=== PATIENT | male | born 1945 | race Caucasian/White ===

== ENCOUNTER → 2017-07-03 10:54 | Outpatient (CLI) | payer MEDICARE, SELFPAY ==
[2017-07-03 12:52] LABS: Anion Gap 6 (5-15); BUN 13 mg/dL (7-18); BUN/Creat Ratio 12.6 RATIO (10-20); Calcium,Total 8.7 mg/dL (8.5-10.1); Chloride 102 mmol/L (98-107); Creatinine, Serum 1.03 mg/dL (0.70-1.30); EST Glomerular Filtration Rate 75 mL/min (>60); Est Glom Filt Rate - Afr Amer 91 mL/min (>60); Glucose 104 mg/dL (74-106); Potassium 3.4 mmol/L (3.5-5.1); Sodium Level 137 mmol/L (136-145)
== END ==
PROVIDERS: Family Provider Family Medicine; PCP Family Medicine; Visit Provider Family Medicine
DX: I10 Essential (primary) hypertension (principal)
CPT/HCPCS: 36415; 80048

== ENCOUNTER → 2017-12-31 09:48 | Outpatient (CLI) | payer MEDICARE, SELFPAY ==
[2017-12-31 12:16] LABS: Anion Gap 9 (5-15); BUN 14 mg/dL (7-18); BUN/Creat Ratio 13.3 RATIO (10-20); Calcium,Total 8.8 mg/dL (8.5-10.1); Chloride 105 mmol/L (98-107); Cholesterol 155 mg/dL (200); Creatinine, Serum 1.05 mg/dL (0.70-1.30); EST Glomerular Filtration Rate 74 mL/min (>60); Est Glom Filt Rate - Afr Amer 89 mL/min (>60); Glucose 113 mg/dL (74-106); High Density Lipoprotein 32 mg/dL; Potassium 3.9 mmol/L (3.5-5.1); Sodium Level 141 mmol/L (136-145); Triglycerides 229 mg/dL; Very Low Density Lipoprotein 46 mg/dL (5-40)
== END ==
PROVIDERS: Family Provider Family Medicine; PCP Family Medicine; Visit Provider Family Medicine
DX: I10 Essential (primary) hypertension (principal)
CPT/HCPCS: 36415; 80048; 80061

== ENCOUNTER 2018-03-19 07:52 | Day surgery (SDC) | payer MEDICARE, SELFPAY ==
[2018-03-19 08:13] VITALS: BP 144/74; PULSE 60; RESP 16; TEMP 36.1; O2SAT 94; BMI 45.3
--- NOTE | 2018-03-19 09:00 | COLBX_PTH ---
PATIENT: XOCHITL MONTERROSO LOC: EN U#:[id number] AGE/SX: 73/M ROOM: RE03/19/[address]: Dr. Gordon Mckay MD : 1945 BED: DIS: 03/19/2018 SPEC #: [id number] RECD: 03/19/18 10:10 STATUS: AC VANGIE #: [id number] ELIEL: 03/19/18 09:[address]: Gordon Mckay DEPT: SURGICAL PATHOLOGY RECD BY: Carlos Escobedo ENTERED: 03/19/18 11:35 SP TYPE: COLON BX OTHR DR: Dr. Nolan Salas MD Tissues: A - Descending colon B - Sigmoid colon biopsy Procedures: Surgery Specimen Level IV HEADER OPERATION: Colonoscopy PRE-OP DIAGNOSIS: History of colon polyps TISSUE SUBMITTED: A - Descending colon polyp biopsy, B - Proximal sigmoid colon polyp biopsy MICROSCOPIC DIAGNOSIS A. Descending colon polyp, biopsy: Fragments of hyperplastic polyp. B. Proximal sigmoid colon polyp, biopsy: Tubular adenoma. AM:henry 03/22/18 MICROSCOPIC DESCRIPTION Slides are reviewed. GROSS DESCRIPTION A. Received is one container labeled with the patient name and designated descending colon polyp biopsy. The specimen consists of multiple irregular fragments of light shelton soft tissue that in aggregate measure 1 x 0.5 x 0.1 cm. The specimen is totally submitted in one cassette. B. Received is one container labeled with the patient name and designated proximal sigmoid colon biopsy. The specimen consists of two irregular fragments of light shelton soft tissue that in aggregate measure 0.6 x 0.3 x 0.1 cm. The specimen is totally submitted in one cassette. / ANNY:henry 03/19/18 TC: 5 CPT: 82938 x2
[2018-03-19 09:44] VITALS: BP 130/98; BP 144/74; PULSE 65; RESP 16; TEMP 37; O2SAT 93
--- NOTE | 2018-03-19 09:48 | OP.ENDO_ITS ---
Patient Name: Arjun Guerra Procedure Date: 03/19/2018 9:13 AM Date of : 1945 Age: 73 Procedure: Colonoscopy Indications: High risk colon cancer surveillance: Personal history of colonic polyps Providers: Gordon Mckay MD Referring MD: Gordon Mckay MD Medicines: See the Anesthesia note for documentation of the administered medications Patient Profile: Last Colonoscopy: January 2017. Complications: No immediate complications. Procedure: Pre-Anesthesia Assessment: - Prior to the procedure, a History and Physical was performed, and patient medications and allergies were reviewed. The patient's tolerance of previous anesthesia was also reviewed. The risks and benefits of the procedure and the sedation options and risks were discussed with the patient. All questions were answered, and informed consent was obtained. Prior Anticoagulants: The patient has taken aspirin, last dose was day of procedure. ASA Grade Assessment: III - A patient with severe systemic disease. After reviewing the risks and benefits, the patient was deemed in satisfactory condition to undergo the procedure. After I obtained informed consent, the scope was passed under direct vision. Throughout the procedure, the patient's blood pressure, pulse, and oxygen saturations were monitored continuously. The colonoscope was introduced through the anus and advanced to the cecum, identified by appendiceal orifice and ileocecal valve. The colonoscopy was performed without difficulty. The patient tolerated the procedure well. The quality of the bowel preparation was adequate to identify polyps 6 mm and larger in size. The ileocecal valve was photographed. Scope In: 9:25:06 AM Scope Withdrawal Time 0 hours 12 minutes 49 seconds Scope Out: 9:40:28 AM Total Procedure Duration Time 0 hours 15 minutes 22 seconds Findings: The digital rectal exam findings include non-thrombosed external hemorrhoids, non-thrombosed internal hemorrhoids, internal hemorrhoids that prolapse with straining, but spontaneously regress to the resting position (Grade II) and enlarged prostate. Multiple diverticula were found in the entire colon. A 8 mm polyp was found in the proximal descending colon. The polyp was sessile. The polyp was removed with a cold biopsy forceps. Resection and retrieval were complete. A 4 mm polyp was found in the proximal sigmoid colon. The polyp was sessile. The polyp was removed with a cold biopsy forceps. Resection and retrieval were complete. Impression: - Non-thrombosed external hemorrhoids, non-thrombosed internal hemorrhoids, internal hemorrhoids that prolapse with straining, but spontaneously regress to the resting position (Grade II) and enlarged prostate found on digital rectal exam. - Diverticulosis in the entire examined colon. - One 8 mm polyp in the proximal descending colon, removed with a cold biopsy forceps. Resected and retrieved. - One 4 mm polyp in the proximal sigmoid colon, removed with a cold biopsy forceps. Resected and retrieved. Recommendation: - Repeat colonoscopy in 3 years for surveillance. - Telephone my office for pathology results in 1 week. - Resume previous diet. - Continue present medications. Procedure Code(s): --- Professional --- 08288, Colonoscopy, flexible; with biopsy, single or multiple Diagnosis Code(s): --- Professional --- Z86.010, Personal history of colonic polyps K64.1, Second degree hemorrhoids K64.4, Residual hemorrhoidal skin tags D12.4, Benign neoplasm of descending colon D12.5, Benign neoplasm of sigmoid colon N40.0, Benign prostatic hyperplasia without lower urinary tract symptoms K57.30, Diverticulosis of large intestine without perforation or abscess without bleeding CPT copyright 2017 [employer]. All rights reserved. The codes documented in this report are preliminary and upon customer service consultant review may be revised to meet current compliance requirements. Gordon Mckay MD 03/19/2018 9:47:51 AM This report has been signed electronically. Number of Addenda: 0 Note Initiated On: 03/19/2018 9:13 AM
[2018-03-19 09:50] VITALS: BP 129/85; BP 144/74; PULSE 65; RESP 16; O2SAT 92
[2018-03-19 09:55] VITALS: BP 135/70; BP 144/74; PULSE 60; RESP 16; O2SAT 92
[2018-03-19 10:00] VITALS: BP 133/73; BP 144/74; PULSE 58; RESP 16; TEMP 36.9; O2SAT 93
[2018-03-19 10:26] VITALS: BP 144/74
== END 2018-03-19 10:27 | disposition home or self-care (01) ==
LOC: EN 07:52 → AC 08:58
PROVIDERS: Family Provider Family Medicine; PCP Family Medicine; Referring Provider Surgery; Visit Provider Surgery
PROC: 0DJD8ZZ Inspection of Lower Intestinal Tract, Via Natural or Artificial Opening Endoscopic (ICD-10-PCS; CPT 45378; principal; 2018-03-19 08:55)
DX: Z12.11 Encounter for screening for malignant neoplasm of colon (principal); D12.5 Benign neoplasm of sigmoid colon; K63.5 Polyp of colon; K64.1 Second degree hemorrhoids; K57.30 Diverticulosis of large intestine without perforation or abscess without bleeding; N40.0 Benign prostatic hyperplasia without lower urinary tract symptoms; Z86.010 Personal history of colon polyps; I25.10 Atherosclerotic heart disease of native coronary artery without angina pectoris; I10 Essential (primary) hypertension; E78.5 Hyperlipidemia, unspecified; I65.29 Occlusion and stenosis of unspecified carotid artery; J45.909 Unspecified asthma, uncomplicated; G47.30 Sleep apnea, unspecified; E66.01 Morbid (severe) obesity due to excess calories; Z68.42 Body mass index [BMI] 45.0-49.9, adult; Z86.718 Personal history of other venous thrombosis and embolism; Z79.82 Long term (current) use of aspirin; Z79.51 Long term (current) use of inhaled steroids; Z79.899 Other long term (current) drug therapy
CPT/HCPCS: 45380; 88305; J7120

== ENCOUNTER → 2018-07-01 09:41 | Outpatient (CLI) | payer MEDICARE, SELFPAY ==
[2018-07-01 12:52] LABS: AST(SGOT) 40 U/L (15-37); Alanine Aminotransfer ALT/SGPT 52 U/L (16-61); Albumin, Serum 3.4 g/dL (3.2-5.0); Alkaline Phosphatase 60 U/L (45-117); Anion Gap 10 (5-15); BUN 15 mg/dL (7-18); BUN/Creat Ratio 13.6 RATIO (10-20); Calcium,Total 8.5 mg/dL (8.5-10.1); Chloride 107 mmol/L (98-107); Cholesterol 151 mg/dL (200); EST Glomerular Filtration Rate 70 mL/min (>60); Est Glom Filt Rate - Afr Amer 84 mL/min (>60); Globulin 3.4 g/dL (2.2-4.2); Glucose 114 mg/dL (74-106); High Density Lipoprotein 33 mg/dL; PSA,Total - Annual Screen 3.35 ng/mL (0.00-4.00); Potassium 3.7 mmol/L (3.5-5.1); Protein, Total 6.8 g/dL (6.4-8.2); Sodium Level 143 mmol/L (136-145); Triglycerides 162 mg/dL; Very Low Density Lipoprotein 32 mg/dL (5-40)
== END ==
PROVIDERS: Family Provider Family Medicine; PCP Family Medicine; Referring Provider Family Medicine; Visit Provider Family Medicine
DX: E78.5 Hyperlipidemia, unspecified (principal); I10 Essential (primary) hypertension; Z12.5 Encounter for screening for malignant neoplasm of prostate
CPT/HCPCS: 36415; 80053; 80061; 84153; G0103

== ENCOUNTER → 2018-09-30 | Outpatient (CLI) | payer MEDICARE, SELFPAY ==
[2018-09-30 10:26] VITALS: BMI 46.8
[2018-09-30 12:15] LABS: Anion Gap 4 (5-15); BUN 15 mg/dL (7-18); BUN/Creat Ratio 12.9 RATIO (10-20); Calcium,Total 8.9 mg/dL (8.5-10.1); Chloride 107 mmol/L (98-107); Creatinine, Serum 1.16 mg/dL (0.70-1.30); EST Glomerular Filtration Rate 66 mL/min (>60); Est Glom Filt Rate - Afr Amer 79 mL/min (>60); Glucose 118 mg/dL (74-106); Potassium 3.6 mmol/L (3.5-5.1); Sodium Level 139 mmol/L (136-145)
[2018-09-30 12:20] LABS: BNP,B-Type NATRIURETIC PEPTIDE 16.5 pg/mL (0-100)
== END | disposition home or self-care (01) ==
PROVIDERS: Family Provider Family Medicine; PCP Family Medicine; Referring Provider Internal Medicine Cardiovascular Disease; Visit Provider Internal Medicine Cardiovascular Disease
DX: R06.02 Shortness of breath (principal)
CPT/HCPCS: 36415; 80048; 83880

== ENCOUNTER → 2018-10-21 | Outpatient (CLI) | payer MEDICARE, SELFPAY ==
[2018-09-30 10:26] VITALS: BMI 46.8
--- NOTE | 2018-10-21 12:47 | ECHOCS_ITS ---
Reason For Study: DYSPNEA Procedure This was a 2D Doppler, Color Flow transthoracic echocardiogram. The study was technically difficult. Contrast injection was performed. Exam performed in department. Left Ventricle Normal LV size. Left ventricular systolic function is normal. The estimated ejection fraction is 65 %. Stage 1 diastolic dysfunction. No regional wall motion abnormalities noted. Right Ventricle Normal RV size. Normal systolic function. Atria Normal left atrium. Normal right atrium. Mitral Valve Normal mitral valve. Tricuspid Valve Normal tricuspid valve. Aortic Valve The aortic valve is not well visualized. Pulmonic Valve The pulmonic valve is not well visualized. Great Vessels Normal aortic root. The pulmonary artery is normal size. Normal inferior vena cava. Pericardium/Pleural No pericardial effusion. Medication 22 gauge I.V. with prn adaptor inserted into right arm. Diluted definity 7ml given slow IV push to enhance endocardial definition. MMode/2D Measurements & Calculations LVIDd: 5.1 cm IVSd: 1.1 cm Ao root diam: 3.9 cm LVIDs: 2.7 cm LVPWd: 1.1 cm RVDd: 4.7 cm FS: 47.0 % LAV(MOD-sp4): 125.5 ml LVAd ap4: 37.3 cm2 SV(MOD-sp4): 82.7 ml EDV(MOD-sp4): 136.3 ml EDV(sp4-el): 140.7 ml LVAs ap4: 21.0 cm2 ESV(MOD-sp4): 53.6 ml ESV(sp4-el): 56.3 ml EF(MOD-sp4): 60.7 % EF(sp4-el): 60.0 % SV(sp4-el): 84.4 ml LA A4 area: 33.7 cm2 LA dimension(2D): 4.3 cm Time Measurements MV dec time: 0.25 sec Doppler Measurements & Calculations MV E max grover: 60.9 cm/sec Lat Peak E' Grover: 5.7 cm/sec Med Peak E' Grover: 4.3 cm/sec MV A max grover: 80.9 cm/sec E/E' lat: 10.6 E/E' med: 14.3 MV E/A: 0.75 Ao V2 max: 131.5 cm/sec LV V1 max: 90.5 cm/sec PA V2 max: 69.2 cm/sec Ao max P.9 mmHg LV V1 max P.3 mmHg TR max grover: 196.9 cm/sec TR max P.8 mmHg Interpretation Summary Normal LV size. Left ventricular systolic function is normal. The estimated ejection fraction is 65 %. Stage 1 diastolic dysfunction. Contrast injection was performed. Ordering Physician: Jesse Valadez Referring Physician: RICO NGUYEN Performed By: Nanette Tapia, TIGRE, RVT
== END | disposition home or self-care (01) ==
LOC: CVS 12:46
PROVIDERS: Family Provider Family Medicine; PCP Family Medicine; Referring Provider Internal Medicine Cardiovascular Disease; Visit Provider Internal Medicine Cardiovascular Disease
DX: R06.02 Shortness of breath (principal)
CPT/HCPCS: 93306; Q9957; A4216; C8929

== ENCOUNTER → 2018-12-28 | Outpatient (CLI) | payer MEDICARE, SELFPAY ==
[2018-12-27 10:33] VITALS: BMI 46.3
[2018-12-28 14:29] LABS: Anion Gap 3 (5-15); BUN 15 mg/dL (7-18); Calcium,Total 8.8 mg/dL (8.5-10.1); Chloride 108 mmol/L (98-107); Cholesterol 151 mg/dL (200); Creatinine, Serum 1.07 mg/dL (0.70-1.30); EST Glomerular Filtration Rate 72 mL/min (>60); Est Glom Filt Rate - Afr Amer 87 mL/min (>60); Glucose 105 mg/dL (74-106); High Density Lipoprotein 32 mg/dL; PSA,Total - Annual Screen 3.12 ng/mL (0.00-4.00); Potassium 3.9 mmol/L (3.5-5.1); Sodium Level 141 mmol/L (136-145); Triglycerides 255 mg/dL; Very Low Density Lipoprotein 51 mg/dL (5-40)
== END | disposition home or self-care (01) ==
LOC: MFPLAB 12:18
PROVIDERS: Family Provider Family Medicine; PCP Family Medicine; Referring Provider Family Medicine; Visit Provider Family Medicine
DX: Z00.00 Encounter for general adult medical examination without abnormal findings (principal); I10 Essential (primary) hypertension; Z12.5 Encounter for screening for malignant neoplasm of prostate
CPT/HCPCS: 36415; 80048; 80061; 84153; G0103

== ENCOUNTER → 2019-05-05 09:56 | Outpatient (CLI) | payer MEDICARE, SELFPAY ==
[2018-12-27 10:33] VITALS: BMI 46.3
[2019-05-05 13:29] LABS: ALB/GLOB Ratio 0.8 RATIO (0.9-2.4); AST(SGOT) 34 U/L (15-37); Alanine Aminotransfer ALT/SGPT 42 U/L (16-61); Albumin, Serum 3.2 g/dL (3.2-5.0); Alkaline Phosphatase 59 U/L (45-117); Anion Gap 8 (5-15); BUN 14 mg/dL (7-18); BUN/Creat Ratio 12.3 RATIO (10-20); Calcium,Total 8.5 mg/dL (8.5-10.1); Chloride 106 mmol/L (98-107); Cholesterol 161 mg/dL (200); Creatinine, Serum 1.14 mg/dL (0.70-1.30); EST Glomerular Filtration Rate 67 mL/min (>60); Est Glom Filt Rate - Afr Amer 81 mL/min (>60); Globulin 4.1 g/dL (2.2-4.2); Glucose 119 mg/dL (74-106); High Density Lipoprotein 39 mg/dL; Protein, Total 7.3 g/dL (6.4-8.2); Sodium Level 141 mmol/L (136-145); Thyroid Stim Hormone (TSH) 1.48 uIU/mL (0.358-3.74); Triglycerides 157 mg/dL; Very Low Density Lipoprotein 31 mg/dL (5-40)
== END ==
PROVIDERS: Family Provider Family Medicine; PCP Family Medicine; Visit Provider Family Medicine
DX: Z00.00 Encounter for general adult medical examination without abnormal findings (principal); E78.5 Hyperlipidemia, unspecified
CPT/HCPCS: 36415; 80053; 80061; 84443

== ENCOUNTER → 2019-11-03 12:04 | Outpatient (CLI) | payer MEDICARE, SELFPAY ==
[2019-07-21 10:12] VITALS: BMI 45.9
[2019-11-03 15:35] LABS: Anion Gap 5 (5-15); BUN 14 mg/dL (7-18); BUN/Creat Ratio 11.8 RATIO (10-20); Calcium,Total 8.7 mg/dL (8.5-10.1); Chloride 104 mmol/L (98-107); Cholesterol 153 mg/dL (200); Creatinine, Serum 1.19 mg/dL (0.70-1.30); EST Glomerular Filtration Rate 63 mL/min (>60); Est Glom Filt Rate - Afr Amer 77 mL/min (>60); Glucose 113 mg/dL (74-106); High Density Lipoprotein 32 mg/dL; Potassium 4.2 mmol/L (3.5-5.1); Sodium Level 139 mmol/L (136-145); Triglycerides 249 mg/dL; Very Low Density Lipoprotein 50 mg/dL (5-40)
== END ==
PROVIDERS: PCP Family Medicine; Referring Provider Family Medicine; Visit Provider Family Medicine
DX: I10 Essential (primary) hypertension (principal)
CPT/HCPCS: 36415; 80048; 80061

== ENCOUNTER → 2019-12-23 | Outpatient (CLI) | payer MEDICARE, SELFPAY ==
[2019-07-21 10:12] VITALS: BMI 45.9
--- NOTE | 2019-12-23 06:15 | ECHOCS_ITS ---
Reason For Study: Pre-op clearance Procedure This was a 2D Doppler, Color Flow transthoracic echocardiogram. The study was technically difficult. Exam performed in department. Left Ventricle Normal size and thickness. The estimated ejection fraction is 65 %. Stage 1 diastolic dysfunction. No regional wall motion abnormalities noted. Right Ventricle Normal size and thickness. Normal systolic function. Atria Normal left atrium. Normal right atrium. Normal atrial septum. Mitral Valve The mitral valve is structurally normal. No prolapse or stenosis seen. Tricuspid Valve Normal tricuspid valve. Unable to estimate RV systolic pressure due to insufficient tricuspid regurgitant envelope. Aortic Valve Normal aortic valve. Trisinus/trileaflet aortic valve. Pulmonic Valve Normal pulmonic valve. Great Vessels Normal aortic root. Normal arch. Normal inferior vena cava. Inferior vena cava collapse with sniff. Pericardium/Pleural No pericardial effusion. Medication Diluted definity 2.5ml given slow IV push to enhance endocardial definition. MMode/2D Measurements & Calculations LVIDd: 4.9 cm IVSd: 1.2 cm Ao root diam: 3.7 cm LVIDs: 3.2 cm LVPWd: 1.3 cm FS: 34.4 % LA dimension(2D): 3.7 cm Doppler Measurements & Calculations MV E max grover: 67.2 cm/sec Lat Peak E' Grover: 6.2 cm/sec Med Peak E' Grover: 6.7 cm/sec MV A max grover: 85.3 cm/sec E/E' lat: 10.8 E/E' med: 10.1 MV E/A: 0.79 Ao V2 max: 144.0 cm/sec LV V1 max: 110.8 cm/sec PA V2 max: 139.5 cm/sec Ao max P.3 mmHg LV V1 max P.9 mmHg Interpretation Summary The estimated ejection fraction is 65 %. Stage 1 diastolic dysfunction. Unable to estimate RV systolic pressure due to insufficient tricuspid regurgitant envelope. Compared to echo results report dated 10/21/2018, no appreciable changes noted. The study was technically difficult. Contrast injection was performed. Ordering Physician: CONCHIS ARENAS Referring Physician: Nolan Salas Performed By: Chika Duff RDCS
--- NOTE | 2019-12-23 15:54 | STRESSREP_ITS ---
Stress Test Report Pharmacologic myocardial perfusion stress test. 74-year-old man with a history of coronary artery disease and hyperlipidemia. Stress protocol: Resting KG demonstrates sinus bradycardia with a rate of 54 bpm normal intervals are noted. Resting blood pressure is 152/82 mmHg. 0.4 mg of regadenoson was infused per usual protocol followed by rapid intravenous saline flush injection continuous EKG monitoring is performed. The maximum heart rate attained was 72 bpm. At rest there were no ST or T wave changes noted to suggest abnormal flow reserve at peak infusion nonspecific ST-T wave changes were noted. No clinical angina was noted. The final blood pressure was 146/76 mmHg. Myocardial perfusion protocol. 14.7 mCi of technetium 99m sestamibi was injected at rest. 0.4 mg of regadenoson was infused per usual protocol. At peak infusion 44.8 mCi of technetium 99m sestamibi was injected stress images were obtained stress and re st images were reconstructed in comparing the short axis vertical long horizontal long axis. Gated images were also obtained per Perfusion SPECT analysis: Review of the stress images demonstrate normal uptake of tracer noted in all areas of the myocardium the resting images similar demonstrate normal uptake of tracer noted in all areas of the myocardium. No areas of reversibility are noted suggest ischemia no previous infarct is noted. Gated SPECT analysis: The gated ejection fraction is noted to be 63%. Conclusion: Normal pharmacologic myocardial perfusion stress test. Preserved ejection fraction.
== END | disposition home or self-care (01) ==
PROVIDERS: PCP Family Medicine
DX: Z01.810 Encounter for preprocedural cardiovascular examination (principal); I11.9 Hypertensive heart disease without heart failure
CPT/HCPCS: 78452; 93017; 93306; 94799; A9500; Q9957; A4216; C8929; J2785

== ENCOUNTER → 2019-12-26 | Outpatient (CLI) | payer MEDICARE, SELFPAY ==
[2019-07-21 10:12] VITALS: BMI 45.9
[2019-12-26 15:55] LABS: Anion Gap 3 (5-15); BUN 14 mg/dL (7-18); BUN/Creat Ratio 12.6 RATIO (10-20); Calcium,Total 8.5 mg/dL (8.5-10.1); Chloride 107 mmol/L (98-107); Cholesterol 159 mg/dL (200); Creatinine, Serum 1.11 mg/dL (0.70-1.30); EST Glomerular Filtration Rate 69 mL/min (>60); Est Glom Filt Rate - Afr Amer 83 mL/min (>60); Glucose 114 mg/dL (74-106); High Density Lipoprotein 34 mg/dL; Sodium Level 139 mmol/L (136-145); Triglycerides 174 mg/dL; Very Low Density Lipoprotein 35 mg/dL (5-40)
== END | disposition home or self-care (01) ==
LOC: MFPLAB 11:22
PROVIDERS: PCP Family Medicine; Referring Provider Family Medicine; Visit Provider Family Medicine
DX: I10 Essential (primary) hypertension (principal)
CPT/HCPCS: 36415; 80048; 80061

== ENCOUNTER → 2020-01-02 | Outpatient (CLI) | payer MEDICARE, SELFPAY ==
[2019-07-21 10:12] VITALS: BMI 45.9
[2020-01-02 16:27] LABS: PSA,Total - Annual Screen 2.59 ng/mL (0.00-4.00)
== END | disposition home or self-care (01) ==
LOC: MFPLAB 11:19
PROVIDERS: PCP Family Medicine; Referring Provider Family Medicine; Visit Provider Family Medicine
DX: Z00.00 Encounter for general adult medical examination without abnormal findings (principal); Z12.5 Encounter for screening for malignant neoplasm of prostate
CPT/HCPCS: 36415; 84153; G0103

== ENCOUNTER → 2020-03-22 13:46 | Outpatient (CLI) | payer MEDICARE, SELFPAY ==
[2020-03-07 11:35] VITALS: BMI 46.2
[2020-03-22 15:31] LABS: Anion Gap 3 (5-15); BUN 20 mg/dL (7-18); BUN/Creat Ratio 15.9 RATIO (10-20); Calcium,Total 8.9 mg/dL (8.5-10.1); Chloride 104 mmol/L (98-107); Creatinine, Serum 1.26 mg/dL (0.70-1.30); EST Glomerular Filtration Rate 59 mL/min (>60); Est Glom Filt Rate - Afr Amer 72 mL/min (>60); Glucose 111 mg/dL (74-106); Potassium 4.3 mmol/L (3.5-5.1); Sodium Level 138 mmol/L (136-145)
== END ==
PROVIDERS: PCP Family Medicine; Referring Provider Physician Assistant Medical; Visit Provider Physician Assistant Medical
DX: I10 Essential (primary) hypertension (principal)
CPT/HCPCS: 36415; 80048

== ENCOUNTER → 2020-05-23 11:05 | Outpatient (CLI) | payer MEDICARE, SELFPAY ==
[2020-03-07 11:35] VITALS: BMI 46.2
[2020-05-23 15:00] LABS: Anion Gap 6 (5-15); BUN 24 mg/dL (7-18); Calcium,Total 8.8 mg/dL (8.5-10.1); Chloride 103 mmol/L (98-107); Cholesterol 164 mg/dL (200); EST Glomerular Filtration Rate 49 mL/min (>60); Est Glom Filt Rate - Afr Amer 59 mL/min (>60); Glucose 140 mg/dL (74-106); High Density Lipoprotein 33 mg/dL; Potassium 4.2 mmol/L (3.5-5.1); Sodium Level 135 mmol/L (136-145); Triglycerides 256 mg/dL; Very Low Density Lipoprotein 51 mg/dL (5-40)
== END ==
PROVIDERS: PCP Family Medicine; Referring Provider Family Medicine; Visit Provider Family Medicine
DX: I10 Essential (primary) hypertension (principal)
CPT/HCPCS: 36415; 80048; 80061

== ENCOUNTER → 2020-08-20 09:56 | Outpatient (CLI) | payer MEDICARE, SELFPAY ==
[2020-03-07 11:35] VITALS: BMI 46.2
[2020-08-20 12:36] LABS: Anion Gap 4 (5-15); BUN 16 mg/dL (7-18); BUN/Creat Ratio 12.4 RATIO (10-20); Chloride 105 mmol/L (98-107); Creatinine, Serum 1.29 mg/dL (0.70-1.30); EST Glomerular Filtration Rate 58 mL/min (>60); Est Glom Filt Rate - Afr Amer 70 mL/min (>60); Glucose 148 mg/dL (74-106); Potassium 4.1 mmol/L (3.5-5.1); Sodium Level 136 mmol/L (136-145)
== END ==
PROVIDERS: PCP Family Medicine; Visit Provider Family Medicine
DX: I10 Essential (primary) hypertension (principal)
CPT/HCPCS: 36415; 80048

== ENCOUNTER → 2020-11-19 13:14 | Outpatient (CLI) | payer MEDICARE, SELFPAY ==
[2020-10-09 12:26] VITALS: BMI 48.2
[2020-11-19 16:19] LABS: Hemoglobin A1c 6.1 % (3.8-5.6)
[2020-11-19 16:30] LABS: Anion Gap 5 (5-15); BUN 17 mg/dL (7-18); BUN/Creat Ratio 13.8 RATIO (10-20); Chloride 102 mmol/L (98-107); Cholesterol 179 mg/dL (200); Creatinine, Serum 1.23 mg/dL (0.70-1.30); EST Glomerular Filtration Rate 61 mL/min (>60); Est Glom Filt Rate - Afr Amer 74 mL/min (>60); Glucose 112 mg/dL (74-106); High Density Lipoprotein 42 mg/dL; Potassium 4.6 mmol/L (3.5-5.1); Sodium Level 135 mmol/L (136-145); Triglycerides 238 mg/dL; Very Low Density Lipoprotein 48 mg/dL (5-40)
== END ==
PROVIDERS: PCP Family Medicine; Referring Provider Family Medicine; Visit Provider Family Medicine
DX: I10 Essential (primary) hypertension (principal); E11.9 Type 2 diabetes mellitus without complications
CPT/HCPCS: 36415; 80048; 80061; 83036

== ENCOUNTER 2021-05-16 11:15 | Outpatient (CLI) | payer MEDICARE, SELFPAY ==
[2021-05-16 12:12] LABS: Anion Gap 5 (5-15); BUN 25 mg/dL (7-18); BUN/Creat Ratio 17.9 RATIO (10-20); Calcium,Total 9.2 mg/dL (8.5-10.1); Chloride 106 mmol/L (98-107); Cholesterol 163 mg/dL (200); EST Glomerular Filtration Rate 52 mL/min (>60); Est Glom Filt Rate - Afr Amer 63 mL/min (>60); Glucose 133 mg/dL (74-106); High Density Lipoprotein 38 mg/dL; Potassium 4.4 mmol/L (3.5-5.1); Sodium Level 139 mmol/L (136-145); Triglycerides 218 mg/dL; Very Low Density Lipoprotein 44 mg/dL (5-40)
== END 2021-05-16 23:59 | disposition short-term general hospital (02) ==
PROVIDERS: PCP Family Medicine; Referring Provider Family Medicine; Visit Provider Family Medicine
DX: E11.9 Type 2 diabetes mellitus without complications (principal)
CPT/HCPCS: 36415; 80048; 80061

== ENCOUNTER 2021-07-16 05:19 | Day surgery (SDC) | payer MEDICARE, SELFPAY ==
--- NOTE | 2021-07-16 | COLBX_PTH ---
PATIENT: XOCHITL MONTERROSO LOC: EN U#:[id number] AGE/SX: 76/M ROOM: RE07/16/[address]: Dr. Gordon Mckay MD : 1945 BED: DIS: 07/16/2021 SPEC #: [id number] RECD: 07/16/21 12:18 STATUS: AC REМария #: [id number] ELIEL: 07/16/21 00:[address]: Gordon Mckay DEPT: SURGICAL PATHOLOGY RECD BY: Charles Montes ENTERED: 07/16/21 12:18 SP TYPE: COLON BX OTHR DR: Dr. Nolan Salas MD Tissues: Transverse colon Procedures: Surgery Specimen Level IV HEADER OPERATION: Colonoscopy (MAC) PRE-OP DIAGNOSIS: History of colonic polyps TISSUE SUBMITTED: Mid transverse polyp MICROSCOPIC DIAGNOSIS Mid transverse colon polyp, biopsy: Fragments of tubular adenoma. SJ:marvin 07/17/2021 MICROSCOPIC DESCRIPTION Slides are reviewed. GROSS DESCRIPTION Received in fixative is one container labeled with the patient's name and designated mid transverse polyp. The specimen consists of two irregular fragments of light shelton soft tissue that in aggregate measure 0.6 x 0.3 x 0.1 cm. The specimen is totally submitted in one cassette. / SJ:rg 07/16/2021 TC:1 CPT: 08340
[2021-07-16 05:47] VITALS: BP 154/72; PULSE 62; RESP 18; TEMP 36; O2SAT 97; BMI 46.3
[2021-07-16] MEDS: Lactated Ringers 1,000 ML 15 ML IV (05:53)
--- NOTE | 2021-07-16 06:09 | PCM.HP.BLA ---
History and Physical Date of Admission: 07/16/21 Intake Visit Reasons: COLONOSCOPY Chief Complaint: colonoscopy Sign Shop Supervisor Required: No Is patient in pain?: No Allergies EH Inhibitors Allergy (Severe, Verified 06/25/21 13:50) ANGIOEDEMA niacin Adverse Reaction (Severe, Verified 06/25/21 13:50) Other Nizbinh-DPE-QfS Reductase Inhibitor [Cncpkmm-Wzo-Hyd Reductase Inhibitor] Adverse Reaction (Severe, Verified 06/25/21 13:50) MYALGIAS Medications aspirin 81 mg PO DAILY@0800 02/23/13 [History Confirmed 06/25/21] rosuvastatin 5 mg PO QODAY 02/23/13 [History Confirmed 06/25/21] colesevelam 1,875 mg PO BIDCM 02/04/17 [History Confirmed 06/25/21] fluticasone furoate-vilanterol 1 ea IH DAILY 02/04/17 [History Confirmed 06/25/21] terazosin 1 mg capsule 1 mg PO QHS 06/23/17 [History Confirmed 06/25/21] fluticasone propionate 50 mcg/actuation nasal spray,suspension 2 spray INTRANASAL DAILY 09/30/18 [History Confirmed 06/25/21] zafirlukast 10 mg tablet 20 mg PO ONCE tab 07/21/19 [History Confirmed 06/25/21] metoprolol succinate 100 mg tablet,extended release 24 hr 100 mg PO DAILY #90 tab 10/17/19 [Rx Confirmed 06/25/21] metformin 500 mg tablet 500 mg PO DAILY tab 10/09/20 [History Confirmed 06/25/21] spironolactone 50 mg tablet 50 mg PO DAILY #90 tab 10/09/20 [Rx Confirmed 06/25/21] vitamins A,C,M-lkox-gppovp 14,320 unit-226 mg-200 unit capsule 1 cap PO BID 10/09/20 [History Confirmed 06/25/21] furosemide 40 mg tablet 40 mg PO DAILY #90 tab 12/04/20 [Rx Confirmed 06/25/21] amlodipine 5 mg tablet 5 mg PO DAILY #90 tab 01/23/21 [Rx Confirmed 06/25/21] PFSH Medical History Asthma Bilateral carotid artery stenosis Colon polyps Essential (primary) hypertension History of DVT (deep vein thrombosis) (2011) Hyperlipidemia Morbid obesity Osteoarthritis Sinus bradycardia Sleep apnea Type 2 diabetes mellitus Surgical History History of appendectomy History of cholecystectomy History of detached retina repair History of left heart catheterization (06/09/08) History of left-sided carotid endarterectomy (01/2020) History of right-sided carotid endarterectomy (2011) History of shoulder surgery History of sinus surgery History of umbilical hernia repair Family History Father , age 73 of CVA CVA (cerebral vascular accident) Hypertension Mother , age 84 ruptured AAA Abdominal aortic aneurysm rupture Brother CAD (coronary artery disease) Brother Myocardial infarction CAD (coronary artery disease) H/O carotid endarterectomy Brother Diabetes Sister Hyperlipidemia Hypertension Social History Smoking Status: Never smoker alcohol intake: never caffeine: No HPI HPI HPI: XOCHITL MONTERROSO, is a 76 M who presents to the office today for ongoing surveillance because of a personal history of multiple colon polyps. He had 3 tubular adenomas that were removed for him February 06, 2017. Then his most recent colonoscopy was March 19, 2018. 2 additional polyps were identified at that time. Proximal descending colon and the sigmoid colon at that setting. Unfortunately patient has significant medical comorbidities and is felt to be a high risk surgical patient. It is for this reason that an aggressive endoscopic evaluation is recommended. He has had a right carotid enterectomy in 2011 and left carotid enterectomy January 2020. He is currently followed by Dr. Can for his carotid occlusive disease. He has not had any changes symptoms his bowels. Every colonoscopy that he has had polyps have been removed. He is aware that he would not be a good surgical operative candidate for colectomy secondary to body habitus and pulmonary disease. ROS General General: Yes fatigue; No weight change, appetite, colon cancer, breast cancer or weakness HEENT HEENT: Yes eye surgery; No difficulty swallowing, eye injury, swollen glands or hoarseness Endo Endocrine: No thyroid disease, diabetes mellitus, thyroid cancer, Hair loss, heat intolerance or cold intolerance Musc Musculoskeletal: No back problems, arthritis, rheumatoid arthritis, gout or joint pain Cardio Cardiovascular: Yes high blood pressure; No murmur, pacemaker, heart disease, atrial fibrillation, heart attack, heart stent, palpitations, shortness of breat with exertion or chest pain Psych Psychiatric: No depression, anxiety or hearing voices Resp Respiratory: Yes shortness of breath, Yes sleep apnea, No cough, No COPD, Yes asthma, No emphysema and No wheezing Gastro Gastrointestinal: No abdominal pain, No nausea or vomiting, No diarrhea, No constipation, No blood in stool, No acid reflux, No hemorrhoids, No ulcers, No gallbladder problem and No black,tarry stools Duran Hematologic: No blood thinners, No blood disorders, No bleeding, No anemia and Yes blood clots Neuro Neurologic: No weakness Exam Const General: cooperative, comfortable and no acute distress Nutritional Appearance: obese morbidly obese Chest Other: Increased anterior posterior diameter Resp Effort & Inspection: normal respiratory effort Auscultation: clear to auscultation bilaterally Cardio Rate: regular rate Rhythm: regular rhythm GI Palpation: soft Other: I have not able to detect any internal organs secondary to body habitus Neuro General: patient alert and patient awake Extrem Other: 2+ bilateral lower extremity swelling Psych Appearance: grossly normal Assessment and Plan Assessment and Plan (1) Personal history of colonic polyps: Status: Acute Plan - Dr. Gordon Mckay MD: I have offered the patient a colonoscopy with possible biopsy or polypectomy as indicated. He is aware of the technique, benefit, risk and alternatives. He has had an opportunity to ask and have questions answered. At age 76 with his medical comorbidities this probably will be his final surveillance colonoscopy. He has had polyps however on all of his previous colonoscopies. His most recent colonoscopy was March 2018. Copy: Dr. Nolan Mckay M.D., F.A.C.S. I have re-examined the patient. There are no clinical changes since date of exam.
[2021-07-16 06:50] VITALS: BP 112/43; BP 154/72; PULSE 56; RESP 16; TEMP 36.2; O2SAT 94
--- NOTE | 2021-07-16 06:52 | OP.CCLET_ITS ---
07/16/2021 Nolan Salas MD [address] [place] [address] Re : Colonoscopy procedure for Arjun Guerra Dear Dr. Salas This procedure was performed on Friday, July 16, 2021. My impressions and recommendations are as follows: Impressions : - Non-thrombosed external hemorrhoids, non-thrombosed internal hemorrhoids, internal hemorrhoids that prolapse with straining, but spontaneously regress to the resting position (Grade II) and enlarged prostate found on digital rectal exam. - One 6 mm polyp in the mid transverse colon, removed with a cold snare. Resected and retrieved. - Diverticulosis in the entire examined colon. Recommendations : - Discharge patient to home. - Resume previous diet. - Continue present medications. - Telephone my office for pathology results in 1 week. - Repeat colonoscopy in 5 years for surveillance. My findings are described in the full procedure note, which is enclosed. If I can be of further assistance, please feel free to contact me at Doctor phone number(s): Work: . Sincerely, Gordon Mckay MD 07/16/2021 6:51:44 AM This report has been signed electronically.
--- NOTE | 2021-07-16 06:52 | OP.COLON_ITS ---
Patient Name: Arjun Guerra Procedure Date: 07/16/2021 6:24 AM Date of : 1945 Age: 76 Procedure: Colonoscopy Indications: High risk colon cancer surveillance: Personal history of colonic polyps Providers: Gordon Mckay MD Referring MD: Nolan Salas MD Medicines: See the Anesthesia note for documentation of the administered medications Patient Profile: Last Colonoscopy: March 2018. Complications: No immediate complications. Procedure: Pre-Anesthesia Assessment: - Prior to the procedure, a History and Physical was performed, and patient medications and allergies were reviewed. The patient's tolerance of previous anesthesia was also reviewed. The risks and benefits of the procedure and the sedation options and risks were discussed with the patient. All questions were answered, and informed consent was obtained. Prior Anticoagulants: The patient has taken no previous anticoagulant or antiplatelet agents. ASA Grade Assessment: II - A patient with mild systemic disease. After reviewing the risks and benefits, the patient was deemed in satisfactory condition to undergo the procedure. After I obtained informed consent, the scope was passed under direct vision. Throughout the procedure, the patient's blood pressure, pulse, and oxygen saturations were monitored continuously. The adult colonoscope was introduced through the anus and advanced to the cecum, identified by appendiceal orifice and ileocecal valve. The colonoscopy was performed without difficulty. The patient tolerated the procedure well. The quality of the bowel preparation was good. The ileocecal valve and the appendiceal orifice were photographed. Scope In: 6:34:33 AM Scope Withdrawal Time 0 hours 10 minutes 15 seconds Scope Out: 6:47:13 AM Total Procedure Duration Time 0 hours 12 minutes 40 seconds Findings: The digital rectal exam findings include non-thrombosed external hemorrhoids, non-thrombosed internal hemorrhoids, internal hemorrhoids that prolapse with straining, but spontaneously regress to the resting position (Grade II) and enlarged prostate. A 6 mm polyp was found in the mid transverse colon. The polyp was sessile. The polyp was removed with a cold snare. Resection and retrieval were complete. Multiple diverticula were found in the entire colon. Impression: - Non-thrombosed external hemorrhoids, non-thrombosed internal hemorrhoids, internal hemorrhoids that prolapse with straining, but spontaneously regress to the resting position (Grade II) and enlarged prostate found on digital rectal exam. - One 6 mm polyp in the mid transverse colon, removed with a cold snare. Resected and retrieved. - Diverticulosis in the entire examined colon. Recommendation: - Discharge patient to home. - Resume previous diet. - Continue present medications. - Telephone my office for pathology results in 1 week. - Repeat colonoscopy in 5 years for surveillance. Procedure Code(s): --- Professional --- 81410, Colonoscopy, flexible; with removal of tumor(s), polyp(s), or other lesion(s) by snare technique Diagnosis Code(s): --- Professional --- Z86.010, Personal history of colonic polyps D12.3, Benign neoplasm of transverse colon (hepatic flexure or splenic flexure) K64.1, Second degree hemorrhoids K64.4, Residual hemorrhoidal skin tags N40.0, Benign prostatic hyperplasia without lower urinary tract symptoms K57.30, Diverticulosis of large intestine without perforation or abscess without bleeding CPT copyright 2017 [employer]. All rights reserved. The codes documented in this report are preliminary and upon tooling engineer review may be revised to meet current compliance requirements. Gordon Mckay MD 07/16/2021 6:51:44 AM This report has been signed electronically. Number of Addenda: 0 Note Initiated On: 07/16/2021 6:24 AM
[2021-07-16 06:55] VITALS: BP 154/72; BP 99/56; PULSE 56; RESP 16; O2SAT 94
[2021-07-16 07:00] VITALS: BP 137/64; BP 154/72; PULSE 56; RESP 16; O2SAT 95
[2021-07-16 07:05] VITALS: BP 135/64; BP 154/72; PULSE 58; RESP 16; TEMP 36.4; O2SAT 93
[2021-07-16 07:11] LABS: Bedside Glucose 134 mg/dL (74-106)
[2021-07-16 07:14] VITALS: BP 154/72
== END 2021-07-16 23:59 | disposition home or self-care (01) ==
LOC: EN 05:19 → AC 05:20
PROVIDERS: PCP Family Medicine; Referring Provider Family Medicine; Visit Provider Surgery
PROC: 0DJD8ZZ Inspection of Lower Intestinal Tract, Via Natural or Artificial Opening Endoscopic (ICD-10-PCS; CPT 45378; principal; 2021-07-16 06:25)
DX: Z12.11 Encounter for screening for malignant neoplasm of colon (principal); E66.01 Morbid (severe) obesity due to excess calories; Z68.42 Body mass index [BMI] 45.0-49.9, adult; E11.9 Type 2 diabetes mellitus without complications; D12.3 Benign neoplasm of transverse colon; K64.1 Second degree hemorrhoids; E78.5 Hyperlipidemia, unspecified; K57.30 Diverticulosis of large intestine without perforation or abscess without bleeding; J98.4 Other disorders of lung; Z86.010 Personal history of colon polyps; I65.23 Occlusion and stenosis of bilateral carotid arteries; K64.4 Residual hemorrhoidal skin tags; I10 Essential (primary) hypertension; I44.0 Atrioventricular block, first degree; N40.0 Benign prostatic hyperplasia without lower urinary tract symptoms; M19.90 Unspecified osteoarthritis, unspecified site; Z79.82 Long term (current) use of aspirin; Z79.84 Long term (current) use of oral hypoglycemic drugs; Z79.899 Other long term (current) drug therapy
CPT/HCPCS: 45385; 82962; 88305; J7120; J2405

== ENCOUNTER 2021-09-20 05:37 | Observation (INO) | payer MEDICARE, SELFPAY ==
[2021-09-20] VITALS (11 sets, daily range): BP systolic 124–137; BP diastolic 56–78; PULSE 57–97; RESP 16–59; TEMP 35.8–36.8; O2SAT 94–96; BMI 46.4; BMI 46.3
--- NOTE | 2021-09-20 06:03 | CT_ITS ---
STUDY: CT ABDOMEN AND PELVIS WITH CONTRAST REASON FOR EXAM: Male, 76 years old. Abdominal pain / ? SBO RADIATION DOSAGE (If Supplied By Facility): CTDIvol = ( 17.07 ) mGy, DLP = ( 1451.82 ) mGycm TECHNIQUE: Transaxial images were obtained from the dome of the diaphragm to the symphysis pubis without oral contrast. IV 100mL Isovue-300 was administered. Sagittal and coronal images were reconstructed. Individualized dose optimization techniques were used for this CT. COMPARISON: 05/24/2013 FINDINGS: The visualized lung bases are unremarkable. The visualized portions of the heart are within normal limits. Normal liver. Normal gallbladder and extrahepatic biliary system. Normal spleen. Normal pancreas. Normal bilateral adrenal glands. Normal right kidney. Cystic lesion in the left kidney measuring 3.5 cm and may represent a calyceal dilatation has not significantly changed since the previous study. Normal visualized stomach. There are dilated loops of the small intestine with a transition in the distal ileum and a non-distended colon suggesting small bowel obstruction. There are multiple colonic diverticula consistent with diverticulosis. There are surgical clips in the region of the appendix consistent with a prior appendectomy. Normal abdominal aorta. Normal inferior vena cava. Normal retroperitoneum. Normal urinary bladder. Normal abdominal wall. There are diffuse degenerative changes of the visualized lumbar spine. CT/Abdomen/Pelvis W IV Cont ONLY IMPRESSION: There are dilated loops of the small intestine with a transition in the distal ileum and a non-distended colon suggesting small bowel obstruction. Electronically Signed: Tuan Guardado MD at 7:13 EDT ,
[2021-09-20] MEDS: 0.9% Normal Saline 1,000 ML 999 ML IV (06:08)
[2021-09-20 06:23] LABS: Absolute Lymphocyte Count 1.65 X10^3/uL (0.83-4.51); Basophil# 0.04 X10^3/uL; Basophil% 0.7 % (0-1); Hematocrit 44.6 % (40-54); Hemoglobin 15.1 g/dL (13.0-16.5); Lymphocyte # 1.65 X10^3/ul (0.83-4.51); Lymphocyte % 29.7 % (19-41); Mean Corp Hgb Conc 33.9 g/dL (32-36); Mean Corpuscular Hgb 32.5 pg (27.0-32.0); Mean Corpuscular Volume 96.1 fL (80-94); Monocyte# 0.84 X10^3/uL; Monocyte% 15.1 % (0-10); NRBC Flagged by Analyzer 0 % (0-5); Neutrophil # 2.97 X10^3/uL (2.7-7.7); Neutrophil % 53.4 % (47-70); POSITIVE MORPHOLOGY YES; Platelet Count 147 K/mm3 (150-450); RBC Distribution Width CV 12.7 % (11.6-14.6); RBC Distribution Width SD 45.1 fl (35.1-43.9); Red Blood Count 4.64 M/mm3 (4.6-6.2); White Blood Count 5.6 K/mm3 (4.4-11.0)
[2021-09-20 06:26] LABS: Differential Indicated SCAN CRITERIA MET
--- NOTE | 2021-09-20 06:38 | EX.ED.DYSGE1 ---
HPI History of Present Illness Chief Complaint: Nausea/Vomiting Narrative Narrative: Patient is a 76-year-old male with past medical history of hypertension hyperlipidemia and diabetes. He also has past surgical history of cholecystectomy and appendectomy as well as ventral hernia repair. He states that on Thursday he developed multiple bouts of nausea and vomiting. This progressed to loose stool/diarrhea. He states as the days have passed the symptoms have reduced but is now to the point where he is nauseous without vomiting and he feels like it is difficult for him to even pass gas. He states that his had similar symptoms but hers lasted roughly a day and resolve. He states that as his symptoms have persisted and now it is difficult for him to even pass gas he has concern he could have developed a an intestinal blockage or be severely dehydrated and therefore presents for evaluation [facility] Medical History Asthma Bilateral carotid artery stenosis Cardiology follow-up encounter Colon polyps Essential (primary) hypertension History of DVT (deep vein thrombosis) (2011) History of echocardiogram History of edema History of stress test Hyperlipidemia Morbid obesity Non-smoker Osteoarthritis Seasonal allergies Shortness of breath on exertion Sinus bradycardia Sleep apnea Type 2 diabetes mellitus Home Medications aspirin 81 mg PO DAILY@0800 02/23/13 [History Last Taken 03/16/18] rosuvastatin 5 mg PO QODAY 02/23/13 [History Last Taken Unknown] colesevelam 1,875 mg PO BIDCM 02/04/17 [History Last Taken Unknown] terazosin 1 mg capsule 2 mg PO QHS 06/23/17 [History Last Taken Unknown] fluticasone propionate 50 mcg/actuation nasal spray,suspension 2 spray INTRANASAL DAILY 09/30/18 [History Last Taken Unknown] zafirlukast 10 mg tablet 10 mg PO ONCE tab 07/21/19 [History Last Taken Unknown] metoprolol succinate 100 mg tablet,extended release 24 hr 100 mg PO DAILY #90 tab 10/17/19 [Rx Last Taken 07/16/21 04:30] metformin 500 mg tablet 500 mg PO DAILY tab 10/09/20 [History Last Taken Unknown] spironolactone 50 mg tablet 50 mg PO DAILY #90 tab 10/09/20 [Rx Last Taken Unknown] vitamins A,C,Q-uzlh-ozwwkr 14,320 unit-226 mg-200 unit capsule 1 cap PO BID 10/09/20 [History Last Taken Unknown] furosemide 40 mg tablet 40 mg PO DAILY #90 tab 12/04/20 [Rx Last Taken Unknown] amlodipine 5 mg tablet 5 mg PO DAILY #90 tab 01/23/21 [Rx Last Taken 07/16/21 04:30] albuterol sulfate [ProAir HFA] 1 puff INHALATION Q6H 07/11/21 [History Last Taken Unknown] fluticasone furoate-vilanterol [Breo Ellipta] 1 inh INHALATION DAILY 07/11/21 [History Last Taken Unknown] Allergy/AdvReac Type Severity Reaction Status Date / Time EH Inhibitors Allergy Severe ANGIOEDEMA Verified 09/20/21 05:39 niacin AdvReac Severe Other Verified 09/20/21 05:39 Dhbqkkr-UZC-EtQ Reductase AdvReac Severe MYALGIAS Verified 09/20/21 05:39 Inhibitor [Nspuzmd-Cls-Oni Reductase Inhibitor] Family History Father , age 73 of CVA CVA (cerebral vascular accident) Hypertension Mother , age 84 ruptured AAA Abdominal aortic aneurysm rupture Brother CAD (coronary artery disease) Brother Myocardial infarction CAD (coronary artery disease) H/O carotid endarterectomy Brother Diabetes Sister Hyperlipidemia Hypertension Surgical History History of appendectomy History of cholecystectomy History of detached retina repair History of left heart catheterization (06/09/08) History of left-sided carotid endarterectomy (01/2020) History of right-sided carotid endarterectomy (2011) History of shoulder surgery History of sinus surgery History of umbilical hernia repair Social History Smoking Status: Never smoker alcohol intake: never caffeine: No ROS ROS ED Constitutional Constitutional ED: Denies chills or fever(s) ENT ENT ED: Denies sore throat Cardiovascular Cardiovascular: Denies chest pain Respiratory/Chest Respiratory/Chest: Denies cough or dyspnea Gastrointestinal Gastrointestinal: Reports abdominal pain, diarrhea, nausea and vomiting Genitourinary Genitourinary ED: Denies dysuria Musculoskeletal Musculoskeletal: Denies myalgias Integumentary Denies rash Neurologic Neurologic: Denies headache(s) Hematologic/Lymphatic Hematologic/Lymphatic: Denies easy bleeding or easy bruising EXAM Physical Exam Const Vital Signs: 09/20/21 05:39 Temperature 96.5 F L Temperature Source Oral Respiratory Rate 59 H Blood Pressure 135/71 H Blood Pressure Mean 92 Pulse Ox 96 Oxygen Delivery Method Room Air Positive well nourished and well developed General Appearance ED: well developed HEENT Reports dry mucous membranes Mouth ED: Yes dry mucous membranes Mouth: dry mucous membranes Eyes PERRL and EOMs intact bilaterally General Eye ED: Negative for scleral icterus Neck supple and no JVD Resp normal respiratory effort and clear to auscultation bilaterally Cardio regular rate and regular rhythm Rate: other Other Details: Radial pulses are +2-4 bilaterally are equal and symmetric GI GI Narrative: Abdomen is obese and distended with hypoactive bowel sounds. There is increased tympany present in the left upper quadrant. Otherwise no voluntary guarding or rigidity no pulsatile mass or fluid wave Extremity normal to inspection Neuro oriented x3 and CN's II-XII intact bilaterally Sensorium / Orientation: alert Motor Exam: strength 5/5 throughout Psych mental status grossly normal Skin no rashes or lesions noted Skin Narrative: Skin turgor is increased General Skin Exam: Negative for jaundice MDM MDM MDM Narrative Medical decision making narrative: Patient presented to the ER with stable vitals but his abdomen appeared distended with increased tympany concerning for ileus versus obstruction. Secondary to his report of vomiting and diarrhea prior to the possible blockage beginning I did elect to perform basic laboratory studies. Labs revealed no clinically significant findings. I feel that if the CT scan does not reveal any type of obstructive process that patient should be safe for discharge home. Patient will be signed out to Dr. Chavis pending the official CT result. Lab Data Attestation: I reviewed the patient's lab results. Labs: Laboratory Results - last 24 hr 09/20/21 09/20/21 09/20/21 05:45 05:45 06:10 WBC 5.6 RBC 4.64 Hgb 15.1 Hct 44.6 MCV 96.1 H MCH 32.5 H MCHC 33.9 RDW Std Deviation 45.1 H RDW Coeff of Angel 12.7 Plt Count 147 L MPV 10.0 Immature Gran % (Auto) 1.100 H Neut % (Auto) 53.4 Lymph % (Auto) 29.7 Clarke % (Auto) 15.1 H Eos % (Auto) 0.0 Baso % (Auto) 0.7 Absolute Neuts (auto) 3.0 Absolute Lymphs (auto) 1.65 Nucleated RBC % 0 Differential Comment SCANNED Sodium 133 L Potassium 3.7 Chloride 99 Carbon Dioxide 28.0 Anion Gap 6 BUN 17 Creatinine 1.21 Estim Creat Clear Calc 50.25 Est GFR (MDRD) Af Amer 75 Est GFR (MDRD) Non-Af 62 BUN/Creatinine Ratio 14.0 Glucose 134 H Lactic Acid 1.2 Calcium 8.9 Magnesium 2.0 Total Bilirubin 0.60 Direct Bilirubin 0.17 AST 36 ALT 53 Alkaline Phosphatase 49 Total Protein 6.7 Albumin 2.7 L Globulin 4.0 Lipase 66 L Discharge Plan Triage Chief Complaint: Nausea/Vomiting ED Provider: Sergio Bojorquez Dx/Rx/DC Orders Prescriptions: No Action terazosin 1 mg capsule 2 mg PO QHS RF: 0 fluticasone propionate 50 mcg/actuation spray,suspension 2 spray INTRANASAL DAILY RF: 0 zafirlukast 10 mg tablet 10 mg PO ONCE RF: 0 metformin 500 mg tablet 500 mg PO DAILY RF: 0 PreserVision AREDS 14,320-226-200 xrzs-pl-fpiv capsule 1 cap PO BID RF: 0 spironolactone 50 mg tablet 50 mg PO DAILY Qty: 90 RF: 3 rosuvastatin 5 MG tablet 5 mg PO QODAY RF: 0 aspirin 81 MG tablet 81 mg PO DAILY@0800 RF: 0 colesevelam 625 MG tablet 1,875 mg PO BIDCM RF: 0 albuterol sulfate [ProAir HFA] 90 mcg/actuation Hfa Aerosol Inhaler 1 puff INHALATION Q6H RF: 0 Breo Ellipta 200-25 mcg/dose Blister With Device 1 inh INHALATION DAILY RF: 0 metoprolol succinate 100 mg tablet extended release 24 hr 100 mg PO DAILY Qty: 90 RF: 3 furosemide [Lasix] 40 mg tablet 40 mg PO DAILY Qty: 90 RF: 6 amlodipine 5 mg tablet 5 mg PO DAILY Qty: 90 RF: 6 Primary Care Provider: Nolan Salas
[2021-09-20 06:41] LABS: AST(SGOT) 36 U/L (15-37); Alanine Aminotransfer ALT/SGPT 53 U/L (16-61); Albumin, Serum 2.7 g/dL (3.2-5.0); Alkaline Phosphatase 49 U/L (45-117); Anion Gap 6 (5-15); BUN 17 mg/dL (7-18); Bilirubin, Direct 0.17 mg/dL (0.00-0.30); Calcium,Total 8.9 mg/dL (8.5-10.1); Chloride 99 mmol/L (98-107); Creatinine, Serum 1.21 mg/dL (0.70-1.30); EST Glomerular Filtration Rate 62 mL/min (>60); Est Glom Filt Rate - Afr Amer 75 mL/min (>60); Estimated Creatinine Clearance 50.25 ml/min; Glucose 134 mg/dL (74-106); Lipase 66 U/L (73-393); Potassium 3.7 mmol/L (3.5-5.1); Protein, Total 6.7 g/dL (6.4-8.2); Sodium Level 133 mmol/L (136-145)
[2021-09-20] MEDS: Ondansetron 4 MG/2 ML Vial IV (06:41)
[2021-09-20 06:47] LABS: Lactic Acid 1.2 mmol/L (0.4-1.9)
[2021-09-20 06:49] LABS: Differential Comment SCANNED
--- NOTE | 2021-09-20 07:24 | RAD_ITS ---
STUDY: X-RAY - ABDOMEN/PELVIS REASON FOR EXAM: Male, 76 years old. NG Insertion TECHNIQUE: Single AP view of the abdomen / pelvis. COMPARISON: None. FINDINGS: The tip of the nasogastric tube is in the body of the stomach. RAD/Abdomen Single View (Portable) IMPRESSION: The tip of the nasogastric tube is in the body of the stomach. Electronically Signed: Philippe Galeana MD at 8:50 EDT ,
--- NOTE | 2021-09-20 07:58 | PCM.HP.STD ---
HPI - General General Date of Admission: 09/20/21 Date of Service: 09/20/21 Chief Complaint: Abdominal discomfort, distention?2 days HPI Narrative XOCHITL MONTERROSO, is a 76 M who presents with the above. Patient stated that 5 days ago, he and his had a gastrointestinal infection which they thought was a viral bug. He had diarrhea for 4 days. Since a day before admission, he has not had any bowel movement. The last time he passed gas was the night prior to admission. Patient had abdominal cramps ongoing for about 4 days. This morning, he felt that his abdomen was getting distended and uncomfortable. He denied any fever or chills or nausea or vomiting. Denied any chest pain or dizziness or palpitation. In the ED, his blood pressure was 127/78, heart rate 67, RR 16, temperature 97.8 F, Spo2 95%. Admitting labs was WBC 5.6, Hb 15.1, Plt 147, Na 133, K 3.7, Cl 99, HCO3 28, BUN 17, Cr 1.21, Lactic acid 1.2. CT abd/pelvis showed dilated loops of the small intestine with a transition in the distal ileum and a non-distended colon suggesting small bowel obstruction. [facility] Medical History Asthma Bilateral carotid artery stenosis Cardiology follow-up encounter Colon polyps Essential (primary) hypertension History of DVT (deep vein thrombosis) (2011) History of echocardiogram History of edema History of stress test Hyperlipidemia Morbid obesity Non-smoker Osteoarthritis Seasonal allergies Shortness of breath on exertion Sinus bradycardia Sleep apnea Type 2 diabetes mellitus Home Medications aspirin 81 mg PO DAILY@0800 02/23/13 [History Last Taken 03/16/18] rosuvastatin 5 mg PO QODAY 02/23/13 [History Last Taken Unknown] colesevelam 1,875 mg PO BIDCM 02/04/17 [History Last Taken Unknown] terazosin 1 mg capsule 2 mg PO QHS 06/23/17 [History Last Taken Unknown] fluticasone propionate 50 mcg/actuation nasal spray,suspension 2 spray INTRANASAL DAILY 09/30/18 [History Last Taken Unknown] zafirlukast 10 mg tablet 10 mg PO ONCE tab 07/21/19 [History Last Taken Unknown] metoprolol succinate 100 mg tablet,extended release 24 hr 100 mg PO DAILY #90 tab 10/17/19 [Rx Last Taken 07/16/21 04:30] metformin 500 mg tablet 500 mg PO DAILY tab 10/09/20 [History Last Taken Unknown] spironolactone 50 mg tablet 50 mg PO DAILY #90 tab 10/09/20 [Rx Last Taken Unknown] vitamins A,C,Q-gthv-ucnaxs 14,320 unit-226 mg-200 unit capsule 1 cap PO BID 10/09/20 [History Last Taken Unknown] furosemide 40 mg tablet 40 mg PO DAILY #90 tab 12/04/20 [Rx Last Taken Unknown] amlodipine 5 mg tablet 5 mg PO DAILY #90 tab 01/23/21 [Rx Last Taken 07/16/21 04:30] albuterol sulfate [ProAir HFA] 1 puff INHALATION Q6H 07/11/21 [History Last Taken Unknown] fluticasone furoate-vilanterol [Breo Ellipta] 1 inh INHALATION DAILY 07/11/21 [History Last Taken Unknown] Allergy/AdvReac Type Severity Reaction Status Date / Time EH Inhibitors Allergy Severe ANGIOEDEMA Verified 09/20/21 05:39 niacin AdvReac Severe SKIN RED Verified 09/20/21 09:15 AND BURNING, SEVERE FLUSHING Dcbsbdz-DLO-RfX Reductase AdvReac Severe MYALGIAS Verified 09/20/21 05:39 Inhibitor [Wnafcoq-Der-Iye Reductase Inhibitor] Family History Father , age 73 of CVA CVA (cerebral vascular accident) Hypertension Mother , age 84 ruptured AAA Abdominal aortic aneurysm rupture Brother CAD (coronary artery disease) Brother Myocardial infarction CAD (coronary artery disease) H/O carotid endarterectomy Brother Diabetes Sister Hyperlipidemia Hypertension Surgical History History of appendectomy History of cholecystectomy History of detached retina repair History of left heart catheterization (06/09/08) History of left-sided carotid endarterectomy (01/2020) History of right-sided carotid endarterectomy (2011) History of shoulder surgery History of sinus surgery History of umbilical hernia repair Social History Smoking Status: Never smoker alcohol intake: never caffeine: No ROS ROS Narrative Constitutional: Denies: Anorexia, Chills, Fever, Night Sweats, Weight Change Eyes: Denies: Blurred vision, Cataracts, Conjunctivae Inflammation, Pain, Redness, Vision Change HEENT: Denies: Difficulty Hearing, Difficulty Swallowing, Head Aches, Hearing Changes, Sinus Congestion, Sinus Drainage Cardiovascular: Denies: Chest Pain, Orthopnea, Palpitations Respiratory: Denies: Cough, Shortness of breath at rest, Sputum production Gastrointestinal: See HPI Genitourinary: Denies: Dysuria Musculoskeletal: Denies: Joint Pain, Joint stiffness, Joint swelling, Joint Tenderness Skin: Denies: Rash, Wounds Neurological: Denies: Numbness, Tingling, Focal weakness Vital Signs Vital Signs Vital Signs: 09/20/21 05:39 Temperature 96.5 F L Temperature Source Oral Respiratory Rate 59 H Blood Pressure 135/71 H Blood Pressure Mean 92 Pulse Ox 96 Oxygen Delivery Method Room Air Weight Weight: 138.5 kg Body Mass Index (BMI) 46.4 Physical Exam Narrative Physical exam: General: Alert, Oriented x3, Cooperative, No apparent distress HEENT: Atraumatic Oral: Moist Mucosa Neck: Supple Lungs: Clear to auscultation Cardiovascular: HS I+II, regular, no murmurs Abdomen: Distended, Bowel Sounds hypoactive, Soft, Non Tender Extremities: No edema Skin: No rashes, No breakdown Neurological: Grossly intact Psych/Mental Status: Appropriate Results Lab / Micro Data Result Diagrams: 09/20/21 05:45 09/20/21 05:45 Labs: Laboratory Results - last 24 hr 09/20/21 05:45: WBC 5.6, RBC 4.64, Hgb 15.1, Hct 44.6, MCV 96.1 H, MCH 32.5 H, MCHC 33.9, RDW Std Deviation 45.1 H, RDW Coeff of Angel 12.7, Plt Count 147 L, MPV 10.0, Immature Gran % (Auto) 1.100 H, Neut % (Auto) 53.4, Lymph % (Auto) 29.7, Howell % (Auto) 15.1 H, Eos % (Auto) 0.0, Baso % (Auto) 0.7, Absolute Neuts (auto) 3.0, Absolute Lymphs (auto) 1.65, Nucleated RBC % 0, Differential Comment SCANNED 09/20/21 05:45: Sodium 133 L, Potassium 3.7, Chloride 99, Carbon Dioxide 28.0, Anion Gap 6, BUN 17, Creatinine 1.21, Estim Creat Clear Calc 50.25, Est GFR (MDRD) Af Amer 75, Est GFR (MDRD) Non-Af 62, BUN/Creatinine Ratio 14.0, Glucose 134 H, Calcium 8.9, Magnesium 2.0, Total Bilirubin 0.60, Direct Bilirubin 0.17, AST 36, ALT 53, Alkaline Phosphatase 49, Total Protein 6.7, Albumin 2.7 L, Globulin 4.0, Lipase 66 L 09/20/21 06:10: Lactic Acid 1.2 Radiology Impression Abdomen/Pelvis CT 09/20/21 06:03 IMPRESSION: There are dilated loops of the small intestine with a transition in the distal ileum and a non-distended colon suggesting small bowel obstruction. Electronically Signed: Tuan Guardado MD at 7:13 EDT Reading Location ID and State: [facility] / [place] Tel , Service support , Assessment & Plan Assessment/Plan (1) Small intestine obstruction: (2) Type 2 diabetes mellitus: (3) Hyperlipidemia: QUALIFIERS: Hyperlipidemia type: pure hypercholesterolemia Qualified Code(s): E78.00 - Pure hypercholesterolemia, unspecified; E78.0 - Pure hypercholesterolemia (4) Essential (primary) hypertension: (5) Bilateral carotid artery stenosis: PLAN: 1. Acute SBO, seen on CT of the abdomen and pelvis Patient with history of abdominal surgeries likely this is related to adhesions General surgery consulted from the ED Will admit to [facility], keep n.p.o., IV fluids, pain control 2. Hypertension, controlled, continue on amlodipine, metoprolol 3. Type 2 DM, on metformin, will hold metformin Continue blood glucose checks with insulin sliding scale 4. Bilateral carotid stenosis s/p carotid endarterectomies/Hyperlipidemia Continue on aspirin, statin 5. Asthma, not in acute exacerbation, continue on Zafirlukast 6. Morbid obesity, BMI 46.4, complicates care and recovery Lifestyle modification recommended 7. DVT prophylaxis?heparin subcu 8. I discussed and explained in details the various types of CODE STATUS-full code, DNR CCA, DNR CC. Patient chose to be full code. He was tolerating diet including intubation for cardiopulmonary arrest. His is his power of associate attorney for healthcare. He stated that if at that time, he is deemed to be in the vegetative state. His will discontinue care. Time spent discussing CODE STATUS 17 minutes Charges/Coding Visit Charges Inpatient E&M: 93033 Subs Hosp L2 Procedures Hospitalists Procedures: 94594 Advncd Care Plan 30 Min
[2021-09-20] MEDS: Oxymetazoline 0.05% 1 SPRAY SPRAY.BTL 2 SPRAY NASAL (08:15)
[2021-09-20] MEDS: Lidocaine 4% 5 ML Ampul 2 ML INHALATION (08:15)
--- NOTE | 2021-09-20 09:18 | NURSING ---
marcelle aldridge 06/20/20, 07/25/20, 03/08/21, 08/18/21
[2021-09-20] MEDS: Lactated Ringers 1,000 ML 100 ML IV (10:08)
[2021-09-20] MEDS: 0.9% Saline Lock 10 ML Syringe IV ×2 (10:11→20:55)
--- NOTE | 2021-09-20 13:20 | RAD_ITS ---
EXAM: FL SMALL BOWEL FOLLOW THROUGH CLINICAL INDICATION: Gastrograffin/SBO/4 hours after ngt TECHNIQUE: Fluoroscopy of the small bowel including multiple serial delayed images following oral contrast administration. Fluoroscopic guidance was provided by a physician. This report was created using [employer] report generation technology. COMPARISON: None. FINDINGS: Multiple radiographs of the abdomen obtained before and after administration of Gastrografin. Images demonstrate prominent distention of the small bowel without evidence of mucosal thickening. Contrast extends to the colon at 2 hours. Pattern is consistent with incomplete small bowel obstruction. RAD/Small Bowel Series Only IMPRESSION: Incomplete small bowel obstruction. Electronically Signed: Juarez Meng MD at 15:52 EDT ,
--- NOTE | 2021-09-20 15:29 | CON.PCM.SX_ITS ---
Assessment & Plan Assessment/Plan (1) Small intestine obstruction: PLAN: 76-year-old gentleman who has significant medical comorbidities. Unfortunately for the past 5 to 6 days he has been extraordinarily sedentary and is allowed this process to progress. He certainly has atelectasis complicating his chronic pulmonary disease. He is morbidly obese with a BMI of 46.4 and the vast majority of this weight is with his abdomen. As noted his previous cholecystectomy even in the upper quadrant being able to stay away from the omentum and bowel was extraordinarily difficult requiring increased exposure and increase port sites. I have very significant concerns that if he comes to the operation that visualizing the source of his small bowel obstruction in the right lower quadrant area will be highly compromised by his body habitus and acute bowel distention. It therefore could require either a hand-assisted or even possibly an open approach. Again body habitus complicating this is likely making the incision larger and more complicated. His abdomen is quite distended and tympanitic and quite tight. He states that this frequently is his normal presentation. I am recommending to him that we pursue the Gastrografin small bowel study that is currently in progress. I have vigorously encouraged the patient to get up out of bed and ambulate and work with his pulmonary status. I am recommending medical maximization of his care. At this point I deemed him a high surgical risk candidate. He currently does not have an NG tube in place. Replacement of the NG tube will be my first recommendation if the patient stops passing flatus. He has had an opportunity to ask and have questions answered. I would keep him n.p.o. except for sips and chips so that he would be otherwise prepared for potential surgery. I would otherwise prefer that he currently have an NG tube in place but apparently he states he could not tolerate this because of a respiratory standpoint. This clearly would further complicate operative intervention as NG tube are universally utilized for small bowel obstruction and decompression of the stomach in an effort to try to limit gastric aspiration. Appreciate the opportunity of assisting with the surgical care. We will follow as appropriate. Gordon Mckay M.D., F.A.C.S. HPI Consult Data Date of Consult: 09/20/21 HPI Narrative HPI Narrative: XOCHITL MONTERROSO, is a 76 M who presents to the [facility] with a 6-day history of illness. I have been asked to see him by Dr. Youssef and a written copy of my surgical consult will be present in the charting. Patient states that last September he had onset of nausea and vomiting. He states that his had same type of illness but recovered very quickly. He then immediately became very sedentary. He states that he has spent most of his time in a reclining chair since the start of this process. He has done minimal ambulation. He then had onset of diarrhea on September 17, 2021. He continued to pass stool and flatus but presented to the emergency room today because his abdomen became even more tight and crampy and he was unable to relieve himself. I saw this patient in the office on July 16, 2021. We reviewed that he had a history of multiple colon polyps. Unfortunately at that setting it was felt that he had significant medical comorbidities placing him at high risk for surgery. He is had both a right carotid enterectomy 2011 and a left carotid enterectomy 2019 and is currently under the care of Dr. Can for his carotid occlusive disease. He has significant asthma and he states that his pulmonary disease has steadily worsened. This is complicated by history of morbid obesity type 2 diabetes mellitus sleep apnea sinus bradycardia and a history of DVT in 2011. 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 His previous surgical history he thinks possibly dating back to 2011 included a combined laparoscopic cholecystectomy and umbilical herniorrhaphy performed per myself. The operative report suggest that a vertical incision was made at the umbilicus. Sharp dissection was carried down through the subcutaneous tissue but that there was a significant amount of preperitoneal fatty tissue that had to be tediously dissected free. Hernia sac was opened and transected. The abdomen was inspected but visualization was hampered due to the size of omentum and fatty change covering the vast majority of the abdomen. The patient had quite a yellow appearance to his liver consistent with fatty change. The gallbladder wall was thick walled. I could not achieve visualization of the infundibular area of the gallbladder due to the amount of omentum and transverse colon. I had to place an additional 5 mm port and placed a liver retractor in order to try to retract the omentum and transverse colon. Cholangiograms were obtained showing normal ductal anatomy. Hemostasis with further achieved with fibrillar. The umbilical defect was repaired with 0 Nurolon. The patient states that his medical status has deteriorated since that time. 's most recent intervention done with monitored anesthesia care was a colonoscopy that I assisted him with on July 16, 2021. A 6 mm polyp was found in the mid transverse colon and was removed with cold snare. Multiple diverticula were noted throughout the entire colon. Pathology demonstrated a tubular adenoma Laboratory on presentation shows a white count of 5.6 with a hemoglobin 15.1 hematocrit 44.6 platelet count of 147,000. Sodium 133. BUN 17 creatinine 1.21. Lactic acid level 1.2. Liver function tests are normal. Albumin 2.7. Lipase 66. On presentation he hadA IV only contrasted CT scan obtained. This suggested loops of small intestine transition point in the distal ileum nondistended colon suggesting small bowel obstruction. I had requested that NG tube be placed. Apparently on transfer from the emergency room to the floor the patient complained that the NG tube was causing shortness of breath and therefore it was removed. The patient states that since that time he has had some flatus and 2 small stools. He currently is denying current abdominal pain. COUNT INCLUDES THE [facility] Medical History Asthma Bilateral carotid artery stenosis Cardiology follow-up encounter Colon polyps Essential (primary) hypertension History of DVT (deep vein thrombosis) (2011) History of echocardiogram History of edema History of stress test Hyperlipidemia Morbid obesity Non-smoker Osteoarthritis Seasonal allergies Shortness of breath on exertion Sinus bradycardia Sleep apnea Type 2 diabetes mellitus Home Medications aspirin 81 mg PO DAILY@0800 02/23/13 [History Last Taken 03/16/18] rosuvastatin 5 mg PO QODAY 02/23/13 [History Last Taken Unknown] colesevelam 1,875 mg PO BIDCM 02/04/17 [History Last Taken Unknown] terazosin 1 mg capsule 2 mg PO QHS 06/23/17 [History Last Taken Unknown] fluticasone propionate 50 mcg/actuation nasal spray,suspension 2 spray INTRANASAL DAILY 09/30/18 [History Last Taken Unknown] zafirlukast 10 mg tablet 10 mg PO ONCE tab 07/21/19 [History Last Taken Unknown ] metoprolol succinate 100 mg tablet,extended release 24 hr 100 mg PO DAILY #90 tab 10/17/19 [Rx Last Taken 07/16/21 04:30] metformin 500 mg tablet 500 mg PO DAILY tab 10/09/20 [History Last Taken Un known] spironolactone 50 mg tablet 50 mg PO DAILY #90 tab 10/09/20 [Rx Last Taken Unknown] vitamins A,C,G-jfun-myutrf 14,320 unit-226 mg-200 unit capsule 1 cap PO BID 10/09/20 [History Last Taken Unknown] furosemide 40 mg tablet 40 mg PO DAILY #90 tab 12/04/20 [Rx Last Taken Unknown] amlodipine 5 mg tablet 5 mg PO DAILY #90 tab 01/23/21 [Rx Last Taken 07/16/21 04:30] albuterol sulfate [ProAir HFA] 1 puff INHALATION Q6H 07/11/21 [History Last Taken Unknown] fluticasone furoate-vilanterol [Breo Ellipta] 1 inh INHALATION DAILY 07/11/21 [History Last Taken Unknown] Allergy/AdvReac Type Severity Reaction Status Date / Time EH Inhibitors Allergy Severe ANGIOEDEMA Verified 09/20/21 05:39 niacin AdvReac Severe SKIN RED Verified 09/20/21 09:15 AND BURNING, SEVERE FLUSHING Bvwunek-YKL-WtF Reductase AdvReac Severe MYALGIAS Verified 09/20/21 05:39 Inhibitor [Svjbotb-Dso-Dua Reductase Inhibitor] Family History Father , age 73 of CVA CVA (cerebral vascular accident) Hypertension Mother , age 84 ruptured AAA Abdominal aortic aneurysm rupture Brother CAD (coronary artery disease) Brother Myocardial infarction CAD (coronary artery disease) H/O carotid endarterectomy Brother Diabetes Sister Hyperlipidemia Hypertension Surgical History History of appendectomy History of cholecystectomy History of detached retina repair History of left heart catheterization (06/09/08) History of left-sided carotid endarterectomy (01/2020) History of right-sided carotid endarterectomy (2011) History of shoulder surgery History of sinus surgery History of umbilical hernia repair Social History Smoking Status: Never smoker alcohol intake: never caffeine: No Physical Exam Const alert General Appearance: cooperative Nutritional Appearance: obese centrally obese HEENT normocephalic Eyes PERRL Neck Neck Narrative: Thick shoulder neck Resp Resp Narrative: Very poor respiratory excursion, scattered wheeze, clear in apices Cardio Rate: regular rate GI GI Narrative: Markedly obese tightly distended abdomen, no focal tenderness, bowel sounds diminished and nonspecific Narrative: No gross inguinal defects Extremity Extremity Narrative: Left lower extremity has 1-2+ nonpitting edema and hyperpigmentation. Right lower extremity 1+ edema. No calf tenderness Skin no rashes or lesions noted Neuro Neuro Narrative: Patient is alert aware of his situation in place Psych mental status grossly normal Lab / Micro Data Result Diagrams: 09/20/21 05:45 09/20/21 05:45 Labs: Laboratory Results - last 24 hr 09/20/21 05:45: WBC 5.6, RBC 4.64, Hgb 15.1, Hct 44.6, MCV 96.1 H, MCH 32.5 H, MCHC 33.9, RDW Std Deviation 45.1 H, RDW Coeff of Angel 12.7, Plt Count 147 L, MPV 10.0, Immature Gran % (Auto) 1.100 H, Neut % (Auto) 53.4, Lymph % (Auto) 29.7, [place] % (Auto) 15.1 H, Eos % (Auto) 0.0, Baso % (Auto) 0.7, Absolute Neuts (auto) 3.0, Absolute Lymphs (auto) 1.65, Nucleated RBC % 0, Differential Comment SCANN ED 09/20/21 05:45: Sodium 133 L, Potassium 3.7, Chloride 99, Carbon Dioxide 28.0, Anion Gap 6, BUN 17, Creatinine 1.21, Estim Creat Clear Calc 50.25, Est GFR (MDRD) Af Amer 75, Est GFR (MDRD) Non-Af 62, BUN/Creatinine Ratio 14.0, Glucose 134 H, Calcium 8.9, Magnesium 2.0, Total Bilirubin 0.60, Direct Bilirubin 0.17, AST 36, ALT 53, Alkaline Phosphatase 49, Total Protein 6.7, Albumin 2.7 L, Globulin 4.0, Lipase 66 L 09/20/21 06:10: Lactic Acid 1.2 Radiology Impression Abdomen/Pelvis CT 09/20/21 06:03 IMPRESSION: There are dilated loops of the small intestine with a transition in the distal ileum and a non-distended colon suggesting small bowel obstruction. Electronically Signed: Tuan Guardado MD at 7:13 EDT , KUB X-Ray 09/20/21 07:24 IMPRESSION: The tip of the nasogastric tube is in the body of the stomach. Electronically Signed: Philippe Galeana MD at 8:50 EDT ,
[2021-09-20] MEDS: amLODIPine 5 MG Tablet PO (16:53)
[2021-09-20] MEDS: Spironolactone 50 MG Tablet PO (16:53)
[2021-09-20] MEDS: Metoprolol(XL)Succ 100 MG Tablet PO (16:53)
[2021-09-20 17:01] LABS: Bedside Glucose 136 mg/dL (74-106)
[2021-09-20] MEDS: Ipratropium/Albuterol Sulfate 3 ML AMPUL.NEB INHALATION (19:47)
[2021-09-20] MEDS: Budesonide Respules 0.5 MG/2 ML AMPUL.NEB. INHALATION (19:48)
[2021-09-20] MEDS: Doxazosin 1 MG Tablet 2 MG PO (20:49)
[2021-09-20] MEDS: Heparin Injection (Vial) 5,000 UNIT/ML VIAL 5000 UNIT SC (20:59)
[2021-09-20 21:11] LABS: Bedside Glucose 149 mg/dL (74-106)
[2021-09-21] VITALS (19 sets, daily range): BP systolic 95–141; BP diastolic 56–75; PULSE 57–84; RESP 15–20; TEMP 36.5–36.9; O2SAT 93–98
--- NOTE | 2021-09-21 04:50 | RAD_ITS ---
STUDY: X-RAY CHEST REASON FOR EXAM: Male, 76 years old. sob TECHNIQUE: Single AP portable view of the chest. COMPARISON: 02/23/2013 FINDINGS: The lungs are clear and expanded. There is no demonstrated pleural abnormality. Normal size heart. Normal mediastinum and gabriela. Normal visualized pulmonary arteries. Normal visualized aortic arch and descending thoracic aorta. Normal visualized thoracic spine. Normal visualized ribs, clavicles, and shoulders. There is no demonstrated abnormality of the visualized soft tissue structures of the upper abdomen. RAD/Chest 1 View (Portable) IMPRESSION: Normal x-ray examination of the chest. Electronically Signed: Carlos Cedeno MD at 9:19 EDT ,
--- NOTE | 2021-09-21 05:00 | RAD_ITS ---
STUDY: X-RAY - ABDOMEN/PELVIS REASON FOR EXAM: Male, 76 years old. Sbo TECHNIQUE: 4 supine images. There are images of each side of the abdomen upper and lower. COMPARISON: September 20, 2021 abdomen study FINDINGS: Technically limited study. There is contrast within the ascending colon. There is a decompressed appearance of the descending colon. In the midline and there are multiple partially visualized distended loops of small bowel. RAD/Abdomen Single View (Portable) IMPRESSION: Limited study. Visualized distended loops of small bowel raising concern for small bowel obstruction and/or high-grade partial small bowel obstruction. Electronically Signed: Shena Christie MD at 6:40 EDT ,
[2021-09-21 05:29] LABS: Absolute Lymphocyte Count 1.65 X10^3/uL (0.83-4.51); Basophil# 0.05 X10^3/uL; Basophil% 0.8 % (0-1); Eosinophil# 0.14 X10^3/uL; Eosinophils% 2.4 % (0-5); Hematocrit 43.2 % (40-54); Hemoglobin 14.4 g/dL (13.0-16.5); Lymphocyte # 1.65 X10^3/ul (0.83-4.51); Lymphocyte % 27.8 % (19-41); Mean Corp Hgb Conc 33.3 g/dL (32-36); Mean Corpuscular Volume 98.9 fL (80-94); Mean Platelet Vol. 9.4 fl (6.2-12.0); Monocyte# 0.91 X10^3/uL; Monocyte% 15.3 % (0-10); NRBC Flagged by Analyzer 0 % (0-5); Neutrophil # 3.01 X10^3/uL (2.7-7.7); Neutrophil % 50.8 % (47-70); POSITIVE MORPHOLOGY YES; Platelet Count 154 K/mm3 (150-450); RBC Distribution Width CV 12.8 % (11.6-14.6); RBC Distribution Width SD 46.9 fl (35.1-43.9); Red Blood Count 4.37 M/mm3 (4.6-6.2); White Blood Count 5.9 K/mm3 (4.4-11.0)
[2021-09-21 05:33] LABS: Differential Indicated SCAN CRITERIA MET
[2021-09-21 05:52] LABS: ALB/GLOB Ratio 0.7 RATIO (0.9-2.4); AST(SGOT) 35 U/L (15-37); Alanine Aminotransfer ALT/SGPT 54 U/L (16-61); Albumin, Serum 2.7 g/dL (3.2-5.0); Alkaline Phosphatase 41 U/L (45-117); Anion Gap 5 (5-15); BUN 22 mg/dL (7-18); BUN/Creat Ratio 14.1 RATIO (10-20); Calcium,Total 8.8 mg/dL (8.5-10.1); Chloride 105 mmol/L (98-107); Creatinine, Serum 1.56 mg/dL (0.70-1.30); EST Glomerular Filtration Rate 46 mL/min (>60); Est Glom Filt Rate - Afr Amer 56 mL/min (>60); Estimated Creatinine Clearance 38.97 ml/min; Glucose 127 mg/dL (74-106); Potassium 3.9 mmol/L (3.5-5.1); Protein, Total 6.7 g/dL (6.4-8.2); Sodium Level 137 mmol/L (136-145)
[2021-09-21 05:53] LABS: Lactic Acid 1.5 mmol/L (0.4-1.9)
[2021-09-21 05:54] LABS: Atypical Lymphocyte 1+ %; Differential Comment SCANNED
--- NOTE | 2021-09-21 06:22 | PN.SURG_ITS ---
Subjective Subjective She has had some liquidy diarrheal stools. Some flatus but that is slowed down. He currently has no nausea. He does not describe any shortness of breath. He does not state that he is currently wheezing. Objective Data Objective Data Vital Signs: Vital Signs Temp Pulse Resp BP Pulse Ox 97.7 F L 71 20 H 129/65 H 95 09/21/21 03:51 09/21/21 06:02 09/21/21 03:51 09/21/21 03:51 09/21/21 03:51 Oxygen Delivery Method Room Air Weight: 300 lb 0.786 oz Body Mass Index (BMI) 46.3 Intake & Output: Intake and Output for Last 24 Hours 09/19/21 09/20/21 09/21/21 23:59 23:59 23:59 Intake Total 1411.67 / 1411.67 Balance 1411.67 / 1411.67 Lab / Micro Data Result Diagrams: 09/21/21 05:20 09/21/21 05:20 Labs: Laboratory Results - last 24 hr 09/20/21 05:45: WBC 5.6, RBC 4.64, Hgb 15.1, Hct 44.6, MCV 96.1 H, MCH 32.5 H, MCHC 33.9, RDW Std Deviation 45.1 H, RDW Coeff of Angel 12.7, Plt Count 147 L, MPV 10.0, Immature Gran % (Auto) 1.100 H, Neut % (Auto) 53.4, Lymph % (Auto) 29.7, [place] % (Auto) 15.1 H, Eos % (Auto) 0.0, Baso % (Auto) 0.7, Absolute Neuts (auto) 3.0, Absolute Lymphs (auto) 1.65, Nucleated RBC % 0, Differential Comment SCANNED 09/20/21 05:45: Sodium 133 L, Potassium 3.7, Chloride 99, Carbon Dioxide 28.0, Anion Gap 6, BUN 17, Creatinine 1.21, Estim Creat Clear Calc 50.25, Est GFR (MDRD) Af Amer 75, Est GFR (MDRD) Non-Af 62, BUN/Creatinine Ratio 14.0, Glucose 134 H, Calcium 8.9, Magnesium 2.0, Total Bilirubin 0.60, Direct Bilirubin 0.17, AST 36, ALT 53, Alkaline Phosphatase 49, Total Protein 6.7, Albumin 2.7 L, Globulin 4.0, Lipase 66 L 09/20/21 06:10: Lactic Acid 1.2 09/20/21 16:50: POC Glucose 136 H 09/20/21 20:57: POC Glucose 149 H 09/21/21 05:00: Lactic Acid 1.5 09/21/21 05:20: WBC 5.9, RBC 4.37 L, Hgb 14.4, Hct 43.2, MCV 98.9 H, MCH 33.0 H, MCHC 33.3, RDW Std Deviation 46.9 H, RDW Coeff of Angel 12.8, Plt Count 154, MPV 9.4, Immature Gran % (Auto) 2.900 H, Neut % (Auto) 50.8, Lymph % (Auto) 27.8, [place] % (Auto) 15.3 H, Eos % (Auto) 2.4, Baso % (Auto) 0.8, Absolute Neuts (auto) 3.0, Absolute Lymphs (auto) 1.65, Nucleated RBC % 0, Differential Comment SCANNED, Atypical Lymphocytes 1+ 09/21/21 05:20: Sodium 137, Potassium 3.9, Chloride 105, Carbon Dioxide 27.0, Anion Gap 5, BUN 22 H, Creatinine 1.56 H, Estim Creat Clear Calc 38.97, Est GFR (MDRD) Af Amer 56 L, Est GFR (MDRD) Non-Af 46 L, BUN/Creatinine Ratio 14.1, Gl ucose 127 H, Calcium 8.8, Total Bilirubin 0.50, AST 35, ALT 54, Alkaline Phos phatase 41 L, Total Protein 6.7, Albumin 2.7 L, Globulin 4.0, Albumin/Globulin Ratio 0.7 L Radiography Diagnostic Testing: Radiology Impression Abdomen/Pelvis CT 09/20/21 06:03 IMPRESSION: There are dilated loops of the small intestine with a transition in the distal ileum and a non-distended colon suggesting small bowel obstruction. Electronically Signed: Tuan Guardado MD at 7:13 EDT , KUB X-Ray 09/20/21 07:24 IMPRESSION: The tip of the nasogastric tube is in the body of the stomach. Electronically Signed: Philippe Galeana MD at 8:50 EDT , Small Bowel X-Ray 09/20/21 13:20 IMPRESSION: Incomplete small bowel obstruction. Electronically Signed: Juarez Meng MD at 15:52 EDT , Physical Exam Narrative Patient is alert comfortable sitting in a chair upon my arrival Resp Resp Narrative: Better respiratory effort than yesterday, clear in the apices Cardio regular rate GI GI Narrative: Abdomen is markedly large, distended, tight, bowel sounds present but sound pushing, nontender Extremity Extremity Narrative: 1-2+ lower extremity edema Assessment & Plan Assessment/Plan (1) Small intestine obstruction: PLAN: Clinically the patient is improved. Abdominal films this morning demonstrate contrast all the way through the colon however on careful inspection there still remained multiple loops of dilated small bowel consistent with persistent partial obstruction BUN and creatinine slightly elevated consistent with mild dehydration. The patient's not currently on any IV fluid CBC with differential is normal no leukocytosis. Lactic acid level normal. Findings are consistent with a partial small bowel obstruction likely secondary to adhesions in the right lower quadrant likely correlating with a previous episode of acute appendicitis in 2013. I will initiate the patient on clear liquids with absolutely no carbonation. I anticipate this being maintained throughout the day. Will recheck abdominal x- rays in the morning. The patient has been vigorously encouraged to ambulate in an effort to resolve his persistent partial obstruction. He has been encouraged to utilize his his incentive spirometer. His sequential venous compression devices are yet to be applied. He is at increased risk for DVT. He has had an opportunity to ask and have questions answered. Hopefully his partial obstruction will continue to resolve and he will not require surgical intervention. With the obstruction being distal he will have multiple loops of distended small bowel and with his body habitus laparoscopic visualization could very well be limited at best Gordon Mckay M.D., F.A.C.S.
[2021-09-21] MEDS: Heparin Injection (Vial) 5,000 UNIT/ML VIAL 5000 UNIT SC ×3 (06:51→22:40)
[2021-09-21] MEDS: Colestipol 1 GM TABLET PO ×2 (06:51→16:08)
[2021-09-21 07:05] LABS: Bedside Glucose 138 mg/dL (74-106)
[2021-09-21] MEDS: Ipratropium/Albuterol Sulfate 3 ML AMPUL.NEB INHALATION ×4 (07:28→19:20)
[2021-09-21] MEDS: Budesonide Respules 0.5 MG/2 ML AMPUL.NEB. INHALATION ×2 (07:28→19:20)
--- NOTE | 2021-09-21 08:18 | EX.PCM.CONCC ---
Assessment & Plan Assessment/Plan (1) Small intestine obstruction: (2) Asthma: (3) Sleep apnea: PLAN: RECOMMENDATIONS: 1. Continue therapeutic substitution for Breo 2. No systemic steroids needed at this time 3. Encourage incentive spirometer 4. Stressed importance of BiPAP with all sleep 5. Cleared from a pulmonary perspective for surgical intervention if necessary IMPRESSIONS: 1. Partial small bowel obstruction Patient appears to be responding to conservative therapy. Patient does have a history of previous surgeries of the abdomen increasing his risk, along with morbid obesity. Surgery is following. From my perspective, patient could proceed to surgery as he has been optimized from a pulmonary standpoint. Did stressed the importance of using BiPAP with all sleep if narcotics are being used. Also stressed the importance of the incentive spirometer and ambulation as tolerated to avoid atelectasis. Patient was very receptive. If patient were to proceed with surgery, please feel free to give us a call and we will reevaluate and provide further recommendations. 2. Asthma/JAYME/morbid obesity Patient is on Breo at baseline and is receiving therapeutic substitution. Patient does have some wheezing on forced exhalation indicating small airway obstruction, but otherwise is doing well. This does not appear to be significant enough to require systemic steroids from my perspective. Patient does have his home BiPAP at the bedside and tolerates it well. 10 to 15 pound weight gain would not be significant to change settings, so doubt AVAPS would be required. Patient does understand that weight loss would be helpful from a respiratory standpoint. Given the patient is established with Dr. Richardson, patient could follow-up with him as an outpatient. We would be happy to see at the patient's request. 3. Advanced age/peripheral vascular disease/hyperlipidemia/diabetes mellitus/history of DVT Complicates care, management, recovery and prognosis. Okay to continue with baseline medications. There is no indication for anticoagulation at this time. Patient does not have asymmetrical edema to speak suggestive of DVT. Blood sugar should not be significantly altered with inhalation steroids. Okay to continue with Lasix as an outpatient, but patient appears to be euvolemic at this time HPI Consult Data Date of Consult: 09/21/21 HPI Narrative HPI Narrative: XOCHITL MONTERROSO is a 76 M, with past medical history listed below, who presents to [facility] on 09/20/2021 secondary to multiple episodes of nausea and vomiting with progression to loose stool/diarrhea. Patient reported having symptoms approximately a week ago, but had written this off as food poisoning or a GI bug as his was having similar symptoms. Patient then progressed to having loose bowel movements and excessive gas. Patient's 's symptoms had resolved, so he came to the ER for evaluation. In the ER, patient was afebrile, normotensive and tolerating room air. Patient was thought to appear dehydrated. Laboratory work-up showed a white blood cell count of 5.6, hemoglobin of 15.1 and a platelet count of 147. Creatinine was slightly elevated at 1.2, but lactate was normal at 1.2. Remaining chemistries were unremarkable. There was some concern for possible intestinal obstruction, so a CT was obtained. This was suggestive of a small bowel obstruction, so patient was admitted to the floor for further evaluation. Patient has been receiving conservative therapy in the hospital and appears to be responding. General surgery was some concern of his respiratory status asked for a pulmonary consult. At this time, surgery is not planned, but surgical clearance is requested. Patient reports he has seen Dr. Richardson in the past. Patient has a long history of obstructive sleep apnea. Patient states he was previously on a CPAP, but had significant weight gain following [facility] [place]. Patient has subsequently been titrated to a BiPAP 3 years ago. Patient estimates that he has gained 10 to 15 pounds since that time. Patient feels that his sleep apnea machine is working well. Patient has no problems with compliance and denies any pain at the interface site. Patient has had PFTs Dr. Richardson's office, but is unaware of the results. Patient states he uses Breo and does have a nebulizer along with albuterol MDI at home. Patient has not required systemic steroids in quite some time. Patient does report feeling wheezing and chest tightness intermittently, but feels that this is improving with cough and ambulation in the hospital. Patient is not reporting any epistaxis, hemoptysis, chest pain or sore throat. Patient denies any recent noxious or infectious exposure. Review of systems otherwise negative from a constitutional, HEENT, respiratory, cardiovascular, GI, genitourinary, musculoskeletal, skin, neurologic, psychiatric and hematologic system unless stated above. [facility] Medical History (Updated 09/21/21 @ 08:[address] Lukas Callahan MD) Asthma Bilateral carotid artery stenosis Cardiology follow-up encounter Colon polyps Essential (primary) hypertension History of DVT (deep vein thrombosis) (2011) History of echocardiogram History of edema History of stress test Hyperlipidemia Morbid obesity Non-smoker Osteoarthritis Seasonal allergies Shortness of breath on exertion Sinus bradycardia Sleep apnea Type 2 diabetes mellitus Home Medications aspirin 81 mg PO DAILY@0800 02/23/13 [History Last Taken 03/16/18] rosuvastatin 5 mg PO QODAY 02/23/13 [History Last Taken Unknown] colesevelam 1,875 mg PO BIDCM 02/04/17 [History Last Taken Unknown] terazosin 1 mg capsule 2 mg PO QHS 06/23/17 [History Last Taken Unknown] fluticasone propionate 50 mcg/actuation nasal spray,suspension 2 spray INTRANASAL DAILY 09/30/18 [History Last Taken Unknown] zafirlukast 10 mg tablet 10 mg PO ONCE tab 07/21/19 [History Last Taken Unknown] metoprolol succinate 100 mg tablet,extended release 24 hr 100 mg PO DAILY #90 tab 10/17/19 [Rx Last Taken 07/16/21 04:30] metformin 500 mg tablet 500 mg PO DAILY tab 10/09/20 [History Last Taken Unknown] spironolactone 50 mg tablet 50 mg PO DAILY #90 tab 10/09/20 [Rx Last Taken Unknown] vitamins A,C,Y-gtqs-zrmfcr 14,320 unit-226 mg-200 unit capsule 1 cap PO BID 10/09/20 [History Last Taken Unknown] furosemide 40 mg tablet 40 mg PO DAILY #90 tab 12/04/20 [Rx Last Taken Unknown] amlodipine 5 mg tablet 5 mg PO DAILY #90 tab 01/23/21 [Rx Last Taken 07/16/21 04:30] albuterol sulfate [ProAir HFA] 1 puff INHALATION Q6H 07/11/21 [History Last Taken Unknown] fluticasone furoate-vilanterol [Breo Ellipta] 1 inh INHALATION DAILY 07/11/21 [History Last Taken Unknown] Allergy/AdvReac Type Severity Reaction Status Date / Time EH Inhibitors Allergy Severe ANGIOEDEMA Verified 09/20/21 05:39 niacin AdvReac Severe SKIN RED Verified 09/20/21 09:15 AND BURNING, SEVERE FLUSHING Kpeqftj-YQF-SnW Reductase AdvReac Severe MYALGIAS Verified 09/20/21 05:39 Inhibitor [Qvakwjn-Mbq-Aks Reductase Inhibitor] Family History Father , age 73 of CVA CVA (cerebral vascular accident) Hypertension Mother , age 84 ruptured AAA Abdominal aortic aneurysm rupture Brother CAD (coronary artery disease) Brother Myocardial infarction CAD (coronary artery disease) H/O carotid endarterectomy Brother Diabetes Sister Hyperlipidemia Hypertension Surgical History History of appendectomy History of cholecystectomy History of detached retina repair History of left heart catheterization (06/09/08) History of left-sided carotid endarterectomy (01/2020) History of right-sided carotid endarterectomy (2011) History of shoulder surgery History of sinus surgery History of umbilical hernia repair Social History Smoking Status: Never smoker alcohol intake: never caffeine: No ROS ROS Narrative See HPI Physical Exam Const alert General Appearance: cooperative Nutritional Appearance: obese centrally obese HEENT normocephalic Eyes PERRL Neck Neck Narrative: Thick neck. Chest inspection of chest normal Chest: symmetrical chest wall rise; Negative for crepitus Resp normal respiratory effort Resp Narrative: Wheezing noted with forced exhalation only Effort and Inspection: able to speak in complete sentences and symmetric chest movement Auscultation: Negative for rales, rhonchi or tactile fremitus present Percussion: percussion normal Cardio Rate: regular rate GI GI Narrative: Significant abdominal obesity. Old scars noted. Extremity General Extremity: edema bilateral (1+ bilateral) lower extremity; Negative for clubbing or cyanosis Skin no rashes or lesions noted Skin Narrative: Some venous stasis changes noted of the lower extremities Neuro oriented x3, CN's II-XII intact bilaterally and moves all extremities Psych mental status grossly normal Lab / Micro Data Result Diagrams: 09/21/21 05:20 09/21/21 05:20 Labs: Laboratory Results - last 24 hr 09/20/21 16:50: POC Glucose 136 H 09/20/21 20:57: POC Glucose 149 H 09/21/21 05:00: Lactic Acid 1.5 09/21/21 05:20: WBC 5.9, RBC 4.37 L, Hgb 14.4, Hct 43.2, MCV 98.9 H, MCH 33.0 H, MCHC 33.3, RDW Std Deviation 46.9 H, RDW Coeff of Angel 12.8, Plt Count 154, MPV 9.4, Immature Gran % (Auto) 2.900 H, Neut % (Auto) 50.8, Lymph % (Auto) 27.8, [place] % (Auto) 15.3 H, Eos % (Auto) 2.4, Baso % (Auto) 0.8, Absolute Neuts (auto) 3.0, Absolute Lymphs (auto) 1.65, Nucleated RBC % 0, Differential Comment SCANNED, Atypical Lymphocytes 1+ 09/21/21 05:20: Sodium 137, Potassium 3.9, Chloride 105, Carbon Dioxide 27.0, Anion Gap 5, BUN 22 H, Creatinine 1.56 H, Estim Creat Clear Calc 38.97, Est GFR (MDRD) Af Amer 56 L, Est GFR (MDRD) Non-Af 46 L, BUN/Creatinine Ratio 14.1, Glucose 127 H, Calcium 8.8, Total Bilirubin 0.50, AST 35, ALT 54, Alkaline Phosphatase 41 L, Total Protein 6.7, Albumin 2.7 L, Globulin 4.0, Albumin/Globulin Ratio 0.7 L 09/21/21 06:48: POC Glucose 138 H Radiology Impression KUB X-Ray 09/20/21 07:24 IMPRESSION: The tip of the nasogastric tube is in the body of the stomach. Electronically Signed: Philippe Galeana MD at 8:50 EDT , Small Bowel X-Ray 09/20/21 13:20 IMPRESSION: Incomplete small bowel obstruction. Electronically Signed: Juarez Meng MD at 15:52 EDT , KUB X-Ray 09/21/21 05:00 IMPRESSION: Limited study. Visualized distended loops of small bowel raising concern for small bowel obstruction and/or high-grade partial small bowel obstruction. Electronically Signed: Shena Christie MD at 6:40 EDT , Charges/Coding Visit Charges Inpatient E&M: 62398 Init Hosp L2
[2021-09-21] MEDS: amLODIPine 5 MG Tablet PO (08:31)
[2021-09-21] MEDS: Metoprolol(XL)Succ 100 MG Tablet PO (08:32)
[2021-09-21] MEDS: Fluticasone 0.05% 1 SPRAY NASAL.SRY 2 SPRAY NASAL (08:32)
[2021-09-21] MEDS: Spironolactone 50 MG Tablet PO (08:34)
--- NOTE | 2021-09-21 08:56 | PCM.PN.HOSP ---
Subjective Subjective Follow-up on partial small bowel obstruction/mild acute COPD exacerbation: Patient was seen and examined. He feels much improved. No acute events overnight. He has had couple of bowel movements and has been passing gas. Repeat KUB shows possible small bowel obstruction and/or high-grade partial small bowel obstruction. Objective Data Objective Data Vital Signs: Vital Signs Temp Pulse Resp BP Pulse Ox 98.5 F 60 18 129/68 H 93 09/21/21 08:22 09/21/21 08:32 09/21/21 08:22 09/21/21 08:32 09/21/21 08:22 Oxygen Delivery Method Room Air Weight: 136.1 kg Body Mass Index (BMI) 46.3 Intake & Output: Intake and Output for Last 24 Hours 09/19/21 09/20/21 09/21/21 23:59 23:59 23:59 Intake Total 1411.67 / 1411.67 Balance 1411.67 / 1411.67 Lab / Micro Data Result Diagrams: 09/21/21 05:20 09/21/21 05:20 Labs: Laboratory Results - last 24 hr 09/20/21 16:50: POC Glucose 136 H 09/20/21 20:57: POC Glucose 149 H 09/21/21 05:00: Lactic Acid 1.5 09/21/21 05:20: WBC 5.9, RBC 4.37 L, Hgb 14.4, Hct 43.2, MCV 98.9 H, MCH 33.0 H, MCHC 33.3, RDW Std Deviation 46.9 H, RDW Coeff of Angel 12.8, Plt Count 154, MPV 9.4, Immature Gran % (Auto) 2.900 H, Neut % (Auto) 50.8, Lymph % (Auto) 27.8, Carbon % (Auto) 15.3 H, Eos % (Auto) 2.4, Baso % (Auto) 0.8, Absolute Neuts (auto) 3.0, Absolute Lymphs (auto) 1.65, Nucleated RBC % 0, Differential Comment SCANNED, Atypical Lymphocytes 1+ 09/21/21 05:20: Sodium 137, Potassium 3.9, Chloride 105, Carbon Dioxide 27.0, Anion Gap 5, BUN 22 H, Creatinine 1.56 H, Estim Creat Clear Calc 38.97, Est GFR (MDRD) Af Amer 56 L, Est GFR (MDRD) Non-Af 46 L, BUN/Creatinine Ratio 14.1, Glucose 127 H, Calcium 8.8, Total Bilirubin 0.50, AST 35, ALT 54, Alkaline Phosphatase 41 L, Total Protein 6.7, Albumin 2.7 L, Globulin 4.0, Albumin/Globulin Ratio 0.7 L 09/21/21 06:48: POC Glucose 138 H Radiography Diagnostic Testing: Radiology Impression Small Bowel X-Ray 09/20/21 13:20 IMPRESSION: Incomplete small bowel obstruction. Electronically Signed: Juarez Meng MD at 15:52 EDT , KUB X-Ray 09/21/21 05:00 IMPRESSION: Limited study. Visualized distended loops of small bowel raising concern for small bowel obstruction and/or high-grade partial small bowel obstruction. Electronically Signed: Shena Christie MD at 6:40 EDT , Physical Exam Narrative Physical exam: General: Alert, Oriented x3, Cooperative, No apparent distress HEENT: Atraumatic Oral: Moist Mucosa Neck: Supple Lungs: Clear to auscultation Cardiovascular: HS I+II, regular, no murmurs Abdomen: Distended, Bowel Sounds present, Soft, Non Tender Extremities: No edema Skin: No rashes, No breakdown Neurological: Grossly intact Psych/Mental Status: Appropriate Assessment & Plan Assessment/Plan (1) Small intestine obstruction: (2) Type 2 diabetes mellitus: (3) Hyperlipidemia: QUALIFIERS: Hyperlipidemia type: pure hypercholesterolemia Qualified Code(s): E78.00 - Pure hypercholesterolemia, unspecified; E78.0 - Pure hypercholesterolemia (4) Essential (primary) hypertension: (5) Bilateral carotid artery stenosis: PLAN: 1. Acute partial SBO, seen on CT of the abdomen and pelvis on admission Small bowel upper GI series, 09/20/21 showed partial small bowel obstruction Repeat KUB on 09/21/21 shows persistence Patient clinically with bowel movements Patient with history of abdominal surgeries likely this is related to adhesions Patient is on clear liquid diet, General surgery following 2. Hypertension, controlled, continue on amlodipine, metoprolol 3. Type 2 DM, blood sugars are fairly controlled Continue to hold metformin Continue blood glucose checks with insulin sliding scale 4. Bilateral carotid stenosis s/p carotid endarterectomies/Hyperlipidemia Continue on aspirin, statin 5. Asthma, not in acute exacerbation, continue on Zafirlukast 6. Morbid obesity, BMI 46.4, complicates care and recovery Lifestyle modification recommended 7. DVT prophylaxis?heparin subcu Charges/Coding Visit Charges Inpatient E&M: 74276 Subs Hosp L2
--- NOTE | 2021-09-21 11:55 | CASEMGMT ---
RN CM Face to Face with patient for initial transition planning/care coordination assessment. RN CM introduced self and role at [facility]. Patient lying in bed, alert and oriented, at bedside. Patient willing to participate in assessment and is able to answer all questions appropriately. Care providers, pharmacy, and demographics verified. Patient wishes to discharge home, denies need for home health at this time. Patient states he has no further needs or concerns at this time. CM to follow for discharge planning needs that may arise. PCP: Josue Specialists: Debra pulm; Debbie, ENT; Juan José, vascular; Allyson, volleyball coach Preferred Pharmacy: [facility] Insurance: [employer] [facility] Prescription Benefit: yes Living Will/HPOA: yes, Josefina Guerra LNOK: Living Arrangements: Patient lives with in a single story home with 3 steps and railing to enter the home. Patient states he is independent at home. Transportation: self, DME/HHC: Patient has cane, bipap, nebulizer, pulse ox. No previous HHC or SNF Disposition Plan: Patient to discharge home with family support and follow-up plans in place. Maribel PALUMBO, RN, CM
[2021-09-21] MEDS: Rosuvastatin Calcium 5 MG Tablet PO (11:56)
[2021-09-21 13:01] LABS: Bedside Glucose 139 mg/dL (74-106)
[2021-09-21 16:16] LABS: Bedside Glucose 138 mg/dL (74-106)
[2021-09-21] MEDS: Doxazosin 1 MG Tablet 2 MG PO (22:39)
[2021-09-21] MEDS: 0.9% Saline Lock 10 ML Syringe IV (22:40)
[2021-09-22] VITALS (11 sets, daily range): BP systolic 120–144; BP diastolic 60–69; PULSE 53–88; RESP 18–20; TEMP 36.4–36.8; O2SAT 94–96
[2021-09-22 00:05] LABS: Bedside Glucose 124 mg/dL (74-106)
--- NOTE | 2021-09-22 04:45 | RAD_ITS ---
STUDY: X-RAY - ABDOMEN/PELVIS REASON FOR EXAM: Male, 76 years old. sbo TECHNIQUE: COMPARISON: None. FINDINGS: Normal visualized lung bases. There is an unremarkable bowel gas pattern. There are dilated loops of small bowel in a stepladder configuration at the upper abdomen. There is no demonstrated free abdominal air. The visualized liver, spleen and kidneys are grossly normal in size and morphology. Normal soft tissue structures. Normal visualized osseous structures. RAD/Abdomen Single View (Portable) IMPRESSION: Normal x-ray examination of the abdomen and pelvis. Electronically Signed: Alphonse Sevilla MD at 6:32 EDT ,
[2021-09-22] MEDS: Heparin Injection (Vial) 5,000 UNIT/ML VIAL 5000 UNIT SC ×2 (06:40→14:29)
[2021-09-22] MEDS: Colestipol 1 GM TABLET PO ×2 (06:40→18:09)
[2021-09-22 06:56] LABS: Bedside Glucose 115 mg/dL (74-106)
--- NOTE | 2021-09-22 07:09 | PCM.PN.SRG ---
Subjective Subjective She continues to feel better. Passing flatus and stool. No nausea. No abdominal pain. No spasms. He has been ambulating. Objective Data Objective Data Vital Signs: Vital Signs Temp Pulse Resp BP Pulse Ox 97.5 F L 63 20 H 120/60 96 09/22/21 04:07 09/22/21 04:07 09/22/21 04:07 09/22/21 04:07 09/22/21 04:07 Oxygen Delivery Method Room Air Weight: 299 lb 2.676 oz Body Mass Index (BMI) 46.3 Intake & Output: Intake and Output for Last 24 Hours 09/20/21 09/21/21 09/22/21 23:59 23:59 23:59 Intake Total 1411.67 / 1411.67 400 / 400 500 / 500 Balance 1411.67 / 1411.67 400 / 400 500 / 500 Lab / Micro Data Result Diagrams: 09/21/21 05:20 09/21/21 05:20 Labs: Laboratory Results - last 24 hr 09/21/21 11:56: POC Glucose 139 H 09/21/21 16:06: POC Glucose 138 H 09/21/21 22:39: POC Glucose 124 H 09/22/21 06:42: POC Glucose 115 H Radiography Diagnostic Testing: Radiology Impression Chest X-Ray 09/21/21 04:50 IMPRESSION: Normal x-ray examination of the chest. Electronically Signed: Carlos Cedeno MD at 9:19 EDT , KUB X-Ray 09/22/21 04:45 IMPRESSION: Normal x-ray examination of the abdomen and pelvis. Electronically Signed: Alphonse Sevilla MD at 6:32 EDT , Physical Exam Resp normal respiratory effort Cardio regular rate GI GI Narrative: Distended, quiet, nontender Assessment & Plan Assessment/Plan (1) Small intestine obstruction: PLAN: Clinically the patient continues to improve status post small bowel obstruction. Clinically he remains asymptomatic. His abdominal x-rays of this morning are interpreted as normal but unfortunately that is incorrect. The abdominal x-rays continue to demonstrate dilated loops of small bowel with mucosal thickening. The contrast however has been completely evacuated. I believe that he is improving. Abdominal x-rays frequently lag clinical progress. We will advance to full liquid diet. Recommend reassessing with the patient later today. If he is continue to remain stable then I would think discharge with ongoing outpatient surgical follow-up would be appropriate. I have discussed with the patient dietary recommendations and office follow-up at 1 week. Gordon Mckay M.D., F.A.C.S.
[2021-09-22 07:21] LABS: Absolute Lymphocyte Count 1.51 X10^3/uL (0.83-4.51); Absolute Neutrophil Count 2.9 X10^3/uL (2.0-7.7); Basophil# 0.08 X10^3/uL; Basophil% 1.5 % (0-1); Hematocrit 42.2 % (40-54); Lymphocyte # 1.51 X10^3/ul (0.83-4.51); Lymphocyte % 27.5 % (19-41); Mean Corp Hgb Conc 33.2 g/dL (32-36); Mean Corpuscular Hgb 32.6 pg (27.0-32.0); Mean Corpuscular Volume 98.4 fL (80-94); Mean Platelet Vol. 9.9 fl (6.2-12.0); Monocyte% 14.5 % (0-10); NRBC Flagged by Analyzer 0 % (0-5); Neutrophil # 2.93 X10^3/uL (2.7-7.7); Neutrophil % 53.2 % (47-70); POSITIVE MORPHOLOGY YES; Platelet Count 164 K/mm3 (150-450); RBC Distribution Width CV 12.7 % (11.6-14.6); RBC Distribution Width SD 45.8 fl (35.1-43.9); Red Blood Count 4.29 M/mm3 (4.6-6.2); White Blood Count 5.5 K/mm3 (4.4-11.0)
[2021-09-22] MEDS: Budesonide Respules 0.5 MG/2 ML AMPUL.NEB. INHALATION (07:25)
[2021-09-22] MEDS: Ipratropium/Albuterol Sulfate 3 ML AMPUL.NEB INHALATION ×3 (07:25→15:18)
[2021-09-22 07:26] LABS: Differential Indicated SCAN CRITERIA MET
[2021-09-22 08:16] LABS: Anion Gap 5 (5-15); BUN 24 mg/dL (7-18); BUN/Creat Ratio 16.8 RATIO (10-20); Calcium,Total 8.6 mg/dL (8.5-10.1); Chloride 104 mmol/L (98-107); Creatinine, Serum 1.43 mg/dL (0.70-1.30); EST Glomerular Filtration Rate 51 mL/min (>60); Est Glom Filt Rate - Afr Amer 62 mL/min (>60); Estimated Creatinine Clearance 42.52 ml/min; Glucose 93 mg/dL (74-106); Potassium 4.2 mmol/L (3.5-5.1); Sodium Level 136 mmol/L (136-145)
[2021-09-22] MEDS: Fluticasone 0.05% 1 SPRAY NASAL.SRY 2 SPRAY NASAL (10:35)
[2021-09-22] MEDS: amLODIPine 5 MG Tablet PO (10:36)
[2021-09-22] MEDS: Metoprolol(XL)Succ 100 MG Tablet PO (10:36)
[2021-09-22] MEDS: Spironolactone 50 MG Tablet PO (10:37)
--- NOTE | 2021-09-22 10:38 | PCM.DC.SUM ---
Providers Date of Admission: 09/20/21 Date of Discharge: 09/22/21 Primary Care Physician: Dr. Nolan Salas MD Consultations 09/20/21 08:54 Consult: General Surgery Routine Consulting Provider: Gordon Mckay Reason for Consult: SBO EMERGENT Consult: No Notified: Yes Date Notified: 09/20/21 Time Notified: 08:47 Method of Notification: spoke with it 09/20/21 15:52 Consult: Bandoleer Packer / Pulmonary Medicine Routine Consulting Provider: Pulmonary Medicine [facility] Reason for Consult: Pre-op/mild COPD exacerbation EMERGENT Consult: No Notified: Yes Date Notified: 09/20/21 Time Notified: 15:52 Method of Notification: via text Reason For Visit: SBO Diagnosis Discharge Diagnosis (1) Small intestine obstruction: Status: Resolved Code(s): K56.609 - Unspecified intestinal obstruction, unspecified as to partial versus complete obstruction Medications at Discharge Home Medications aspirin 81 mg PO DAILY@0800 02/23/13 rosuvastatin 5 mg PO QODAY 02/23/13 colesevelam 1,875 mg PO BIDCM 02/04/17 terazosin 1 mg capsule 2 mg PO QHS 06/23/17 fluticasone propionate 50 mcg/actuation nasal spray,suspension 2 spray INTRANASAL DAILY 09/30/18 zafirlukast 10 mg tablet 10 mg PO ONCE tab 07/21/19 metoprolol succinate 100 mg tablet,extended release 24 hr 100 mg PO DAILY #90 tab 10/17/19 metformin 500 mg tablet 500 mg PO DAILY tab 10/09/20 spironolactone 50 mg tablet 50 mg PO DAILY #90 tab 10/09/20 vitamins A,C,I-fhkp-ovolwx 14,320 unit-226 mg-200 unit capsule 1 cap PO BID 10/09/20 furosemide 40 mg tablet 40 mg PO DAILY #90 tab 12/04/20 amlodipine 5 mg tablet 5 mg PO DAILY #90 tab 01/23/21 Breo Ellipta 1 inh INHALATION DAILY 07/11/21 albuterol sulfate [ProAir HFA] 1 puff INHALATION Q6H 07/11/21 Hospital Course Operations None Procedures None Summary of Care Provided Minutes Spent on Discharge: 35 Hospital Course: 76-year-old male who presented with abdominal discomfort and distention ongoing for 2 days. Patient had complained of diarrhea which seem to have subsided a day prior to admission. He did not have any bowel movement in a day of admission. Work-up in the ED showed dilated loops of small intestine with transition in the distal ileum and in nondistended colon suggestive of small bowel obstruction. He was admitted to the [facility] floor, kept n.p.o., general surgery consulted from the ED. Patient had a small bowel series done that showed partial small bowel obstruction. He was continued on clear liquid diet. He had multiple bowel movements during this hospital stay. He continued to improve, tolerated a full liquid diet. He will follow-up with general surgery in the outpatient. Physical Exam Narrative Physical exam: General: Alert, Oriented x3, Cooperative, No apparent distress HEENT: Atraumatic Oral: Moist Mucosa Neck: Supple Lungs: Clear to auscultation Cardiovascular: HS I+II, regular, no murmurs Abdomen: Distended, Bowel Sounds present, Soft, Non Tender Extremities: No edema Skin: No rashes, No breakdown Neurological: Grossly intact Psych/Mental Status: Appropriate Weight / BMI Weight Weight: 135.7 kg Body Mass Index (BMI) 46.3 ABG / Lab / Microbiology Data Result Diagrams: 09/22/21 06:17 09/22/21 06:17 Laboratory: Laboratory Results - last 24 hr 09/21/21 11:56: POC Glucose 139 H 09/21/21 16:06: POC Glucose 138 H 09/21/21 22:39: POC Glucose 124 H 09/22/21 06:17: WBC 5.5, RBC 4.29 L, Hgb 14.0, Hct 42.2, MCV 98.4 H, MCH 32.6 H, MCHC 33.2, RDW Std Deviation 45.8 H, RDW Coeff of Angel 12.7, Plt Count 164, MPV 9.9, Immature Gran % (Auto) 3.300 H, Neut % (Auto) 53.2, Lymph % (Auto) 27.5, Millard % (Auto) 14.5 H, Eos % (Auto) 0.0, Baso % (Auto) 1.5 H, Absolute Neuts (auto) 2.9, Absolute Lymphs (auto) 1.51, Nucleated RBC % 0 09/22/21 06:17: Sodium 136, Potassium 4.2, Chloride 104, Carbon Dioxide 27.0, Anion Gap 5, BUN 24 H, Creatinine 1.43 H, Estim Creat Clear Calc 42.52, Est GFR (MDRD) Af Amer 62, Est GFR (MDRD) Non-Af 51 L, BUN/Creatinine Ratio 16.8, Glucose 93, Calcium 8.6 09/22/21 06:42: POC Glucose 115 H Radiography Diagnostic Testing: Radiology Impression KUB X-Ray 09/22/21 04:45 IMPRESSION: Normal x-ray examination of the abdomen and pelvis. Electronically Signed: Alphonse Sevilla MD at 6:32 EDT , D/C Instructions Discharge Diet: Low fat / Low cholesterol and 2000 mg Sodium Diet Meaningful Use Info Meaningful Use Diagnoses (Choose all that apply): None applicable Discharge Plan Admission Admit Date/Time: 09/20/21 07:51 Primary Reason for Your Visit: Acute small bowel obstruction Attending Provider: Jessica Youssef Primary Care Provider: Nolan Salas Consulting Providers: Gordon Mckay ; Lukas Callahan ; Danilo Davalos ; Filomena Jaffe [employer]PA[employer] Instructions Additional Instructions / Restrictions: Continue to be on full liquid diet until you see the general surgeon within a week. Discharge Orders/Prescriptions Prescriptions: Continued terazosin 1 mg capsule 2 mg PO QHS RF: 0 fluticasone propionate 50 mcg/actuation spray,suspension 2 spray INTRANASAL DAILY RF: 0 zafirlukast 10 mg tablet 10 mg PO ONCE RF: 0 metformin 500 mg tablet 500 mg PO DAILY RF: 0 PreserVision AREDS 14,320-226-200 clwz-av-bore capsule 1 cap PO BID RF: 0 spironolactone 50 mg tablet 50 mg PO DAILY Qty: 90 RF: 3 rosuvastatin 5 MG tablet 5 mg PO QODAY RF: 0 aspirin 81 MG tablet 81 mg PO DAILY@0800 RF: 0 colesevelam 625 MG tablet 1,875 mg PO BIDCM RF: 0 albuterol sulfate [ProAir HFA] 90 mcg/actuation Hfa Aerosol Inhaler 1 puff INHALATION Q6H RF: 0 Breo Ellipta 200-25 mcg/dose Blister With Device 1 inh INHALATION DAILY RF: 0 metoprolol succinate 100 mg tablet extended release 24 hr 100 mg PO DAILY Qty: 90 RF: 3 furosemide [Lasix] 40 mg tablet 40 mg PO DAILY Qty: 90 RF: 6 amlodipine 5 mg tablet 5 mg PO DAILY Qty: 90 RF: 6 Referrals / Follow Up: Nolan Salas MD [Primary Care Provider] - In 1 Week Gordon Mckay MD [STAFF PHYSICIAN] - In 1 Week Disposition Disposition (needs filled in before D/C Order can be placed): Home, Self Care Charges/Coding Visit Charges Inpatient E&M: 21988 Disch Hosp
[2021-09-22 13:11] LABS: Bedside Glucose 136 mg/dL (74-106)
--- NOTE | 2021-09-22 14:39 | NURSING ---
Dr. Mckay called for an update. Dr. Mckay is aware that pt is passing a lot of flatus, no BM's when he goes to the bathroom It's just all gas. Abd is rounded, but the same as earlier. BS normal active to both Rt and LT qauds but hypo to both Rt and Lt lower qauds. Pt denies nausea and vomitting. Tolerated full liquid diet for lunch.
== END 2021-09-22 19:10 | disposition home or self-care (01) | DRG 389 ==
LOC: ED 07:49 → MS3 08:36
PROVIDERS: Surgery; Admitting Provider Internal Medicine; Emergency Provider Emergency Medicine; PCP Family Medicine; Visit Provider Internal Medicine
DX: K56.600 Partial intestinal obstruction, unspecified as to cause (principal); E11.51 Type 2 diabetes mellitus with diabetic peripheral angiopathy without gangrene; J44.1 Chronic obstructive pulmonary disease with (acute) exacerbation; Z68.42 Body mass index [BMI] 45.0-49.9, adult; E66.01 Morbid (severe) obesity due to excess calories; K76.0 Fatty (change of) liver, not elsewhere classified; I10 Essential (primary) hypertension; G47.33 Obstructive sleep apnea (adult) (pediatric); K57.30 Diverticulosis of large intestine without perforation or abscess without bleeding; I65.23 Occlusion and stenosis of bilateral carotid arteries; E86.0 Dehydration; Z86.010 Personal history of colon polyps; Z79.82 Long term (current) use of aspirin; Z79.84 Long term (current) use of oral hypoglycemic drugs; Z86.718 Personal history of other venous thrombosis and embolism; Z79.899 Other long term (current) drug therapy; E78.00 Pure hypercholesterolemia, unspecified
CPT/HCPCS: 36415; 71045; 74018; 74177; 74250; 80048; 80053; 80076; 82962; 83605; 83690; 83735; 85025; 94640; 96361; 96372; 96374; 99218; 99251; 99285; J7120; Q9967; A4216; G0378; G0463; J2405

== ENCOUNTER → 2021-10-01 | Outpatient (CLI) | payer MEDICARE, SELFPAY ==
--- NOTE | 2021-10-01 14:11 | RAD_ITS ---
STUDY: X-RAY - ABDOMEN/PELVIS REASON FOR EXAM: Male, 76 years old. PARTIAL BOWEL OBSTRUCTION TECHNIQUE: AP supine and upright views of the abdomen and pelvis. COMPARISON: 09/22/2021 FINDINGS: Normal visualized lung bases. There is an unremarkable bowel gas pattern. There is no demonstrated free abdominal air. The visualized liver, spleen and kidneys are grossly normal in size and morphology. Normal soft tissue structures. There are diffuse degenerative changes of the visualized lumbar spine. RAD/Abd Inc Decub and/or Erect IMPRESSION: Nonobstructive bowel gas pattern. Electronically Signed: Ruperto Hernández MD (Brooks) at 14:23 EDT Reading Location ID and State: [place] , Service support ,
== END | disposition home or self-care (01) ==
LOC: RAD 13:59
PROVIDERS: PCP Family Medicine; Referring Provider Surgery; Visit Provider Surgery
DX: K56.600 Partial intestinal obstruction, unspecified as to cause (principal)
CPT/HCPCS: 74019

== ENCOUNTER → 2021-11-14 | Outpatient (CLI) | payer MEDICARE, SELFPAY ==
[2021-11-14 12:28] LABS: Anion Gap 5 (5-15); BUN 19 mg/dL (7-18); BUN/Creat Ratio 16.2 RATIO (10-20); Calcium,Total 8.9 mg/dL (8.5-10.1); Chloride 102 mmol/L (98-107); Creatinine, Serum 1.17 mg/dL (0.70-1.30); EST Glomerular Filtration Rate 64 mL/min (>60); Est Glom Filt Rate - Afr Amer 78 mL/min (>60); Glucose 134 mg/dL (74-106); Potassium 4.4 mmol/L (3.5-5.1); Sodium Level 137 mmol/L (136-145)
== END | disposition home or self-care (01) ==
LOC: MFPLAB 10:16
PROVIDERS: PCP Family Medicine; Visit Provider Family Medicine
DX: I10 Essential (primary) hypertension (principal)
CPT/HCPCS: 36415; 80048

== ENCOUNTER → 2022-05-23 | Outpatient (CLI) | payer MEDICARE, SELFPAY ==
[2022-05-23 13:20] LABS: Anion Gap 9 (5-15); BUN 20 mg/dL (7-18); BUN/Creat Ratio 15.9 RATIO (10-20); Calcium,Total 8.8 mg/dL (8.5-10.1); Chloride 102 mmol/L (98-107); Cholesterol 167 mg/dL (200); Creatinine, Serum 1.26 mg/dL (0.70-1.30); EST Glomerular Filtration Rate 59 mL/min (>60); Est Glom Filt Rate - Afr Amer 71 mL/min (>60); Glucose 152 mg/dL (74-106); High Density Lipoprotein 39 mg/dL; Potassium 4.7 mmol/L (3.5-5.1); Sodium Level 136 mmol/L (136-145); Triglycerides 112 mg/dL; Very Low Density Lipoprotein 22 mg/dL (5-40)
== END | disposition home or self-care (01) ==
LOC: MFPLAB 10:35
PROVIDERS: PCP Family Medicine; Referring Provider Family Medicine; Visit Provider Family Medicine
DX: E11.9 Type 2 diabetes mellitus without complications (principal)
CPT/HCPCS: 36415; 80048; 80061

== ENCOUNTER 2023-02-24 16:51 | Outpatient (CLI) | payer MEDICARE, SELFPAY ==
--- NOTE | 2023-02-24 16:58 | RAD_ITS ---
INDICATION: CONSTIPATION EXAMINATION/TECHNIQUE: X-RAY - XR Abdomen Series W/ Chest 1 View COMPARISON: 10/01/2021 FINDINGS: --Chest: LINES/DEVICES: None. LUNGS: Central pulmonary venous congestion. Trace bilateral pleural effusions. No pneumothorax. MEDIASTINUM AND CARDIOVASCULAR STRUCTURES: The heart is moderately enlarged. Tortuous and calcified thoracic or. BONES AND SOFT TISSUES: No acute findings. Severe degenerative changes. --Abdomen: BOWEL GAS PATTERN: Non-obstructive. Moderate amount of retained stool in the colon. FREE AIR: None visualized. ORGANOMEGALY: Not seen. CALCIFICATIONS: No abnormal calcifications observed. BONES AND SOFT TISSUES: No acute findings. Severe degenerative changes. RAD/Acute Abdomen Inc Chest IMPRESSION: Moderate amount of retained stool in the colon. Moderate cardiomegaly with central pulmonary venous congestion and trace bilateral pleural effusions. Electronically Signed: Herbert Law MD at 22:11 EDT ,
[2023-02-24 17:36] LABS: Absolute Lymphocyte Count 1.34 X10^3/uL (0.83-4.51); Absolute Neutrophil Count 4.5 X10^3/uL (2.0-7.7); Basophil# 0.04 X10^3/uL; Basophil% 0.6 % (0-1); Hematocrit 41.7 % (40-54); Hemoglobin 13.2 g/dL (13.0-16.5); Lymphocyte # 1.34 X10^3/ul (0.83-4.51); Lymphocyte % 20.5 % (19-41); Mean Corp Hgb Conc 31.7 g/dL (32-36); Mean Corpuscular Hgb 30.6 pg (27.0-32.0); Mean Corpuscular Volume 96.5 fL (80-94); Mean Platelet Vol. 9.6 fl (6.2-12.0); Monocyte# 0.68 X10^3/uL; Monocyte% 10.4 % (0-10); NRBC Flagged by Analyzer 0 % (0-5); Neutrophil # 4.46 X10^3/uL (2.7-7.7); Neutrophil % 68.2 % (47-70); Platelet Count 190 K/mm3 (150-450); RBC Distribution Width CV 13.3 % (11.6-14.6); RBC Distribution Width SD 47.8 fl (35.1-43.9); Red Blood Count 4.32 M/mm3 (4.6-6.2); White Blood Count 6.5 K/mm3 (4.4-11.0)
[2023-02-24 17:55] LABS: Erythrocyte Sedimentation Rate 77 mm/hr (0-20)
[2023-02-24 17:57] LABS: BNP,B-Type NATRIURETIC PEPTIDE 96.7 pg/mL (0-100)
[2023-02-24 18:11] LABS: ALB/GLOB Ratio 0.3 RATIO (0.9-2.4); AST(SGOT) 20 U/L (15-37); Alanine Aminotransfer ALT/SGPT 16 U/L (16-61); Albumin, Serum 1.6 g/dL (3.2-5.0); Alkaline Phosphatase 58 U/L (45-117); Anion Gap 6 (5-15); BUN 65 mg/dL (7-18); BUN/Creat Ratio 16.4 RATIO (10-20); Calcium,Total 8.2 mg/dL (8.5-10.1); Chloride 110 mmol/L (98-107); Creatinine, Serum 3.96 mg/dL (0.70-1.30); EST Glomerular Filtration Rate 16 mL/min (>60); Est Glom Filt Rate - Afr Amer 19 mL/min (>60); Globulin 5.2 g/dL (2.2-4.2); Glucose 112 mg/dL (74-106); Potassium 4.7 mmol/L (3.5-5.1); Protein, Total 6.8 g/dL (6.4-8.2); Sodium Level 139 mmol/L (136-145); Thyroid Stim Hormone (TSH) 3.08 uIU/mL (0.358-3.74)
== END 2023-02-24 23:59 | disposition home or self-care (01) ==
LOC: MTLAB 16:52
PROVIDERS: PCP Family Medicine; Referring Provider Family Medicine; Visit Provider Family Medicine
DX: K59.09 Other constipation (principal); R60.1 Generalized edema
CPT/HCPCS: 36415; 74022; 80053; 83880; 84443; 85025; 85652; 86140

== ENCOUNTER 2023-02-25 11:55 | Outpatient (CLI) | payer MEDICARE, SELFPAY ==
[2023-02-27 05:07] LABS: AFP, Tumor Marker 1.9 ng/mL (0.0-8.4)
== END 2023-02-25 23:59 | disposition home or self-care (01) ==
LOC: MFPLAB 11:59
PROVIDERS: PCP Family Medicine; Visit Provider Family Medicine
DX: R60.1 Generalized edema (principal)
CPT/HCPCS: 36415; 82105; 82378

== ENCOUNTER → 2023-02-26 | Outpatient (CLI) | payer MEDICARE, SELFPAY ==
--- NOTE | 2023-02-26 09:34 | CT_ITS ---
EXAM: CT ABDOMEN AND PELVIS WITH INTRAVENOUS CONTRAST CLINICAL INDICATION: Anasarca. TECHNIQUE: Helically acquired images were obtained of the abdomen and pelvis with intravenous contrast. This CT exam was performed using one or more of the following dose reduction techniques: automated exposure control, adjustment of the mA and/or kV according to patient size, and/or use of iterative reconstruction technique. CONTRAST: Oral and IV Gastrografin and 100mL Isovue-370 COMPARISON: CT Abdomen Pelvis dated 09/20/2021 FINDINGS: LOWER THORAX: Small bilateral pleural effusions and mild bibasilar atelectasis. ABDOMEN: LIVER: Normal. Homogeneous. No focal mass. GALLBLADDER AND BILE DUCTS: Gallbladder is absent. PANCREAS: Normal. No focal cystic or solid mass. SPLEEN: Normal. Normal size without focal cystic or solid mass. ADRENALS: Normal. No nodules. KIDNEYS AND URETERS: Normal. Normal renal size and position. No hydronephrosis. STOMACH AND BOWEL: Diverticulosis of the colon noted without evidence of acute diverticulitis. PELVIS: APPENDIX: Surgical clips at the base of the cecum consistent with appendectomy. BLADDER: Normal. REPRODUCTIVE: Unremarkable as visualized. No mass. ABDOMEN and PELVIS: INTRAPERITONEAL SPACE: Normal. No ascites or other fluid collection. No free air. BONES/JOINTS: No suspicious lytic or blastic abnormality. SOFT TISSUES: Edematous changes of the subcutaneous tissues. No discrete abdominal or pelvic wall hernia. VASCULATURE: Normal. Abdominal aorta is non-dilated. LYMPH NODES: Normal. No enlarged lymph nodes. CT/Abdomen/Pelvis WITH Contrast IMPRESSION: 1. Small bilateral pleural effusions and mild bibasilar atelectasis. 2. Diverticulosis coli. 3. Subcutaneous edema. Electronically Signed: Juarez Meng MD at 13:46 EDT ,
[2023-02-26 10:19] VITALS: BP 167/77; PULSE 58; RESP 18; TEMP 36.1; O2SAT 95; BMI 48.0
[2023-02-26] MEDS: 0.9% Saline Lock 10 ML Syringe IV (10:27)
[2023-02-26] MEDS: 0.9% Normal Saline (500mL Bag) 500 ML IV (10:35)
== END | disposition home or self-care (01) ==
PROVIDERS: PCP Family Medicine; Referring Provider Family Medicine; Visit Provider Family Medicine
DX: R60.1 Generalized edema (principal)
CPT/HCPCS: 74177; J7040; Q9967; A4216

== ENCOUNTER → 2023-03-03 | Outpatient (CLI) | payer MEDICARE, SELFPAY ==
[2023-03-03 12:48] LABS: Albumin, Serum 1.6 g/dL (3.2-5.0); BUN 70 mg/dL (7-18); Calcium,Total 8.1 mg/dL (8.5-10.1); Chloride 104 mmol/L (98-107); EST Glomerular Filtration Rate 18 mL/min (>60); Est Glom Filt Rate - Afr Amer 22 mL/min (>60); Glucose 107 mg/dL (74-106); Magnesium 3.5 mg/dL (1.6-2.6); Phosphorus 4.8 mg/dL (2.5-4.9); Potassium 4.3 mmol/L (3.5-5.1); Sodium Level 134 mmol/L (136-145)
[2023-03-03 13:18] LABS: Protein, Urine (Random) 883.9 mg/dL (<11.9); Protein:Creat Ratio 7366 mg/g CRE (0-200)
[2023-03-05 08:12] LABS: Anti-Nuclear Antibody Test Negative (.)
[2023-03-05 18:07] LABS: Albumin, Ur 73.4 % (.); Alpha-1-Globulin, Ur 4.1 % (.); Alpha-2-Globulins, Ur 3.8 % (.); Cytoplasmic Ab (C-ANCA) <1:20 titer (Neg:<1:20); Gamma Globulin, Ur 7.7 % (.); M-Spike, Ur % Not Observed % (Not Observed); Perinuclear Ab (P-ANCA) <1:20 titer (Neg:<1:20); Total Protein, Ur 1007.5 mg/dL (Not Estab.)
== END | disposition home or self-care (01) ==
LOC: POLAB3 11:06
PROVIDERS: PCP Family Medicine; Visit Provider Internal Medicine Nephrology
DX: N17.9 Acute kidney failure, unspecified (principal)
CPT/HCPCS: 80069; 82570; 83735; 84156; 84166; 86038; 86256; 86335

== ENCOUNTER → 2023-03-11 | Outpatient (CLI) | payer MEDICARE, SELFPAY ==
[2023-03-11 14:46] LABS: International Normalized Ratio 1.1; Partial Thromboplast Time 32.4 Seconds (24.1-36.2); Prothrombin Time (Protime)PT. 14.1 SECONDS (11.7-14.9)
== END | disposition home or self-care (01) ==
LOC: LAB 13:55
PROVIDERS: PCP Family Medicine; Visit Provider Internal Medicine Nephrology
DX: N17.9 Acute kidney failure, unspecified (principal)
CPT/HCPCS: 36415; 85610; 85730

== ENCOUNTER 2023-03-13 08:50 | Outpatient (CLI) | payer MEDICARE, SELFPAY ==
[2023-03-13] VITALS (13 sets, daily range): BP systolic 101–162; BP diastolic 37–77; PULSE 57–77; RESP 15–26; O2SAT 93–97; BMI 45.6
--- NOTE | 2023-03-13 | KID_PTH ---
PATIENT: XOCHITL MONTERROSO LOC: CT U#:[id number] AGE/SX: 78/M ROOM: RE03/13/[address]: Dr. Mary Patel DO : 1945 BED: DIS: 03/13/2023 SPEC #: [id number] RECD: 03/13/23 11:16 STATUS: AC REМария #: [id number] ELIEL: 03/13/23 00:[address]: Mary Patel DEPT: SURGICAL PATHOLOGY RECD BY: Cinthia Gregory ENTERED: 03/13/23 11:16 SP TYPE: KIDNEY OTHR DR: Dr. Nolan Salas MD Tissues: Kidney, NOS Procedures: Electron Microscopy (ACH) Fluorescent Antibody (ACH) Sp St Grp II Kidney (ACH) Kidney Biopsy (ACH) Fluorescent antibody (ACH) add'l HEADER OPERATION: Right kidney biopsy PRE-OP DIAGNOSIS: Acute renal failure syndrome TISSUE SUBMITTED: Kidney 18-gauge x4 MICROSCOPIC DIAGNOSIS Right kidney, biopsies: Glomerular hilar vessel an basement membrane thickening. Interstitial fibrosis; approximately 20% fibrosis. Arteriole hyaline changes. Podocytopathy. See comment. COMMENT Correlate clinically with history and onset of symptoms. Slides reviewed with Dr. Juarez who concurs. Preliminary findings discussed with Dr. Mary Patel on 03/17/[address] Jenkins. Immunofluorescence is essentially negative. There is no evidence of immune-mediated or inflammatory glomerulopathy. There is evidence of thickened arteriole changes with hyalinosis. There is interstitial fibrosis. There is podocytopathy with variable hypertrophy and effacement. 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 MICROSCOPIC DESCRIPTION Slides are reviewed at [facility] - Light microscopy examined with H&E, PAS, Muller silver, trichrome, and Congo red stains yields renal cortex for evaluation with 13 glomeruli; of which 3 are globally sclerosed. Several glomeruli show hilar vascular thickening with hyaline changes. Focal glomeruli show glomerulomegaly changes. There are thickened glomerular capillary loops. There is no evidence of glomerular inflammation or crescent formation of Kimmelstiel-Chris nodules. There are variable dilated tubules with Tamm-Horsfall proteinaceous material. There are mild acute tubule injury changes with resorptive changes. There is focal mild chronic interstitial infiltrate. There is approximately 20% interstitial fibrosis observed with trichrome stain. There is arteriole intimal thickening with small vessels showing hyaline changes. There is no evidence of vasculitis. There is medullary renal tissue present; The majority of tissue is medullary tissue. Congo red stain does not highlight any evidence of amyloid deposition or accumulation. Special stain positive controls are reviewed and deemed adequate. IMMUNOFLUORESCENCE: Tissue frozen and submitted for immunofluorescence evaluation yields 1 open glomerulus. There is background glomerular and cortex signal with IgG, albumin, kappa, and lambda. IgM, IgA, C3, C1q, and fibrin are negative, Positive and negative immunofluorescence controls are reviewed and deemed adequate. ELECTRON MICROSCOPY: Toluidine blue semithin sections demonstrate 4 open glomeruli. Ultrastructure examination demonstrate glomeruli with variable podocyte changes including marked podocyte hypertrophy as well as focal patchy podocyte flattening with foot process effacement. There is no evidence of membranous or mesangial deposits. There is variable glomerular basement membrane thickening. There is mild patchy mesangial matrix expansion. GROSS DESCRIPTION The specimen is sent entirely to [facility] for diagnosis. Per [facility]- Received in polytransport medium in a container labeled with the patient's name, medical record number, and designation kidney are 4 cores of shelton renal tissue measuring 1.6 cm, 1.5 cm, 1.5 cm, and 1.4 cm. Each approximately 0.1 cm in width. Glomeruli are seen under dissecting microscope. The specimen is divided for electron microscopy, light microscopy, and immunofluorescence.
--- NOTE | 2023-03-13 08:56 | CT_ITS ---
PROCEDURE: CT GUIDED PERCUTANEOUS KIDNEY BIOPSY. DATE: March 13, 2023. INDICATION: Male, 78 years old. Acute renal failure. PHYSICIAN: Philippe Galeana M.D. MEDICATIONS: 2 mg of Versed and 50 mcg of fentanyl. Conscious sedation lasted 23 minutes. ACCESS SITE: Lower pole right kidney. NEEDLE: 18-gauge core biopsy needle SPECIMEN: 4 18-gauge cores EBL: None. COMPLICATIONS: None immediate. RADIATION DOSAGE (If Supplied By Facility): CTDIvol = ( 24 ) mGy, DLP = ( 808.46 ) mGycm. Individualized dose optimization technique were utilized. The risks, benefits, and alternatives to the procedure and sedation were explained to the patient. The specific risk of hemorrhage requiring further treatment or intervention was detailed and accepted. Written informed consent was obtained. The patient was placed on the CT table in the prone position. Multiple axial images were obtained from the lung base through the caudal extent of the kidneys. An appropriate entry site was identified and a rick made on the skin. The skin overlying the [ right] posterior flank was prepped and draped in sterile fashion. 1% lidocaine was administered subcutaneously for local anesthesia. Initially, a 22 gauge needle was advanced and CT images confirmed good needle position. The 22 gauge needle was then exchanged for an 17 gauge introducer needle which was advanced. Repeat CT images confirmed good needle trajectory and tip position. The introducer needle was then advanced into the periphery of the inferior renal pole, and CT images were again obtained to confirm exact tip location. The inner stylet of the introducer needle was then removed and an 18 gauge coaxial needle was advanced thru the introducer needle and biopsy performed. A total of [4 ] passes were performed and the specimen collected was sent to Pathology for further evaluation. The needle was withdrawn. Hemostasis was achieved with manual compression and a sterile dressing was applied. Repeat CT images of the biopsy area was performed which demonstrated no gross bleeding or hematoma. The patient tolerated the procedure well without immediate complications. The patient was transported to the [floor/recovery area] in stable condition. CT/Biopsy/Inj or Needle Placement IMPRESSION: Successful CT guided percutaneous kidney biopsy. Conscious sedation protocol was followed. Electronically Signed: Philippe Galeana MD at 11:00 EDT ,
[2023-03-13] MEDS: Midazolam 2 MG/2 ML Syringe IV (10:14)
[2023-03-13] MEDS: 0.9% Normal Saline (250mL Bag) 250 ML 15 ML IV (10:14)
[2023-03-13] MEDS: fentaNYL 100 MCG/2 ML Ampul IV (10:16)
[2023-03-13] MEDS: Lidocaine 2% (20 ml mdv) 20 ML Vial INFILT (10:23)
--- NOTE | 2023-03-13 11:20 | PCM.OP.PRO ---
Procedure Report Date of Procedure: 03/13/23 Assessment & Plan Assessment/Plan (1) Acute kidney failure, unspecified: PLAN: PROCEDURE: CT GUIDED RIGHT PERCUTANEOUS KIDNEY BIOPSY. ORDERING PROVIDER: Dr. Mary Patel INDICATION: Male, 78 years old. Acute renal failure. PROVIDER: ARIEL Longoria CONSENT: Written informed consent was obtained having explained the risks, benefits and alternatives in detail with the patient. The specific risk of hemorrhage requiring further treatment or intervention was detailed and accepted. The patient accepted the risks and agreed to proceed. Laboratory review and clinical assessment was performed. PRE-PROCEDURE SEDATION ASSESSMENT: Current history and physical dictated by referring provider and reviewed. No clinical changes since date of exam. Patient an ASA Class of 2. PROCEDURAL SEDATION PROTOCOL: The Drugs used were: 2 mg Versed, IV, and 50 mcg Fentanyl, IV. The sedation time was: 19 minutes, starting at 1014 and terminated at 1033. The procedural sedation protocol was independently monitored by the department nurse. RADIATION DOSAGE (If Supplied By Facility): CTDIvol = 20.44 mGy, DLP = 808.46 mGycm Individualized dose optimization techniques were used for this CT. TECHNIQUE: The patient was placed on the CT table in the prone position. Multiple axial images were obtained from the lung base through the caudal extent of the kidneys. An appropriate entry site was identified and a rick made on the skin. The skin overlying the right posterior flank was prepped and draped in sterile fashion. 2% lidocaine was administered subcutaneously for local anesthesia. Using CT guidance, an 18-gauge coaxial biopsy device was advanced to the medial midportion of the right kidney. A total of 4 core specimens were obtained. Specimens were microscopically reviewed by pathology in the CT suite and placed in formalin solution for further analysis. The needle was withdrawn. Hemostasis was achieved with manual compression and a sterile dressing was applied. The patient tolerated the procedure well without immediate complications. The patient returned to the holding bay in stable condition for nursing monitoring, per protocol. IMPRESSION: 1. Successful CT guided percutaneous right kidney biopsy. Pathology results are pending. 2. Procedural Sedation protocol utilized with independent monitoring by the department nurse. Procedures Radiology Radiology CT Procedures: [id number] Biopsy Kidney
== END 2023-03-13 23:59 | disposition home or self-care (01) ==
PROVIDERS: PCP Family Medicine; Referring Provider Internal Medicine Nephrology; Visit Provider Internal Medicine Nephrology
DX: N05.8 Unspecified nephritic syndrome with other morphologic changes (principal); N17.9 Acute kidney failure, unspecified
CPT/HCPCS: 50200; 77012; 88300; 88305; 88313; 88346; 88348; 88350; 99156; J7050; A4216

== ENCOUNTER → 2023-03-31 | Outpatient (CLI) | payer MEDICARE, SELFPAY ==
[2023-03-31 12:06] LABS: Albumin, Serum 2.4 g/dL (3.2-5.0); BUN 15 mg/dL (7-18); BUN/Creat Ratio 11.5 RATIO (10-20); Calcium,Total 8.7 mg/dL (8.5-10.1); Chloride 106 mmol/L (98-107); Creatinine, Serum 1.31 mg/dL (0.70-1.30); EST Glomerular Filtration Rate 56 mL/min (>60); Est Glom Filt Rate - Afr Amer 68 mL/min (>60); Glucose 111 mg/dL (74-106); Phosphorus 2.3 mg/dL (2.5-4.9); Sodium Level 139 mmol/L (136-145)
== END | disposition home or self-care (01) ==
LOC: POLAB3 10:18
PROVIDERS: PCP Family Medicine; Visit Provider Internal Medicine Nephrology
DX: N17.9 Acute kidney failure, unspecified (principal)
CPT/HCPCS: 36415; 80069

== ENCOUNTER → 2023-05-06 | Outpatient (CLI) | payer MEDICARE, SELFPAY ==
[2023-05-06 12:54] LABS: Anion Gap 3 (5-15); BUN 26 mg/dL (7-18); BUN/Creat Ratio 18.7 RATIO (10-20); Calcium,Total 9.2 mg/dL (8.5-10.1); Chloride 108 mmol/L (98-107); Creatinine, Serum 1.39 mg/dL (0.70-1.30); EST Glomerular Filtration Rate 53 mL/min (>60); Est Glom Filt Rate - Afr Amer 64 mL/min (>60); Glucose 129 mg/dL (74-106); Potassium 4.2 mmol/L (3.5-5.1); Sodium Level 138 mmol/L (136-145)
== END | disposition home or self-care (01) ==
LOC: MFPLAB 10:08
PROVIDERS: PCP Family Medicine; Visit Provider Family Medicine
DX: N19 Unspecified kidney failure (principal)
CPT/HCPCS: 36415; 80048

== ENCOUNTER → 2023-06-11 | Outpatient (CLI) | payer MEDICARE, SELFPAY ==
[2023-06-11 12:49] LABS: Protein:Creat Ratio 87 mg/g CRE (0-200)
[2023-06-11 13:10] LABS: Albumin, Serum 3.1 g/dL (3.2-5.0); BUN 30 mg/dL (7-18); BUN/Creat Ratio 20.8 RATIO (10-20); Calcium,Total 9.2 mg/dL (8.5-10.1); Chloride 104 mmol/L (98-107); Creatinine, Serum 1.44 mg/dL (0.70-1.30); EST Glomerular Filtration Rate 50 mL/min (>60); Est Glom Filt Rate - Afr Amer 61 mL/min (>60); Glucose 110 mg/dL (74-106); Phosphorus 3.4 mg/dL (2.5-4.9); Potassium 4.2 mmol/L (3.5-5.1); Sodium Level 135 mmol/L (136-145)
== END | disposition home or self-care (01) ==
LOC: LAB 11:18
PROVIDERS: PCP Family Medicine; Referring Provider Internal Medicine Nephrology; Visit Provider Internal Medicine Nephrology
DX: N17.9 Acute kidney failure, unspecified (principal); R80.8 Other proteinuria
CPT/HCPCS: 36415; 80069; 82570; 84156

== ENCOUNTER → 2023-07-31 | Outpatient (CLI) | payer MEDICARE, SELFPAY ==
[2023-07-31 12:23] LABS: Cholesterol 160 mg/dL (200); High Density Lipoprotein 35 mg/dL; Triglycerides 245 mg/dL; Very Low Density Lipoprotein 49 mg/dL (5-40)
== END | disposition home or self-care (01) ==
LOC: MFPLAB 10:54
PROVIDERS: PCP Family Medicine; Visit Provider Family Medicine
DX: E11.9 Type 2 diabetes mellitus without complications (principal)
CPT/HCPCS: 36415; 80061

== ENCOUNTER → 2023-09-11 | Outpatient (CLI) | payer MEDICARE, SELFPAY ==
[2023-09-11 12:50] LABS: Anion Gap 6 (5-15); BUN 33 mg/dL (7-18); BUN/Creat Ratio 19.2 RATIO (10-20); Calcium,Total 9.7 mg/dL (8.5-10.1); Chloride 107 mmol/L (98-107); Creatinine, Serum 1.72 mg/dL (0.70-1.30); EST Glomerular Filtration Rate 41 mL/min (>60); Est Glom Filt Rate - Afr Amer 50 mL/min (>60); Glucose 116 mg/dL (74-106); Potassium 4.2 mmol/L (3.5-5.1); Sodium Level 139 mmol/L (136-145)
== END | disposition home or self-care (01) ==
LOC: MTLAB 11:14
PROVIDERS: PCP Family Medicine; Referring Provider Family Medicine; Visit Provider Family Medicine
DX: N18.9 Chronic kidney disease, unspecified (principal)
CPT/HCPCS: 36415; 80048

== ENCOUNTER → 2023-10-13 | Outpatient (CLI) | payer MEDICARE, SELFPAY ==
[2023-10-13 13:30] LABS: Anion Gap 4 (5-15); BUN 32 mg/dL (7-18); BUN/Creat Ratio 16.9 RATIO (10-20); Calcium,Total 9.9 mg/dL (8.5-10.1); Chloride 107 mmol/L (98-107); Creatinine, Serum 1.89 mg/dL (0.70-1.30); EST Glomerular Filtration Rate 37 mL/min (>60); Est Glom Filt Rate - Afr Amer 45 mL/min (>60); Glucose 117 mg/dL (74-106); Potassium 4.7 mmol/L (3.5-5.1); Sodium Level 138 mmol/L (136-145)
[2023-10-13 13:33] LABS: Albumin, Serum 3.4 g/dL (3.2-5.0); BUN 31 mg/dL (7-18); BUN/Creat Ratio 16.4 RATIO (10-20); Calcium,Total 9.7 mg/dL (8.5-10.1); Chloride 107 mmol/L (98-107); Creatinine, Serum 1.89 mg/dL (0.70-1.30); EST Glomerular Filtration Rate 37 mL/min (>60); Est Glom Filt Rate - Afr Amer 45 mL/min (>60); Glucose 118 mg/dL (74-106); Phosphorus 2.9 mg/dL (2.5-4.9); Potassium 4.7 mmol/L (3.5-5.1); Sodium Level 139 mmol/L (136-145)
[2023-10-13 14:30] LABS: Protein, Urine (Random) 28.1 mg/dL (<11.9); Protein:Creat Ratio 97 mg/g CRE (0-200)
== END | disposition home or self-care (01) ==
PROVIDERS: PCP Family Medicine; Referring Provider Internal Medicine Nephrology; Visit Provider Internal Medicine Nephrology
DX: N17.9 Acute kidney failure, unspecified (principal)
CPT/HCPCS: 36415; 80048; 80069; 82570; 84156

== ENCOUNTER → 2023-12-02 | Outpatient (CLI) | payer MEDICARE, SELFPAY ==
[2023-12-02 12:49] LABS: BUN 31 mg/dL (7-18); BUN/Creat Ratio 20.8 RATIO (10-20); Calcium,Total 9.5 mg/dL (8.5-10.1); Chloride 105 mmol/L (98-107); Creatinine, Serum 1.49 mg/dL (0.70-1.30); EST Glomerular Filtration Rate 48 mL/min (>60); Est Glom Filt Rate - Afr Amer 59 mL/min (>60); Glucose 106 mg/dL (74-106); Phosphorus 3.3 mg/dL (2.5-4.9); Potassium 4.5 mmol/L (3.5-5.1); Sodium Level 136 mmol/L (136-145)
== END | disposition home or self-care (01) ==
LOC: LAB 11:13
PROVIDERS: PCP Family Medicine; Referring Provider Internal Medicine Nephrology; Visit Provider Internal Medicine Nephrology
DX: N17.9 Acute kidney failure, unspecified (principal); N18.31 Chronic kidney disease, stage 3a; R80.8 Other proteinuria
CPT/HCPCS: 80069

== ENCOUNTER → 2023-12-09 | Outpatient (CLI) | payer MEDICARE, SELFPAY ==
--- NOTE | 2023-12-09 10:22 | RAD_ITS ---
STUDY: X-RAY - LEFT KNEE REASON FOR EXAM: Male, 78 years old. KNEE PAIN TECHNIQUE: 4 view(s) of the knee. COMPARISON: None. FINDINGS: Normal visualized distal femur. Normal visualized proximal tibia and fibula. Normal proximal tibiofibular articulation. There is severe degenerative arthrosis of the medial femorotibial compartment with severe joint space narrowing. There is moderate degenerative arthrosis of the lateral femorotibial compartment with moderate joint space narrowing. There is moderate degenerative arthrosis of the patellofemoral articulation. The soft tissue structures are unremarkable. RAD/Knee 4 or More Views IMPRESSION: Degenerative arthrosis. Electronically Signed: Carlos Cedeno MD at 11:33 EDT ,
== END | disposition home or self-care (01) ==
LOC: MTRAD 10:20
PROVIDERS: PCP Family Medicine; Referring Provider Family Medicine; Visit Provider Family Medicine
DX: M25.562 Pain in left knee (principal)
CPT/HCPCS: 73564

== ENCOUNTER → 2023-12-16 | Outpatient (CLI) | payer MEDICARE, SELFPAY ==
--- NOTE | 2023-12-16 09:46 | ECHOD_ITS ---
Reason For Study: HYPERTENSION Procedure This was a 2D Doppler, Color Flow transthoracic echocardiogram. The study was technically difficult. Contrast injection was performed. Exam performed in department. Left Ventricle Normal LV size. Mild concentric left ventricular hypertrophy. Left ventricular systolic function is normal. Stage 1 diastolic dysfunction. The left ventricular ejection fraction is 55 %. No regional wall motion abnormalities noted. Right Ventricle Normal right ventricle. Normal systolic function. Atria Normal left atrium. Normal right atrium. Mitral Valve Normal mitral valve. Tricuspid Valve Normal tricuspid valve. Aortic Valve The aortic valve is not well visualized. Pulmonic Valve Normal pulmonic valve. Great Vessels Normal aortic root. The pulmonary artery is normal size. Normal inferior vena cava. Pericardium/Pleural No pericardial effusion. Medication 22 gauge I.V. with prn adaptor inserted into left arm. Performed a rapid injection of agitated mix of 9 cc saline and 1cc air to assess for atrial septal defect. Diluted definity 2.5ml given slow IV push to enhance endocardial definition. MMode/2D Measurements & Calculations LVIDd: 4.4 cm IVSd: 1.3 cm LVOT diam: 2.1 cm LVIDs: 2.6 cm LVPWd: 1.2 cm RVDd: 3.2 cm FS: 40.9 % LVOT area: 3.6 cm2 Ao root diam: 3.7 cm LAV(MOD-bp): 50.6 ml LVAd ap4: 39.8 cm2 LAV(MOD-bp) Indexed: 21.4 ml/m2 LVLd ap4: 9.5 cm LAV(MOD-sp2): 59.6 ml EDV(MOD-sp4): 136.3 ml LAV(MOD-sp4): 38.5 ml EDV(sp4-el): 141.3 ml LVAs ap4: 24.5 cm2 LVLs ap4: 7.9 cm ESV(MOD-sp4): 61.7 ml ESV(sp4-el): 64.4 ml EF(MOD-sp4): 54.7 % EF(sp4-el): 54.4 % LVAd ap2: 36.4 cm2 SV(MOD-sp4): 74.6 ml SV(MOD-sp2): 63.2 ml LVLd ap2: 9.1 cm EDV(MOD-sp2): 122.4 ml EDV(sp2-el): 123.4 ml LVAs ap2: 24.1 cm2 LVLs ap2: 8.0 cm ESV(MOD-sp2): 59.3 ml ESV(sp2-el): 61.7 ml EF(MOD-sp2): 51.6 % SV(sp4-el): 76.9 ml LA dimension(2D): 4.5 cm LA A4 area: 15.7 cm2 RA A4 area: 11.5 cm2 TAPSE: 1.4 cm Time Measurements MV dec time: 0.22 sec Doppler Measurements & Calculations MV E max rgover: 66.5 cm/sec Lat Peak E' Grover: 8.9 cm/sec Med Peak E' Grover: 8.6 cm/sec MV A max grover: 73.1 cm/sec E/E' lat: 7.5 E/E' med: 7.7 MV E/A: 0.91 Ao V2 max: 133.2 cm/sec LV V1 max: 101.2 cm/sec MV dec slope: 297.5 cm/sec2 Ao max P.1 mmHg LV V1 max P.1 mmHg Ao V2 mean: 95.8 cm/sec LV V1 mean P.8 mmHg Ao mean P.1 mmHg LV V1 mean: 82.3 cm/sec Ao V2 VTI: 26.8 cm LV V1 VTI: 24.0 cm AV (velocity ratio): 0.89 CARLOS(I,D): 3.2 cm2 CARLOS(V,D): 2.7 cm2 SV(LVOT): 86.1 ml PA V2 max: 143.2 cm/sec PA max PG (full): 4.5 mmHg ECHO/Echo Complete W/ Contrast Interpretation Summary Normal LV size. Left ventricular systolic function is normal. Mild concentric left ventricular hypertrophy. Stage 1 diastolic dysfunction. The left ventricular ejection fraction is 55 %. Contrast injection was performed. Ordering Physician: eJsse Valadez Referring Physician: Nolan Salas Performed By: Lisa Monte RDCS
== END | disposition home or self-care (01) ==
PROVIDERS: PCP Family Medicine; Referring Provider Internal Medicine Cardiovascular Disease; Visit Provider Internal Medicine Cardiovascular Disease
DX: I10 Essential (primary) hypertension (principal); I25.10 Atherosclerotic heart disease of native coronary artery without angina pectoris
CPT/HCPCS: 93306; Q9957; A4216; C8929

== ENCOUNTER → 2024-01-04 | Outpatient (CLI) | payer MEDICARE, SELFPAY ==
[2024-01-04 13:15] LABS: Anion Gap 4 (5-15); BUN 31 mg/dL (7-18); BUN/Creat Ratio 18.7 RATIO (10-20); Calcium,Total 9.7 mg/dL (8.5-10.1); Chloride 108 mmol/L (98-107); Cholesterol 191 mg/dL (200); Creatinine, Serum 1.66 mg/dL (0.70-1.30); EST Glomerular Filtration Rate 43 mL/min (>60); Est Glom Filt Rate - Afr Amer 52 mL/min (>60); Glucose 112 mg/dL (74-106); High Density Lipoprotein 37 mg/dL; Sodium Level 138 mmol/L (136-145); Triglycerides 244 mg/dL; Very Low Density Lipoprotein 49 mg/dL (5-40)
== END | disposition home or self-care (01) ==
PROVIDERS: PCP Family Medicine; Referring Provider Family Medicine; Visit Provider Family Medicine
DX: I10 Essential (primary) hypertension (principal)
CPT/HCPCS: 36415; 80048; 80061

== ENCOUNTER 2024-01-06 12:53 | Outpatient (RCR) | payer MEDICARE, SELFPAY ==
--- NOTE | 2024-01-06 13:51 | HP.PTEVAL_ITS ---
Patient's Visit Information Visit Information Visit Information: XOCHITL MONTERROSO is a 78 year old M referred to Physical Therapy by Dr. Fred Griffin MD with a diagnosis of L knee OA. Date of Evaluation: 01/06/24 Physical Therapist: Fady Baldwin, DPT, OCS, CSCS Visit Plan Frequency: 2x /Week Duration: 4-6 Weeks Plan: 2x/week for 4-6 starting in pool for LE and calorie burning/postural ex to I, quad and HS stretching, Knee ROM ext and flexion L. Work to I in pool or HEP depending on pt desire. Subjective Subjective: Dr. Griffin sent for L knee discomfort an OA. hurting for 1.5 years but now is hyperextending if hits uneven spot. 6 months ago started radiating medial pain if twisting or walking. X rays bone on bone. Sent to [facility]. TKA ap propriate. Pain daily to 10/18 transiently. Injections not recommended. Sent for PT. Pt not ready to have it done yet. Activity is avoiding walking on uneven ground. Pierre walking is avoided. Can go to the grocery store but it hurts and sometimes uses walking stick. No regular exercises. has recumbent bike. retired Hobbies: piddle around house , mows yard on zero turn. Basic ADLs: all I. Stairs are to basement and does not trust it on L, always uses R. Pain L knee: Pain Intensity (Out of 10): 0 Pain Intensity Range: 0 and 6 Objective Objective: L antalgia is slight in gait but I, some varus at knee.. i gait. Transfers I bed and chair. AROM L knee -3-95 adn R knee 0-120. Pain in L knee at end range fex and ext. quad and HS max tight at -30+ 90/90 test. hip aROM otherwise WFL, 4 extension AROM B. ankles gastroc tightness but WFL AROM. strength L knee ext crepitus and 4/5 ext adn 4 flexion vs 4+ on R. hip abd and ext 3+ B, flexion 4- B. ankles 4 B. - bounce home, + patellar grind L reflexes 13 B patella nd achilles Sensation LE WNL to gross lgiht touch but some neuropathy in gait pattern, able to heel raise B but not toe raise. Balance/Special Test Scores Functional Gait Assessment Score: 28 % Disability: 6.6700 Lower Extremity Functional Score: 30 Goals Goal 1:: i appropriate pool or hoe based ex to minimize future problems. Goal Time Frame: 4-6 Weeks Goal 2:: Pain 2/10 at worst and 50% better overall. Goal Time Frame: 4-6 Weeks Goal 3:: strengthen adn manage appropriate to prepare for possible TKA. Goal Time Frame: 4-6 Weeks Goal 4:: LEFS 45 Goal Time Frame: 4-6 Weeks Goal 5:: walk in tom without hesitation or pain Goal Time Frame: 4-6 Weeks Rehabilitation Potential Physical Therapy Diagnosis: l kknee apin and stiffness limiting comfortable funciton Rehabilitation Potential: Fair Anticipated Interventions Patient/Client Instruction: Educate patient on: Condition and Plan of Care For the Purpose of:: To decrease pain, To increase ROM, To improve muscle performance and motor function and To improve gait and locomotor functions Therapeutic Exercise to Include: Strength training, Flexibilty training, In an aquatic setting and Active ROM For the Purpose of:: To decrease pain, To increase ROM, To improve nutrient delivery to tissue, To improve muscle performance and motor function, To increase tolerance to activity/condition/position and To improve gait and locomotor functions Text: Thank you for the opportunity to evaluate your patient. For Medicare and Medicare HMO plans, please review the plan of care and approve it. It will need to be FAXED BACK to us at [phone] for Medicare purposes. For Medicare only, by signing this I certify the plan of care. Please let me know if there are questions or concerns regarding this plan of care. Physician Signature: Date:
--- NOTE | 2024-01-12 12:29 | HP.PTDCSUM ---
Discharge Summary D/C summary: It has been my pleasure to treat XOCHITL MONTERROSO referred by Dr. Fred Griffin MD, with the diagnosis of L knee OA for a total of 1 visit(s). Discharge Date: 01/12/24 Please see the following information for a summary of their discharge status. Pain L knee: Pain Intensity (Out of 10): 0 Goals Goal 1:: i appropriate pool or hoe based ex to minimize future problems. Goal 2:: Pain 2/10 at worst and 50% better overall. Goal 3:: strengthen adn manage appropriate to prepare for possible TKA. Goal 4:: LEFS 45 Goal 5:: walk in tom without hesitation or pain Plan Plan: Pt called and no longer wishes to have any PT. Will discontinue at his request without any actual treatments. D/C Information d/c sentence: If there are questions or concerns regarding this patient's physical therapy, please feel free to call me at [phone]. Thank you for the referral of this patient. Sincerely, Fady Baldwin, DPT, OCS, CSCS Balance/Gait/Functional tests Balance/Special Test Scores Functional Gait Assessment Score: 28 % Disability: 6.6700 Lower Extremity Functional Score: 30
== END 2024-01-06 19:00 | disposition home or self-care (01) ==
LOC: PT 12:53
PROVIDERS: PCP Family Medicine; Referring Provider Specialist; Visit Provider Specialist
DX: M17.12 Unilateral primary osteoarthritis, left knee (principal); M21.162 Varus deformity, not elsewhere classified, left knee
CPT/HCPCS: 97161

== ENCOUNTER → 2024-02-11 | Outpatient (CLI) | payer MEDICARE, SELFPAY ==
[2024-02-11 12:28] LABS: Protein, Urine (Random) 30.3 mg/dL (<11.9); Protein:Creat Ratio 103 mg/g CRE (0-200)
[2024-02-11 13:27] LABS: Albumin, Serum 3.2 g/dL (3.2-5.0); BUN 23 mg/dL (7-18); BUN/Creat Ratio 13.4 RATIO (10-20); Calcium,Total 9.3 mg/dL (8.5-10.1); Chloride 109 mmol/L (98-107); Creatinine, Serum 1.72 mg/dL (0.70-1.30); EST Glomerular Filtration Rate 41 mL/min (>60); Est Glom Filt Rate - Afr Amer 50 mL/min (>60); Glucose 130 mg/dL (74-106); Phosphorus 2.8 mg/dL (2.5-4.9); Potassium 4.6 mmol/L (3.5-5.1); Sodium Level 138 mmol/L (136-145)
== END | disposition home or self-care (01) ==
LOC: LAB 11:48
PROVIDERS: PCP Family Medicine; Referring Provider Internal Medicine Nephrology; Visit Provider Internal Medicine Nephrology
DX: R80.8 Other proteinuria (principal); N18.31 Chronic kidney disease, stage 3a
CPT/HCPCS: 36415; 80069; 82570; 84156

== ENCOUNTER → 2024-07-04 | Outpatient (CLI) | payer MEDICARE, SELFPAY ==
[2024-07-04 13:37] LABS: Microalbumin,Random Urine 20.3 mg/L (NO RANGE EST.); Microalbumin:Creatinine Ratio 7.8 mg/g CRE (<30 mg/g CRE)
[2024-07-04 20:36] LABS: ALB/GLOB Ratio 0.9 RATIO (0.9-2.4); AST(SGOT) 21 U/L (15-37); Alanine Aminotransfer ALT/SGPT 24 U/L (16-61); Albumin, Serum 3.3 g/dL (3.2-5.0); Alkaline Phosphatase 51 U/L (45-117); Anion Gap 5 (5-15); BUN 24 mg/dL (7-18); BUN/Creat Ratio 15.6 RATIO (10-20); Calcium,Total 8.9 mg/dL (8.5-10.1); Chloride 107 mmol/L (98-107); Cholesterol 148 mg/dL (200); Creatinine, Serum 1.54 mg/dL (0.70-1.30); EST Glomerular Filtration Rate 47 mL/min (>60); Est Glom Filt Rate - Afr Amer 56 mL/min (>60); Globulin 3.8 g/dL (2.2-4.2); Glucose 113 mg/dL (74-106); High Density Lipoprotein 38 mg/dL; Potassium 4.5 mmol/L (3.5-5.1); Protein, Total 7.1 g/dL (6.4-8.2); Sodium Level 137 mmol/L (136-145); Triglycerides 211 mg/dL; Very Low Density Lipoprotein 42 mg/dL (5-40)
== END | disposition home or self-care (01) ==
LOC: MFPLAB 11:04
PROVIDERS: PCP Family Medicine; Referring Provider Family Medicine; Visit Provider Family Medicine
DX: I12.9 Hypertensive chronic kidney disease with stage 1 through stage 4 chronic kidney disease, or unspecified chronic kidney disease (principal); N18.9 Chronic kidney disease, unspecified; E78.5 Hyperlipidemia, unspecified
CPT/HCPCS: 36415; 80053; 80061; 82043; 82570

== ENCOUNTER → 2024-08-04 | Outpatient (CLI) | payer MEDICARE, SELFPAY ==
[2024-08-04 11:30] LABS: Hemoglobin 14.9 g/dL (13.0-16.5); Mean Corp Hgb Conc 33.1 g/dL (32-36); Mean Corpuscular Hgb 31.6 pg (27.0-32.0); Mean Corpuscular Volume 95.3 fL (80-94); Mean Platelet Vol. 9.2 fl (6.2-12.0); Platelet Count 157 K/mm3 (150-450); RBC Distribution Width CV 12.8 % (11.6-14.6); RBC Distribution Width SD 45.3 fl (35.1-43.9); Red Blood Count 4.72 M/mm3 (4.6-6.2); White Blood Count 7.3 K/mm3 (4.4-11.0)
[2024-08-04 12:35] LABS: Protein, Urine (Random) 7.8 mg/dL (0.0-12.0); Protein:Creat Ratio 78 mg/g CRE (0-200)
[2024-08-04 12:36] LABS: Phosphorus 2.8 mg/dL (2.7-4.5)
[2024-08-04 12:37] LABS: PTHIN 37 pg/mL (11-61)
[2024-08-04 13:33] LABS: Albumin, Serum 3.2 g/dL (3.4-4.8); Anion Gap 16 (5-15); BUN 19 mg/dL (4-19); BUN/Creat Ratio 12.4 RATIO (10-20); Calcium,Total 8.8 mg/dL (7.6-11.0); Carbon Dioxide 18.7 mmol/L (21.0-32.0); Chloride 103 mmol/L (98-108); Creatinine, Serum 1.49 mg/dL (0.70-1.20); EST Glomerular Filtration Rate 47 (>60); Glucose 103 mg/dL (70-99); Potassium 4.5 mmol/L (3.3-5.1); Sodium Level 138 mmol/L (133-145)
== END | disposition home or self-care (01) ==
LOC: LAB 11:11
PROVIDERS: PCP Family Medicine; Referring Provider Internal Medicine Nephrology; Visit Provider Internal Medicine Nephrology
DX: N18.31 Chronic kidney disease, stage 3a (principal); R80.8 Other proteinuria
CPT/HCPCS: 36415; 80069; 82570; 83970; 84156; 85027

== ENCOUNTER → 2024-11-30 | Outpatient (CLI) | payer MEDICARE, SELFPAY ==
[2024-11-30 11:57] LABS: Anion Gap 10 (5-15); BUN 23 mg/dL (4-19); BUN/Creat Ratio 16.6 RATIO (10-20); Calcium,Total 9.3 mg/dL (7.6-11.0); Carbon Dioxide 24.7 mmol/L (21.0-32.0); Chloride 104 mmol/L (98-108); Glucose 124 mg/dL (70-99); Magnesium 2.1 mg/dL (1.5-2.2); Potassium 4.3 mmol/L (3.3-5.1)
== END | disposition home or self-care (01) ==
PROVIDERS: PCP Family Medicine; Referring Provider Student in an Organized Health Care Education/Training Program; Visit Provider Student in an Organized Health Care Education/Training Program
DX: I47.10 Supraventricular tachycardia, unspecified (principal); I47.20 Ventricular tachycardia, unspecified
CPT/HCPCS: 36415; 80048; 83735; 84443

== ENCOUNTER → 2024-12-28 | Outpatient (CLI) | payer MEDICARE, SELFPAY ==
--- OUTSIDE RECORDS SUMMARY | 2024-12-28 06:06 | XMS RPT_ITS | CCD ---
Author Organization [facility] Care Team Providers Care Him Coder Name Role Phone Gordon Mckay MD Unavailable Nolan Nguyen MD Primary Care Provider Dr. Nolan Nguyen Primary Care Provider Dr. Nolan Nguyen Referring Provider Dr. Gordon Mckay Attending Provider Dr. Gordon Mckay Other Provider Dr. Sergio Bojorquez Emergency Provider Dr. Jessica Youssef Admit Provider Dr. Jessica Youssef Attending Provider Dr. Jessica Youssef Other Provider Dr. Lukas Callahan Other Provider Dr. Danilo Davalos Other Provider Alannah RESEARCH PROGRAM MANAGER, RESEARCH PROGRAM MANAGER-C Filomena Other Provider Dr. Lukas Callahan Attending Provider Dr. Nolan Nguyen Primary Care Provider Dr. Gordon Mckay Other Provider Dr. Jessica Youssef Referring Provider Dr. Gordon Mckay Attending Provider Dr. Nolan Nguyen Referring Provider Dr. Jesse Valadez Attending Provider Dr. Nolan Nguyen Primary Care Provider Dr. Mary Patel Referring Provider Dr. Mary Patel Other Provider ARACELIS Abraham Attending Provider Josue DUARTE, Nolan Cox Primary Care Provider Dr. Nolan Nguyen Primary Care Provider Dr. Fady Anand Attending Provider Josue DUARTE, Nolan Cox Primary Care Provider NOLAN NGUYEN Primary Care Unavailable JOSUE, NOLAN Cox Primary Care Unavailable JOSUE, NOLAN Cox Primary Care Unavailable ANGELICA CAN Attending Unavailable JOSUE, NOLAN Cox Primary Care Unavailable JOSUE, NOLAN Cox Primary Care Unavailable Josue DUARTE, Dr. Francisco Primary Care Provider [phone] Josue DUARTE, Dr. Francisco Attending Provider Josue DUARTE, Dr. Francisco Referring Provider Dr. Mary Patel DO Attending Provider Jorge MILAN, Dr. Hernandez Referring Provider Josue DUARTE, Dr. Francisco Primary Care Provider [phone] Josue DUARTE, Dr. Francisco Referring Provider Adis Lees Attending Provider Josue DUARTE, Dr. Francisco Primary Care Provider [phone] Adis Lees Referring Provider [phone] Nolan Nguyen Primary Care Unavailable Fred Griffin Referring Unavailable Fred Griffin Attending Unavailable Mary Patel Referring Unavailable Mary Patel Attending Unavailable Josue, Nolan Primary Care Unavailable Nguyen, Nolan Primary Care Unavailable Nolan Nguyen Referring Unavailable Adis Lo Attending Unavailable Nguyen, Nolan Primary Care Unavailable Demiter, Adis Referring Unavailable Teresita, Adis Attending Unavailable Mary Patel Referring Unavailable Mary Patel Attending Unavailable Josue, Nolan Primary Care Unavailable Adis Lo Attending Unavailable Josue, Nolan Primary Care Unavailable Neo Loyler Referring Unavailable Nguyen, Nolan Referring Unavailable Nguyen, Nolan Attending Unavailable Nguyen, Nolan Primary Care Unavailable Nguyen, Nolan Referring Unavailable Nolan Nguyen Attending Unavailable Nolan Nguyen Primary Care Unavailable Allergies Allergy Classification Reported Allergen(s) Allergy Type Date of Onset Reaction(s) Facility Niacin (1 source) Niacin Drug Allergy 2 Other: See Comments [facility] (20 sources) Angiotensin Converting Enzyme (Eh) Inhibitors; Translations: [EH INHIBITORS] drug allergy 1 Swelling [facility] Work Phone: (2 sources) Hmg-Coa Reductase Inhibitors (Statins) drug allergy 1 Myalgias [facility] Work Phone: (2 sources) ANGIOEDEMA drug allergy 1 From Lisionpril [facility] Work Phone: (3 sources) HMG-CoA reductase inhibitor; Translations: [[id number] A REDUCTASE INHIBITORS] Drug Allergy 1 Intolerance [facility] (20 sources) Niacin; Translations: [NIACIN] Drug Allergy 2 Other: See Comments [facility] (18 sources) Dotqvha-Gfx-Qne Reductase Inhibitor; Translations: [Lbpuedi-Ozo-Wb a Reductase Inhibitor] Propensity to adverse reactions 2 MYALGIAS [facility] (5 sources) HMG-CoA reductase inhibitor Drug Allergy 1 Intolerance [facility] (1 source) Niacin Drug Allergy 5 [facility] Repository Medications Current Medications Medication Drug Class(es) Dates Sig (Normalized) Sig (Original) Albuterol Sulfate (20 sources) beta2-Adrenergic Agonist Start: 07-11-2021 take 1 puff(s) by inhalation every six hours Albuterol Sulfate (Proair Hfa) 90 mcg/actuation Hfa Aerosol Inhaler Active 1 PUFF INHALATION EVERY 6 HOURS July 11, 2021 3:47pm Start: 07-11-2021 Albuterol Sulf ate (Proair Hfa) 90 mcg/actuation Hfa Aerosol Inhaler Active 1 NMA INHALATION EVERY 6 HOURS July 11, 2021 1:00am Start: 07-11-2021 take 1 puff(s) by in halation every six hours Albuterol Sulfate (Proair Hfa) 90 mcg/actuation Hfa Aerosol Inhaler Active 1 PUFF INHALATION EVERY 6 HOURS July 11, 2021 1:00am Start: 02-04-2017 End: 12-27-2018 Albuterol Sulfate 1 PUFF inh aler Discontinued 1 - 2 NMA INHALATION EVERY 6 HOURS NEEDED as needed for Asthma February 04, 2017 12:00am December 27, 2018 10:38am Start: 02-04-2017 End: 12-27-2018 take 1 puff(s) by inhalation every six hours as needed Albuterol Sulfate Discontinued 1 - 2 PUFF INHALATION EVERY 6 HOURS NEEDED February 04, 2017 12:00am December 27, 2018 10:38am Start: 05-27-2016 albuterol (PRO VENTIL) 2.5 mg /3 mL (0.083 %) nebulizer solution Indications: Wheezing on expiration , Acute bronchitis, unspecified organism Use 3 mL via nebulizer every 4 hours as needed for Wheezing/Shortness of Breath. Use over 5-15minutes. Dx: Bronchitis and Wheezing 1 Package 0 05/27/2016 Active Start: 06-15-2014 PROAIR HFA 108 (90 Base) MCG/ACT AERS as needed ALBUTEROL SULFATE [id number] Jesse Valadez MD Start: 06-15-2014 PROAIR HFA 108 (90 Base) MCG/ACT AERS as needed ALBUTEROL SULFATE [id number] Jesse Valadez MD Start: 10-21-2013 take 2 puff(s) by in halation every six hours as needed for wheezing albuterol HFA 90 mcg/actuation inhaler Indications: Wheezing Inhale 2 Puffs as instructed every 6 hours as needed for Wheezing/Shortness of Breath. 1 Inhaler 2 10/21/2013 Active Comment on above: Inhale 2 Puffs as in structed every 6 hours as needed for Wheezing/Shortness of Breath. Use 3 mL via nebuliz er every 4 hours as needed for Wheezing/Shortness of Breath. Use over 5-15minutes. Dx: Bronchitis and Wheezing colesevelam hydrochloride 625 mg oral tablet (20 sources) Bile Acid Sequestrant Start: 017 take 1875 mg by mouth twice daily at mealtime Colesevelam Active 1875 MG PO TWICE DAILY WITH MEALS February 04, 2017 12:00am Start: 08-22-2010 take 3 tablets by mo [facility] twice daily at mealtime Colesevelam 625 MG tablet Active 1875 mg PO TWICE DAILY WITH MEALS February 04, 2017 12:00am Comment on above: Take 1,875 mg by [facility] twice daily with meals. Finerenone (3 sources) Start: take 1 tablet by mouth once daily Finerenone (Kerendia) 10 mg tablet Active 10 mg PO DAILY November 24, 2023 12:00am fluticasone propionate 0.05 mg/actuat metered dose nasal spray (17 sources) Corticosteroid Start: 9 Fluticasone Propionate 50 mcg/actuation spray,suspension Active 2 NMA INTRANASAL DAILY September 30, 2018 12:00am Start: 09-30-2018 Fluticasone Pr opionate Active 2 SPRAY INTRANASAL DAILY September 30, 2018 12:00am Fluticasone Furoate-Vilanterol (20 sources) Corticosteroid, beta2-Adrenergic Agonist Start: 07-11-2021 Fluticasone Furoate-Vilanterol (Breo Ellipta) 200-25 mcg/dose Blister With Device Active 1 INH INHALATION DAILY July 11, 2021 3:47pm Start: 07-11-2021 Fluticasone Fu roate-Vilanterol (Breo Ellipta) 200-25 mcg/dose Blister With Device Active 1 INH INHALATION DAILY July 11, 2021 1:00am Start: 07-11-2021 Fluticasone Fu roate-Vilanterol (Breo Ellipta) 200-25 mcg/dose Blister With Device Active 1 INH INHALATION DAILY July 11, 2021 12:00am Start: 07-11-2021 Fluticasone Fu roate-Vilanterol (Breo Ellipta) 200-25 mcg/dose Blister With Device Active 1 INH INHALATION DAILY July 11, 2021 1:00am Start: 04-23-2017 Fluticasone Fu roate-Vilanterol (Breo Ellipta) 200-25 mcg/dose Blister With Device Active 1 NMA INHALATION DAILY July 11, 2021 1:00am Start: 04-23-2017 take 1 puff(s) by [facility] once daily BREO ELLIPTA 200-25 mcg/dose inhaler INHALE ONE PUFF INTO THE LUNGS ONCE DAILY WITH GOOD ORAL CARE AFTER USE 6 04/23/2017 Active Comment on above: INHALE ONE PUFF INTO THE LUNGS ONCE DAILY WITH GOOD ORAL CARE AFTER USE 24 hr metoprolol succinate 100 mg extended release oral tablet (20 sources) beta-Adrenergic Sid Start: 09-30-2018 End: 10-17-2019 take 1 tablet by mouth once daily Metoprolol Succinate 100 mg tablet extended release 24 hr Active 100 mg PO DAILY 90 3 October 17, 2019 12:33pm Start: 11-18-2012 End: 09-30-2018 take 1 tablet by mouth once daily Metoprolol Succinate 50 mg tablet extended release 24 hr Discontinued 50 mg PO DAILY 90 3 October 28, 2017 3:22pm September 30, 2018 10:44am Start: 11-18-2012 take 1 tablet by maikol th once daily TOPROL XL 50 MG [id number] One tablet by mouth daily METOPROLOL SUCCINATE [id number] Jesse Valadez MD Comment on above: Take 100 mg by mouth once daily. terazosin 1 mg oral capsule (20 sources) alpha-Adrenergic Sid Start: 11-24-2023 take 2 capsules by mouth once daily Terazosin 1 mg capsule Active 2 mg PO DAILY November 24, 2023 2:19pm Start: 06-23-2017 End: 11-24-2023 take 2 capsules by mouth every twelve hours Terazosin 1 mg capsule Discontinued 2 mg PO Q12H June 23, 2017 1:00am November 24, 2023 2:23pm Start: 06-23-2017 take 2 mg by mouth e very twelve hours Terazosin Active 2 MG PO Q12H June 23, 2017 1:00am take 2 mg by mouth once daily TE RAZOSIN HCL (TERAZOSIN ORAL) Take 2 mg by mouth once daily. 0 Active Comment on above: Take 2 mg by mouth o nce daily. torsemide 5 mg oral tablet (6 sources) Loop Diuretic Start: 11-24-2023 take 1 tablet by mouth once daily Torsemide 5 mg tablet Active 5 mg PO daily November 24, 2023 12:00am Start: 08-11-2023 take 1 tablet by maikol th once daily torsemide (DEMADEX) 20 mg tablet Take 20 mg by mouth once daily. 0 08/11/2023 Active vit A/vit C/vit E/zinc/copper (PRESERVISION AREDS ORAL) (7 sources) vit A/vit C/vit E/zinc/copper (PRESERVISION AREDS ORAL) Take by mouth twice daily. 0 Active Comment on above: Take by mouth twice daily. Vitamins A,C,P-Hiju-Ovklzs (Preservision Areds) 14,320-226-200 vwvh-eq-arhf capsule (17 sources) Start: take 1 capsule by mouth twice daily Vitamins A,C,T-Burq-Xcqcku (Preservision Areds) 14,320-226-200 fwke-pt-csmb capsule Active 1 CAP PO TWICE A DAY October 09, 2020 3:36pm Start: 10-09-2020 Vitamins A,C,E -Zinc-Copper (Preservision Areds) 14,320-226-200 mrcc-bx-fnhw capsule Active 1 NMA PO TWICE A DAY October 09, 2020 12:00am Start: 10-09-2020 take 1 capsule by mo uth twice daily Vitamins A,C,B-Jmyr-Axfdbb (Preservision Areds) 14,320-226-200 lskt-ix-quvl capsule Active 1 CAP PO TWICE A DAY October 08, 2020 11:00pm Start: 10-09-2020 take 1 capsule by mo uth twice daily Vitamins A,C,B-Gzdk-Mipiay (Preservision Areds) 14,320-226-200 xddp-tf-zwod capsule Active 1 CAP PO TWICE A DAY October 09, 2020 12:00am zafirlukast 10 mg oral tablet (20 sources) Leukotriene Receptor Antagonist Start: 07-21-2019 Zafirlukast 10 mg tablet Active 10 mg PO ONCE July 21, 2019 12:00am administer 1 hour before or 2 hours after food or meals take 1 tablet by mouth twice jesi ly zafirlukast (ACCOLATE) 10 mg tablet Take 10 mg by mouth twice daily. 0 Active Comment on above: Take 10 mg by mouth twice daily. Completed/Discontinued Medications Medication Drug Class(es) Dates Sig (Normalized) Sig (Original) amLODIPine 5 mg oral tablet (20 sources) Dihydropyridine Calcium Channel Sid Start: 09-30-2018 End: 11-24-2023 take 1 tablet by mouth once daily Amlodipine 5 mg tablet Discontinued 5 mg PO DAILY 90 January 231 4:26pm November 24, 2023 2:22pm On Hold: MD Schultz Start: 09-30-2018 End: 09-30-2018 Amlodipine 10 mg tablet Disc ontinued PO 90 90 0 September 30, 2018 12:00am September 30, 2018 10:41am Start: 09-30-2018 End: 09-30-2018 Amlodipine Discontinued PO 9 0 90 September 30, 2018 12:00am September 30, 2018 10:41am Start: 03-03-2018 End: 09-30-2018 take 2 tablets by mouth at bedtime Amlodipine 5 mg tablet Discontinued 10 mg PO AT BEDTIME March 03, 2018 1:30pm September 30, 2018 10:35am Start: 03-03-2018 End: 09-30-2018 take 10 mg by mouth at bedtime Amlodipine Discontinued 10 MG PO AT BEDTIME March 03, 2018 1:30pm September 30, 2018 10:35am Start: 06-23-2017 End: 12-21-2017 take 1 tablet by mouth once daily Amlodipine 10 mg tablet Discontinued 10 mg PO daily 90 3 June 23, 2017 1:00am December 21, 2017 10:55am Start: 11-18-2012 End: 03-03-2018 take 1 tablet by mouth once daily Amlodipine 5 MG tablet Discontinued 5 mg PO DAILY February 23, 2013 12:00am March 03, 2018 1:32pm Start: 08-22-2010 take 1 tablet by maikol th once daily NORVASC 10 MG TABS One tablet by mouth daily AMLODIPINE BESYLATE [id number] [facility] [place] End: 10-14-2023 take 0.5 tablet by mouth once daily amLODIPine 10 mg tablet Take 5 mg by mouth once daily. Take a half tablet once every day. 0 10/14/2023 Discontinued Comment on above: Take 5 mg by mouth a s directed. Take a half tablet once every day. Take 5 mg by mouth o nce daily. Take a half tablet once every day. aspirin 81 mg delayed release oral tablet (20 sources) Nonsteroidal Anti-inflammatory Drug Start: 08-22-2010 End: 11-24-2023 take 1 tablet by mouth once daily Aspirin 81 MG tablet Discontinued 81 mg PO DAILY@0800 February 23, 2013 12:00am November 24, 2023 2:23pm On Hold: MD Schultz Start: 08-22-2010 take 1 tablet by maikol th once daily ASPIRIN 81 MG TABS One tablet by mouth daily ASPIRIN [id number] Meg Osullivan Start: 03-19-2006 ASPIRIN 81 MG TAB Take one(1) tablet daily. 0 03/19/2006 Active Comment on above: Take one(1) tablet d aily. budesonide 0.032 mg/actuat metered dose nasal spray (2 sources) Corticosteroid Start: 08-22-2010 RHINOCORT AQUA 32 MCG/ACT SUSP 0.032 mg/inh - 1-2 sprays each nostril twice a day BUDESONIDE [id number] Meg Pepe Shi Start: 08-22-2010 RHINOCORT AQUA 32 MCG/ACT SUSP 0.032 mg/inh - 1-2 sprays each nostril twice a day BUDESONIDE [id number] Meg Osullivan cyclobenzaprine (4 sources) Muscle Relaxant Start: 05-26-2013 End: 06-02-2013 FLEXERIL 10 MG TABS as neede d CYCLOBENZAPRINE HCL Em Corona PA-C Start: 05-26-2013 FLEXERIL 10 MG TABS as needed CYCLOBENZAPRINE HCL Kirstie Hope RN Start: 05-26-2013 End: 06-02-2013 FLEXERIL 10 MG TABS as neede d CYCLOBENZAPRINE HCL Em Corona PA-C 120 actuat formoterol fumarate 0.005 mg/actuat / mometasone furoate 0.2 mg/actuat metered dose inhaler (2 sources) Corticosteroid, beta2-Adrenergic Agonist Start: 06-15-2014 take 200-5 ug by inhalation once daily DULERA 200-5 MCG/ACT AERO inhalation once daily MOMETASONE FURO-FORMOTEROL FUM [id number] Jesse Valadez MD Start: 06-15-2014 take 200-5 ug by inh alation once daily DULERA 200-5 MCG/ACT AERO inhalation once daily MOMETASONE FURO-FORMOTEROL FUM [id number] Jesse Valadez MD furosemide 40 mg oral tablet (20 sources) Loop Diuretic Start: 09-30-2018 End: 11-24-2023 take 1 tablet by mouth once daily Furosemide (Lasix) 40 mg tablet Discontinued 40 mg PO DAILY 90 3 March 03, 2022 8:56am November 24, 2023 2:22pm On Hold: Ordered Comment on above: Take 40 mg by mouth once daily. hydroCHLOROthiazide 25 mg oral tablet (20 sources) Thiazide Diuretic Start: 12-27-2018 End: 12-27-2018 take 1 tablet by mouth once daily Hydrochlorothiazide 25 mg tablet Discontinued 25 mg PO DAILY December 27, 2018 12:00am December 27, 2018 10:38am Start: 08-22-2010 End: 09-30-2018 take 1 tablet by mouth once daily Hydrochlorothiazide 25 MG tablet Discontinued 25 mg PO DAILY February 23, 2013 12:00am September 30, 2018 10:42am hydrOXYzine hydrochloride 25 mg oral tablet (4 sources) Antihistamine Start: 08-22-2010 End: 05-26-2013 HYDROXYZINE HCL 25 MG TABS (Atarax) As needed at bedtime HYDROXYZINE HCL [id number] Meg Osullivan meloxicam 15 mg oral tablet (20 sources) Nonsteroidal Anti-inflammatory Drug Start: 05-26-2013 End: 06-02-2013 take 1 tablet by mouth once daily MOBIC 15 MG TABS One tablet by mouth daily MELOXICAM [id number] Kirstie Hope RN Start: 02-24-2013 End: 05-24-2013 take 1 tablet by mouth once daily Meloxicam 7.5 MG tablet Discontinued 7.5 mg PO DAILY 7 0 February 24, 2013 12:00am May 24, 2013 9:22pm metFORMIN hydrochloride 500 mg oral tablet (20 sources) Biguanide Start: 10-09-2020 End: 11-24-2023 take 1 tablet by mouth once daily Metformin 500 mg tablet Discontinued 500 mg PO DAILY October 09, 2020 12:00am November 24, 2023 2:22pm On Hold: Ordered Comment on above: Take 500 mg by mouth once daily. 120 actuat mometasone furoate 0.22 mg/actuat dry powder inhaler (4 sources) Corticosteroid Start: 05-26-2013 End: 06-15-2014 ASMANEX 120 METERED DOSES 220 MCG/INH AEPB Take as directed MOMETASONE FUROATE [id number] Kirstie Hope RN Start: 05-26-2013 ASMANEX 120 ME TERED DOSES 220 MCG/INH AEPB Take as directed MOMETASONE FUROATE [id number] Kirstie Hope RN Start: 05-26-2013 End: 06-15-2014 ASMANEX 120 METERED DOSES 22 0 MCG/INH AEPB Take as directed MOMETASONE FUROATE [id number] Jesse Valadez MD nadolol 40 mg oral tablet (4 sources) beta-Adrenergic Sid Start: 08-22-2010 End: 11-18-2012 take 1 tablet by mouth once daily NADOLOL 40 MG TABS One tablet by mouth daily NADOLOL [id number] Meg Osullivan Nasocort (17 sources) Start: 03-17-2018 End: 09-30-2018 Nasocort Discontinued 1 SPRAY NASAL AT BEDTIME March 17, 2018 11:19am September 30, 2018 10:34am Start: 03-17-2018 End: 09-30-2018 Nasocort Discontinued 1 NMA NASAL AT BEDTIME March 17, 2018 1:00am September 30, 2018 10:34am Start: 03-17-2018 End: 09-30-2018 Nasocort Discontinued 1 SPRA Y NASAL AT BEDTIME March 17, 2018 12:00am September 30, 2018 9:34am Start: 03-17-2018 End: 09-30-2018 Nasocort Discontinued 1 SPRA Y NASAL AT BEDTIME March 17, 2018 1:00am September 30, 2018 10:34am polyethylene glycol [id number] 876111 mg / potassium chloride 2820 mg / sodium bicarbonate 6360 mg / sodium chloride 5530 mg / sodium sulfate 95517 mg powder for oral solution (2 sources) Osmotic Laxative Start: 01-19-2017 GOLYTELY 227.1 GM SO LR as directed PEG 7698-YKM-GTSOD-NACL-NASULF [id number] Gordon Mckay MD Start: 01-19-2017 GOLYTELY 227.1 GM SOLR as directed PEG 7310-CGO-IBFLS-NACL-NASULF [id number] Gordon Mckay MD rosuvastatin calcium 5 mg oral tablet (20 sources) HMG-CoA Reductase Inhibitor Start: 11-18-2012 End: 11-24-2023 take 1 tablet by mouth every other day Rosuvastatin 5 MG tablet Discontinued 5 mg PO EVERY OTHER DAY February 23, 2013 12:00am November 24, 2023 2:22pm Comment on above: Take 5 mg by mouth e very other day. spironolactone 50 mg oral tablet (20 sources) Aldosterone Antagonist Start: 03-07-2020 End: 11-24-2023 take 1 tablet by mouth once daily Spironolactone 50 mg tablet Discontinued 50 mg PO DAILY 90 October 21, 2021 12:40pm November 24, 2023 2:22pm On Hold: Ordered Start: 01-20-2020 End: 03-07-2020 take 1 tablet by mouth once daily Spironolactone 25 mg tablet Discontinued 25 mg PO DAILY 30 January 20, 2020 12:00am March 07, 2020 11:58am End: 10-14-2023 take 2 tablets by mouth once daily spironolactone (ALDACTONE) 25 mg tablet Take 50 mg by mouth once daily. 0 10/14/2023 Discontinued Comment on above: Take 25 mg by mouth once daily. Take 50 mg by mouth once daily. TESTOSTERONE GEL (4 sources) Androgen Start: 08-22-2010 ANDROGEL GEL 5g/packet 1%, apply as directed TESTOSTERONE GEL [id number] Meg Osullivan Start: 08-22-2010 End: 11-18-2012 ANDROGEL GEL 5g/packet 1%, a pply as directed TESTOSTERONE GEL [id number] Jesse Valadez MD Start: 08-22-2010 ANDROGEL GEL 5 g/packet 1%, apply as directed TESTOSTERONE GEL [id number] Meg Osullivan Start: 08-22-2010 End: 11-18-2012 ANDROGEL GEL 5g/packet 1%, a pply as directed TESTOSTERONE GEL [id number] Jesse aVladez MD triamcinolone acetonide 0.055 mg/actuat metered dose nasal spray (20 sources) Corticosteroid Start: 02-04-2017 End: 03-03-2018 Triamcinolone Acetonide 1 SPRAY aerosol,spray Discontinued 1 NMA NS DAILY February 04, 2017 12:00am March 03, 2018 1:31pm Start: 02-04-2017 End: 03-03-2018 Triamcinolone Acetonide Disc ontinued 1 SPRAY NS DAILY February 04, 2017 12:00am March 03, 2018 1:31pm Start: 08-22-2010 NASACORT AQ 55 MCG/ACT AERO Take as directed TRIAMCINOLONE ACETONIDE(NASAL) [id number] Jesse Valadez MD Start: 08-22-2010 NASACORT AQ 55 MCG/ACT AERS Take as directed TRIAMCINOLONE ACETONIDE(NASAL) Jesse Valadez MD triamcinolone ac etonide (NASACORT NASAL) Use in the nose once daily. 0 Active Comment on above: Use in the nose once daily. warfarin sodium 5 mg oral tablet (4 sources) Vitamin K Antagonist Start: 11-18-2012 End: 06-02-2013 WARFARIN SODIUM 5 MG TABS take as directed per PCP WARFARIN SODIUM [id number] Jesse Valadez MD Problems Active Problems Problem Classification Problem Date Documented Date Episodic/Chronic Acute and unspecified renal failure (13 sources) Acute renal failure syndrome; Translations: [Acute kidney failure, unspecified] 03-13-2023 Episodic Asthma (18 sources) Asthma; Translations: [Unspecified asthma, uncomplicated] Chronic Cardiac dysrhythmias (6 sources) Sinus bradycardia; Translations: [Supraventricular tachycardia] Onset: 06-12-2016 06-12-2016 Chronic Cardiac dysrhythmias (18 sources) Sinus bradycardia; Translations: [Bradycardia, unspecified] Onset: 11-30-2024 06-18-2017 Episodic Chronic kidney disease (1 source) Chronic kidney disease; Translations: [Chronic kidney disease, stage 3a] Onset: 08-11-2024 Coronary atherosclerosis and other heart disease (17 sources) Coronary atherosclerosis; Translations: [Atherosclerotic heart disease of [place] coronary artery without angina pectoris] 10-06-2020 Chronic Diabetes mellitus with complications (3 sources) Chronic kidney disease stage 3; Translations: [Type 2 diabetes mellitus with diabetic chronic kidney disease] 11-24-2023 Chronic Diabetes mellitus without complication (19 sources) Type 2 diabetes mellitus; Translations: [Type 2 diabetes mellitus without complications] Chronic Disorders of lipid metabolism (20 sources) Hyperlipidemia; Translations: [Hyperlipidemia, unspecified] Onset: 08-22-2010 08-22-2010 Chronic Diverticulosis and diverticulitis (7 sources) Diverticulosis of colon; Translations: [Diverticulosis of large intestine without perforation or abscess without bleeding] Onset: 09-03-2006 09-03-2006 Chronic Essential hypertension (20 sources) Hypertensive disorder; Translations: [Essential hypertension] Onset: 08-22-2010 08-22-2010 Chronic Comment on above: per pt, controlled o n meds Hypertension with complications and secondary hypertension (1 source) Hypertensive chronic kidney disease with stage 1 through stage 4 chronic kidney disease, or unspecified chronic kidney disease; Translations: [Hypertensive chronic kidney disease with stage 1 through stage 4 chronic kidney disease, or unspecified chronic kidney disease] Onset: 07-12-2024 Chronic Intestinal obstruction without hernia (20 sources) Small bowel obstruction; Translations: [Unspecified intestinal obstruction, unspecified as to partial versus complete obstruction] Episodic Nonspecific chest pain (19 sources) Chest pain, unspecified; Translations: [Chest pain] Onset: 08-22-2010 08-22-2010 Episodic Occlusion or stenosis of precerebral arteries (20 sources) Carotid artery stenosis; Translations: [Occlusion and stenosis of unspecified carotid artery] Onset: 11-10-2011 06-23-2018 Chronic Comment on above: RCEA 2011, LCEA 2019 Open wounds of extremities (1 source) Laceration of right ring finger; Translations: [Laceration without foreign body of right ring finger without damage to nail, initial encounter] 09-28-2023 Episodic Other aftercare (1 source) Removal of sutures done; Translations: [Encounter for removal of sutures] 10-07-2023 Episodic Other aftercare (3 sources) Long-term current use of drug therapy; Translations: [Other half-way (current) drug therapy] 10-06-2020 Episodic Other and unspecified benign neoplasm (17 sources) History of polyp of colon; Translations: [Personal history of colonic polyps] 10-09-2021 Episodic Other and unspecified benign neoplasm (2 sources) Personal history of colonic polyps; Translations: [Personal history of colonic polyps] Episodic Other lower respiratory disease (2 sources) Dyspnea on exertion; Translations: [Other forms of dyspnea] 11-30-2024 Episodic Other lower respiratory disease (2 sources) Other forms of dyspnea; Translations: [Other forms of dyspnea] Onset: 11-30-2024 Episodic Other nutritional; endocrine; and metabolic disorders (2 sources) Body mass index (BMI) 40.0-44.9, adult; Translations: [Body mass index (BMI) 40.0-44.9, adult] Onset: 06-15-2014 06-15-2014 Chronic Other nutritional; endocrine; and metabolic disorders (8 sources) Body mass index 40+ - severely obese; Translations: [Morbid (severe) obesity due to excess calories] Onset: 01-10-2020 01-10-2020 Chronic Other nutritional; endocrine; and metabolic disorders (15 sources) Obesity; Translations: [Obesity, unspecified] 10-09-2021 Chronic Peripheral and visceral atherosclerosis (3 sources) Peripheral vascular disease, unspecified; Translations: [Peripheral vascular disease, unspecified] Onset: 10-14-2023 Chronic Residual codes; unclassified (16 sources) Sleep apnea; Translations: [Sleep apnea, unspecified] 09-21-2021 Chronic Residual codes; unclassified (2 sources) Sleep apnea, unspecified; Translations: [Unspecified sleep apnea] Chronic Unclassified (19 sources) Family history of stroke; Translations: [Family history of stroke] 06-15-2014 Episodic Unclassified (1 source) Screening for malignant neoplasm of colon ; Translations: [Encounter for screening for malignant neoplasm of colon] Onset: 01-19-2017 01-19-2017 Unclassified (1 source) Long-term drug therapy; Translations: [Other half-way (current) drug therapy] Onset: 11-20-2010 11-20-2010 Unclassified (1 source) Supraventricular tachycardia, unspecified; Translations: [Supraventricular tachycardia, unspecified] Onset: 12-06-2024 Unclassified (1 source) Ventricular tachycardia, unspecified; Translations: [Ventricular tachycardia, unspecified] Onset: 11-30-2024 Past or Other Problems Problem Classification Problem Date Documented Date Episodic/Chronic Abdominal hernia (7 sources) Umbilical hernia; Translations: [Umbilical hernia without obstruction or gangrene] Onset: 08-27-2006 08-27-2006 Episodic Biliary tract disease (7 sources) Biliary calculus; Translations: [Calculus of gallbladder with chronic cholecystitis without obstruction] Onset: 11-10-2011 11-10-2011 Episodic Genitourinary symptoms and ill-defined conditions (1 source) Other proteinuria; Translations: [Other proteinuria] Onset: 03-12-2024 Episodic Hemorrhoids (7 sources) Internal hemorrhoids; Translations: [Other hemorrhoids] Onset: 09-03-2006 09-03-2006 Episodic Other aftercare (1 source) Other half-way (current) drug therapy; Translations: [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] Onset: 11-20-2010 11-20-2010 Episodic Other screening for suspected conditions (not mental disorders or infectious disease) (20 sources) Patient encounter status; Translations: [Encounter for screening for malignant neoplasm of colon] Onset: 08-27-2006 08-27-2006 Episodic Unclassified (2 sources) Preoperative cardiovascular examination ; Translations: [Encounter for preprocedural cardiovascular examination] Onset: 11-26-2011 Resolved: 06-12-2016 06-12-2016 Results Test Name Value Interpretation Reference Range Facility Anion gap in Serum or Plasma Ordered By: Adis Lo on 11-30-2024 Anion gap [Moles/Vol] 10 mmol/L 09-22 [facility] BUN/creatinine ratioOrdered By: Adis Lo on 11-30-2024 Urea nitrogen/Creatinine [Mass ratio] 16.6 mg/mg 02-27 [facility] Basic Metabolic Profile (BMP )on 11-30-2024 BUN/CRE 16.6 RATIO Normal 02-27 [facility] Comment on above: Performed By: #### L 500.2500, L501.9520, L501.5200 ####[facility] [address] [place], [address] Calcium [Mass/Vol] 9.3 mg/dL Normal 7.6-11.0 [facility] Comment on above: Performed By: #### L 500.2500, L501.9520, L501.5200 ####[facility] [address] [place], [address] Chloride [Moles/Vol] 104 mmol/L Normal 98-108 [facility] Comment on above: Performed By: #### L 500.2500, L501.9520, L501.5200 ####[facility] [address] [place], [address] CO2 [Moles/Vol] 24.7 mmol/L Normal 21.0-32.0 [facility] Comment on above: Performed By: #### L 500.2500, L501.9520, L501.5200 ####[facility] [address] [place], [address] Creatinine [Mass/Vol] 1.38 mg/dL High 0.70-1.20 [facility] Comment on above: Performed By: #### L 500.2500, L501.9520, L501.5200 ####[facility] [address] [place], [address] GAP 10 Normal 5-15 [facility] Comment on above: Performed By: #### L 500.2500, L501.9520, L501.5200 ####[facility] [address] [place], [address] GFR/1.73 sq M.predicted among non-blacks MDRD (S/P/Bld) [Vol rate/Area] 52 mL/min/{1.73_m2} Low >60 [facility] Comment on above: Result Comment: mL/m in/1.73m2 CKD-EPI Creatinine Equation (2020) Performed By: #### L 500.2500, L501.9520, L501.5200 ####[facility] [address] [place], [address] Glucose [Mass/Vol] 124 mg/dL High 70-99 [facility] Comment on above: Performed By: #### L 500.2500, L501.9520, L501.5200 ####[facility] [address] [place], [address] Potassium [Moles/Vol] 4.3 mmol/L Normal 3.3-5.1 [facility] Comment on above: Performed By: #### L 500.2500, L501.9520, L501.5200 ####[facility] [address] [place], [address] Sodium [Moles/Vol] 138 mmol/L Normal 133-145 [facility] Comment on above: Performed By: #### L 500.2500, L501.9520, L501.5200 ####[facility] [address] [place], [address] Urea nitrogen [Mass/Vol] 23 mg/dL High 4-19 [facility] Comment on above: Performed By: #### L 500.2500, L501.9520, L501.5200 ####[facility] [address] [place], [address] Carbon dioxide, total [Moles /volume] in Central venous bloodOrdered By: Adis Lo on 11-30-2024 CO2 [Moles/Vol] 24.7 mmol/L 21.0-32.0 [facility] Cardiology Visit Reporton Cardiology Visit Report [facility] [address] [place] [address] OFFICE VISIT Date of Service: 11/30/24 MR#: [id number] Acct: [id number] Name: XOCHITL MONTERROSO Rep #: [id number] 18 : 1945 Provider: LILLIE Muller Age/Sex: 79/M Location: [facility] Status: Signed HPI HPI History of Present Illness Details: Xochitl Monterroso is a 79-year-old male who presents to office today for follow-up for monitoring his cardiovascular health. He has a history of mild coronary artery disease, carotid disease status post right carotid endarterectomy in 2011 and left carotid endarterectomy in January 2020. He has a history of hypertension and hyperlipidemia. He does have JAYME and is compliant with BiPAP. Upon presentation today, patient reports dyspnea on exertion. He reports when cutting wood, he has to stop every 5-10 minutes to rest. He denies chest pain or palpitations. He did some form of in event/Holter monitor through his insurance. He provided some paperwork on this today and there were a couple episodes read as supraventricular tachycardia, ventricular tachycardia and bradycardia. Will obtain monitor results to further evaluate these details. Further ROS below. Intake Vital Signs 11/24/23 14:16 11/30/24 07:36 Height 5 ft 8 in 5 ft 8 in Weight: 291 lb BMI 44.2 BP 110/65 Blood Pressure Location Lt brachial Position Sitting Respiration 22 H Pulse 53 L Pulse Source Monitor Pulse Oximetry (%) 93 Intake Visit Reasons: 1 Y FU Jacquard Plate Maker Required: No Is patient in pain?: No Allergies EH Inhibitors Allergy (Severe, Verified 11/30/24 08:56) ANGIOEDEMA niacin Adverse Reaction (Severe, Verified 11/30/24 08:56) SKIN RED AND BURNING, SEVERE FLUSHING Ntpmfrv-RFY-XxI Reductase Inhibitor (Pkeityp-Uio-Ilf Reductase Inhibitor) Adverse Reaction (Severe, Verified 11/30/24 08:56) MYALGIAS Medications ???Medication ???Instructions ???Recorded ???Confirmed ???Type colesevelam 625 mg tablet 1,875 mg PO BIDCM 02/04/17 5 History fluticasone propionate 50 2 spray intranasal DAILY 09/30/18 11/30/24 History mcg/actuation nasal spray,suspension zafirlukast 10 mg tablet 10 mg PO ONCE 07/21/19 11/30/24 Hi story metoprolol succinate 100 mg 100 mg PO DAILY #90 tabs 10/17/19 11/30/24 Rx tablet,extended release 24 hr vitamins A,C,V-nrdx-ccnwty 4,296 1 cap PO BID 10/09/20 11/30/24 His tory mcg-226 mg-90 mg capsule (PreserVision AREDS) albuterol sulfate 90 mcg/actuation 1 puff inhalation Q6H 07/11/21 0 11/30/24 History aerosol inhaler (ProAir HFA) fluticasone furoate 200 1 inh inhalation DAILY 07/11/21 History mcg-vilanterol 25 mcg/dose inhalation powder (Breo Ellipta) aspirin 81 mg tablet,delayed 81 mg PO DAILY 11/24/23 11/30/24 H istory release (Adult Aspirin Regimen) finerenone 10 mg tablet (Kerendia) 10 mg PO DAILY 11/24/23 11/30/24 History rosuvastatin 5 mg tablet 5 mg PO .QOD 11/24/23 11/30/24 His tory terazosin 1 mg capsule 2 mg PO DAILY 11/24/23 11/30/24 Hi story torsemide 5 mg tablet 5 mg PO QDAY 11/24/23 11/30/24 His tory Ejection fraction %: 55 Have you fallen in the past year?: No PFSH Medical History CKD stage 3 secondary to diabetes Obesity SBO (small bowel obstruction) Non-smoker Shortness of breath on exertion Seasonal allergies History of edema Personal history of colonic polyps Type 2 diabetes mellitus Bilateral carotid artery stenosis Morbid obesity Osteoarthritis Colon polyps Essential (primary) hypertension Asthma Sleep apnea History of DVT (deep vein thrombosis) (2011) Sinus bradycardia Hyperlipidemia Surgical History History of left-sided carotid endarterectomy (01/2020) History of right-sided carotid endarterectomy (2011) History of left heart catheterization (06/09/08) History of detached retina repair History of appendectomy History of umbilical hernia repair History of cholecystectomy History of shoulder surgery History of sinus surgery Family History Father , age 73 of CVA CVA (cerebral vascular accident) Hypertension Mother , age 84 ruptured AAA Abdominal aortic aneurysm rupture Brother CAD (coronary artery disease) Brother Myocardial infarction CAD (coronary artery disease) H/O carotid endarterectomy Brother Diabetes Sister Hyperlipidemia Hypertension Social History Smoking Status: Never smoker alcohol intake: never caffeine: No ROS Const Const: Negative for fatigue, weakness, headache(s) or frequent falls Eyes Eyes: Negative f (more content not included)... Normal [facility] Chloride assayOrdered By: Neo Lo on 11-30-2024 Chloride [Moles/Vol] 104 mmol/L 98-108 [facility] Glomerular filtration rate ( GFR) estimation/1.73 sq m using serum, plasma, or whole bOrdered By: Adis Lo on 11-30-2024 GFR/1.73 sq M.predicted among non-blacks MDRD (S/P/Bld) [Vol rate/Area] 52 mL/min/{1.73_m2} Low >60 [facility] Comment on above: mL/min/1.73m2 CKD-EP I Creatinine Equation (2020) Magnesiumon 11-30-2024 Magnesium [Mass/Vol] 2.1 mg/dL Normal 1.5-2.2 [facility] Comment on above: Performed By: #### L 500.2500, L501.9520, L501.5200 ####[facility] [address] [place], [address] Magnesium measurement (mass/ volume)Ordered By: Adis Lo on 11-30-2024 Magnesium (Unsp spec) [Mass/Vol] 2.1 mg/dL 1.5-2.2 [facility] Potassium measurement (mass/ volume)Ordered By: Adis Lo on 11-30-2024 Potassium (Unsp spec) [Mass/Vol] 4.3 mmol/L 3.3-5.1 [facility] Serum creatinine measurement (mass/volume)Ordered By: Adis Lo on 11-30-2024 Creatinine [Mass/Vol] 1.38 mg/dL High 0.70-1.20 [facility] Serum glucose measurement (m ass/volume)Ordered By: Adis Lo on 11-30-2024 Glucose [Mass/Vol] 124 mg/dL High 70-99 [facility] Serum or plasma calcium axel urement (mass/volume)Ordered By: Adis Lo on 11-30-2024 Calcium [Mass/Vol] 9.3 mg/dL 7.6-11.0 [facility] Serum or plasma urea nitroge n measurement (mass/volume)Ordered By: Adis Lo on 11-30-2024 Urea nitrogen [Mass/Vol] 23 mg/dL High 4-19 [facility] Sodium levelOrdered By: Ana Lo on 11-30-2024 Sodium [Moles/Vol] 138 mmol/L 133-145 [facility] TSH DL <= 0.005 mIU/L QnOrde red By: Adis Lo on 11-30-2024 TSH Qn 1.640 uIU/mL 0.300-4.20 0 [facility] Thyroid Stim Hormone (TSH)on 11-30-2024 TSH 1.640 uIU/mL Normal 0.300-4.20 0 [facility] Comment on above: Performed By: #### L 500.2500, L501.9520, L501.5200 ####[facility] [address] [place], [place], [id number] Anion gap in Serum or Plasma Ordered By: Mary Patel on 08-04-2024 Anion gap [Moles/Vol] 16 mmol/L High 5-15 [facility] BUN/creatinine ratioOrdered By: Mary Patel on 08-04-2024 Urea nitrogen/Creatinine [Mass ratio] 12.4 mg/mg 10-20 [facility] CBC-Complete Blood Cnt No Di ffon 08-04-2024 Erythrocyte distribution width (RBC) [Ratio] 12.8 % Normal 11.6-14.6 [facility] Comment on above: Performed By: #### L 500.3600, L501.0900, L509.1000, L100.0500 ####[facility] [address] [place], [address] Hematocrit (Bld) [Volume fraction] 45.0 % Normal 40-54 [facility] Comment on above: Performed By: #### L 500.3600, L501.0900, L509.1000, L100.0500 ####[facility] [address] [place], [address] Hemoglobin (Bld) [Mass/Vol] 14.9 g/dL Normal 13.0-16.5 [facility] Comment on above: Performed By: #### L 500.3600, L501.0900, L509.1000, L100.0500 ####[facility] [address] [place], [address] MCH (RBC) [Entitic mass] 31.6 pg Normal 27.0-32.0 [facility] Comment on above: Performed By: #### L 500.3600, L501.0900, L509.1000, L100.0500 ####[facility] [address] [place], [address] MCHC (RBC) [Mass/Vol] 33.1 g/dL Normal 32-36 [facility] Comment on above: Performed By: #### L 500.3600, L501.0900, L509.1000, L100.0500 ####[facility] [address] [place], [address] MCV (RBC) [Entitic vol] 95.3 fL High 80-94 [facility] Comment on above: Performed By: #### L 500.3600, L501.0900, L509.1000, L100.0500 ####[facility] [address] [place], [address] Platelet mean volume (Bld) [Entitic vol] 9.2 fL Normal 6.2-12.0 [facility] Comment on above: Performed By: #### L 500.3600, L501.0900, L509.1000, L100.0500 ####[facility] [address] [place], [address] Platelets (Bld) [#/Vol] 157 10*3/uL Normal 150-450 [facility] Comment on above: Performed By: #### L 500.3600, L501.0900, L509.1000, L100.0500 ####[facility] [address] [place], [address] RBC (Bld) [#/Vol] 4.72 10*6/uL Normal 4.6-6.2 [facility] Comment on above: Performed By: #### L 500.3600, L501.0900, L509.1000, L100.0500 ####[facility] [address] [place], [address] RDW SD 45.3 fl High 35.1-43.9 [facility] Comment on above: Performed By: #### L 500.3600, L501.0900, L509.1000, L100.0500 ####[facility] [address] [place], [address] WBC (Bld) [#/Vol] 7.3 10*3/uL Normal 4.4-11.0 [facility] Comment on above: Performed By: #### L 500.3600, L501.0900, L509.1000, L100.0500 ####[facility] [address] [place], [address] Carbon dioxide, total [Moles /volume] in Central venous bloodOrdered By: Mary Patel on 08-04-2024 CO2 [Moles/Vol] 18.7 mmol/L Low 21.0-32.0 [facility] Chloride assayOrdered By: Mil Patel on 08-04-2024 Chloride [Moles/Vol] 103 mmol/L 98-108 [facility] Creatinine Unsp time (U) [Ma ss/Vol]Ordered By: Mary Patel on 08-04-2024 Creatinine (U) [Mass/Vol] 99.10 mg/dL 39.00-259. 00 [facility] Erythrocyte distribution wid th (RBC) [Ratio]Ordered By: Mary Patel on 08-04-2024 Erythrocyte distribution width (RBC) [Entitic vol] 45.3 fL High 35.1-43.9 [facility] Erythrocyte distribution wid th ratioOrdered By: Mary Patel on 08-04-2024 Erythrocyte distribution width (RBC) [Ratio] 12.8 % 11.6-14.6 [facility] Erythrocyte distribution wid th standard deviationOrdered By: Mary Patel on 08-04-2024 Erythrocyte distribution width (RBC) [Ratio] 45.3 fl High 35.1-43.9 [facility] GFR/1.73 sq M.predicted dale g non-blacks MDRD (S/P/Bld) [Vol rate/Area]Ordered By: Mary Patel on 08-04-2024 Estimated GFR (MDRD) Non-Af Amer 47 Low >60 [facility] Comment on above: mL/min/1.73m2 CKD-EP I Creatinine Equation (2020) Glomerular filtration rate ( GFR) estimation/1.73 sq m using serum, plasma, or whole bOrdered By: Mary Patel on 08-04-2024 GFR/1.73 sq M.predicted among non-blacks MDRD (S/P/Bld) [Vol rate/Area] 47 mL/min/{1.73_m2} Low >60 [facility] Comment on above: mL/min/1.73m2 CKD-EP I Creatinine Equation (2020) Hematocrit Auto (Bld) [Volum e fraction]Ordered By: Mary Patel on 08-04-2024 Hematocrit (Bld) [Volume fraction] 45.0 % 40-54 [facility] Hemoglobin measurementOrdere d By: Mary Patel on 08-04-2024 Hemoglobin (Bld) [Mass/Vol] 14.9 g/dL 13.0-16.5 [facility] MCV (mean corpuscular volume ) determinationOrdered By: Mary Patel on 08-04-2024 MCV (RBC) [Entitic vol] 95.3 fL High 80-94 [facility] Mean corpuscular hemoglobin (MCH) determinationOrdered By: Mary Patel on 08-04-2024 MCH (RBC) [Entitic mass] 31.6 pg 27.0-32.0 [facility] Mean corpuscular hemoglobin concentration (MCHC) determinationOrdered By: Mary Patel on 08-04-2024 MCHC (RBC) [Mass/Vol] 33.1 g/dL 32-36 [facility] Mean platelet volume determi nationOrdered By: Mary Patel on 08-04-2024 Platelet mean volume (Bld) [Entitic vol] 9.2 fL 6.2-12.0 [facility] PTH intactOrdered By: Liborio Patel on 08-04-2024 Parathyroid Hormone (Intact) 37 pg/mL [facility] PTHINon 08-04-2024 PTH 37 pg/mL Normal [facility] Comment on above: Performed By: #### L 500.3600, L501.0900, L509.1000, L100.0500 ####[facility] [address] [place], [address] Platelet countOrdered By: Mil Patle on 08-04-2024 Platelets (Bld) [#/Vol] 157 10*3/uL 150-450 [facility] Potassium (Unsp spec) [Mass/ Vol]Ordered By: Mary Patel on 08-04-2024 Potassium [Moles/Vol] 4.5 mmol/L 3.3-5.1 [facility] Potassium measurement (mass/ volume)Ordered By: Mary Patel on 08-04-2024 Potassium (Unsp spec) [Mass/Vol] 4.5 mmol/L 3.3-5.1 [facility] Protein+Creatinine Ratio,Uri neon 08-04-2024 PROT:CRE RATIO 78 mg/g CRE Normal 0-200 [facility] Comment on above: Performed By: #### L 500.3600, L501.0900, L509.1000, L100.0500 ####[facility] [address] [place], [address] Protein (U) [Mass/Vol] 7.8 mg/dL Normal 0.0-12.0 [facility] Comment on above: Performed By: #### L 500.3600, L501.0900, L509.1000, L100.0500 ####[facility] [address] [place], [address] UR CREAT 99.10 mg/dL Normal 39.00-259. 00 [facility] Comment on above: Performed By: #### L 500.3600, L501.0900, L509.1000, L100.0500 ####[facility] [address] [place], [address] Protein/Creatinine (U) [Mass ratio]Ordered By: Mary Patel on 08-04-2024 Urine Protein/Creatinine Ratio 78 mg/g CRE 0-200 [facility] RBC Auto (Bld) [#/Vol]Ordere d By: Mary Patel on 08-04-2024 RBC (Bld) [#/Vol] 4.72 10*6/uL 4.6-6.2 [facility] Random urine creatinine axel urement (mass/volume)Ordered By: Mary Patel on 08-04-2024 Creatinine Unsp time (U) [Mass/Vol] 99.10 mg/dL 39.00-259. 00 [facility] Renal Profileon 08-04-2024 Albumin [Mass/Vol] 3.2 g/dL Low 3.4-4.8 [facility] Comment on above: Order Comment: PTH Performed By: #### L 500.3600, L501.0900, L509.1000, L100.0500 ####[facility] [address] [place], [address] BUN/CRE 12.4 RATIO Normal 10-20 [facility] Comment on above: Order Comment: PTH Performed By: #### L 500.3600, L501.0900, L509.1000, L100.0500 ####[facility] [address] [place], [address] Calcium [Mass/Vol] 8.8 mg/dL Normal 7.6-11.0 [facility] Comment on above: Order Comment: PTH Performed By: #### L 500.3600, L501.0900, L509.1000, L100.0500 ####[facility] [address] [place], [address] Chloride [Moles/Vol] 103 mmol/L Normal 98-108 [facility] Comment on above: Order Comment: PTH Performed By: #### L 500.3600, L501.0900, L509.1000, L100.0500 ####[facility] [address] [place], [address] CO2 [Moles/Vol] 18.7 mmol/L Low 21.0-32.0 [facility] Comment on above: Order Comment: PTH Performed By: #### L 500.3600, L501.0900, L509.1000, L100.0500 ####[facility] [address] [place], [address] Creatinine [Mass/Vol] 1.49 mg/dL High 0.70-1.20 [facility] Comment on above: Order Comment: PTH Performed By: #### L 500.3600, L501.0900, L509.1000, L100.0500 ####[facility] [address] [place], [address] GAP 16 High 5-15 [facility] Comment on above: Order Comment: PTH Performed By: #### L 500.3600, L501.0900, L509.1000, L100.0500 ####[facility] [address] [place], [address] GFR/1.73 sq M.predicted among non-blacks MDRD (S/P/Bld) [Vol rate/Area] 47 mL/min/{1.73_m2} Low >60 [facility] Comment on above: Order Comment: PTH Result Comment: mL/m in/1.73m2 CKD-EPI Creatinine Equation (2020) Performed By: #### L 500.3600, L501.0900, L509.1000, L100.0500 ####[facility] [address] [place], [address] Glucose [Mass/Vol] 103 mg/dL High 70-99 [facility] Comment on above: Order Comment: PTH Performed By: #### L 500.3600, L501.0900, L509.1000, L100.0500 ####[facility] [facility] [address] [place], [address] Potassium [Moles/Vol] 4.5 mmol/L Normal 3.3-5.1 [facility] Comment on above: Order Comment: PTH Performed By: #### L 500.3600, L501.0900, L509.1000, L100.0500 ####[facility] [address] [place], [address] Sodium [Moles/Vol] 138 mmol/L Normal 133-145 [facility] Comment on above: Order Comment: PTH Performed By: #### L 500.3600, L501.0900, L509.1000, L100.0500 ####[facility] [address] [place], [address] Urea nitrogen [Mass/Vol] 19 mg/dL Normal 4-19 [facility] Comment on above: Order Comment: PTH Performed By: #### L 500.3600, L501.0900, L509.1000, L100.0500 ####[facility] [address] [place], [address] Serum creatinine measurement (mass/volume)Ordered By: Mary Patel on 08-04-2024 Creatinine [Mass/Vol] 1.49 mg/dL High 0.70-1.20 [facility] Serum glucose measurement (m ass/volume)Ordered By: Mary Patel on 08-04-2024 Glucose [Mass/Vol] 103 mg/dL High 70-99 [facility] Serum or plasma albumin axel urement (mass/volume)Ordered By: Mary Patel on 08-04-2024 Albumin [Mass/Vol] 3.2 g/dL Low 3.4-4.8 [facility] Serum or plasma calcium axel urement (mass/volume)Ordered By: Mary Patel on 08-04-2024 Calcium [Mass/Vol] 8.8 mg/dL 7.6-11.0 [facility] Serum or plasma urea nitroge n measurement (mass/volume)Ordered By: Mary Patel on 08-04-2024 Urea nitrogen [Mass/Vol] 19 mg/dL 4-19 [facility] Serum phosphorus measurement Ordered By: Mary Patel on 08-04-2024 Phosphorus Level 2.8 mg/dL 2.7-4.5 [facility] Sodium levelOrdered By: Muriel Patel on 08-04-2024 Sodium [Moles/Vol] 138 mmol/L 133-145 [facility] Urine protein measurement (m ass/volume)Ordered By: Mary Patel on 08-04-2024 Protein (U) [Mass/Vol] 7.8 mg/dL 0.0-12.0 [facility] Urine protein/creatinine mas s ratioOrdered By: Mary Patel on 08-04-2024 Protein/Creatinine (U) [Mass ratio] 78 mg/g CRE 0-200 [facility] White blood cell (WBC) count Ordered By: Mary Patel on 08-04-2024 WBC (Bld) [#/Vol] 7.3 10*3/uL 4.4-11.0 [facility] Albumin to globulin ratioOrd ered By: Nolan Nguyen on 07-04-2024 Albumin/Globulin [Mass ratio] 0.9 {ratio} 0.9-2.4 [facility] Bilirubin, totalOrdered By: Nolan Nguyen on 07-04-2024 Bilirubin [Mass/Vol] 0.60 mg/dL 0.20-1.00 [facility] Comment on above: For patients on eltr ombopag therapy, use of Dimension Crapo TBIL is not recommended. Blood urea nitrogen (BUN)/cr eatinine ratioOrdered By: Nolan Nguyen on 07-04-2024 Urea nitrogen/Creatinine [Mass ratio] 15.6 mg/mg 10-20 [facility] Carbon dioxide measurementOr dered By: Nolan Nguyen on 07-04-2024 CO2 [Moles/Vol] 25.0 mmol/L 21.0-32.0 [facility] Chloride measurementOrdered By: Nolan Nguyen on 07-04-2024 Chloride [Moles/Vol] 107 mmol/L 98-107 [facility] Comprehensive Metabolic Prof ilon 07-04-2024 Albumin [Mass/Vol] 3.3 g/dL Normal 3.2-5.0 [facility] Comment on above: Performed By: #### L 500.4100, L500.4050, L502.0250 #### [facility] [address] [place], [address] Albumin/Globulin [Mass ratio] 0.9 {ratio} Normal 0.9-2.4 [facility] Comment on above: Performed By: #### L 500.4100, L500.4050, L502.0250 #### [facility] [address] [place], [address] ALK P 51 U/L Normal 45-117 [facility] Comment on above: Performed By: #### L 500.4100, L500.4050, L502.0250 #### [facility] [address] [place], [address] ALT [Catalytic activity/Vol] 24 U/L Normal 16-61 [facility] Comment on above: Performed By: #### L 500.4100, L500.4050, L502.0250 #### [facility] [address] [place], [address] AST [Catalytic activity/Vol] 21 U/L Normal 15-37 [facility] Comment on above: Performed By: #### L 500.4100, L500.4050, L502.0250 #### [facility] [address] [place], [address] Bilirubin [Mass/Vol] 0.60 mg/dL Normal 0.20-1.00 [facility] Comment on above: Result Comment: For patients on eltrombopag therapy, use of Dimension Crapo TBIL is not recommended. Performed By: #### L 500.4100, L500.4050, L502.0250 #### [facility] [address] [place], [address] BUN/CRE 15.6 RATIO Normal 10-20 [facility] Comment on above: Performed By: #### L 500.4100, L500.4050, L502.0250 #### [facility] [address] [place], [address] CA,Total 8.9 mg/dL Normal 8.5-10.1 [facility] Comment on above: Performed By: #### L 500.4100, L500.4050, L502.0250 #### [facility] [address] [place], [address] Chloride [Moles/Vol] 107 mmol/L Normal 98-107 [facility] Comment on above: Performed By: #### L 500.4100, L500.4050, L502.0250 #### [facility] [address] [place], [address] CO2 [Moles/Vol] 25.0 mmol/L Normal 21.0-32.0 [facility] Comment on above: Performed By: #### L 500.4100, L500.4050, L502.0250 #### [facility] [address] [place], [address] Creatinine [Mass/Vol] 1.54 mg/dL High 0.70-1.30 [facility] Comment on above: Result Comment: The validity of the calculated GFR GFRAA in patients over 70 years has not been determined. Clinical correlation is essential. Performed By: #### L 500.4100, L500.4050, L502.0250 #### [facility] [address] [place], [address] EST GFR - AA 56 mL/min Low >60 [facility] Comment on above: Result Comment: Afri can Czech GFR Calc Performed By: #### L 500.4100, L500.4050, L502.0250 #### [facility] [address] [place], [address] GAP 5 Normal 5-15 [facility] Comment on above: Performed By: #### L 500.4100, L500.4050, L502.0250 #### [facility] [address] [place], [address] GFR/1.73 sq M.predicted among non-blacks MDRD (S/P/Bld) [Vol rate/Area] 47 mL/min/{1.73_m2} Low >60 [facility] Comment on above: Result Comment: Non- GFR Calc Performed By: #### L 500.4100, L500.4050, L502.0250 #### [facility] [address] [place], [address] Globulin (S) [Mass/Vol] 3.8 g/dL Normal 2.2-4.2 [facility] Comment on above: Performed By: #### L 500.4100, L500.4050, L502.0250 #### [facility] [address] [place], [address] Glucose [Mass/Vol] 113 mg/dL High 74-106 [facility] Comment on above: Result Comment: Fast ing Glucose result from 100 to 125 mg/dL suggests IMPAIRED HOMEOSTASIS per A.D.A. criteria. Performed By: #### L 500.4100, L500.4050, L502.0250 #### [facility] [address] [place], [address] Potassium [Moles/Vol] 4.5 mmol/L Normal 3.5-5.1 [facility] Comment on above: Performed By: #### L 500.4100, L500.4050, L502.0250 #### [facility] [address] [place], [address] Sodium [Moles/Vol] 137 mmol/L Normal 136-145 [facility] Comment on above: Performed By: #### L 500.4100, L500.4050, L502.0250 #### [facility] [address] [place], [address] T PROT 7.1 g/dL Normal 6.4-8.2 [facility] Comment on above: Performed By: #### L 500.4100, L500.4050, L502.0250 #### [facility] [address] [place], [address] Urea nitrogen [Mass/Vol] 24 mg/dL High 7-18 [facility] Comment on above: Performed By: #### L 500.4100, L500.4050, L502.0250 #### [facility] [address] [place], [address] Estimated glomerular filtrat ion rate (GFR) AmericanOrdered By: Nolan Nguyen on 07-04-2024 Estimated GFR (MDRD) Amer 56 mL/min Low >60 [facility] Comment on above: GFR Calc Glomerular filtration rate ( GFR) estimationOrdered By: Nolan Nguyen on 07-04-2024 Estimated GFR (MDRD) Non-Af Amer 47 mL/min Low >60 [facility] Comment on above: Non- GFR Calc Glucose measurementOrdered B y: Nolan Nguyen on 07-04-2024 Glucose [Mass/Vol] 113 mg/dL High 74-106 [facility] Comment on above: Fasting Glucose resu lt from 100 to 125 mg/dL suggests IMPAIRED HOMEOSTASIS per A.D.A. criteria. High density lipoprotein (HD L) measurementOrdered By: Nolan Nguyen on 07-04-2024 Cholesterol in HDL [Mass/Vol] 38 mg/dL Low >40 [facility] Comment on above: The drugs N-Acetylcy steine and Metamizole may falsely depress this assay. Reference Range HDL <40 mg/dL Low HDL Cholesterol HDL >or= 60 mg/dL High HDL Cholesterol Laboratory - Chemistry and C hemistry - challengeOrdered By: Nolan Nguyen on 07-04-2024 AST [Catalytic activity/Vol] 21 U/L 15-37 [facility] Lipid Profileon 07-04-2024 Cholesterol [Mass/Vol] 148 mg/dL Normal 200 [facility] Comment on above: Result Comment: <200 mg/dL Desirable 200-240 mg/dL Borderline >240 mg/dL High Risk Performed By: #### L 500.4100, L500.4050, L502.0250 #### [facility] [address] [place], [address] Cholesterol in HDL [Mass/Vol] 38 mg/dL Low [facility] Comment on above: Result Comment: The drugs N-Acetylcysteine and Metamizole may falsely depress this assay. Reference Range HDL <40 mg/dL Low HDL Cholesterol HDL >or= 60 mg/dL High HDL Cholesterol Performed By: #### L 500.4100, L500.4050, L502.0250 #### [facility] [address] [place], [address] Cholesterol in LDL [Mass/Vol] 68 mg/dL Normal 0-130 [facility] Comment on above: Performed By: #### L 500.4100, L500.4050, L502.0250 #### [facility] [address] [place], [address] Cholesterol in VLDL [Mass/Vol] 42 mg/dL High 5-40 [facility] Comment on above: Performed By: #### L 500.4100, L500.4050, L502.0250 #### [facility] [address] [place], [address] Triglyceride [Mass/Vol] 211 mg/dL High W [facility] Comment on above: Result Comment: The drugs N-Acetylcysteine and Metamizole may falsely depress this assay. Serum Triglycerides Reference Interval Normal <150 mg/dL Borderline high 150 - 199 mg/dL High 200 - 499 mg/dL Very High > or = 500 mg/dL Performed By: #### L 500.4100, L500.4050, L502.0250 #### [facility] [address] [place], [address] Low density lipoprotein (LDL ) cholesterol measurementOrdered By: Nolan Nguyen on 07-04-2024 Cholesterol in LDL [Mass/Vol] 68 mg/dL 0-130 [facility] Microalb:Creat Ratio,Random URon 07-04-2024 Creatinine [Mass/Vol] 259.00 mg/dL Normal NO RAN GE EST. [facility] Comment on above: Performed By: #### L 500.4100, L500.4050, L502.0250 #### [facility] [address] [place], [address] MALB:CRE 7.8 mg/g CRE Normal <30 mg/g CRE [facility] Comment on above: Performed By: #### L 500.4100, L500.4050, L502.0250 #### [facility] [address] [place], [address] MICROALBUMIN,UR 20.3 mg/L Normal NO RANGE EST. [facility] Comment on above: Performed By: #### L 500.4100, L500.4050, L502.0250 #### [facility] [address] [place], [address] Potassium measurementOrdered By: Nolan Nguyen on 07-04-2024 Potassium [Moles/Vol] 4.5 mmol/L 3.5-5.1 [facility] Random urine microalbumin me asurementOrdered By: Nolan Nguyen on 07-04-2024 Urine Random Microalbumin 20.3 mg/L NO RANGE EST. [facility] Serum anion gap measurementO rdered By: Nolan Nguyen on 07-04-2024 Anion gap [Moles/Vol] 5 mmol/L 5-15 [facility] Serum globulin measurementOr dered By: Nolan Nguyen on 07-04-2024 Globulin (S) [Mass/Vol] 3.8 g/dL 2.2-4.2 [facility] Serum or plasma alanine murguia otransferase (ALT) measurementOrdered By: Nolan Nguyen on 07-04-2024 ALT [Catalytic activity/Vol] 24 U/L 16-61 [facility] Serum or plasma albumin axel urement (mass/volume)Ordered By: Nolan Nguyen on 07-04-2024 Albumin [Mass/Vol] 3.3 g/dL 3.2-5.0 [facility] Serum or plasma alkaline eva sphatase measurementOrdered By: Nolan Nguyen on 07-04-2024 ALP [Catalytic activity/Vol] 51 U/L 45-117 [facility] Serum or plasma calcium axel urement (mass/volume)Ordered By: Nolan Nguyen on 07-04-2024 Calcium [Mass/Vol] 8.9 mg/dL 8.5-10.1 [facility] Serum or plasma cholesterol measurement (mass/volume)Ordered By: Nolan Nguyen on 07-04-2024 Cholesterol [Mass/Vol] 148 mg/dL <200 [facility] Comment on above: <200 mg/dL Desirable 200-240 mg/dL Borderline >240 mg/dL High Risk Serum or plasma creatinine m easurement (mass/volume)Ordered By: Nolan Nguyen on 07-04-2024 Creatinine [Mass/Vol] 1.54 mg/dL High 0.70-1.30 [facility] Comment on above: The validity of the calculated GFR & GFRAA in patients over 70 years has not been determined. Clinical correlation is essential. Serum or plasma urea nitroge n measurement (mass/volume)Ordered By: Nolan Nguyen on 07-04-2024 Urea nitrogen [Mass/Vol] 24 mg/dL High 7-18 [facility] Sodium levelOrdered By: Nolan Nguyen on 07-04-2024 Sodium [Moles/Vol] 137 mmol/L 136-145 [facility] Total proteinOrdered By: Alina Nguyen on 07-04-2024 Protein [Mass/Vol] 7.1 g/dL 6.4-8.2 [facility] Triglycerides measurementOrd ered By: Nolan Nguyen on 07-04-2024 Triglyceride [Mass/Vol] 211 mg/dL High <199 [facility] Comment on above: The drugs N-Acetylcy steine and Metamizole may falsely depress this assay.Serum Triglycerides Reference Interval Normal <150 mg/dL Borderline high 150 - 199 mg/dL High 200 - 499 mg/dL Very High > or = 500 mg/dL Urine albumin/creatinine rat io for detection of microalbuminuriaOrdered By: Nolan Nguyen on 07-04-2024 Urine Microalbumin/Creatinine Ratio 7.8 mg/g CRE <30 [facility] Urine creatinine measurement (mass/volume)Ordered By: Nolan Nguyen on 07-04-2024 Creatinine (U) [Mass/Vol] 259.00 mg/dL NO RANGE EST. [facility] Very low density lipoprotein (VLDL) cholesterol measurementOrdered By: Nolan Nguyen on 07-04-2024 VLDL Cholesterol 42 mg/dL High 5-40 [facility] Protein+Creatinine Ratio,Uri neon 02-11-2024 PROT:CRE RATIO 103 mg/g CRE Normal 0-200 [facility] Comment on above: Performed By: #### L 501.0900, L500.3600 #### [facility] [address] [place], [address] Protein (U) [Mass/Vol] 30.3 mg/dL High <11.9 [facility] Comment on above: Performed By: #### L 501.0900, L500.3600 #### [facility] [address] [place], [address] UR CREAT 294.00 mg/dL Normal NO RANGE EST. [facility] Comment on above: Performed By: #### L 501.0900, L500.3600 #### [facility] [address] [place], [address] Renal Profileon 02-11-2024 Albumin [Mass/Vol] 3.2 g/dL Normal 3.2-5.0 [facility] Comment on above: Performed By: #### L 501.0900, L500.3600 #### [facility] [address] [place], [address] BUN/CRE 13.4 RATIO Normal 10-20 [facility] Comment on above: Performed By: #### L 501.0900, L500.3600 #### [facility] [address] [place], [address] CA,Total 9.3 mg/dL Normal 8.5-10.1 [facility] Comment on above: Performed By: #### L 501.0900, L500.3600 #### [facility] [address] [place], [address] Chloride [Moles/Vol] 109 mmol/L High 98-107 [facility] Comment on above: Performed By: #### L 501.0900, L500.3600 #### [facility] [address] [place], [address] CO2 [Moles/Vol] 25.0 mmol/L Normal 21.0-32.0 [facility] Comment on above: Performed By: #### L 501.0900, L500.3600 #### [facility] [address] [place], [address] Creatinine [Mass/Vol] 1.72 mg/dL High 0.70-1.30 [facility] Comment on above: Result Comment: The validity of the calculated GFR GFRAA in patients over 70 years has not been determined. Clinical correlation is essential. Performed By: #### L 501.0900, L500.3600 #### [facility] [address] [place], [address] EST GFR - AA 50 mL/min Low >60 [facility] Comment on above: Result Comment: Afri can Czech GFR Calc Performed By: #### L 501.0900, L500.3600 #### [facility] [address] [place], [address] GFR/1.73 sq M.predicted among non-blacks MDRD (S/P/Bld) [Vol rate/Area] 41 mL/min/{1.73_m2} Low >60 [facility] Comment on above: Result Comment: Non- GFR Calc Performed By: #### L 501.0900, L500.3600 #### [facility] [address] [place], [address] Glucose [Mass/Vol] 130 mg/dL High 74-106 [facility] Comment on above: Result Comment: Fast ing Glucose result greater than or equal to 126 mg/dL suggests DIABETES MELLITUS per A.D.A. criteria. Performed By: #### L 501.0900, L500.3600 #### [facility] [address] [place], [address] Phosphate [Mass/Vol] 2.8 mg/dL Normal 2.5-4.9 [facility] Comment on above: Performed By: #### L 501.0900, L500.3600 #### [facility] [address] [place], [address] Potassium [Moles/Vol] 4.6 mmol/L Normal 3.5-5.1 [facility] Comment on above: Performed By: #### L 501.0900, L500.3600 #### [facility] [address] [place], [address] Sodium [Moles/Vol] 138 mmol/L Normal 136-145 [facility] Comment on above: Performed By: #### L 501.0900, L500.3600 #### [facility] [address] [place], [address] Urea nitrogen [Mass/Vol] 23 mg/dL High 7-18 [facility] Comment on above: Performed By: #### L 501.0900, L500.3600 #### [facility] [address] [place], [address] PT D/C Summary (1)on 024 PT D/C Summary (1) [facility] Physical Therapy [facility] [address] [place] [address] / REHABILITATION SERVICES DISCHARGE SUMMARY MR#: [id number] Acct: [id number] Name: XOCHITL MONTERROSO Rep #: [id number] : 1945 78 From: Fady BRANDT, OCS, CSCS Referring Dr.: Dr. Fred Griffin MD Status: RE G R Insurance: [facility] SELF PAY INSURANCE Discharge Summary D/C summary: It has been my pleasure to treat XOCHITL MONTERROSO referred by Dr. Fred Griffin MD, with the diagnosis of L knee OA for a total of 1 visit(s). Discharge Date: 01/12/24 Please see the following information for a summary of their discharge status. Pain L knee: Pain Intensity (Out of 10): 0 Goals Goal 1:: i appropriate pool or hoe based ex to minimize future problems. Goal 2:: Pain 2/10 at worst and 50% better overall. Goal 3:: strengthen adn manage appropriate to prepare for possible TKA. Goal 4:: LEFS 45 Goal 5:: walk in tom without hesitation or pain Plan Plan: Pt called and no longer wishes to have any PT. Will discontinue at his request without any actual treatments. D/C Information d/c sentence: If there are questions or concerns regarding this patient's physical therapy, please feel free to call me at [phone]. Thank you for the referral of this patient. Sincerely, Fady Baldwin DPT, OCS, CSCS Balance/Gait/Functional tests Balance/Special Test Scores Functional Gait Assessment Score: 28 % Disability: 6.6700 Lower Extremity Functional Score: 30 01/12/24 1229 CC: Dr. Nolan Nguyen MD; Dr. Fred Griffin MD EBG Signed Normal [facility] Inital Evaluation (1) - PTon 01-06-2024 Inital Evaluation (1) - PT [facility] Physical Therapy [facility] [address] [place] [address] / REHABILITATION SERVICES INITIAL EVALUATION MR#: [id number] Acct: [id number] Name: XOCHITL MONTERROSO Rep #: [id number] : 1945 78 From: Fady Baldwin DPT, OCS, CSCS Referring Dr.: Dr. Fred Griffin MD Status: RE G R Insurance: [facility] SELF PAY INSURANCE Patient's Visit Information Visit Information Visit Information: XOCHITL MONTERROSO is a 78 year old M referred to Physical Therapy by Dr. Fred Griffin MD with a diagnosis of L knee OA. Date of Evaluation: 01/06/24 Physical Therapist: Fady Baldwin DPT, MARY, CSCS Visit Plan Frequency: 2x /Week Duration: 4-6 Weeks Plan: 2x/week for 4-6 starting in pool for LE and calorie burning/postural ex to I, quad and HS stretching, Knee ROM ext and flexion L. Work to I in pool or HEP depending on pt desire. Subjective Subjective: Dr. Griffin sent for L knee discomfort an OA. hurting for 1.5 years but now is hyperextending if hits uneven spot. 6 months ago started radiating medial pain if twisting or walking. X rays bone on bone. Sent to [facility]. TKA appropriate. Pain daily to 6/10 transiently. Injections not recommended. Sent for PT. Pt not ready to have it done yet. Activity is avoiding walking on uneven ground. Pierre walking is avoided. Can go to the grocery store but it hurts and sometimes uses walking stick. No regular exercises. has recumbent bike. retired Hobbies: piddle around house , mows yard on zero turn. Basic ADLs: all I. Stairs are to basement and does not trust it on L, always uses R. Pain L knee: Pain Intensity (Out of 10): 0 Pain Intensity Range: 0 and 6 Objective Objective: L antalgia is slight in gait but I, some varus at knee.. i gait. Transfers I bed and chair. AROM L knee -3-95 adn R knee 0-120. Pain in L knee at end range fex and ext. quad and HS max tight at -30+ 90/90 test. hip aROM otherwise WFL, 4 extension AROM B. ankles gastroc tightness but WFL AROM. strength L knee ext crepitus and 4/5 ext adn 4 flexion vs 4+ on R. hip abd and ext 3+ B, flexion 4- B. ankles 4 B. - bounce home, + patellar grind L reflexes 13 B patella nd achilles Sensation LE WNL to gross lgiht touch but some neuropathy in gait pattern, able to heel raise B but not toe raise. Balance/Special Test Scores Functional Gait Assessment Score: 28 % Disability: 6.6700 Lower Extremity Functional Score: 30 Goals Goal 1:: i appropriate pool or hoe based ex to minimize future problems. Goal Time Frame: 4-6 Weeks Goal 2:: Pain 2/10 at worst and 50% better overall. Goal Time Frame: 4-6 Weeks Goal 3:: strengthen adn manage appropriate to prepare for possible TKA. Goal Time Frame: 4-6 Weeks Goal 4:: LEFS 45 Goal Time Frame: 4-6 Weeks Goal 5:: walk in tom without hesitation or pain Goal Time Frame: 4-6 Weeks Rehabilitation Potential Physical Therapy Diagnosis: l kknee apin and stiffness limiting comfortable funciton Rehabilitation Potential: Fair Anticipated Interventions Patient/Client Instruction: Educate patient on: Condition and Plan of Care For the Purpose of:: To decrease pain, To increase ROM, To improve muscle performance and motor function and To improve gait and locomotor functions Therapeutic Exercise to Include: Strength training, Flexibilty training, In an aquatic setting and Active ROM For the Purpose of:: To decrease pain, To increase ROM, To improve nutrient delivery to tissue, To improve muscle performance and motor function, To increase tolerance to activity/condition/positi on and To improve gait and locomotor functions Text: Thank you for the opportunity to evaluate your patient. For Medicare and Medicare HMO plans, please review the plan of care and approve it. It will need to be FAXED BACK to us at [phone] for Medicare purposes. For Medicare only, by signing this I certify the plan of care. Please let me know if there are questions or concerns regarding this plan of care. Physician Signature: Date: _ 01/06/24 1351 CC: Dr. Nolan Nguyen MD; Dr. Fred Griffin MD EBG Signed Normal [facility] Inital Evaluation (1) - PT [facility] Physical Therapy [facility] [address] [place] [address] / REHABILITATION SERVICES INITIAL EVALUATION MR#: [id number] Acct: [id number] Name: XOCHITL MONTERROSO Rep #: [id number] : 1945 78 From: Fady Baldwin DPT, OCS, CSCS Referring Dr.: Dr. Fred Griffin MD Status: [facility] Insurance: [facility] SELF PAY INSURANCE Patient's Visit Information Visit Information Visit Information: XOCHITL MONTERROSO is a 78 year old M referred to Physical Therapy by Dr. Fred Griffin MD with a diagnosis of L knee OA. Date of Evaluation: 01/06/24 Physical Therapist: Fady Baldwin DPT, OCS, CSCS Visit Plan Frequency: 2x /Week Duration: 4-6 Weeks Plan: 2x/week for 4-6 starting in pool for LE and calorie burning/postural ex to I, quad and HS stretching, Knee ROM ext and flexion L. Work to I in pool or [facility] depending on pt desire. Subjective Subjective: Dr. Griffin sent for L knee discomfort an OA. hurting for 1.5 years but now is hyperextending if hits uneven spot. 6 months ago started radiating medial pain if twisting or walking. X rays bone on bone. Sent to [facility]. TKA appropriate. Pain daily to 6/10 transiently. Injections not recommended. Sent for PT. Pt not ready to have it done yet. Activity is avoiding walking on uneven ground. Pierre walking is avoided. Can go to the grocery store but it hurts and sometimes uses walking stick. No regular exercises. has recumbent bike. retired Hobbies: piddle around house , mows yard on zero turn. Basic ADLs: all I. Stairs are to basement and does not trust it on L, always uses R. Pain L knee: Pain Intensity (Out of 10): 0 Pain Intensity Range: 0 and 6 Objective Objective: L antalgia is slight in gait but I, some varus at knee.. i gait. Transfers I bed and chair. AROM L knee -3-95 adn R knee 0-120. Pain in L knee at end range fex and ext. quad and HS max tight at -30+ 90/90 test. hip aROM otherwise WFL, 4 extension AROM B. ankles gastroc tightness but WFL AROM. strength L knee ext crepitus and 4/5 ext adn 4 flexion vs 4+ on R. hip abd and ext 3+ B, flexion 4- B. ankles 4 B. - bounce home, + patellar grind L reflexes 13 B patella nd achilles Sensation LE WNL to gross lgiht touch but some neuropathy in gait pattern, able to heel raise B but not toe raise. Balance/Special Test Scores Functional Gait Assessment Score: 28 % Disability: 6.6700 Lower Extremity Functional Score: 30 Goals Goal 1:: i appropriate pool or hoe based ex to minimize future problems. Goal Time Frame: 4-6 Weeks Goal 2:: Pain 2/10 at worst and 50% better overall. Goal Time Frame: 4-6 Weeks Goal 3:: strengthen adn manage appropriate to prepare for possible TKA. Goal Time Frame: 4-6 Weeks Goal 4:: LEFS 45 Goal Time Frame: 4-6 Weeks Goal 5:: walk in tom without hesitation or pain Goal Time Frame: 4-6 Weeks Rehabilitation Potential Physical Therapy Diagnosis: l kknee apin and stiffness limiting comfortable funciton Rehabilitation Potential: Fair Anticipated Interventions Patient/Client Instruction: Educate patient on: Condition and Plan of Care For the Purpose of:: To decrease pain, To increase ROM, To improve muscle performance and motor function and To improve gait and locomotor functions Therapeutic Exercise to Include: Strength training, Flexibilty training, In an aquatic setting and Active ROM For the Purpose of:: To decrease pain, To increase ROM, To improve nutrient delivery to tissue, To improve muscle performance and motor function, To increase tolerance to activity/condition/positi on and To improve gait and locomotor functions Text: Thank you for the opportunity to evaluate your patient. For Medicare and Medicare HMO plans, please review the plan of care and approve it. It will need to be FAXED BACK to us at [phone] for Medicare purposes. For Medicare only, by signing this I certify the plan of care. Please let me know if there are questions or concerns regarding this plan of care. Physician Signature: Date: _ 01/06/24 1351 CC: Dr. Nolan Nguyen MD; Dr. Fred Griffin MD EBG Signed Normal [facility] Basic Metabolic Profile (BMP )on 01-04-2024 BUN/CRE 18.7 RATIO Normal 10-20 [facility] Comment on above: Performed By: #### L 500.4100, L500.2500 #### [facility] [address] [place], [address] CA,Total 9.7 mg/dL Normal 8.5-10.1 [facility] Comment on above: Performed By: #### L 500.4100, L500.2500 #### [facility] [address] [place], [address] Chloride [Moles/Vol] 108 mmol/L High 98-107 [facility] Comment on above: Performed By: #### L 500.4100, L500.2500 #### [facility] [address] [place], [address] CO2 [Moles/Vol] 26.0 mmol/L Normal 21.0-32.0 [facility] Comment on above: Performed By: #### L 500.4100, L500.2500 #### [facility] [address] [place], [address] Creatinine [Mass/Vol] 1.66 mg/dL High 0.70-1.30 [facility] Comment on above: Result Comment: The validity of the calculated GFR GFRAA in patients over 70 years has not been determined. Clinical correlation is essential. Performed By: #### L 500.4100, L500.2500 #### [facility] [address] [place], [address] EST GFR - AA 52 mL/min Low >60 [facility] Comment on above: Result Comment: Afri can Czech GFR Calc Performed By: #### L 500.4100, L500.2500 #### [facility] [address] [place], [address] GAP 4 Low 5-15 [facility] Comment on above: Performed By: #### L 500.4100, L500.2500 #### [facility] [address] [place], [address] GFR/1.73 sq M.predicted among non-blacks MDRD (S/P/Bld) [Vol rate/Area] 43 mL/min/{1.73_m2} Low >60 [facility] Comment on above: Result Comment: Non- GFR Calc Performed By: #### L 500.4100, L500.2500 #### [facility] [address] [place], [address] Glucose [Mass/Vol] 112 mg/dL High 74-106 [facility] Comment on above: Result Comment: Fast ing Glucose result from 100 to 125 mg/dL suggests IMPAIRED HOMEOSTASIS per A.D.A. criteria. Performed By: #### L 500.4100, L500.2500 #### [facility] [address] [place], [address] Potassium [Moles/Vol] 5.0 mmol/L Normal 3.5-5.1 [facility] Comment on above: Performed By: #### L 500.4100, L500.2500 #### [facility] [address] [place], [address] Sodium [Moles/Vol] 138 mmol/L Normal 136-145 [facility] Comment on above: Performed By: #### L 500.4100, L500.2500 #### [facility] [address] [place], [address] Urea nitrogen [Mass/Vol] 31 mg/dL High 7-18 [facility] Comment on above: Performed By: #### L 500.4100, L500.2500 #### [facility] [address] [place], [address] Lipid Profileon 01-04-2024 Cholesterol [Mass/Vol] 191 mg/dL Normal 200 [facility] Comment on above: Result Comment: <200 mg/dL Desirable 200-240 mg/dL Borderline >240 mg/dL High Risk Performed By: #### L 500.4100, L500.2500 #### [facility] [address] [place], [address] Cholesterol in HDL [Mass/Vol] 37 mg/dL Low [facility] Comment on above: Result Comment: The drugs N-Acetylcysteine and Metamizole may falsely depress this assay. Reference Range HDL <40 mg/dL Low HDL Cholesterol HDL >or= 60 mg/dL High HDL Cholesterol Performed By: #### L 500.4100, L500.2500 #### [facility] [address] [place], [address] Cholesterol in LDL [Mass/Vol] 105 mg/dL Normal 0-130 [facility] Comment on above: Performed By: #### L 500.4100, L500.2500 #### [facility] [address] [place], [address] Cholesterol in VLDL [Mass/Vol] 49 mg/dL High 5-40 [facility] Comment on above: Performed By: #### L 500.4100, L500.2500 #### [facility] [address] [place], [address] Triglyceride [Mass/Vol] 244 mg/dL High W [facility] Comment on above: Result Comment: The drugs N-Acetylcysteine and Metamizole may falsely depress this assay. Serum Triglycerides Reference Interval Normal <150 mg/dL Borderline high 150 - 199 mg/dL High 200 - 499 mg/dL Very High > or = 500 mg/dL Performed By: #### L 500.4100, L500.2500 #### [facility] [address] [place], [address] CNOVon 10-14-2023 CNOV Office Visit (VASSMN ) ----- XOCHITL MONTERROSO Robel ([id number]) 1945 M Date Time Provider Department 10/14/23 12:45 PM ANGELICA CAN During your visit today, we recorded the following information about you: Pulse Blood pressure 51/minute 136/72 Angelica Can MD 10/14/2023 12:47 PM [facility] [place] DEPARTMENT OF VASCULAR SURGERY OUTPATIENT VISIT DATE October 14, 2023 OUTPATIENT VISIT TYPE ESTABLISHED SERVICE DATE: 10/14/2023 SERVICE TIME: 12:42 PM PRIMARY CARE PHYSICIAN: Nolan Nguyen MD HISTORY OF PRESENT ILLNESS: Mr. Monterroso is a 78 year old male who presents today for a vascular surgery follow-up visit today for follow-up of carotid artery stenosis denies any unilateral weak dysarthria or vision change. Also for follow-up of common iliac aneurysm bilaterally. No new complaints. 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 PAST MEDICAL HISTORY Diagnosis Date Carotid artery disease without cerebral infarction (HCC) Diverticulosis of colon (without mention of hemorrhage) Diverticulosis Mixed hyperlipidemia Hyperlipidemia Obese PMH - PAST MEDICAL HISTORY OF elevated CPK Unspecified essential hypertension Essential hypertension Unspecified sinusitis (chronic) Chronic sinusitis PAST SURGICAL HISTORY Procedure Laterality Date CAROTID - EXTERNAL 07/2011 Dr. Silviano Wilson COLONOSCOPY FLX DX W/COLLJ SPEC WHEN PFRMD 09/03/06 Diverticular dz of descending/sigmoid EYE SURGERY HX 2017 right eye torn retina LAPAROSCOPIC APPENDECTOMY 05/24/13 appendicitis LAPS SURG CHOLECYSTECTOMY W/CHOLANGIOGRAPHY 12/01/11 PAST SURGICAL HISTORY OF sinus PAST SURGICAL HISTORY OF Left Rotator Cuff, Dr. Ang @ [facility] RPR UMBILICAL HRNA 5 YRS/> REDUCIBLE 12/01/11 SOCIAL HISTORY Social History Tobacco Use Smoking status: Never Smokeless tobacco: Never Substance Use Topics Alcohol use: Yes Comment: occasional seldom Drug use: No MEDICATIONS: torsemide (DEMADEX) 20 mg tablet Take 20 mg by mouth once daily. metoprolol succinate ER (TOPROL XL) 100 mg Take 100 mg by mouth once daily. zafirlukast (ACCOLATE) 10 mg tablet Take 10 mg by mouth once daily. triamcinolone acetonide (NASACORT NASAL) Use in the nose once daily. vit A/vit C/vit E/zinc/copper (PRESERVISION AREDS ORAL) Take by mouth twice daily. BREO ELLIPTA 200-25 mcg/dose inhaler Inhale 1 Inhalation as instructed once daily. TERAZOSIN HCL (TERAZOSIN ORAL) Take 2 mg by mouth once daily. colesevelam (WELCHOL) 625 mg tablet Take 1,875 mg by mouth twice daily with meals. albuterol (PROVENTIL) 2.5 mg /3 mL (0.083 %) nebulizer solution Use 3 mL via nebulizer every 4 hours as needed for Wheezing/Shortness of Breath. Use over 5-15minutes. Dx: Bronchitis and Wheezing albuterol HFA 90 mcg/actuation inhaler Inhale 2 Puffs as instructed every 6 hours as needed for Wheezing/Shortness of Breath. rosuvastatin (CRESTOR) 5 mg tablet Take 5 mg by mouth every other day. ASPIRIN 81 MG TAB Take one(1) tablet daily. metFORMIN (GLUCOPHAGE) 500 mg tablet Take 500 mg by mouth once daily. (Patient not taking: Reported on 09/28/2023) spironolactone (ALDACTONE) 25 mg tablet Take 50 mg by mouth once daily. (Patient not taking: Reported on 09/28/2023) furosemide (LASIX) 40 mg tablet Take 40 mg by mouth once daily. (Patient not taking: Reported on 09/28/2023) amLODIPine 10 mg tablet Take 5 mg by mouth once daily. Take a half tablet once every day. (Patient not taking: Reported on 09/28/2023) ALLERGIES: ALLERGIES Allergen Reactions Eh Inhibitors Swelling Angioedema Niacin Other: See Comments flushing Vfcnhod-Pfb-Ulg Red* Intolerance PHYSICAL EXAM: BP 136/72 Pulse (!) 51 General: Alert and oriented Integumentary: Normal color, no rash, no lesions. HEENT: EOM, pupils equal, round and reactive. Cardiovascular: Normal S1 AND S2, no rubs, murmurs or gallops. No JVD., Pulse regular. Lungs: Normal breath sounds, no wheezes or crackles. Abdomen: Soft, non-tender, no rigidity. Full femoral pulse no popliteal or pedal pulse although this may be secondary to body habitus feet are warm well-perfused Diagnostic tests reviewed for today's visit: IMPRESSION: Mr. 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 Will need repeat ultrasound and 24 months. PLAN and RECOMMENDATIONS: As above SIGNATURE: Angelica Can MD PATIENT NAME: Xochitl Monterroso DATE: October 14, 2023 TIME: 12:42 PM Referring Provider: SELF [[id number]] Allergies As of Date: 10/14/2023 Noted Allergy Reaction EH INHIBITORS 02/11/2011 7 - Swelling Comments: Angioedema NIACIN 12/11/2011 14 - Other: See Comments Comments: flushing [id number] REDUCTASE INHIBIT*02/11/2011 5 - Intole (more content not included)... Normal [facility] ABD AORTA COMPLETE VAS LA Bon 10-14-2023 ABD AORTA COMPLETE VAS LAB Non-Invasive Vascular Laboratory [facility] F30 Abdominal Aorta Bilateral/Complete Date of service/time: 10/14/2023 10:50:00 AM Name: MR. XOCHITL MONTERROSO Date of : 1945 Age: 78 years Gender: M Clinical Indication Abdominal aortic aneurysm and Follow up: iliac artery aneurysm. TECHNIQUE -------- An aortic duplex ultrasound examination was performed, including grayscale imaging and color Doppler and spectral Doppler examination of abdominal aorta as well as the below mentioned arteries. FINDINGS -------- AORTA Proximal: PSV: 67 cm/s. EDV: 13 cm/s. 2.47 cm x 2.47 cm At renal: PSV: 64 cm/s. EDV: 9 cm/s. 1.91 cm x 1.93 cm Mid: PSV: 71 cm/s. EDV: 8 cm/s. 1.97 cm x 1.99 cm Distal: PSV: 89 cm/s. EDV: 12 cm/s. 2.31 cm x 2.31 cm RIGHT VESSELS Common iliac origin: PSV: 77 cm/s. EDV: 8 cm/s. 1.11 cm x 1.11 cm Common iliac proximal: PSV: 97 cm/s. EDV: 0 cm/s. 2.02 cm x 2.08 cm Common iliac mid: PSV: 108 cm/s. EDV: 0 cm/s. 1.72 cm x 1.73 cm Common iliac distal: PSV: 52 cm/s. EDV: 0 cm/s. 1.14 cm x 1.09 cm External iliac proximal: PSV: 151 cm/s. EDV: 0 cm/s. 1.42 cm x 1.51 cm External iliac mid: PSV: 82 cm/s. EDV: 0 cm/s. 1.10 cm x 1.08 cm Internal iliac proximal: PSV: 102 cm/s. EDV: 0 cm/s. 1.37 cm x 1.25 cm LEFT VESSELS Common iliac origin: PSV: 99 cm/s. EDV: 0 cm/s. 1.83 cm x 1.83 cm Common iliac proximal: PSV: 124 cm/s. EDV: 0 cm/s. 2.16 cm x 2.16 cm Common iliac mid: PSV: 90 cm/s. EDV: 0 cm/s. 1.73 cm x 1.66 cm Common iliac distal: PSV: 74 cm/s. EDV: 0 cm/s. 1.89 cm x 1.89 cm External iliac proximal: PSV: 85 cm/s. EDV: 0 cm/s. 0.92 cm x 0.92 cm External iliac mid: PSV: 111 cm/s. EDV: 0 cm/s. 1.23 cm x 1.23 cm Internal iliac origin: PSV: 109 cm/s. EDV: 0 cm/s. 0.85 cm x 0.80 cm IMPRESSION Compared to prior study of 10/09/2021, The aorta is negative for abdominal aorta aneurysm, The right common iliac artery at proxima is aneurysmal and external iliac is ectatic. The left common iliac is aneurysmal at proximal. There is no significant change in diameter measurements. AORTA No evidence of abdominal aortic aneurysm. Normal aortic diameter throughout. RIGHT VESSELS Common iliac artery aneurysm measuring 2.02 x 2.08 at proximal. External iliac artery appears ectatic measuring 1.42 x 1.51 at proximal. Internal iliac artery patent without evidence of aneurysm . External iliac artery 50-99% stenosis at proximal. Degree of stenosis overestimated due to suboptimal Doppler angle, no plaque visualized and no flow turbulence noted. LEFT VESSELS Common iliac artery aneurysm measuring 2.16 x 2.16 at proximal. External iliac artery patent without evidence of aneurysm . Internal iliac artery patent without evidence of aneurysm . Technologist: Roberto Myles RVT Ordering physician: ANGELICA CAN Interpreting physician: Capo Duque MD Final CC [facility] Image : [id number] See Link below for Image Normal [facility] US CAROTID ARTERIES JHONY VAS LABon 10-14-2023 US CAROTID ARTERIES JHONY VAS LAB Non-Invasive Vascular Laboratory [facility] F30 Carotid Duplex Bilateral/Complete Date of service/time: 10/14/2023 10:01:37 AM Name: MR. XOCHITL MONTERROSO Date of : 1945 Age: 78 years Gender: M Clinical Indication Follow-up study on a patient with known carotid disease and Follow up: Bilateral common/internal carotid artery endarterectmies: right 07/16/2011, left 01/09/2020. TECHNIQUE -------- A carotid duplex ultrasound examination was performed, including grayscale imaging and color Doppler and spectral Doppler examination of the below mentioned arteries. FINDINGS -------- RIGHT SIDE Common carotid artery: Origin: PSV: 100 cm/s. EDV: 20 cm/s. Proximal: PSV: 90 cm/s. EDV: 16 cm/s. Mid: PSV: 94 cm/s. EDV: 18 cm/s. Distal: PSV: 94 cm/s. EDV: 22 cm/s. Mild heterogeneous irregular and calcified plaque at mid. Internal carotid artery: Origin: PSV: 79 cm/s. EDV: 12 cm/s. Proximal: PSV: 77 cm/s. EDV: 13 cm/s. Mid: PSV: 82 cm/s. EDV: 25 cm/s. Distal: PSV: 95 cm/s. EDV: 23 cm/s. ICA/CCA Ratio: 1.0 External carotid artery: Proximal: PSV: 81 cm/s. EDV: 11 cm/s. Subclavian artery: PSV: 143 cm/s. EDV: 13 cm/s. Innominate artery: PSV: 82 cm/s. EDV: 12 cm/s. Vertebral artery: PSV: 29 cm/s. EDV: 5 cm/s. LEFT SIDE Common carotid artery: Proximal: PSV: 106 cm/s. EDV: 15 cm/s. Mid: PSV: 110 cm/s. EDV: 22 cm/s. Distal: PSV: 84 cm/s. EDV: 17 cm/s. Internal carotid artery: Origin: PSV: 100 cm/s. EDV: 15 cm/s. Proximal: PSV: 85 cm/s. EDV: 20 cm/s. Mid: PSV: 87 cm/s. EDV: 20 cm/s. Distal: PSV: 91 cm/s. EDV: 22 cm/s. ICA/CCA Ratio: 1.2 External carotid artery: Origin: PSV: 84 cm/s. EDV: 6 cm/s. Subclavian artery: Proximal: PSV: 114 cm/s. EDV: 6 cm/s. Vertebral artery: PSV: 72 cm/s. EDV: 14 cm/s. IMPRESSION RIGHT SIDE Common carotid artery: Plaque visualized without evidence of hemodynamically significant stenosis. Endarterectomy patch at distal : 1.03. Internal carotid artery: 0-19% stenosis. Vertebral artery: Patent and antegrade flow noted. LEFT SIDE Common carotid artery: Endarterectomy patch at distal measuring 1.03. Internal carotid artery: 0-19% stenosis. Vertebral artery: Patent and antegrade flow noted. Technologist: Roberto Myles T Ordering physician: ANGELICA CAN Interpreting physician: Capo Duque MD Final CC [facility] : [id number] See Link below for Image Normal [facility] CNOVon 10-07-2023 CNOV Office Visit (WSTR ) ----- XOCHITL MONTERROSO ([id number]) 1945 M Date Time Provider Department 10/07/23 12:30 PM DANIELE DUGAN [facility] During your visit today, we recorded the following information about you: Temperature Pulse Respiration Blood pressure 96.6 degrees 51/minute 16/minute 118/64 Weight 128 kg Daniele Dugan APRN.[employer]ING [employer] 10/07/2023 12:57 PM Signed Subjective Patient came in for suture removal. Patient had them placed 9 days ago. Patient was kept as normal. Patient denies any difficulty during the healing process. Patient says he might of lost a suture. The history is provided by the patient. No computer language coder was used. Suture Removal Review of Systems Constitutional: Negative. Skin: Negative. Objective Physical Exam Constitutional: Appearance: Normal appearance. Pulmonary: Effort: Pulmonary effort is normal. Musculoskeletal: Hands: Comments: Well-approximated healed wound. 7 sutures were removed successfully. No further sutures were noted. Neurological: Mental Status: He is alert. PAST MEDICAL HISTORY Diagnosis Date Carotid artery disease without cerebral infarction (HCC) Diverticulosis of colon (without mention of hemorrhage) Diverticulosis Mixed hyperlipidemia Hyperlipidemia Obese PMH - PAST MEDICAL HISTORY OF elevated CPK Unspecified essential hypertension Essential hypertension Unspecified sinusitis (chronic) Chronic sinusitis PAST SURGICAL HISTORY Procedure Laterality Date CAROTID - EXTERNAL 07/2011 Dr. Silviano Wilson COLONOSCOPY FLX DX W/COLLJ SPEC WHEN PFRMD 09/03/06 Diverticular dz of descending/sigmoid EYE SURGERY HX 2017 right eye torn retina LAPAROSCOPIC APPENDECTOMY 05/24/13 appendicitis LAPS SURG CHOLECYSTECTOMY W/CHOLANGIOGRAPHY 12/01/11 PAST SURGICAL HISTORY OF sinus PAST SURGICAL HISTORY OF Left Rotator Cuff, Dr. Ang @ [facility] RPR UMBILICAL HRNA 5 YRS/> REDUCIBLE 12/01/11 ALLERGIES Eh Inhibitors, Niacin, and Ihsgdse-Yjc-Vvm Reductase Inhibitors MEDICATIONS torsemide (DEMADEX) 20 mg tablet metoprolol succinate ER (TOPROL XL) 100 mg Take 100 mg by mouth once daily. zafirlukast (ACCOLATE) 10 mg tablet Take 10 mg by mouth twice daily. triamcinolone acetonide (NASACORT NASAL) Use in the nose once daily. vit A/vit C/vit E/zinc/copper (PRESERVISION AREDS ORAL) Take by mouth twice daily. BREO ELLIPTA 200-25 mcg/dose inhaler INHALE ONE PUFF INTO THE LUNGS ONCE DAILY WITH GOOD ORAL CARE AFTER USE TERAZOSIN HCL (TERAZOSIN ORAL) Take 2 mg by mouth once daily. albuterol (PROVENTIL) 2.5 mg /3 mL (0.083 %) nebulizer solution Use 3 mL via nebulizer every 4 hours as needed for Wheezing/Shortness of Breath. Use over 5-15minutes. Dx: Bronchitis and Wheezing albuterol HFA 90 mcg/actuation inhaler Inhale 2 Puffs as instructed every 6 hours as needed for Wheezing/Shortness of Breath. rosuvastatin (CRESTOR) 5 mg tablet Take 5 mg by mouth every other day. ASPIRIN 81 MG TAB Take one(1) tablet daily. metFORMIN (GLUCOPHAGE) 500 mg tablet Take 500 mg by mouth once daily. (Patient not taking: Reported on 09/28/2023) spironolactone (ALDACTONE) 25 mg tablet Take 50 mg by mouth once daily. (Patient not taking: Reported on 09/28/2023) furosemide (LASIX) 40 mg tablet Take 40 mg by mouth once daily. (Patient not taking: Reported on 09/28/2023) colesevelam (WELCHOL) 625 mg tablet Take 1,875 mg by mouth twice daily with meals. amLODIPine 10 mg tablet Take 5 mg by mouth once daily. Take a half tablet once every day. (Patient not taking: Reported on 09/28/2023) FAMILY HISTORY Problem Relation Age of Onset Stroke Father Stroke Paternal Grandfather other (CT) Brother Stroke Brother other (carotid ASO) Brother other (AAA) Mother Social History Tobacco Use Smoking status: Never Smokeless tobacco: Never Substance Use Topics Alcohol use: Yes Comment: occasional seldom Drug use: No ASSESSMENT/PLAN: 1. Visit for suture removal - ICD9: V58.32, ICD10: Z48.02 Patient will keep the area clean and dry for the next several days. Patient will follow-up if anything new occurs. Daniele Dugan APRN.[employer] Allergies As of Date: 10/07/2023 Noted Allergy Reaction EH INHIBITORS 02/11/2011 7 - Swelling Comments: Angioedema NIACIN 12/11/2011 14 - Other: See Comments Comments: flushing [id number] REDUCTASE INHIBIT*02/11/2011 5 - Intolerance Date Reviewed: 10/07/2023 Reviewed by: Mimi Chaparro LPN - Fully Assessed Reason for Visit: Suture Removal [105] Cmt: Right ring finger placed by us 9 days go Primary Visit Diagnosis:Visit for suture removal [Z48.02] Prescriptions as of 10/07/2023 - torsemide (DEMADEX) 20 mg tablet - metFORMIN (GLUCOPHAGE) 500 mg tablet Take 500 mg by mouth once daily. - spironolactone (ALDACTONE) 25 mg tablet Take 50 mg by mouth once daily. - metoprolol succinate ER (TOPROL XL) (more content not included)... Normal [facility] CNOVon 09-28-2023 CNOV Office Visit (WSTR ) ----- XOCHITL MONTERROSO ([id number]) 1945 M Date Time Provider Department 09/28/23 7:15 PM [facility] During your visit today, we recorded the following information about you: Temperature Pulse Respiration Blood pressure 97.5 degrees 60/minute 20/minute 140/72 Weight 127.2 kg Armani Aguilar MD 09/28/2023 8:25 PM Signed Patient presents with: Laceration: Right ring finger laceration HPI: Pinched his right ring finger between 2 pieces of metal on his riding mower this evening. He cut the finger pad. Denies numbness. Unknown last tetanus booster. MEDICATIONS: torsemide (DEMADEX) 20 mg tablet metoprolol succinate ER (TOPROL XL) 100 mg Take 100 mg by mouth once daily. zafirlukast (ACCOLATE) 10 mg tablet Take 10 mg by mouth twice daily. triamcinolone acetonide (NASACORT NASAL) Use in the nose once daily. vit A/vit C/vit E/zinc/copper (PRESERVISION AREDS ORAL) Take by mouth twice daily. BREO ELLIPTA 200-25 mcg/dose inhaler INHALE ONE PUFF INTO THE LUNGS ONCE DAILY WITH GOOD ORAL CARE AFTER USE TERAZOSIN HCL (TERAZOSIN ORAL) Take 2 mg by mouth once daily. colesevelam (WELCHOL) 625 mg tablet Take 1,875 mg by mouth twice daily with meals. albuterol (PROVENTIL) 2.5 mg /3 mL (0.083 %) nebulizer solution Use 3 mL via nebulizer every 4 hours as needed for Wheezing/Shortness of Breath. Use over 5-15minutes. Dx: Bronchitis and Wheezing albuterol HFA 90 mcg/actuation inhaler Inhale 2 Puffs as instructed every 6 hours as needed for Wheezing/Shortness of Breath. rosuvastatin (CRESTOR) 5 mg tablet Take 5 mg by mouth every other day. ASPIRIN 81 MG TAB Take one(1) tablet daily. metFORMIN (GLUCOPHAGE) 500 mg tablet Take 500 mg by mouth once daily. (Patient not taking: Reported on 09/28/2023) spironolactone (ALDACTONE) 25 mg tablet Take 50 mg by mouth once daily. (Patient not taking: Reported on 09/28/2023) furosemide (LASIX) 40 mg tablet Take 40 mg by mouth once daily. (Patient not taking: Reported on 09/28/2023) amLODIPine 10 mg tablet Take 5 mg by mouth once daily. Take a half tablet once every day. (Patient not taking: Reported on 09/28/2023) ALLERGIES: ALLERGIES Allergen Reactions Eh Inhibitors Swelling Angioedema Niacin Other: See Comments flushing Sqqkvjv-Zoq-Lpl Red* Intolerance VITALS: BP 140/72 Pulse 60 Temp 36.4 ?C (97.5 ?F) Resp 20 Wt 127.2 kg (280 lb 6.8 oz) SpO2 95% BMI 42.64 kg/m? PE: Pleasant, in no acute distress. Right hand dominant. FINGER: right 4th. 2cm gaping transverse laceration just distal to the palmar DIP joint with extension into the pad below. Full finger ROM including DIP flexion and extension against resistance. Distal capillary refill <2 sec and normal sensation to light touch. Procedure: Anesthesia: digital block with 5cc % lidocaine. Site cleansed with hibiclens on gauze and irrigation under tap water. 8 simple interrupted sutures with 6-0 Prolene monofilament. Hemostasis achieved with wound closure. Wound dressed with bacitracin on an adhesive bandage and alluminum foam clamshell finger splint. ASSESSMENT/PLAN: 1. Laceration of right ring finger without foreign body without damage to nail, initial encounter - ICD9: 883.0, ICD10: S61.214A Keep sutures covered and dry for 48 hours. The dressing may be changed as needed. After 48 hours, sutures may be exposed to limited water but not submerged. Apply continuous pressure for 10 minutes if bleeding occurs. He may use OTC analgesia as needed. Seek re-evaluation for sign of infection such as spreading redness, warmth, pus-like discharge, increasing pain, or fever. Return for suture removal in 7-10 days. Armani Aguilar MD Allergies As of Date: 09/28/2023 Noted Allergy Reaction EH INHIBITORS 02/11/2011 7 - Swelling Comments: Angioedema NIACIN 12/11/2011 14 - Other: See Comments Comments: flushing [id number] REDUCTASE INHIBIT*02/11/2011 5 - Intolerance Date Reviewed: 09/28/2023 Reviewed by: Bryanna Llanes MA - Fully Assessed Reason for Visit: Laceration [8297] Cmt: Right ring finger laceration Primary Visit Diagnosis:Laceration of right ring finger without foreign body without damage to nail, initial encounter [S61.214A] Order(s):TDAP VACCINE, AGE 7+ YR (ADACEL, BOOSTRIX) [[id number]] Order #: [id number] Prescriptions as of 09/28/2023 - torsemide (DEMADEX) 20 mg tablet - metFORMIN (GLUCOPHAGE) 500 mg tablet Take 500 mg by mouth once daily. - spironolactone (ALDACTONE) 25 mg tablet Take 50 mg by mouth once daily. - metoprolol succinate ER (TOPROL XL) 100 mg Take 100 mg by mouth once daily. - furosemide (LASIX) 40 mg tablet Take 40 mg by mouth once daily. - zafirlukast (ACCOLATE) 10 mg tablet Take 10 mg by mouth twice daily. - triamcinolone acetonide (NASACORT NASAL) Use in the nose once daily. - vit A/vit C/vit E/zinc/ (more content not included)... Normal [facility] [place] Basophil percentageOrdered B y: Nolan Nguyen on 09-11-2023 Chloride [Moles/Vol] 107 mmol/L 98-107 [facility] Glucose [Mass/Vol] 116 mg/dL 74-106 [facility] Comment on above: Fasting Glucose resu lt from 100 to 125 mg/dL suggests IMPAIRED HOMEOSTASIS per A.D.A. criteria. Potassium [Moles/Vol] 4.2 mmol/L 3.5-5.1 [facility] Sodium [Moles/Vol] 139 mmol/L 136-145 [facility] Laboratory - Chemistry and C hemistry - challengeOrdered By: Nolan Nguyen on 09-11-2023 CO2 [Moles/Vol] 26.0 mmol/L 21.0-32.0 [facility] Urea nitrogen/Creatinine [Mass ratio] 19.2 mg/mg - [facility] No Panel InformationOrdered By: Nolan Nguyen on 09-11-2023 Estimated GFR (MDRD) Amer 50 mL/min >60 [facility] Comment on above: GFR Calc Estimated GFR (MDRD) Non-Af Amer 41 mL/min >60 [facility] Comment on above: Non- GFR Calc Serum or plasma calcium axel urement (mass/volume)Ordered By: Nolan Nguyen on 09-11-2023 Calcium [Mass/Vol] 9.7 mg/dL 8.5-10.1 [facility] Serum or plasma creatinine m easurement (mass/volume)Ordered By: Nolan Nguyen on 09-11-2023 Creatinine [Mass/Vol] 1.72 mg/dL 0.70-1.30 [facility] Comment on above: The validity of the calculated GFR & GFRAA in patients over 70 years has not been determined. Clinical correlation is essential. Serum or plasma urea nitroge n measurement (mass/volume)Ordered By: Nolan Nugyen on 09-11-2023 Urea nitrogen [Mass/Vol] 33 mg/dL 7-18 [facility] Thin prep Papanicolaou smear with manual screeningOrdered By: Nolan Nguyen on 09-11-2023 Thin prep Papanicolaou smear with manual screening 6 5-15 [facility] Basophil percentageOrdered B y: Nolan Nguyen on 07-31-2023 Cholesterol [Mass/Vol] 160 mg/dL <200 [facility] Comment on above: <200 mg/dL Desirable 200-240 mg/dL Borderline >240 mg/dL High Risk Triglyceride [Mass/Vol] 245 mg/dL <199 [facility] Comment on above: The drugs N-Acetylcy steine and Metamizole may falsely depress this assay.Serum Triglycerides Reference Interval Normal <150 mg/dL Borderline high 150 - 199 mg/dL High 200 - 499 mg/dL Very High > or = 500 mg/dL Laboratory - Chemistry and C hemistry - challengeOrdered By: Nolan Nguyen on 07-31-2023 Cholesterol in HDL [Mass/Vol] 35 mg/dL >40 [facility] Comment on above: The drugs N-Acetylcy steine and Metamizole may falsely depress this assay. Reference Range HDL <40 mg/dL Low HDL Cholesterol HDL >or= 60 mg/dL High HDL Cholesterol Cholesterol in LDL [Mass/Vol] 76 mg/dL 0-130 [facility] No Panel InformationOrdered By: Nolan Nguyen on 07-31-2023 VLDL Cholesterol 49 mg/dL 5-40 [facility] CNPNon 06-24-2023 CNPN Telephone (PODCCP) ----- XOCHITL MONTERROSO ([id number]) 1945 M Date Time Provider Department 06/24/23 NOLAN NGUYEN PODCCP During your visit today, we recorded the following information about you: Nguyen Marcum 06/24/2023 3:20 PM Signed Reason for call: Pt's spouse called and she would like to schedule his follow up appt with Dr Can. Please call Raul for scheduling. Contact name: Raul Monterroso Home and cell number: [phone] Diagnosis: Carotid stenosis, asymptomatic, bilateral Kind Regards, June Lauren 06/26/2023 12:10 PM Signed Spoke with patient appt scheduled 10/14/2023 with testing prior to appt. Appt reminder mailed also. Allergies As of Date: 06/24/2023 Noted Allergy Reaction EH INHIBITORS 02/11/2011 7 - Swelling Comments: Angioedema NIACIN 12/11/2011 14 - Other: See Comments Comments: flushing [id number] REDUCTASE INHIBIT*02/11/2011 5 - Intolerance Date Reviewed: 10/09/2021 Reviewed by: Clarence Hernandez MA - Fully Assessed Reason for Visit: Appointment [186] Prescriptions as of 06/26/2023 - metFORMIN (GLUCOPHAGE) 500 mg tablet Take 500 mg by mouth once daily. - spironolactone (ALDACTONE) 25 mg tablet Take 50 mg by mouth once daily. - metoprolol succinate ER (TOPROL XL) 100 mg Take 100 mg by mouth once daily. - furosemide (LASIX) 40 mg tablet Take 40 mg by mouth once daily. - zafirlukast (ACCOLATE) 10 mg tablet Take 10 mg by mouth twice daily. - triamcinolone acetonide (NASACORT NASAL) Use in the nose once daily. - vit A/vit C/vit E/zinc/copper (PRESERVISION AREDS ORAL) Take by mouth twice daily. - BREO ELLIPTA 200-25 mcg/dose inhaler INHALE ONE PUFF INTO THE LUNGS ONCE DAILY WITH GOOD ORAL CARE AFTER USE - TERAZOSIN HCL (TERAZOSIN ORAL) Take 2 mg by mouth once daily. - colesevelam (WELCHOL) 625 mg tablet Take 1,875 mg by mouth twice daily with meals. - albuterol (PROVENTIL) 2.5 mg /3 mL (0.083 %) nebulizer solution Use 3 mL via nebulizer every 4 hours as needed for Wheezing/Shortness of Breath. Use over 5-15minutes. Dx: Bronchitis and Wheezing - albuterol HFA 90 mcg/actuation inhaler Inhale 2 Puffs as instructed every 6 hours as needed for Wheezing/Shortness of Breath. - amLODIPine 10 mg tablet Take 5 mg by mouth once daily. Take a half tablet once every day. - rosuvastatin (CRESTOR) 5 mg tablet Take 5 mg by mouth every other day. - ASPIRIN 81 MG TAB Take one(1) tablet daily. Meds Comments as of 12/11/2011: Problem List As Of Date 06/24/2023 Noted Resolved UMBILICAL HERNIA W/O GANGRENE/OBSTRUCTION [K42.*08/27/2006 SCREENING MAL NEOP-COLON [Z12.11] 08/27/2006 DIVERTICULOSIS COLON - NO HEMORRHAGE [K57.30] 09/03/2006 HEMORRHOIDS INTERNAL [K64.8] 09/03/2006 Cholecystitis with cholelithiasis [K80.10] 11/10/2011 Carotid stenosis [I65.29] 11/10/2011 Carotid stenosis, asymptomatic, left [I65.22] 01/09/2020 Obesity, Class III, BMI >= 40 [E66.01] 01/10/2020 Essential hypertension [I10] 01/10/2020 Encounter Status:Closed by NGUYEN MARCUM on 06/24/23 Normal [facility] [place] Basophil percentageOrdered B y: Mary Patel on 06-11-2023 Basophil percentage 3.4 mg/dL 2.5-4.9 [facility] Chloride [Moles/Vol] 104 mmol/L 98-107 [facility] Glucose [Mass/Vol] 110 mg/dL 74-106 [facility] Comment on above: Fasting Glucose resu lt from 100 to 125 mg/dL suggests IMPAIRED HOMEOSTASIS per A.D.A. criteria. Potassium [Moles/Vol] 4.2 mmol/L 3.5-5.1 [facility] Sodium [Moles/Vol] 135 mmol/L 136-145 [facility] Laboratory - Chemistry and C hemistry - challengeOrdered By: Mary Patel on 06-11-2023 CO2 [Moles/Vol] 28.0 mmol/L 21.0-32.0 [facility] Urea nitrogen/Creatinine [Mass ratio] 20.8 mg/mg 10-20 [facility] No Panel InformationOrdered By: Mary Patel on 06-11-2023 Estimated GFR (MDRD) Amer 61 mL/min >60 [facility] Comment on above: GFR Calc Estimated GFR (MDRD) Non-Af Amer 50 mL/min >60 [facility] Comment on above: Non- GFR Calc Serum or plasma calcium axel urement (mass/volume)Ordered By: Mary Patel on 06-11-2023 Calcium [Mass/Vol] 9.2 mg/dL 8.5-10.1 [facility] Serum or plasma creatinine m easurement (mass/volume)Ordered By: Mary Patel on 06-11-2023 Creatinine [Mass/Vol] 1.44 mg/dL 0.70-1.30 [facility] Comment on above: The validity of the calculated GFR & GFRAA in patients over 70 years has not been determined. Clinical correlation is essential. Serum or plasma urea nitroge n measurement (mass/volume)Ordered By: Mary Patel on 06-11-2023 Urea nitrogen [Mass/Vol] 30 mg/dL 7-18 [facility] Thin prep Papanicolaou smear with manual screeningOrdered By: Mary Patel on 06-11-2023 Protein (U) [Mass/Vol] 13.0 mg/dL 0.0-11.8 [facility] Thin prep Papanicolaou smear with manual screening 3.1 g/dL 3.2-5.0 [facility] Urine creatinine measurement (mass/volume)Ordered By: Mary Patel on 06-11-2023 Creatinine (U) [Mass/Vol] 149.00 mg/dL NO RANGE EST. [facility] Urine protein/creatinine mas s ratioOrdered By: Mary Patel on 06-11-2023 Protein/Creatinine (U) [Mass ratio] 87 mg/g CRE 0-200 [facility] Basophil percentageOrdered B y: Nolan Nguyen on 05-06-2023 Chloride [Moles/Vol] 108 mmol/L 98-107 [facility] Glucose [Mass/Vol] 129 mg/dL 74-106 [facility] Comment on above: Fasting Glucose resu lt greater than or equal to 126 mg/dL suggests DIABETES MELLITUS per A.D.A. criteria. Potassium [Moles/Vol] 4.2 mmol/L 3.5-5.1 [facility] Sodium [Moles/Vol] 138 mmol/L 136-145 [facility] Laboratory - Chemistry and C hemistry - challengeOrdered By: Nolan Nguyen on 05-06-2023 CO2 [Moles/Vol] 27.0 mmol/L 21.0-32.0 [facility] Urea nitrogen/Creatinine [Mass ratio] 18.7 mg/mg 10-20 [facility] No Panel InformationOrdered By: Nolan Nguyen on 05-06-2023 Estimated GFR (MDRD) Amer 64 mL/min >60 [facility] Comment on above: GFR Calc Estimated GFR (MDRD) Non-Af Amer 53 mL/min >60 [facility] Comment on above: Non- GFR Calc Serum or plasma calcium axel urement (mass/volume)Ordered By: Nolan Nguyen on 05-06-2023 Calcium [Mass/Vol] 9.2 mg/dL 8.5-10.1 [facility] Serum or plasma creatinine m easurement (mass/volume)Ordered By: Nolan Nguyen on 05-06-2023 Creatinine [Mass/Vol] 1.39 mg/dL 0.70-1.30 [facility] Comment on above: The validity of the calculated GFR & GFRAA in patients over 70 years has not been determined. Clinical correlation is essential. Serum or plasma urea nitroge n measurement (mass/volume)Ordered By: Nolan Nguyen on 05-06-2023 Urea nitrogen [Mass/Vol] 26 mg/dL 7-18 [facility] Thin prep Papanicolaou smear with manual screeningOrdered By: Nolna Nguyen on 05-06-2023 Thin prep Papanicolaou smear with manual screening 3 5-15 [facility] Basophil percentageOrdered B y: Mary Patel on 03-31-2023 Basophil percentage 2.3 mg/dL 2.5-4.9 [facility] Chloride [Moles/Vol] 106 mmol/L 98-107 [facility] Glucose [Mass/Vol] 111 mg/dL 74-106 [facility] Comment on above: Fasting Glucose resu lt from 100 to 125 mg/dL suggests IMPAIRED HOMEOSTASIS per A.D.A. criteria. Potassium [Moles/Vol] 4.0 mmol/L 3.5-5.1 [facility] Sodium [Moles/Vol] 139 mmol/L 136-145 [facility] Laboratory - Chemistry and C hemistry - challengeOrdered By: Mary Patel on 03-31-2023 CO2 [Moles/Vol] 30.0 mmol/L 21.0-32.0 [facility] Urea nitrogen/Creatinine [Mass ratio] 11.5 mg/mg 10-20 [facility] No Panel InformationOrdered By: Mary Patel on 03-31-2023 Estimated GFR (MDRD) Amer 68 mL/min >60 [facility] Comment on above: GFR Calc Estimated GFR (MDRD) Non-Af Amer 56 mL/min >60 [facility] Comment on above: Non- GFR Calc Serum or plasma albumin axel urement (mass/volume)Ordered By: Mary Patel on 03-31-2023 Albumin [Mass/Vol] 2.4 g/dL 3.2-5.0 [facility] Serum or plasma calcium axel urement (mass/volume)Ordered By: Mary Patel on 03-31-2023 Calcium [Mass/Vol] 8.7 mg/dL 8.5-10.1 [facility] Serum or plasma creatinine m easurement (mass/volume)Ordered By: Mary Patel on 03-31-2023 Creatinine [Mass/Vol] 1.31 mg/dL 0.70-1.30 [facility] Comment on above: The validity of the calculated GFR & GFRAA in patients over 70 years has not been determined. Clinical correlation is essential. Serum or plasma urea nitroge n measurement (mass/volume)Ordered By: Mary Patel on 03-31-2023 Urea nitrogen [Mass/Vol] 15 mg/dL 7-18 [facility] INR in Blood by Coagulation assayOrdered By: Mary Patel on 03-11-2023 INR Coag (Bld) [Relative time] 1.1 {INR} [facility] Laboratory - CoagulationOrde red By: Mary Patel on 03-11-2023 aPTT Coag (Bld) [Time] 32.4 s 24.1-36.2 [facility] PT Coag (PPP) [Time] 14.1 s 11.7-14.9 [facility] 24 hour urine albumin/total protein ratio by electrophoresis (mass fraction)Ordered By: Mary Patel on 03-03-2023 Albumin Elph (24H U) [Mass fraction] 73.4 % . [facility] 24 hour urine alpha 1 globul in/total protein ratio by electrophoresis (mass fraction)Ordered By: Mary Patel on 03-03-2023 Alpha 1 globulin Elph (24H U) [Mass fraction] 4.1 % . [facility] 24 hour urine alpha 2 globul in/total protein ratio by electrophoresis (mass fraction)Ordered By: Mary Patel on 03-03-2023 Alpha 2 globulin Elph (24H U) [Mass fraction] 3.8 % . [facility] Atypical perinuclear antineu trophil cytoplasmic antibodies measurementOrdered By: Mary Patel on 03-03-2023 Neutrophil cytoplasmic Ab.perinuclear.atypical IF (S) [Titer] <1:20 titer Neg:<1:20 [facility] Comment on above: The atypical pANCA p attern has been observed in asignificant percentage of patients with ulcerative colitis,primary sclerosing cholangitis and autoimmune hepatitis.Performed at: [address] [id number] Director: Michael Mancilla PhD, Phone: [phone] Basophil percentageOrdered B y: Mary Patel on 03-03-2023 Basophil percentage 4.8 mg/dL 2.5-4.9 [facility] Chloride [Moles/Vol] 104 mmol/L 98-107 [facility] Glucose [Mass/Vol] 107 mg/dL 74-106 [facility] Comment on above: Fasting Glucose resu lt from 100 to 125 mg/dL suggests IMPAIRED HOMEOSTASIS per A.D.A. criteria. Potassium [Moles/Vol] 4.3 mmol/L 3.5-5.1 [facility] Sodium [Moles/Vol] 134 mmol/L 136-145 [facility] Laboratory - Chemistry and C hemistry - challengeOrdered By: Mary Patel on 03-03-2023 CO2 [Moles/Vol] 25.0 mmol/L 21.0-32.0 [facility] Magnesium [Mass/Vol] 3.5 mg/dL 1.6-2.6 [facility] Urea nitrogen/Creatinine [Mass ratio] 20.0 mg/mg 10-20 [facility] Mitotic spindle apparatus Ab [Titer] in Serum or PlasmaOrdered By: Mary Patel on 03-03-2023 Mitotic spindle apparatus Ab [Titer] Not Reportable [facility] No Panel InformationOrdered By: Mary Patel on 03-03-2023 YUMIKO Nuclear Membrane Pattern Not Reportable [facility] Estimated GFR (MDRD) Amer 22 mL/min >60 [facility] Comment on above: GFR Calc Estimated GFR (MDRD) Non-Af Amer 18 mL/min >60 [facility] Comment on above: Non- GFR Calc Urine Immunofixation PEP Note Comment . [facility] Comment on above: Protein electrophore sis scan will follow via computer,mail, or platen press feeder delivery. Serum classic neutrophil cyt oplasmic antibody assay (units/volume)Ordered By: Mary Patel on 03-03-2023 Neutrophil cytoplasmic Ab.classic Qn (S) <1:20 titer Neg:<1:20 [facility] Serum midbody antibody titer by immunofluorescenceOrdered By: Mary Patel on 03-03-2023 Midbody Ab IF (S) [Titer] Not Reportable [facility] Serum multiple nuclear dot p attern antinuclear IgG antibody (YUMIKO) titer by immunofluoOrdered By: Mary Patel on 03-03-2023 Multiple nuclear dots nuclear IgG pattern IF (S) [Titer] Not Reportable [facility] Serum neuronal nuclear antib trung detection by immunofluorescenceOrdered By: Mary Patel on 03-03-2023 Neuronal nuclear Ab IF Ql (S) Not Reportable [facility] Serum nuclear antibody patte rn homogenous titer by immunofluorescenceOrdered By: Mary Patel on 03-03-2023 Homogenous nuclear Ab pattern IF (S) [Titer] Not Reportable [facility] Serum nuclear antibody titer by immunofluorescenceOrdered By: Mary Patel on 03-03-2023 Nuclear Ab IF (S) [Titer] Negative . [facility] Comment on above: Negative <1:80 Borde rline 1:80 Positive >1:80ICAP nomenclature: AC-0For more information about Hep-2 cell patterns useANApatterns.org, the official website for theInternational Consensus on Antinuclear Antibody (YUMIKO)Patterns (ICAP).Performed at: [facility] [place] [id number] Director: Michael Mancilla PhD, Phone: [phone] Serum or plasma albumin axel urement (mass/volume)Ordered By: Mary Patel on 03-03-2023 Albumin [Mass/Vol] 1.6 g/dL 3.2-5.0 [facility] Serum or plasma calcium axel urement (mass/volume)Ordered By: Mary Patel on 03-03-2023 Calcium [Mass/Vol] 8.1 mg/dL 8.5-10.1 [facility] Serum or plasma creatinine m easurement (mass/volume)Ordered By: Mary Patel on 03-03-2023 Creatinine [Mass/Vol] 3.50 mg/dL 0.70-1.30 [facility] Comment on above: The validity of the calculated GFR & GFRAA in patients over 70 years has not been determined. Clinical correlation is essential. Serum or plasma urea nitroge n measurement (mass/volume)Ordered By: Mary Patel on 03-03-2023 Urea nitrogen [Mass/Vol] 70 mg/dL 7-18 [facility] Serum perinuclear neutrophil cytoplasmic antibody titer by immunofluorescenceOrdered By: Mary Patel on 03-03-2023 Neutrophil cytoplasmic Ab.perinuclear IF (S) [Titer] <1:20 titer Neg:<1:20 [facility] Comment on above: The presence of posi tive fluorescence exhibiting P-ANCA orC-ANCA patterns alone is not specific for the diagnosis ofWegener's Granulomatosis (WG) or microscopic polyangiitis.Decisions about treatment should not be based solely onANCA IFA results. The [employer] Consensusrecommends follow up testing of positive sera with both CT-3 and MPO-ANCA enzyme immunoassays. As many as 5% serumsamples are positive only by EIA. Ref. AM J Clin [id number];111:507-513. Serum proliferating cell nuc lear antigen (PCNA) antibody titer by immunofluorescenceOrdered By: Mary Patel on 03-03-2023 PCNA extractable nuclear Ab IF (S) [Titer] Not Reportable [facility] Serum speckled nuclear antib trung pattern titerOrdered By: Mary Patel on 03-03-2023 Speckled nuclear Ab pattern (S) [Titer] Not Reportable [facility] Thin prep Papanicolaou smear with manual screeningOrdered By: Mary Patel on 03-03-2023 Thin prep Papanicolaou smear with manual screening Not Reportable [facility] Thin prep Papanicolaou smear with manual screening Comment . [facility] Comment on above: No monoclonality det ected. Urine beta globulin measurem ent by electrophoresis (mass/volume)Ordered By: Mary Patel on 03-03-2023 Beta globulin Elph (U) [Mass/Vol] 11.0 % . [facility] Urine creatinine measurement (mass/volume)Ordered By: Mary Patel on 03-03-2023 Creatinine (U) [Mass/Vol] 120.00 mg/dL NO RANGE EST. [facility] Urine gamma globulin measure ment by electrophoresis (mass/volume)Ordered By: Mary Patel on 03-03-2023 Gamma globulin Elph (U) [Mass/Vol] 7.7 % . [facility] Urine monoclonal protein/tot al protein mass ratio by electrophoresisOrdered By: Mary Patel on 03-03-2023 Protein.monoclonal Elph (U) [Mass fraction] Not Observed % Not Observed [facility] Urine protein measurement (m ass/volume)Ordered By: Mary Patel on 03-03-2023 Protein (U) [Mass/Vol] 883.9 mg/dL 0.0-11.8 [facility] Protein (U) [Mass/Vol] 1007.5 mg/dL Not Estab. [facility] Comment on above: Results confirmed on dilution. Urine protein/creatinine mas s ratioOrdered By: Mary Patel on 03-03-2023 Protein/Creatinine (U) [Mass ratio] 7366 mg/g CRE 0-200 [facility] Serum or plasma [id number] protein tumor marker measurement (units/volume)Ordered By: Fady Whittington on 02-25-2023 AFP.tumor marker Qn 1.9 ng/mL 0.0-8.4 [facility] Comment on above: Pj SeptRx El ectrochemiluminescence Immunoassay(ECLIA)Values obtained with different assay methods or kits cannotbe used interchangeably. Results cannot be interpreted asabsolute evidence of the presence or absence of malignantdisease.This test is not interpretable in females.Performed at: [facility] [place] [id number] Director: Michael Mancilla PhD, Phone: [phone] Serum or plasma carcinoembry onic antigen measurement (mass/volume)Ordered By: Fady Whittington on 02-25-2023 Carcinoembryonic Ag [Mass/Vol] 2.0 ng/mL 0.0-4.7 [facility] Comment on above: Nonsmokers <3.9 [facility] Electrochemiluminescence Immunoassay(ECLIA)Values obtained with different assay methods or kitscannot be used interchangeably. Results cannot beinterpreted as absolute evidence of the presence orabsence of malignant disease. Absolute lymphocyte countOrd ered By: Fady Whittington on 02-24-2023 Lymphocytes Auto (Unsp spec) [#/Vol] 1.34 10*3/uL 0.83-4.51 [facility] Basophil percentageOrdered B y: Fady Whittington on 02-24-2023 Basophils/100 WBC (Bld) 0.6 % 0-1 [facility] Bilirubin [Mass/Vol] 0.20 mg/dL 0.20-1.00 [facility] Comment on above: For patients on eltr ombopag therapy, use of Dimension Crapo TBIL is not recommended. Chloride [Moles/Vol] 110 mmol/L 98-107 [facility] Eosinophils/100 WBC (Bld) 0.0 % 0-5 [facility] Glucose [Mass/Vol] 112 mg/dL 74-106 [facility] Comment on above: Fasting Glucose resu lt from 100 to 125 mg/dL suggests IMPAIRED HOMEOSTASIS per A.D.A. criteria. Neutrophils (Bld) [#/Vol] 4.5 10*3/uL 2.0-7.7 [facility] Neutrophils/100 WBC (Bld) 68.2 % 47-70 [facility] Potassium [Moles/Vol] 4.7 mmol/L 3.5-5.1 [facility] Protein [Mass/Vol] 6.8 g/dL 6.4-8.2 [facility] Sodium [Moles/Vol] 139 mmol/L 136-145 [facility] WBC (Bld) [#/Vol] 6.5 10*3/uL 4.4-11.0 [facility] Blood erythrocytes count (nu mber/volume)Ordered By: Fady Whittington on 02-24-2023 RBC (Bld) [#/Vol] 4.32 10*6/uL 4.6-6.2 [facility] Blood hemoglobin measurement (mass/volume)Ordered By: Fady Whittington on 02-24-2023 Hemoglobin (Bld) [Mass/Vol] 13.2 g/dL 13.0-16.5 [facility] Blood lymphocytes/100 leukoc ytesOrdered By: Fady Whittington on 02-24-2023 Lymphocytes/100 WBC (Bld) 20.5 % 19-41 [facility] Blood monocytes/100 leukocyt esOrdered By: Fady Whittington on 02-24-2023 Monocytes/100 WBC (Bld) 10.4 % 0-10 [facility] Blood platelet mean volumeOr dered By: Fady Whittington on 02-24-2023 Platelet mean volume (Bld) [Entitic vol] 9.6 fL 6.2-12.0 [facility] Determination of erythrocyte mean corpuscular volume (MCV)Ordered By: Fady Whittington on 02-24-2023 MCV (RBC) [Entitic vol] 96.5 fL 80-94 [facility] Erythrocyte sedimentation ra teOrdered By: Fady Whittington on 02-24-2023 ESR (Bld) [Velocity] 77 mm/h 0-20 [facility] Hematocrit Auto (Bld) [Volum e fraction]Ordered By: Fady Whittington on 02-24-2023 Hematocrit (Bld) [Volume fraction] 41.7 % 40-54 [facility] Laboratory - Chemistry and C hemistry - challengeOrdered By: Fady Whittington on 02-24-2023 ALP [Catalytic activity/Vol] 58 U/L 45-117 [facility] ALT [Catalytic activity/Vol] 16 U/L 16-61 [facility] CO2 [Moles/Vol] 23.0 mmol/L 21.0-32.0 [facility] Globulin (S) [Mass/Vol] 5.2 g/dL 2.2-4.2 [facility] Natriuretic peptide B (Bld) [Mass/Vol] 96.7 pg/mL 0-100 [facility] Urea nitrogen/Creatinine [Mass ratio] 16.4 mg/mg 10-20 [facility] Laboratory - Hematology and Cell countsOrdered By: Fady Whittington on 02-24-2023 Erythrocyte distribution width (RBC) [Entitic vol] 47.8 fL 35.1-43.9 [facility] Erythrocyte distribution width (RBC) [Ratio] 13.3 % 11.6-14.6 [facility] Immature granulocytes/100 WBC (Bld) 0.300 % 0.0-0.9 [facility] Comment on above: IG% - Immature Granu locytes (promyelocytes, myelocytes and metamyelocytes) > 1% indicates that a LEFT SHIFT is Present. MCH (RBC) [Entitic mass] 30.6 pg 27.0-32.0 [facility] Nucleated RBC/100 WBC (Bld) [Ratio] 0 % 0-5 [facility] MCHC Auto (RBC) [Mass/Vol]Or dered By: Fady Whittington on 02-24-2023 MCHC (RBC) [Mass/Vol] 31.7 g/dL 32-36 [facility] No Panel InformationOrdered By: Fady Whittington on 02-24-2023 Estimated GFR (MDRD) Amer 19 mL/min >60 [facility] Comment on above: GFR Calc Estimated GFR (MDRD) Non-Af Amer 16 mL/min >60 [facility] Comment on above: Non- GFR Calc Thyroid Stimulating Hormone (TSH) 3.08 uIU/mL 0.358-3.74 [facility] Platelets bldOrdered By: Winifred Whittington on 02-24-2023 Platelets (Bld) [#/Vol] 190 10*3/uL 150-450 [facility] Serum or plasma C reactive p rotein measurement (mass/volume)Ordered By: Fady Whititngton on 02-24-2023 CRP [Mass/Vol] 20.80 mg/L 0.0-3.0 [facility] Comment on above: C-Reactive Protein ( CRP) provides useful information for thediagnosis, therapy and monitoring of inflammatory processesand associated diseases. For the evaluation of Relative Riskfor Cardiovascular Disease, a High Sensitivity CRP (HSCRP)should be ordered. Serum or plasma albumin axel urement (mass/volume)Ordered By: Fady Whittington on 02-24-2023 Albumin [Mass/Vol] 1.6 g/dL 3.2-5.0 [facility] Serum or plasma albumin/glob ulin mass ratioOrdered By: Fady Whittington on 02-24-2023 Albumin/Globulin [Mass ratio] 0.3 {ratio} 0.9-2.4 [facility] Serum or plasma calcium axel urement (mass/volume)Ordered By: Fady Whittington on 02-24-2023 Calcium [Mass/Vol] 8.2 mg/dL 8.5-10.1 [facility] Serum or plasma creatinine m easurement (mass/volume)Ordered By: Fady Whittington on 02-24-2023 Creatinine [Mass/Vol] 3.96 mg/dL 0.70-1.30 [facility] Comment on above: The validity of the calculated GFR & GFRAA in patients over 70 years has not been determined. Clinical correlation is essential. Serum or plasma urea nitroge n measurement (mass/volume)Ordered By: Fady Whittington on 02-24-2023 Urea nitrogen [Mass/Vol] 65 mg/dL 7-18 [facility] Thin prep Papanicolaou smear with manual screeningOrdered By: Fady Whittington on 02-24-2023 Thin prep Papanicolaou smear with manual screening 20 U/L 15-37 [facility] Thin prep Papanicolaou smear with manual screening 6 5-15 [facility] Basophil percentageOrdered B y: Dr. Nguyen on 05-23-2022 Chloride [Moles/Vol] 102 mmol/L 98-107 [facility] Cholesterol [Mass/Vol] 167 mg/dL <200 [facility] Comment on above: <200 mg/dL Desirable 200-240 mg/dL Borderline >240 mg/dL High Risk Glucose [Mass/Vol] 152 mg/dL 74-106 [facility] Comment on above: Fasting Glucose resu lt greater than or equal to 126 mg/dL suggests DIABETES MELLITUS per A.D.A. criteria. Potassium [Moles/Vol] 4.7 mmol/L 3.5-5.1 [facility] Sodium [Moles/Vol] 136 mmol/L 136-145 [facility] Triglyceride [Mass/Vol] 112 mg/dL <199 [facility] Comment on above: The drugs N-Acetylcy steine and Metamizole may falsely depress this assay.Serum Triglycerides Reference Interval Normal <150 mg/dL Borderline high 150 - 199 mg/dL High 200 - 499 mg/dL Very High > or = 500 mg/dL Laboratory - Chemistry and C hemistry - challengeOrdered By: Dr. Nguyen on 05-23-2022 CO2 [Moles/Vol] 25.0 mmol/L 21.0-32.0 [facility] Urea nitrogen/Creatinine [Mass ratio] 15.9 mg/mg 10-20 [facility] No Panel InformationOrdered By: Dr. Nguyen on 05-23-2022 Estimated GFR (MDRD) Amer 71 mL/min >60 [facility] Comment on above: GFR Calc Estimated GFR (MDRD) Non-Af Amer 59 mL/min >60 [facility] Comment on above: Non- GFR Calc Serum or plasma calcium axel urement (mass/volume)Ordered By: Dr. Nguyen on 05-23-2022 Calcium [Mass/Vol] 8.8 mg/dL 8.5-10.1 [facility] Serum or plasma cholesterol in HDL measurement (mass/volume)Ordered By: Dr. Nguyen on 05-23-2022 Cholesterol in HDL [Mass/Vol] 39 mg/dL >40 [facility] Comment on above: The drugs N-Acetylcy steine and Metamizole may falsely depress this assay. Reference Range HDL <40 mg/dL Low HDL Cholesterol HDL >or= 60 mg/dL High HDL Cholesterol Serum or plasma cholesterol in VLDL measurement (mass/volume)Ordered By: Dr. Nguyen on 05-23-2022 Cholesterol in VLDL [Mass/Vol] 22 mg/dL 5-40 [facility] Serum or plasma creatinine m easurement (mass/volume)Ordered By: Dr. Nguyen on 05-23-2022 Creatinine [Mass/Vol] 1.26 mg/dL 0.70-1.30 [facility] Comment on above: The validity of the calculated GFR & GFRAA in patients over 70 years has not been determined. Clinical correlation is essential. Serum or plasma low density lipoprotein (LDL) cholesterol measurement (mass/volume)Ordered By: Dr. Nguyen on 05-23-2022 Cholesterol in LDL [Mass/Vol] 106 mg/dL 0-130 [facility] Serum or plasma urea nitroge n measurement (mass/volume)Ordered By: Dr. Nguyen on 05-23-2022 Urea nitrogen [Mass/Vol] 20 mg/dL 7-18 [facility] Thin prep Papanicolaou smear with manual screeningOrdered By: Dr. Nguyen on 05-23-2022 Thin prep Papanicolaou smear with manual screening 9 5-15 [facility] Basophil percentageon 2021 Chloride [Moles/Vol] 102 mmol/L 98-107 [facility] Work Phone: Glucose [Mass/Vol] 134 mg/dL 74-106 [facility] Work Phone: Comment on above: Fasting Glucose resu lt greater than or equal to 126 mg/dL suggests DIABETES MELLITUS per A.D.A. criteria. Potassium [Moles/Vol] 4.4 mmol/L 3.5-5.1 [facility] Work Phone: Sodium [Moles/Vol] 137 mmol/L 136-145 [facility] Work Phone: Laboratory - Chemistry and C hemistry - challengeon 11-14-2021 CO2 [Moles/Vol] 30.0 mmol/L 21.0-32.0 [facility] Work Phone: Urea nitrogen/Creatinine [Mass ratio] 16.2 mg/mg 10-20 [facility] Work Phone: No Panel Informationon 11-14 Estimated GFR (MDRD) Amer 78 mL/min >60 [facility] Work Phone: Comment on above: GFR Calc Estimated GFR (MDRD) Non-Af Amer 64 mL/min >60 [facility] Work Phone: Comment on above: Non- GFR Calc Serum or plasma calcium axel urement (mass/volume)on 11-14-2021 Calcium [Mass/Vol] 8.9 mg/dL 8.5-10.1 [facility] Work Phone: Serum or plasma creatinine m easurement (mass/volume)on 11-14-2021 Creatinine [Mass/Vol] 1.17 mg/dL 0.70-1.30 [facility] Work Phone: Comment on above: The validity of the calculated GFR & GFRAA in patients over 70 years has not been determined. Clinical correlation is essential. Serum or plasma urea nitroge n measurement (mass/volume)on 11-14-2021 Urea nitrogen [Mass/Vol] 19 mg/dL 7-18 [facility] Work Phone: Thin prep Papanicolaou smear with manual screeningon 11-14-2021 Thin prep Papanicolaou smear with manual screening 5 5-15 [facility] Work Phone: Absolute lymphocyte counton 09-22-2021 Lymphocytes Auto (Unsp spec) [#/Vol] 1.51 10*3/uL 0.83-4.51 [facility] Work Phone: Basophil percentageon 2021 Basophils/100 WBC (Bld) 1.5 % 0-1 [facility] Work Phone: Chloride [Moles/Vol] 104 mmol/L 98-107 [facility] Work Phone: Eosinophils/100 WBC (Bld) 0.0 % 0-5 [facility] Work Phone: Glucose [Mass/Vol] 93 mg/dL 74-106 [facility] Work Phone: Neutrophils (Bld) [#/Vol] 2.9 10*3/uL 2.0-7.7 [facility] Work Phone: Neutrophils/100 WBC (Bld) 53.2 % 47-70 [facility] Work Phone: Potassium [Moles/Vol] 4.2 mmol/L 3.5-5.1 [facility] Work Phone: Sodium [Moles/Vol] 136 mmol/L 136-145 [facility] Work Phone: WBC (Bld) [#/Vol] 5.5 10*3/uL 4.4-11.0 [facility] Work Phone: [phone] Blood erythrocytes count (nu mber/volume)on 09-22-2021 RBC (Bld) [#/Vol] 4.29 10*6/uL 4.6-6.2 [facility] Work Phone: Blood hemoglobin measurement (mass/volume)on 09-22-2021 Hemoglobin (Bld) [Mass/Vol] 14.0 g/dL 13.0-16.5 [facility] Work Phone: Blood lymphocytes/100 leukoc yteson 09-22-2021 Lymphocytes/100 WBC (Bld) 27.5 % 19-41 [facility] Work Phone: Blood monocytes/100 leukocyt eson 09-22-2021 Monocytes/100 WBC (Bld) 14.5 % 0-10 [facility] Work Phone: Blood platelet mean volumeon 09-22-2021 Platelet mean volume (Bld) [Entitic vol] 9.9 fL 6.2-12.0 [facility] Work Phone: Determination of erythrocyte mean corpuscular volume (MCV)on 09-22-2021 MCV (RBC) [Entitic vol] 98.4 fL 80-94 [facility] Work Phone: Glucose Glucometer (BldC) [M ass/Vol]on 09-22-2021 Glucose [Mass/Vol] 136 mg/dL 74-106 [facility] Work Phone: Comment on above: MANAGEMENT OF PATIEN T CARE PER NURSING PROTOCOL Hematocrit Auto (Bld) [Volum e fraction]on 09-22-2021 Hematocrit (Bld) [Volume fraction] 42.2 % 40-54 [facility] Work Phone: Laboratory - Chemistry and C hemistry - challengeon 09-22-2021 CO2 [Moles/Vol] 27.0 mmol/L 21.0-32.0 [facility] Work Phone: Urea nitrogen/Creatinine [Mass ratio] 16.8 mg/mg 10-20 [facility] Work Phone: Laboratory - Hematology and Cell countson 09-22-2021 Erythrocyte distribution width (RBC) [Entitic vol] 45.8 fL 35.1-43.9 [facility] Work Phone: Erythrocyte distribution width (RBC) [Ratio] 12.7 % 11.6-14.6 [facility] Work Phone: Immature granulocytes/100 WBC (Bld) 3.300 % 0.0-0.9 [facility] Work Phone: Comment on above: IG% - Immature Granu locytes (promyelocytes, myelocytes and metamyelocytes) > 1% indicates that a LEFT SHIFT is Present. MCH (RBC) [Entitic mass] 32.6 pg 27.0-32.0 [facility] Work Phone: Nucleated RBC/100 WBC (Bld) [Ratio] 0 % 0-5 [facility] Work Phone: MCHC Auto (RBC) [Mass/Vol]on 09-22-2021 MCHC (RBC) [Mass/Vol] 33.2 g/dL 32-36 [facility] Work Phone: No Panel Informationon 09-22 Estimated Creatinine Clearance Calc 42.52 ml/min [facility] Work Phone: Estimated GFR (MDRD) Amer 62 mL/min >60 [facility] Work Phone: Comment on above: GFR Calc Estimated GFR (MDRD) Non-Af Amer 51 mL/min >60 [facility] Work Phone: Comment on above: Non- GFR Calc Platelets bldon 09-22-2021 Platelets (Bld) [#/Vol] 164 10*3/uL 150-450 [facility] Work Phone: Serum or plasma calcium axel urement (mass/volume)on 09-22-2021 Calcium [Mass/Vol] 8.6 mg/dL 8.5-10.1 [facility] Work Phone: Serum or plasma creatinine m easurement (mass/volume)on 09-22-2021 Creatinine [Mass/Vol] 1.43 mg/dL 0.70-1.30 [facility] Work Phone: Comment on above: The validity of the calculated GFR & GFRAA in patients over 70 years has not been determined. Clinical correlation is essential. Serum or plasma urea nitroge n measurement (mass/volume)on 09-22-2021 Urea nitrogen [Mass/Vol] 24 mg/dL 7-18 [facility] Work Phone: Thin prep Papanicolaou smear with manual screeningon 09-22-2021 Thin prep Papanicolaou smear with manual screening 5 5-15 [facility] Work Phone: Basophil percentageon 2021 Bilirubin [Mass/Vol] 0.50 mg/dL 0.20-1.00 [facility] Work Phone: Comment on above: For patients on eltr ombopag therapy, use of Dimension Crapo TBIL is not recommended. Protein [Mass/Vol] 6.7 g/dL 6.4-8.2 [facility] Work Phone: Lactate [Moles/Vol] 1.5 mmol/L 0.4-2.0 [facility] Work Phone: Blood manual differential co mment interpretation (narrative result)on 09-21-2021 Manual differential comment Arnulfo (Bld) [Interp] SCANNED [facility] Work Phone: Laboratory - Chemistry and C hemistry - challengeon 09-21-2021 ALP [Catalytic activity/Vol] 41 U/L 45-117 [facility] Work Phone: ALT [Catalytic activity/Vol] 54 U/L 16-61 [facility] Work Phone: Globulin (S) [Mass/Vol] 4.0 g/dL 2.2-4.2 [facility] Work Phone: No Panel Informationon 09-21 Atypical Lymphocytes 1+ % [facility] Work Phone: Serum or plasma albumin axel urement (mass/volume)on 09-21-2021 Albumin [Mass/Vol] 2.7 g/dL 3.2-5.0 [facility] Work Phone: Serum or plasma albumin/glob ulin mass ratioon 09-21-2021 Albumin/Globulin [Mass ratio] 0.7 {ratio} 0.9-2.4 [facility] Work Phone: Thin prep Papanicolaou smear with manual screeningon 09-21-2021 Thin prep Papanicolaou smear with manual screening 35 U/L 15-37 [facility] Work Phone: Absolute lymphocyte counton 09-20-2021 Lymphocytes Auto (Unsp spec) [#/Vol] 1.65 10*3/uL 0.83-4.51 [facility] Work Phone: Basophil percentageon 2021 Lactate [Moles/Vol] 1.2 mmol/L 0.4-2.0 [facility] Work Phone: [phone] Basophils/100 WBC (Bld) 0.7 % 0-1 [facility] Work Phone: [phone] Bilirubin [Mass/Vol] 0.60 mg/dL 0.20-1.00 [facility] Work Phone: [phone] Comment on above: For patients on eltr ombopag therapy, use of Dimension Crapo TBIL is not recommended. Chloride [Moles/Vol] 99 mmol/L 98-107 [facility] Work Phone: Eosinophils/100 WBC (Bld) 0.0 % 0-5 [facility] Work Phone: Glucose [Mass/Vol] 134 mg/dL 74-106 [facility] Work Phone: [phone] Comment on above: Fasting Glucose resu lt greater than or equal to 126 mg/dL suggests DIABETES MELLITUS per A.D.A. criteria. Neutrophils (Bld) [#/Vol] 3.0 10*3/uL 2.0-7.7 [facility] Work Phone: Neutrophils/100 WBC (Bld) 53.4 % 47-70 [facility] Work Phone: Potassium [Moles/Vol] 3.7 mmol/L 3.5-5.1 [facility] Work Phone: Protein [Mass/Vol] 6.7 g/dL 6.4-8.2 [facility] Work Phone: Sodium [Moles/Vol] 133 mmol/L 136-145 [facility] Work Phone: WBC (Bld) [#/Vol] 5.6 10*3/uL 4.4-11.0 [facility] Work Phone: Blood erythrocytes count (nu mber/volume)on 09-20-2021 RBC (Bld) [#/Vol] 4.64 10*6/uL 4.6-6.2 [facility] Work Phone: Blood hemoglobin measurement (mass/volume)on 09-20-2021 Hemoglobin (Bld) [Mass/Vol] 15.1 g/dL 13.0-16.5 [facility] Work Phone: Blood lymphocytes/100 leukoc yteson 09-20-2021 Lymphocytes/100 WBC (Bld) 29.7 % 19-41 [facility] Work Phone: Blood manual differential co mment interpretation (narrative result)on 09-20-2021 Manual differential comment Arnulfo (Bld) [Interp] SCANNED [facility] Work Phone: Comment on above: RARE BANDS NOTED Blood monocytes/100 leukocyt eson 09-20-2021 Monocytes/100 WBC (Bld) 15.1 % 0-10 [facility] Work Phone: Blood platelet mean volumeon 09-20-2021 Platelet mean volume (Bld) [Entitic vol] 10.0 fL 6.2-12.0 [facility] Work Phone: Determination of erythrocyte mean corpuscular volume (MCV)on 09-20-2021 MCV (RBC) [Entitic vol] 96.1 fL 80-94 [facility] Work Phone: Direct bilirubinon 2 Bilirubin.direct [Mass/Vol] 0.17 mg/dL 0.00-0.30 [facility] Work Phone: Hematocrit Auto (Bld) [Volum e fraction]on 09-20-2021 Hematocrit (Bld) [Volume fraction] 44.6 % 40-54 [facility] Work Phone: Laboratory - Chemistry and C hemistry - challengeon 09-20-2021 ALP [Catalytic activity/Vol] 49 U/L 45-117 [facility] Work Phone: ALT [Catalytic activity/Vol] 53 U/L 16-61 [facility] Work Phone: CO2 [Moles/Vol] 28.0 mmol/L 21.0-32.0 [facility] Work Phone: Globulin (S) [Mass/Vol] 4.0 g/dL 2.2-4.2 [facility] Work Phone: Lipase [Catalytic activity/Vol] 66 U/L 73-393 [facility] Work Phone: Magnesium [Mass/Vol] 2.0 mg/dL 1.6-2.6 [facility] Work Phone: Urea nitrogen/Creatinine [Mass ratio] 14.0 mg/mg 10-20 [facility] Work Phone: Laboratory - Hematology and Cell countson 09-20-2021 Erythrocyte distribution width (RBC) [Entitic vol] 45.1 fL 35.1-43.9 [facility] Work Phone: Erythrocyte distribution width (RBC) [Ratio] 12.7 % 11.6-14.6 [facility] Work Phone: Immature granulocytes/100 WBC (Bld) 1.100 % 0.0-0.9 [facility] Work Phone: Comment on above: IG% - Immature Granu locytes (promyelocytes, myelocytes and metamyelocytes) > 1% indicates that a LEFT SHIFT is Present. MCH (RBC) [Entitic mass] 32.5 pg 27.0-32.0 [facility] Work Phone: Nucleated RBC/100 WBC (Bld) [Ratio] 0 % 0-5 [facility] Work Phone: MCHC Auto (RBC) [Mass/Vol]on 09-20-2021 MCHC (RBC) [Mass/Vol] 33.9 g/dL 32-36 [facility] Work Phone: No Panel Informationon 09-20 Estimated Creatinine Clearance Calc 50.25 ml/min [facility] Work Phone: Estimated GFR (MDRD) Amer 75 mL/min >60 [facility] Work Phone: Comment on above: GFR Calc Estimated GFR (MDRD) Non-Af Amer 62 mL/min >60 [facility] Work Phone: Comment on above: Non- GFR Calc Platelets bldon 09-20-2021 Platelets (Bld) [#/Vol] 147 10*3/uL 150-450 [facility] Work Phone: Serum or plasma albumin axel urement (mass/volume)on 09-20-2021 Albumin [Mass/Vol] 2.7 g/dL 3.2-5.0 [facility] Work Phone: Serum or plasma calcium axel urement (mass/volume)on 09-20-2021 Calcium [Mass/Vol] 8.9 mg/dL 8.5-10.1 [facility] Work Phone: Serum or plasma creatinine m easurement (mass/volume)on 09-20-2021 Creatinine [Mass/Vol] 1.21 mg/dL 0.70-1.30 [facility] Work Phone: Comment on above: The validity of the calculated GFR & GFRAA in patients over 70 years has not been determined. Clinical correlation is essential. Serum or plasma urea nitroge n measurement (mass/volume)on 09-20-2021 Urea nitrogen [Mass/Vol] 17 mg/dL 7-18 [facility] Work Phone: Thin prep Papanicolaou smear with manual screeningon 09-20-2021 Thin prep Papanicolaou smear with manual screening 36 U/L 15-37 [facility] Work Phone: Thin prep Papanicolaou smear with manual screening 6 5-15 [facility] Work Phone: Glucose Glucometer (BldC) [M ass/Vol]on 07-16-2021 Glucose [Mass/Vol] 134 mg/dL 74-106 [facility] Work Phone: Comment on above: MANAGEMENT OF PATIEN T CARE PER NURSING PROTOCOL Office Visit: colonoscopyon 01-19-2017 Dietary management education, guidance, and counseling (procedure) yes Invalid Interpretation Code [facility] Work Phone: Documentation of current medications (procedure) Done Invalid Interpretation Code [facility] [employer] Work Phone: Fall risk assessment No Invalid Interpretation Code [facility] [employer] Work Phone: Protein mass conc Done Invalid Interpretation Code [facility] [employer] Work Phone: Tobacco smoking status NHIS Never Invalid Interpretation Code [facility] [employer] Work Phone: Tobacco smoking status NHIS Never smoker Invalid Interpretation Code [facility] [employer] Work Phone: Tobacco use [facility] Never smoker Invalid Interpretation Code [facility] [employer] Work Phone: Lab Report: Lipid Profileon 06-20-2016 Cholesterol 147 mg/dL Invalid Interpretation Code 200 [facility] [employer] Work Phone: HDL Cholesterol 48 mg/dL Invalid Interpretation Code [facility] [employer] Work Phone: LDL Cholesterol 74 mg/dL Invalid Interpretation Code 0-130 [facility] [employer] Work Phone: Triglyceride 127 mg/dL Invalid Interpretation Code [facility] [employer] Work Phone: very low density lipoproteins 25 mg/dL Invalid Interpretation Code 5-40 [facility] [employer] Work Phone: Lab Report: Liver Profileon 06-20-2016 Alanine aminotransferase (ALT) 78 U/L Invalid Interpretation Code 12-78 [facility] [employer] Work Phone: Albumin 3.4 g/dL Invalid Interpretation Code 3.4-5.0 [facility] [employer] Work Phone: Alkaline phosphatase (ALP) 50 U/L Invalid Interpretation Code 45-117 [facility] [employer] Work Phone: ALP enzyme act/vol (Bld) 50 U/L Invalid Interpretation Code 45-117 [facility] [employer] Work Phone: Aspartate aminotransferase (AST) 58 U/L High 15-37 [facility] [employer] Work Phone: Bilirubin (direct) 0.15 mg/dL Invalid Interpretation Code 0.00-0.30 [facility] [employer] Work Phone: Bilirubin (total) 0.70 mg/dL Invalid Interpretation Code 0.20-1.00 [facility] [employer] Work Phone: Globulin 3.8 g/dL High 2.3-3.5 [facility] [employer] Work Phone: Protein 7.2 g/dL Invalid Interpretation Code 6.4-8.2 [facility] [employer] Work Phone: 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 Left ventricular Ejection fraction 55 % Invalid Interpretation Code [facility] [employer] Work Phone: Office Visiton 06-19-2015 General cardiovascular disease 10Y risk [#] [place].D'Agost[place] 18 % Invalid Interpretation Code [facility] [employer] Work Phone: External Other: Preferred Me thod of Contacton 06-16-2014 methcontact phone Invalid Interpretation Code [facility] [employer] Work Phone: Patient's prefered method of contact phone Invalid Interpretation Code [facility] [employer] Work Phone: Lab Report: Liver Profileon 06-15-2014 ALK P 52 U/L Invalid Interpretation Code 50-136 [facility] [employer] Work Phone: GE use only - for [employer] import when terms are not otherwise specified 52 U/L Invalid Interpretation Code 50-136 [facility] [employer] Work Phone: Office Visiton 06-15-2014 cardiac risk group B Invalid Interpretation Code [facility] [employer] Work Phone: 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 10-18-2013 Anion gap 5 mmol/L Invalid Interpretation Code [facility] [employer] Work Phone: Anion gap 4 molar conc 5 Invalid Interpretation Code [facility] [employer] Work Phone: BUN/Creatinine Ratio 21.3 mg/mg High [facility] [employer] Work Phone: Calcium 9.0 mg/dL Invalid Interpretation Code [facility] [employer] Work Phone: Chloride 103 mmol/L Invalid Interpretation Code [facility] [employer] Work Phone: CO2 30.0 mmol/L Invalid Interpretation Code [facility] [employer] Work Phone: CO2 ppres (BldV) 30.0 mmol/L Invalid Interpretation Code [facility] [employer] Work Phone: Creatinine 0.8 mg/dL Invalid Interpretation Code [facility] [employer] Work Phone: eGFR (non-black) 102 mL/min/{1.73_m2} Invalid Interpretation Code [facility] [employer] Work Phone: eGFR (non-black) 124 mL/min/{1.73_m2} Invalid Interpretation Code [facility] [employer] Work Phone: Glomerular Filtration Rate 124 mL/min/1.73m2 Invalid Interpretation Code [facility] [employer] Work Phone: Glucose 89 mg/dL Invalid Interpretation Code [facility] [employer] Work Phone: Glucose mass conc 89 mg/dL Invalid Interpretation Code [facility] [employer] Work Phone: Potassium 3.6 mmol/L Invalid Interpretation Code [facility] [employer] Work Phone: Sodium 138 mmol/L Invalid Interpretation Code [facility] [employer] Work Phone: Urea nitrogen 17 mg/dL Invalid Interpretation Code [facility] [employer] Work Phone: 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 02-24-2013 Hematocrit (HCT) 43.9 % Invalid Interpretation Code [facility] [employer] Work Phone: Hemoglobin (HGB) 14.9 g/dL Invalid Interpretation Code [facility] [employer] Work Phone: Platelets 113 10*3/mm3 Low [facility] [employer] Work Phone: WBC (Leukocytes) 5.1 10*3/uL Invalid Interpretation Code [facility] [employer] Work Phone: Replaced Document: Midmark E CG Observationson 11-26-2011 EKG QRS axis 28 deg Invalid Interpretation Code [facility] [employer] Work Phone: electrocardiogram interpretation Sinus Bradycardia -First degree A-V block Anders = [id number] Invalid Interpretation Code [facility] [employer] Work Phone: Interpretation Sinus Bradycardia -F irst degree A-V block Anders = [id number] RHYTHM Invalid Interpretation Code [facility] [employer] Work Phone: P [place] 45 deg Invalid Interpretation Code [facility] Work Phone: P wave axis, electrocardiogram 45 deg Invalid Interpretation Code [facility] Work Phone: CT Interval 246 ms Invalid Interpretation Code [facility] Work Phone: CT interval, electrocardiogram 246 ms Invalid Interpretation Code [facility] Work Phone: Pulse (Heart Rate) 55 /min Invalid Interpretation Code [facility] Work Phone: Pulse (Heart Rate) 417 ms Invalid Interpretation Code [facility] Work Phone: QRS axis, electrocardiogram 28 deg Invalid Interpretation Code [facility] Work Phone: QRS Duration 90 ms Invalid Interpretation Code [facility] Work Phone: QRS duration, electrocardiogram 90 ms Invalid Interpretation Code [facility] Work Phone: QT Interval new path ms Invalid Interpretation Code [facility] Work Phone: QT interval, electrocardiogram new path ms Invalid Interpretation Code [facility] Work Phone: T [place] 37 deg Invalid Interpretation Code [facility] Work Phone: T wave axis, electrocardiogram 37 deg Invalid Interpretation Code [facility] Work Phone: Vital Signs Date Time Vital Sign Value Performing Clinician Facility 11-30-2024 07:36-0400 Body height 172.[address] Nolan Nguyen MD Work Phone: [facility] 11-30-2024 07:36-0400 Body mass index (BMI) [Ratio] 44.2 kg/m2 Dr. Nolan Nguyen MD Work Phone: [facility] 11-30-2024 07:36-0400 Body weight 131.[address] Nolan Nguyen MD Work Phone: [facility] 11-30-2024 07:36-0400 Diastolic blood pressure 65 mm[Hg] Dr. Nolan Nguyen MD Work Phone: [facility] 11-30-2024 07:36-0400 Heart rate 53 /min Dr. Nolan Nguyen MD Work Phone: [facility] 11-30-2024 07:36-0400 Respiratory rate 22 /min Dr. Nolan Nguyen MD Work Phone: [facility] 11-30-2024 07:36-0400 SaO2% (BldA) [Mass fraction] 93 % Dr. Nolan Nguyen MD Work Phone: [facility] 11-30-2024 07:36-0400 Systolic blood pressure 110 mm[Hg] Dr. Nolan Nguyen MD Work Phone: [facility] 10-14-2023 12:35-0400 Diastolic blood pressure 72 mm[Hg] Angelica Can MD Work Phone: [facility] Comment on above: MD 10-14-2023 12:35-0400 Heart rate 51 /min Angelica Can MD Work Phone: [facility] 10-14-2023 12:35-0400 Systolic blood pressure 136 mm[Hg] Angelica Can MD Work Phone: [facility] Comment on above: MD 10-07-2023 12:28-0400 Body mass index (BMI) [Ratio] 42.91 kg/m2 Daniele Dugan APRN.[employer] Work Phone: [facility] 10-07-2023 12:28-0400 Body temperature 96.6 [degF] Daniele Dugan APRN.[employer] Work Phone: [facility] 10-07-2023 12:28-0400 Body weight 128 kg Daniele Dugan APRN.[employer] Work Phone: [facility] 10-07-2023 12:28-0400 Diastolic blood pressure 64 mm[Hg] Daniele Dugan APRN.[employer] Work Phone: [facility] 10-07-2023 12:28-0400 Heart rate 51 /min Daniele Dugan APRN.[employer] Work Phone: [facility] 10-07-2023 12:28-0400 Respiratory rate 16 /min Daniele Dugan APRN.[employer] Work Phone: [facility] 10-07-2023 12:28-0400 SaO2% (BldA) [Mass fraction] 97 % Daniele Dugan APRN.[employer] Work Phone: [facility] 10-07-2023 12:28-0400 Systolic blood pressure 118 mm[Hg] Daniele Dugan APRN.[employer] Work Phone: [facility] 09-28-2023 19:26-0400 Body mass index (BMI) [Ratio] 42.64 kg/m2 Armani Aguilar MD Work Phone: [facility] 09-28-2023 19:26-0400 Body temperature 97.5 [degF] Armani Aguilar MD Work Phone: [facility] 09-28-2023 19:26-0400 Body weight 127.2 kg Armani Aguilar MD Work Phone: [facility] 09-28-2023 19:26-0400 Diastolic blood pressure 72 mm[Hg] Armani Aguilar MD Work Phone: [facility] 09-28-2023 19:26-0400 Heart rate 60 /min Armani Aguilar MD Work Phone: [facility] 09-28-2023 19:26-0400 Respiratory rate 20 /min Armani Aguilar MD Work Phone: [facility] 09-28-2023 19:26-0400 SaO2% (BldA) [Mass fraction] 95 % Armani Aguilar MD Work Phone: [facility] 09-28-2023 19:26-0400 Systolic blood pressure 140 mm[Hg] Armani Aguilar MD Work Phone: [facility] 03-13-2023 11:37-0400 Diastolic blood pressure 63 mm[Hg] Dr. Nolan Nguyen Work Phone: [facility] 03-13-2023 11:37-0400 Heart rate 61 /min Dr. Nolan Nguyen Work Phone: [facility] 03-13-2023 11:37-0400 Respiratory rate 20 /min Dr. Nolan Nguyen Work Phone: [facility] 03-13-2023 11:37-0400 SaO2% (BldA) [Mass fraction] 94 % Dr. Nolan Nguyen Work Phone: [facility] 03-13-2023 11:37-0400 Systolic blood pressure 124 mm[Hg] Dr. Nolan Nguyen Work Phone: [facility] 03-13-2023 10:32-0400 Inhaled oxygen flow rate 2 L/min Dr. Nolan Nguyen Work Phone: [facility] 03-13-2023 09:33-0400 Body height 172.[address] Nolan Nguyen Work Phone: [facility] 03-13-2023 09:33-0400 Body mass index (BMI) [Ratio] 45.6 kg/m2 Dr. Nolan Nguyen Work Phone: [facility] 03-13-2023 09:33-0400 Body weight 136.[address] Nolan Nguyen Work Phone: [facility] 02-26-2023 10:19-0400 Body height 172.72 cm [facility] 02-26-2023 10:19-0400 Body mass index (BMI) [Ratio] 48 kg/m2 [facility] 02-26-2023 10:19-0400 Body temperature 97 [degF] [facility] 02-26-2023 10:19-0400 Body weight 143.33 kg [facility] 02-26-2023 10:19-0400 Diastolic blood pressure 77 mm[Hg] [facility] 02-26-2023 10:19-0400 Heart rate 58 /min [facility] 02-26-2023 10:19-0400 Respiratory rate 18 /min [facility] 02-26-2023 10:19-0400 SaO2% (BldA) [Mass fraction] 95 % [facility] 02-26-2023 10:19-0400 Systolic blood pressure 167 mm[Hg] [facility] 10-10-2021 12:50-0400 Body height 172.[address] Nolan Nguyen Work Phone: [facility] Work Phone: 10-10-2021 12:50-0400 Body weight 133.[address] Nolan Nguyen Work Phone: [facility] Work Phone: 10-10-2021 12:50-0400 Diastolic blood pressure 73 mm[Hg] Dr. Nolan Nguyen Work Phone: [facility] Work Phone: 10-10-2021 12:50-0400 Heart rate 58 /min Dr. Nolan Nguyen Work Phone: [facility] Work Phone: 10-10-2021 12:50-0400 Respiratory rate 16 /min Dr. Nolan Nguyen Work Phone: [facility] Work Phone: 10-10-2021 12:50-0400 SaO2% (BldA) [Mass fraction] 94 % Dr. Nolan Nguyen Work Phone: [facility] Work Phone: 10-10-2021 12:50-0400 Systolic blood pressure 132 mm[Hg] Dr. Nolan Nguyen Work Phone: [facility] Work Phone: 10-09-2021 14:16-0400 Diastolic blood pressure 73 mm[Hg] Angelica Can MD Work Phone: [facility] 10-09-2021 14:16-0400 Heart rate 58 /min Angelica Can MD Work Phone: [facility] 10-09-2021 14:16-0400 Systolic blood pressure 138 mm[Hg] Angelica Can MD Work Phone: [facility] 09-22-2021 15:18-0400 Heart rate 59 /min Dr. Nolan Nguyen Work Phone: [facility] Work Phone: 09-22-2021 15:18-0400 Respiratory rate 18 /min Dr. Nolan Nguyen Work Phone: [facility] Work Phone: 09-22-2021 14:24-0400 Body temperature 98 [degF] Dr. Nolan Nguyen Work Phone: [facility] Work Phone: 09-22-2021 14:24-0400 Diastolic blood pressure 67 mm[Hg] Dr. Nolan Nguyen Work Phone: [facility] Work Phone: 09-22-2021 14:24-0400 SaO2% (BldA) [Mass fraction] 95 % Dr. Nolan Nguyen Work Phone: [facility] Work Phone: 09-22-2021 14:24-0400 Systolic blood pressure 144 mm[Hg] Dr. Nolan Nguyen Work Phone: [facility] Work Phone: 09-22-2021 05:55-0400 Body weight 135.[address] Nolan Nguyen Work Phone: [facility] Work Phone: 09-20-2021 14:30-0400 Body height 172.[address] Nolan Nguyen Work Phone: [facility] Work Phone: 09-20-2021 09:12-0400 Body mass index (BMI) [Ratio] 46.3 kg/m2 Dr. Nolan Nguyen Work Phone: [facility] Work Phone: 09-20-2021 08:36-0400 Body temperature 97.8 [degF] Dr. Nolan Nguyen Work Phone: [facility] Work Phone: 09-20-2021 08:36-0400 Diastolic blood pressure 78 mm[Hg] Dr. Nolan Nguyen Work Phone: [facility] Work Phone: 09-20-2021 08:36-0400 Heart rate 67 /min Dr. Nolan Nguyen Work Phone: [facility] Work Phone: 09-20-2021 08:36-0400 Respiratory rate 16 /min Dr. Nolan Nguyen Work Phone: [facility] Work Phone: 09-20-2021 08:36-0400 SaO2% (BldA) [Mass fraction] 95 % Dr. Nolan Nguyen Work Phone: [facility] Work Phone: 09-20-2021 08:36-0400 Systolic blood pressure 127 mm[Hg] Dr. Nolan Nguyen Work Phone: [facility] Work Phone: 09-20-2021 05:39-0400 Body height 172.[address] Nolan Nguyen Work Phone: [facility] Work Phone: 09-20-2021 05:39-0400 Body mass index (BMI) [Ratio] 46.4 kg/m2 Dr. Nolan Nguyen Work Phone: [facility] Work Phone: 09-20-2021 05:39-0400 Body weight 138.[address] Nolan Nguyen Work Phone: [facility] Work Phone: 07-16-2021 06:05-0500 Body temperature 97.6 [degF] Dr. Nolan Nguyen Work Phone: [facility] Work Phone: 07-16-2021 06:05-0500 Diastolic blood pressure 64 mm[Hg] Dr. Nolan Nguyen Work Phone: [facility] Work Phone: 07-16-2021 06:05-0500 Heart rate 58 /min Dr. Nolan Nguyen Work Phone: [facility] Work Phone: 07-16-2021 06:05-0500 Respiratory rate 16 /min Dr. Nolan Nguyen Work Phone: [facility] Work Phone: 07-16-2021 06:05-0500 SaO2% (BldA) [Mass fraction] 93 % Dr. Nolan Nguyen Work Phone: [facility] Work Phone: 07-16-2021 06:05-0500 Systolic blood pressure 135 mm[Hg] Dr. Nolan Nguyen Work Phone: [facility] Work Phone: 07-16-2021 04:47-0500 Body mass index (BMI) [Ratio] 46.3 kg/m2 Dr. Nolan Nguyen Work Phone: [facility] Work Phone: 07-16-2021 04:47-0500 Body weight 138.[address] Nolan Nguyen Work Phone: [facility] Work Phone: 06-25-2021 12:50-0500 Body mass index (BMI) [Ratio] 47.5 kg/m2 Dr. Nolan Nguyen Work Phone: [facility] Work Phone: 06-25-2021 12:50-0500 Body temperature 96.2 [degF] Dr. Nolan Nguyen Work Phone: [facility] Work Phone: 06-25-2021 12:50-0500 Body weight 141.[address] Nolan Nguyen Work Phone: [facility] Work Phone: 06-25-2021 12:50-0500 Diastolic blood pressure 71 mm[Hg] Dr. Nolan Nguyen Work Phone: [facility] Work Phone: 06-25-2021 12:50-0500 Heart rate 65 /min Dr. Nolan Nguyen Work Phone: [facility] Work Phone: 06-25-2021 12:50-0500 Respiratory rate 22 /min Dr. Nolan Nguyen Work Phone: [facility] Work Phone: 06-25-2021 12:50-0500 SaO2% (BldA) [Mass fraction] 95 % Dr. Nolan Nguyen Work Phone: [facility] Work Phone: 06-25-2021 12:50-0500 Systolic blood pressure 150 mm[Hg] Dr. Nolan Nguyen Work Phone: [facility] Work Phone: 10-09-2020 12:26-0400 Body mass index (BMI) [Ratio] 48.2 kg/m2 Dr. Nolan Nguyen Work Phone: [facility] Work Phone: 01-19-2017 08:02-0400 BMI (Body Mass Index) 44.27 kg/m2 Gordon Mckay MD [facility] [employer] Work Phone: 01-19-2017 08:02-0400 Body Temperature 98 [degF] Gordon Mckay MD [facility] [employer] Work Phone: 01-19-2017 08:02-0400 BP Diastolic 89 mm[Hg] Gordon Mckay MD [facility] [employer] Work Phone: 01-19-2017 08:02-0400 BP Systolic 186 mm[Hg] Gordon Mckay MD [facility] [employer] Work Phone: 01-19-2017 08:02-0400 Height 172.72 cm Gordon Mckay MD [facility] [employer] Work Phone: 01-19-2017 08:02-0400 Pulse (Heart Rate) 60 /min Gordon Mckay MD [facility] Work Phone: 01-19-2017 08:02-0400 Respiratory Rate 18 /min Gordon Mckay MD [facility] [employer] Work Phone: 01-19-2017 08:02-0400 Weight 132.09 kg Gordon Mckay MD [facility] [employer] Work Phone: 06-20-2016 14:17-0500 BSA (Body Surface Area) 2.41 m2 Gordon Mckay MD [facility] Surgical [facility] Work Phone: 11-26-2011 16:44-0400 Heart rate 417 ms Gordon Mckay MD [facility] Surgical [facility] Work Phone: 11-26-2011 16:44-0400 Heart rate 55 /min Gordon Mckay MD [facility] Work Phone: Encounters Encounter Date Encounter Type Care Provider Facility Start: 12-28-2024 ambulatory Adis Lo Facility :[facility] Start: 11-30-2024 End: 11-30-2024 Patient encounter procedure Adis Lo [place] -[facility] Work Phone: Start: 11-30-2024 End: 11-30-[address] Nolan Nguyen MD Work Phone: -[facility] Start: 11-30-2024 End: 11-30-2024 ambulatory Nolan Nguyen Facility:[facility] Start: 08-04-2024 End: 08-04-[address] Nolan Nguyen MD Work Phone: [facility] Work Phone: Start: 08-04-2024 End: 08-04-[address] Mary Patel DO -Laboratory Work Phone: Start: 08-04-2024 End: 08-04-2024 ambulatory Mary Patel Facility:[facility] Start: 07-04-2024 End: 07-04-[address] Nolan Nguyen MD -[facility] Start: 07-04-2024 End: 07-04-2024 ambulatory Nolan Nguyen Facility:[facility] Start: 02-11-2024 End: 02-11-2024 ambulatory Mary Patel Facility:[facility] Start: 01-06-2024 End: 01-06-2024 ambulatory Nolan Nguyen Facility:[facility] Start: 01-04-2024 End: 01-04-2024 ambulatory Nolan Nguyen Facility:[facility] Start: 10-14-2023 End: 10-14-2023 Patient encounter procedure Angelica Can MD Work Phone: [facility] Comment on above: PAD (peripheral miles ry disease) ([facility]) (Primary Dx); Obesity, Class III, BMI 40-49.9 (morbid obesity) ([facility]); Bilateral carotid artery stenosis Start: 10-14-2023 End: 10-14-2023 ambulatory ANGELICA CAN Facility:[facility] Start: 10-07-2023 End: 10-07-2023 ambulatory NOLAN NGUYEN Facility:[facility] Start: 10-07-2023 End: 10-07-2023 Patient encounter procedure Daniele Dugan APRN.[facility] Work Phone: [facility] Comment on above: Visit for suture rem oval (Primary Dx) Start: 09-28-2023 End: 09-28-2023 ambulatory NOLAN NGUYEN Facility:[facility] Start: 09-28-2023 End: 09-28-2023 Patient encounter procedure Armani Aguilar MD Work Phone: [facility] Comment on above: Laceration of right ring finger without foreign body without damage to nail, initial encounter (Primary Dx) Start: 09-11-2023 End: 09-11-[address] Nolan Nguyen Work Phone: [facility] Work Phone: Start: 09-11-2023 End: 09-11-[address] Nolan Nguyen Work Phone: [facility] Work Phone: Start: 07-31-2023 End: 07-31-[address] Nolan Nguyen Work Phone: [facility] Work Phone: Start: 07-31-2023 End: 07-31-[address] Nolan Nguyen Work Phone: [facility] Start: 07-27-2023 Non-patient / Non-visit Dr. Lillie Nguyen Work Phone: [facility] Start: 07-27-[address] Nolan hernández Work Phone: [facility] Work Phone: Start: 06-26-2023 Orders Only Angelica mcnair MD Work Phone: [facility] Surg [facility] Comment on above: Carotid stenosis, as ymptomatic, bilateral (Primary Dx) Start: 06-24-2023 Telephone encounter Nolan cheema MD Work Phone: NOC Comment on above: Appointment Start: 06-11-2023 End: 06-11-[address] Nolan Nguyen Work Phone: [facility] Work Phone: Start: 06-11-2023 End: 06-11-[address] Nolan Nguyen Work Phone: [facility] Work Phone: Start: 05-06-2023 End: 05-06-[address] Nolan Nguyen Work Phone: [facility] Start: 03-31-2023 End: 03-31-[address] Nolan Nguyen Work Phone: [facility] Work Phone: Start: 03-31-2023 End: 03-31-[address] [facility] Start: 03-13-2023 Non-patient / Non-visit Dr. Lillie Nguyen Work Phone: [facility] Start: 03-13-2023 End: 03-13-[address] Nolan Nguyen Work Phone: [facility] Work Phone: Start: 03-13-2023 End: 03-13-[address] Nolan Nguyen Work Phone: [facility]-Cat Scan, [facility] Work Phone: Start: 03-12-[address] Nolan Nguyen Work Phone: [facility] Start: 03-11-2023 End: 03-11-[address] Nolan Nguyen Work Phone: [facility] Work Phone: Start: 03-11-2023 End: 03-11-[address] [facility] Start: 03-03-2023 End: 03-03-2023 ambulatory [facility] Work Phone: Start: 03-03-2023 End: 03-03-2023 [facility] Start: 02-26-2023 End: 02-26-2023 ambulatory [facility] Work Phone: Start: 02-26-2023 End: 02-26-2023 [facility] Work Phone: Start: 02-25-2023 End: 02-25-2023 ambulatory [facility] Work Phone: Start: 02-25-2023 End: 02-25-2023 [facility] Start: 02-24-2023 End: 02-24-2023 ambulatory [facility] Work Phone: Start: 02-24-2023 End: 02-24-2023 Patient encounter procedure [facility] Work Phone: Start: 05-23-2022 End: 05-23-2022 ambulatory [facility] Work Phone: Start: 05-23-2022 End: 05-23-[address] [facility] Start: 11-14-2021 End: 11-14-[address] Nolan Nguyen Work Phone: [facility] Start: 10-10-2021 End: 10-10-[address] Nolan Nguyen Work Phone: [facility] Start: 10-09-2021 End: 10-09-2021 Patient encounter procedure Angelica Can MD Work Phone: V[facility] Surg Dept Comment on above: Carotid stenosis, as ymptomatic, bilateral (Primary Dx); PAD (peripheral artery disease) (HCC) Start: 10-01-2021 End: 10-01-[address] Nolan Nguyen Work Phone: [facility] Start: 10-01-2021 End: 10-01-[address] Nolan Nguyen Work Phone: [facility]ly [facility], [facility] Start: 09-22-2021 Non-patient / Non-visit Dr. Lillie Nguyen Work Phone: [facility] Start: 09-22-2021 Non-patient / Non-visit Dr. Lillie Nguyen Work Phone: [facility] Start: 09-21-2021 Non-patient / Non-visit Dr. Lillie Nguyen Work Phone: [facility] Start: 09-21-2021 Non-patient / Non-visit Dr. Lillie Nguyen Work Phone: [facility] Start: 09-20-2021 Non-patient / Non-visit Dr. Lillie Nguyen Work Phone: [facility] Start: 09-20-2021 Non-patient / Non-visit Dr. Lillie Nguyen Work Phone: [facility] Start: 09-20-2021 End: 09-22-2021 Evaluation and management of inpatient Dr. Nolan Nguyen [facility] Start: 09-03-2021 Telephone encounter Angelica kirkpatrick MD Work Phone: Vascular Surg Dept Comment on above: Appointment Start: 07-16-2021 Non-patient / Non-visit Dr. Lillie Nguyen Work Phone: [facility] Start: 07-16-2021 End: 07-16-2021 Admission to same day surgery center Dr. Nolan Nguyen Work Phone: [facility]-Endoscopy Start: 06-25-2021 End: 06-25-[address] Nolan Nguyen Work Phone: [facility] Procedures Date Procedure Procedure Detail Performing Clinician Start: 08-04-[address] Nolan Nguyen MD Work Phone: Start: 08-04-2024 Serum inorganic phosphate measurement Dr. Nolan Nguyen MD Work Phone: Start: 03-13-2023 Biopsy/Inj or Needle Placement Dr. Nolan Nguyen Work Phone: Start: 02-26-2023 Computed tomography of abdomen and pelvis with contrast Start: 02-24-2023 Diagnostic radiography of abdomen Start: 10-01-2021 Diagnostic radiography of abdomen, decubitus and erect Dr. Nolan Nguyen Work Phone: Start: 09-22-2021 Plain X-ray abdomen Dr. Nolan Nguyen Work Phone: Start: 09-21-2021 Plain X-ray abdomen Dr. Nolan Nguyen Work Phone: Start: 09-21-2021 Plain chest X-ray Dr. Nolan Nguyen Work Phone: Start: 09-20-[address] Nolan Nguyen Work Phone: Start: 09-20-2021 Plain X-ray abdomen Dr. Nolan Nguyen Work Phone: Start: 09-20-2021 Computed tomography of abdomen and pelvis with intravenous contrast Dr. Nolan Nugyen Work Phone: Start: 01-19-2017 Screening for malignant neoplasm of colon Screening colon for malignant neoplasm Gordon Mckay MD Start: 01-19-2017 End: 01-19-2017 Dietary management education, guidance, and counseling Gordon Mckay MD Start: 06-20-2016 End: 06-20-2016 *Hepatic Function Panel [facility] Per[facility] Start: 06-20-2016 End: 06-20-2016 ALEC Valadez MD Start: 06-20-2016 End: 06-20-2016 Follow Up Appt 1 year Jesse Valadez MD Start: 06-20-2016 End: 06-20-2016 Lipid 1996 panel - Serum or Plasma Jesse Valadez MD Start: 06-20-2016 End: 06-20-2016 *Hepatic Function Panel [facility] Start: 06-20-2016 End: 06-20-2016 ALEC Valadez MD Start: 06-20-2016 End: 06-20-2016 Follow Up Appt 1 year Jesse Valadez MD Start: 06-20-2016 End: 06-20-2016 Lipid panel [AGGREGATE] [facility] Start: 12-18-2015 End: 06-25-2016 *Hepatic Function Panel [facility] Per[facility] Start: 12-18-2015 End: 06-25-2016 Lipid 1996 panel - Serum or Plasma Jesse Valadez MD Start: 12-18-2015 End: 06-25-2016 *Hepatic Function Panel JessePepe Connors Start: 12-18-2015 End: 06-25-2016 Lipid panel [AGGREGATE] [facility] Peraza Start: 06-19-2015 End: 06-19-2015 *Hepatic Function Panel [facility] Per[facility] Start: 06-19-2015 End: 06-19-2015 ALEC Valadez MD Start: 06-19-2015 End: 06-19-2015 Follow Up Appt 1 year Jesse Valadez MD Start: 06-19-2015 End: 06-19-2015 Lipid 1996 panel - Serum or Plasma Jesse Valadez MD Start: 06-19-2015 End: 06-19-2015 *Hepatic Function Panel Pepe Peraza Start: 06-19-2015 End: 06-19-2015 ALEC Valadez MD Start: 06-19-2015 End: 06-19-2015 Follow Up Appt 1 year Jesse Valadez MD Start: 06-19-2015 End: 06-19-2015 Lipid panel [AGGREGATE] [facility] Per[facility] Start: 06-11-2015 End: 06-19-2015 *Hepatic Function Panel Pepe Peraza Start: 06-11-2015 End: 06-19-2015 Lipid 1996 panel - Serum or Plasma Jesse Valadez MD Start: 06-11-2015 End: 06-19-2015 *Hepatic Function Panel Pepe Peraza Start: 06-11-2015 End: 06-19-2015 Lipid panel [AGGREGATE] [place] Pepe Lucero Start: 12-14-2014 End: 01-02-2015 *Hepatic Function Panel [place] Pepe Lucero Start: 12-14-2014 End: 01-02-2015 Lipid 1996 panel - Serum or Plasma Jesse Valadez MD Start: 12-14-2014 End: 01-02-2015 *Hepatic Function Panel Pepe Peraza Start: 12-14-2014 End: 01-02-2015 Lipid panel [AGGREGATE] [facility] Peraza Start: 06-15-2014 End: 06-16-2014 *Hepatic Function Panel [facility] Peraza Start: 06-15-2014 End: 06-15-2014 ALEC Valadez MD Start: 06-15-2014 End: 06-16-2014 Documentation of current medications Jesse Valadez MD Start: 06-15-2014 End: 06-15-2014 Follow Up Appt 1 year Jesse Valadez MD Start: 06-15-2014 End: 06-16-2014 Lipid 1996 panel - Serum or Plasma Jesse Valadez MD Start: 06-15-2014 End: 06-16-2014 *Hepatic Function Panel Pepe Peraza Start: 06-15-2014 End: 06-15-2014 ALEC Valadez MD Start: 06-15-2014 End: 06-16-2014 Documentation of current medications Jesse Valadez MD Start: 06-15-2014 End: 06-15-2014 Follow Up Appt 1 year Jesse Valadez MD Start: 06-15-2014 End: 06-16-2014 Lipid panel [AGGREGATE] [facility] Start: 06-02-2013 End: 06-02-2013 ALEC Corona PA-C Work Phone: Start: 06-02-2013 End: 06-02-2013 Follow Up Appt 6 months Em Corona PA-C Work Phone: Start: 06-02-2013 End: 06-02-2013 ALEC Corona PA-C Work Phone: Start: 06-02-2013 End: 06-02-2013 Follow Up Appt 6 months Em Corona PA-C Work Phone: Start: 11-18-2012 End: 11-18-2012 Follow Up Appt 6 months Pepe Peraza Start: 11-18-2012 End: 11-18-2012 EBEN Valadez MD Start: 11-18-2012 End: 11-18-2012 Follow Up Appt 6 months Pepe Peraza Start: 11-18-2012 End: 11-18-2012 EBEN Valadez MD Start: 11-26-2011 End: 11-27-2011 Ecg routine ecg w/least 12 lds w/i&r Jesse Valadez MD Start: 11-26-2011 End: 11-18-2012 Follow Up Appt 1 year Jesse Valadez MD Start: 11-26-2011 End: 06-12-2016 Preoperative cardiovascular examination PRE-OPERATIVE CARDIOVASCULAR EXAMINATION Gordon Mckay MD Start: 11-26-2011 End: 11-27-2011 Electrocardiogram, complete Jesse Valadez MD Start: 11-26-2011 End: 11-18-2012 Follow Up Appt 1 year Jesse Valadez MD Start: 10-30-2011 End: 11-27-2011 *Hepatic Function Panel Pepe Peraza Start: 10-30-2011 End: 11-27-2011 Lipid 1996 panel - Serum or Plasma Jesse Valadez MD Start: 10-30-2011 End: 11-27-2011 *Hepatic Function Panel Pepe Peraza Start: 10-30-2011 End: 11-27-2011 Lipid panel [AGGREGATE] [facility] Peraza Plan of Treatment Date Care Activity Detail Author Start: 09-27-2033 Urine microalbumin profile DTa P,Tdap,Td Vaccine (3 - Td or Tdap) [facility] Start: 07-03-2027 Urine microalbumin profile DTa P,Tdap,Td Vaccine (2 - Td or Tdap) [facility] Start: 10-06-2024 BP Controlled (<130/80) BP Con trolled (<130/80) [facility] Start: 01-10-2024 Influenza vaccination Influenz a Vaccine (Season Ended) [facility] Start: 10-14-2023 End: 10-14-2023 Patient encounter procedure Vascular Karen jimmie Comment on above: DX:Carotid stenosis, asymptomatic, bilateral Start: 07-19-2023 Covid-19 Vaccine ( season) Covid-19 Vaccine ( season) [facility] Start: 05-11-2023 Advance Directive Discussion A dvance Directive Discussion [facility] Start: 05-11-2023 Behavioral Health Screening Be havioral Health Screening [facility] Start: 05-11-2023 Depression Assessment Depression Ass essment [facility] Start: 03-13-2023 Renal biopsy prq trocar/needle RENAL BIOPSY PERQ [facility] Start: 03-13-2023 Following clinical p athway protocol [facility] Start: 03-13-2023 Catheterization of vein [facility] Start: 03-13-2023 Oxygen therapy [facility] Start: 03-13-2023 Patient discharge [facility] Start: 03-13-2023 Vital signs measurements [facility] Start: 03-03-2023 [facility] Start: 02-26-2023 Following clinical p athway protocol [facility] Start: 01-09-2023 Covid-19 Vaccine () Covid-19 Vaccine () [facility] Start: 01-09-2023 Influenza vaccination Influenz a Vaccine (#1) [facility] Start: 01-08-2023 DIABETES SCREEN DIABETES SCREEN [facility] Start: 01-08-2023 Diabetes Screening Diabetes Screenin g [facility] Start: 01-09-2022 Influenza vaccination INFLUENZ A (Season Ended) [facility] Start: 09-22-2021 [facility] Work Phone: Start: 09-22-2021 Care planning and pr oblem solving actions [facility] Work Phone: Start: 09-22-2021 Patient discharge [facility] Work Phone: Start: 09-21-2021 Application of inter mittent pneumatic compression device [facility] Work Phone: Start: 09-20-2021 End: 09-21-2021 [facility] Work Phone: Start: 09-20-2021 Consultation [facility] Work Phone: Start: 09-20-2021 Application of inter mittent pneumatic compression device [facility] Work Phone: Start: 09-20-2021 Provision of activit y privileges [facility] Work Phone: Start: 09-20-2021 Following clinical p athway protocol [facility] Work Phone: Start: 09-20-2021 Assessment of risk o f venous thromboembolism [facility] Work Phone: Start: 09-20-2021 Care regimes management [facility] Work Phone: Start: 09-20-2021 Catheterization of vein [facility] Work Phone: Start: 09-20-2021 Incentive spirometry [facility] Work Phone: Start: 09-20-2021 Insertion of cathete r into peripheral vein [facility] Work Phone: Start: 09-20-2021 Measuring intake and output [facility] Work Phone: Start: 09-20-2021 Notification of physician [facility] Work Phone: Start: 09-20-2021 Providing care accor ding to standard [facility] Work Phone: Start: 09-20-2021 Provision of activit y privileges [facility] Work Phone: Start: 09-20-2021 Referral to general surgeon [facility] Work Phone: Start: 09-20-2021 Referral to occupati onal therapist [facility] Work Phone: Start: 09-20-2021 Referral to service [facility] Work Phone: Start: 09-20-2021 Admission procedure [facility] Work Phone: Start: 09-20-2021 Plain X-ray abdomen Abdomen Si ngle View (Portable) [facility] Work Phone: Start: 09-20-2021 Inhalation therapy procedure [facility] Work Phone: Start: 09-20-2021 [facility] Work Phone: Start: 07-16-2021 Colsc flx w/rmvl of tumor polyp lesion snare tq COLONOSCOPY W/LESION REMOVAL [facility] Work Phone: Start: 05-11-2021 ADVANCE DIRECTIVE DISCUSSION A DVANCE DIRECTIVE DISCUSSION [facility] Start: 12-25-2020 COVID-19 VACCINE (3 - Booster for Moderna series) COVID-19 VACCINE (3 - Booster for Moderna series) [facility] Start: 06-23-2017 End: 06-23-2017 Appointment Appointment [facility] [employer] Work Phone: Start: 01-19-2017 End: 01-19-2017 Colonoscopy flx dx w/collj spec when pfrmd Colonoscopy [facility] [employer] Work Phone: Start: 01-19-2017 End: 01-19-2017 Appointment Appointment [facility] [employer] Work Phone: Start: 01-19-2017 End: 01-19-2017 Diagnostic colonoscopy Colonoscopy [facility] [employer] Work Phone: Start: 12-18-2016 End: 06-25-2016 *Hepatic Function Panel *Hepatic Function Panel [facility] [employer] Work Phone: Start: 12-18-2016 End: 06-25-2016 Lipid 1996 panel *Lipid Profile CC PCP [facility] [employer] Work Phone: Start: 12-18-2016 End: 06-25-2016 *Hepatic Function Panel *Hepatic Function Panel [facility] [employer] Work Phone: Start: 12-18-2016 End: 06-25-2016 Lipid panel [AGGREGATE] *Lipid Profile CC PCP [facility] [employer] Work Phone: Start: 06-20-2016 End: 06-20-2016 *Hepatic Function Panel *Hepatic Function Panel [facility] [employer] Work Phone: Start: 06-20-2016 End: 06-20-2016 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[facility] [employer] Work Phone: Start: 06-20-2016 End: 06-20-2016 Follow Up Appt 1 year Follow Up Appt 1 year [facility] [employer] Work Phone: Start: 06-20-2016 End: 06-20-2016 Lipid 1996 panel *Lipid Profile CC PCP [facility] [employer] Work Phone: Start: 06-20-2016 End: 06-20-2016 *Hepatic Function Panel *Hepatic Function Panel [facility] [employer] Work Phone: Start: 06-20-2016 End: 06-20-2016 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[facility] [employer] Work Phone: Start: 06-20-2016 End: 06-20-2016 Follow Up Appt 1 year Follow Up Appt 1 year [facility] [employer] Work Phone: Start: 06-20-2016 End: 06-20-2016 Lipid panel [AGGREGATE] *Lipid Profile CC PCP [facility] [employer] Work Phone: Start: 12-18-2015 End: 06-25-2016 *Hepatic Function Panel *Hepatic Function Panel [facility] [employer] Work Phone: Start: 12-18-2015 End: 06-25-2016 Lipid 1996 panel *Lipid Profile CC PCP [facility] [employer] Work Phone: Start: 12-18-2015 End: 06-25-2016 *Hepatic Function Panel *Hepatic Function Panel [facility] [employer] Work Phone: Start: 12-18-2015 End: 06-25-2016 Lipid panel [AGGREGATE] *Lipid Profile CC PCP [facility] [employer] Work Phone: Start: 06-19-2015 End: 06-19-2015 *Hepatic Function Panel *Hepatic Function Panel [facility] [employer] Work Phone: Start: 06-19-2015 End: 06-19-2015 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[facility] [employer] Work Phone: Start: 06-19-2015 End: 06-19-2015 Follow Up Appt 1 year Follow Up Appt 1 year [facility] [employer] Work Phone: Start: 06-19-2015 End: 06-19-2015 Lipid 1996 panel *Lipid Profile CC PCP [facility] [employer] Work Phone: Start: 06-19-2015 End: 06-19-2015 *Hepatic Function Panel *Hepatic Function Panel [facility] [employer] Work Phone: Start: 06-19-2015 End: 06-19-2015 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[facility] [employer] Work Phone: Start: 06-19-2015 End: 06-19-2015 Follow Up Appt 1 year Follow Up Appt 1 year [facility] [employer] Work Phone: Start: 06-19-2015 End: 06-19-2015 Lipid panel [AGGREGATE] *Lipid Profile CC PCP [facility] [employer] Work Phone: Start: 06-11-2015 End: 06-19-2015 *Hepatic Function Panel *Hepatic Function Panel [facility] [employer] Work Phone: Start: 06-11-2015 End: 06-19-2015 Lipid 1996 panel *Lipid Profile CC PCP [facility] [employer] Work Phone: Start: 06-11-2015 End: 06-19-2015 *Hepatic Function Panel *Hepatic Function Panel [facility] [employer] Work Phone: Start: 06-11-2015 End: 06-19-2015 Lipid panel [AGGREGATE] *Lipid Profile CC PCP [facility] Work Phone: Start: 12-14-2014 End: 01-02-2015 *Hepatic Function Panel *Hepatic Function Panel [facility] Work Phone: Start: 12-14-2014 End: 01-02-2015 Lipid 1996 panel *Lipid Profile CC PCP [facility] [employer] Work Phone: Start: 12-14-2014 End: 01-02-2015 *Hepatic Function Panel *Hepatic Function Panel [facility] [employer] Work Phone: Start: 12-14-2014 End: 01-02-2015 Lipid panel [AGGREGATE] *Lipid Profile CC PCP [facility] Work Phone: Start: 06-15-2014 End: 06-16-2014 *Hepatic Function Panel *Hepatic Function Panel [facility] Work Phone: Start: 06-15-2014 End: 06-15-2014 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[facility] [employer] Work Phone: Start: 06-15-2014 End: 06-15-2014 Follow Up Appt 1 year Follow Up Appt 1 year [facility] Work Phone: Start: 06-15-2014 End: 06-16-2014 Lipid 1996 panel *Lipid Profile CC PCP [facility] Work Phone: Start: 06-15-2014 End: 06-16-2014 *Hepatic Function Panel *Hepatic Function Panel [facility] Work Phone: Start: 06-15-2014 End: 06-15-2014 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[facility] Work Phone: Start: 06-15-2014 End: 06-15-2014 Follow Up Appt 1 year Follow Up Appt 1 year [facility] [employer] Work Phone: Start: 06-15-2014 End: 06-16-2014 Lipid panel [AGGREGATE] *Lipid Profile CC PCP [facility] Work Phone: Start: 06-02-2013 End: 06-02-2013 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[facility] Work Phone: Start: 06-02-2013 End: 06-02-2013 Follow Up Appt 6 months Follow Up Appt 6 months [facility] Work Phone: Start: 06-02-2013 End: 06-02-2013 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[facility] Work Phone: Start: 06-02-2013 End: 06-02-2013 Follow Up Appt 6 months Follow Up Appt 6 months [facility] Work Phone: Start: 11-18-2012 End: 11-18-2012 Follow Up Appt 6 months Follow Up Appt 6 months [facility] Work Phone: Start: 11-18-2012 End: 11-18-2012 MMM MMM [facility] [employer] Work Phone: Start: 11-18-2012 End: 11-18-2012 Follow Up Appt 6 months Follow Up Appt 6 months [facility] Work Phone: Start: 11-18-2012 End: 11-18-2012 MMM MMM [facility] Work Phone: Start: 09-28-2012 SHINGRIX VACCINE (2 of 3) KAHN GRIX VACCINE (2 of 3) [facility] Start: 11-26-2011 End: 11-27-2011 Ecg routine ecg w/least 12 lds w/i&r EKG (In office) [facility] Work Phone: Start: 11-26-2011 End: 11-18-2012 Follow Up Appt 1 year Follow Up Appt 1 year [facility] Work Phone: Start: 11-26-2011 End: 11-27-2011 Electrocardiogram, complete EKG (In office) [facility] Work Phone: Start: 11-26-2011 End: 11-18-2012 Follow Up Appt 1 year Follow Up Appt 1 year [facility] Work Phone: Start: 10-30-2011 End: 11-27-2011 *Hepatic Function Panel *Hepatic Function Panel [facility] Work Phone: Start: 10-30-2011 End: 11-27-2011 Lipid 1996 panel *Lipid Profile [facility] Work Phone: Start: 10-30-2011 End: 11-27-2011 *Hepatic Function Panel *Hepatic Function Panel [facility] Work Phone: Start: 10-30-2011 End: 11-27-2011 Lipid panel [AGGREGATE] *Lipid Profile [facility] Work Phone: Start: 2010 PNEUMOCOCCAL: 65+ (1 - PCV) PN EUMOCOCCAL: 65+ (1 - PCV) [facility] Start: 2010 PNEUMOVAX AGE 65 AND OVER WITH 5YR LOOKBACK (#1) PNEUMOVAX AGE 65 AND OVER WITH 5YR LOOKBACK (#1) [facility] Start: 2005 RSV Vaccine (1 - 1-d ose 60+ series) RSV Vaccine (1 - 1-dose 60+ series) [facility] Start: 02-28-1964 Urine microalbumin profile DTA P,TDAP,TD (1 - Tdap) [facility] Start: 1963 ANNUAL PCP TEAM GARNETT FEEDER CARSON DISEASE VISIT ANNUAL PCP TEAM CHRONIC DISEASE VISIT [facility] Start: 1963 BP CONTROLLED (<130/80) BP CON TROLLED (<130/80) [facility] Start: 1963 HEPATITIS C SCREENING HEPATITIS C [facility] Start: 1963 Hepatitis C screening Hepatitis C [facility] Start: 1957 Adult depression scr eening assessment DEPRESSION SCREENING [facility] 24 hour urine measurement [facility] Albumin [Mass/volume ] in Urine [facility] Basic metabolic 2008 panel with ionized calcium - Serum or Plasma [facility] Electrophoresis: beta-globulin [facility] Electrophoresis: jeovany ma globulin [facility] Fluid sample globulin level [facility] Magnesium measurement [facility] Mitotic spindle appa ratus Ab [Titer] in Serum or Plasma [facility] Neuronal nuclear Ab [Presence] in Serum by Immunofluorescence [facility] Neutrophil cytoplasm ic Ab.classic [Units/volume] in Serum [facility] NM Heart Views W str ess and W radionuclide IV [facility] Nuclear Ab [Titer] i n Serum by Immunofluorescence [facility] P-ANCA measurement [facility] Patient Education [facility] Work Phone: Patient referral [facility] Work Phone: Protein [Mass/volume ] in Urine [facility] Serum YUMIKO pattern [facility] Speckled nuclear Ab pattern [Titer] in Serum [facility] Thyroid stimulating hormone measurement [facility] End: 06-26-2024 US Abdominal Aorta US ABD AORTA COMPLETE [facility] Vascular Lab Routine Carotid stenosis, asymptomatic, bilateral 1 Occurrences starting 06/26/2023 until 06/26/2024 [facility] Work Phone: Comment on above: 1 Occurrences starti ng 06/26/2023 until 06/26/2024 End: 06-26-2024 US Carotid arteries - bilateral US CAROTID ARTERIES JHONY [facility] Vascular Lab Routine Carotid stenosis, asymptomatic, bilateral 1 Occurrences starting 06/26/2023 until 06/26/2024 [facility] Work Phone: Comment on above: 1 Occurrences starti ng 06/26/2023 until 06/26/2024 XR Abdomen upright a nd left lateral decubitus [facility] Work Phone: [facility] Immunizations Immunization Date Immunization Notes Care Provider Rod johnson 09-28-2023 tetanus toxoid, redu lisset diphtheria toxoid, and acellular pertussis vaccine, adsorbed Armani Aguilar MD Work Phone: [facility] 08-18-2021 Covid (Moderna) Dr. Nolan cheema Work Phone: [facility] 03-08-2021 Covid (Moderna) Dr. Nolan cheema Work Phone: [facility] 02-05-2021 influenza virus vaccine, unspecified formulation Nolan Nguyen MD Work Phone: [facility] 02-08-[address] Nolan Nguyen Work Phone: [facility] 08-03-2012 zoster vaccine, live Jean-Pierre Can MD Work Phone: [facility] 01-10-[address] Alina Nguyen Work Phone: [facility] Work Phone: 01-10-2012 pneumococcal vaccine , unspecified formulation [facility] 02-08-2011 influenza virus vaccine, unspecified formulation Angelica Can MD Work Phone: [facility] Payers Date Payer Category Payer Self-pay [id number] 2017 Medicare AETNA MEDICARE A ETNA MEDICARE PPO [id number] 2017-Present [phone] [address] [place] [address] PPO [id number] 2017 Medicare AETNA MEDICARE A ETNA MEDICARE PPO [id number] 2017-Present [phone] [address] [place] [address] PPO [id number] 2017 Private Health Insurance 101 [id number] 2014 Medicare [id number] 2006 Unknown [id number] Unknown [id number] 62 Unknown [id number] 62 Unknown [id number] 62 Unknown [id number] 62 Unknown [id number] 62 Unknown [id number] 62 Unknown [id number] 62 Unknown [id number] Social History Date Type Detail Facility Start: 02-11-2011 End: 03-13-2023 Tobacco smoking status LAIS Never smoked tobacco [facility] Start: 08-24-2020 End: 10-14-2023 Alcohol intake Current drinker of alcohol (finding) [facility] Start: 06-30-2011 History SDOH Alcohol Comment occasional seldom [facility] Start: 01-10-2020 History SDOH Financial 5 [facility] Start: 01-10-2020 History SDOH Food Worry 1 [facility] Start: 01-10-2020 History SDOH Transpo rt Med 2 [facility] Start: 1945 Sex Assigned At Male [facility] Start: 09-20-2021 End: 03-13-2023 Tobacco smoking status NHIS Unknown if ever smoked [facility] Start: 02-23-2013 None [facility] Start: 02-23-2013 Spouse/ Signif icant Other;With Family [facility] Start: 02-23-2013 Non-smoker [facility] Start: 09-29-2021 End: 10-09-2021 Exposure to SARS-CoV-2 (event) Not sure [facility] Start: 02-11-2011 Tobacco use and exposure Smokeless tobacco non-user [facility] Start: 10-09-2021 End: 10-14-2023 History of Social function [facility] Work Phone: Start: 10-09-2021 End: 10-14-2023 Tobacco use panel [facility] Work Phone: How hard is it for y ou to pay for the very basics like food, housing, medical care, and heating Not hard at all [facility] Work Phone: (I/We) worried yocasta er (my/our) food would run out before (I/we) got money to buy more. Never true [facility] Work Phone: Start: 11-19-2019 Gender identity Identifies as male gender (finding) [facility] Start: 11-19-2019 Sexual orientation Heterosexual (fin ding) [facility] Start: 08-11-2024 Sex Male (finding) [facility] Medical Equipment Procedure Code Equipment Code Equipment Origin al Text Equipment Identifier Dates Patch Cv 8x.8cm Tapr Vsgrd Bov - [id number] Start: 07-16-2011 Patch Bovine Pericardial Vascular Duravess 8x8 - [id number] Start: 01-09-2020 Goals Date Patient Goal Desired Activity /State Personal health goal Functional Status Date Assessment Result Facility 03-13-2023 Functional status Ambulates [facility] Work Phone: 02-26-2023 Functional status Bathroom Privilege [facility] Work Phone: 05-15-2022 Functional status Dangle Feet [facility] Work Phone: Mental Status Date Assessment Result Facility 03-13-2023 Cognitive function Voice/Name [facility] Work Phone: 02-26-2023 Cognitive function Awake;Alert;Appropriat [facility] Work Phone: 09-21-2021 Cognitive function Appropriate;Cooperativ e [facility] Work Phone: 07-16-2021 Cognitive function Voice/Name [facility] Work Phone: 07-16-2021 Cognitive function Patient Rex fernandez Person;Place;Time [facility] Work Phone: Clinical Notes 09-03-2021 to 11-30-2024 Note Date & Type Note Facility 11-30-2024 Evaluation note Diagnosis Onset Date Resolution Bilateral carotid artery stenosis chronic November 30, 2024 8:53am Essential (primary) hypertension chronic November 30, 2024 8:53am Hyperlipidemia chronic November 30, 2024 8:53am [facility] Work Phone: 1(734) 242-914106-05-2024 NoteHNO ID: [id number] Author: ANGELICA CAN MD Service: ? Author Type: Physician Type: Progress Notes Filed: 10/14/2023 12:47 Note Text: [facility] [place] DEPARTMENT OF VASCULAR SURGERY OUTPATIENT VISIT DATE October 14, 2023 OUTPATIENT VISIT TYPE ESTABLISHED SERVICE DATE: 10/14/2023 SERVICE TIME: 12:42 PM PRIMARY CARE PHYSICIAN: Nolan Nguyen MD HISTORY OF PRESENT ILLNESS: Mr. Monterroso is a 78 year old male who presents today for a vascular surgery follow-up visit today for follow-up of carotid artery stenosis denies any unilateral weak dysarthria or vision change. Also for follow-up of common iliac aneurysm bilaterally. No new complaints. 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 PAST MEDICAL HISTORY Diagnosis Date Carotid artery disease without cerebral infarction (HCC) Diverticulosis of colon (without mention of hemorrhage) Diverticulosis Mixed hyperlipidemia Hyperlipidemia Obese PMH - PAST MEDICAL HISTORY OF elevated CPK Unspecified essential hypertension Essential hypertension Unspecified sinusitis (chronic) Chronic sinusitis PAST SURGICAL HISTORY Procedure Laterality Date CAROTID - EXTERNAL 07/2011 Dr. Silviano Wilson COLONOSCOPY FLX DX W/COLLJ SPEC WHEN PFRMD 09/03/06 Diverticular dz of descending/sigmoid EYE SURGERY HX 2017 right eye torn retina LAPAROSCOPIC APPENDECTOMY 05/24/13 appendicitis LAPS SURG CHOLECYSTECTOMY W/CHOLANGIOGRAPHY 12/01/11 PAST SURGICAL HISTORY OF sinus PAST SURGICAL HISTORY OF Left Rotator Cuff, Dr. Ang @ [facility] RPR UMBILICAL HRNA 5 YRS/> REDUCIBLE 12/01/11 SOCIAL HISTORY Social History Tobacco Use Smoking status: Never Smokeless tobacco: Never Substance Use Topics Alcohol use: Yes Comment: occasional seldom Drug use: No MEDICATIONS: torsemide (DEMADEX) 20 mg tablet Take 20 mg by mouth once daily. metoprolol succinate ER (TOPROL XL) 100 mg Take 100 mg by mouth once daily. zafirlukast (ACCOLATE) 10 mg tablet Take 10 mg by mouth once daily. triamcinolone acetonide (NASACORT NASAL) Use in the nose once daily. vit A/vit C/vit E/zinc/copper (PRESERVISION AREDS ORAL) Take by mouth twice daily. BREO ELLIPTA 200-25 mcg/dose inhaler Inhale 1 Inhalation as instructed once daily. TERAZOSIN HCL (TERAZOSIN ORAL) Take 2 mg by mouth once daily. colesevelam (WELCHOL) 625 mg tablet Take 1,875 mg by mouth twice daily with meals. albuterol (PROVENTIL) 2.5 mg /3 mL (0.083 %) nebulizer solution Use 3 mL via nebulizer every 4 hours as needed for Wheezing/Shortness of Breath. Use over 5-15minutes. Dx: Bronchitis and Wheezing albuterol HFA 90 mcg/actuation inhaler Inhale 2 Puffs as instructed every 6 hours as needed for Wheezing/Shortness of Breath. rosuvastatin (CRESTOR) 5 mg tablet Take 5 mg by mouth every other day. ASPIRIN 81 MG TAB Take one(1) tablet daily. metFORMIN (GLUCOPHAGE) 500 mg tablet Take 500 mg by mouth once daily. (Patient not taking: Reported on 09/28/2023) spironolactone (ALDACTONE) 25 mg tablet Take 50 mg by mouth once daily. (Patient not taking: Reported on 09/28/2023) furosemide (LASIX) 40 mg tablet Take 40 mg by mouth once daily. (Patient not taking: Reported on 09/28/2023) amLODIPine 10 mg tablet Take 5 mg by mouth once daily. Take a half tablet once every day. (Patient not taking: Reported on 09/28/2023) ALLERGIES: ALLERGIES Allergen Reactions Eh Inhibitors Swelling Angioedema Niacin Other: See Comments flushing Ieyfibg-Hod-Taj Red* Intolerance PHYSICAL EXAM: BP 136/72 Pulse (!) 51 General: Alert and oriented Integumentary: Normal color, no rash, no lesions. HEENT: EOM, pupils equal, round and reactive. Cardiovascular: Normal S1 AND S2, no rubs, murmurs or gallops. No JVD., Pulse regular. Lungs: Normal breath sounds, no wheezes or crackles. Abdomen: Soft, non-tender, no rigidity. Full femoral pulse no popliteal or pedal pulse although this may be secondary to body habitus feet are warm well-perfused Diagnostic tests reviewed for today's visit: IMPRESSION: Mr. 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 Will need repeat ultrasound and 24 months. PLAN and RECOMMENDATIONS: As above SIGNATURE: Angelica Can MD PATIENT NAME: Xochitl Monterroso DATE: October 14, 2023 TIME: 12:42 [facility]06-05-2024 History of Present illness Narrative* Angelica Can MD - 10/14/2023 12:32 PM EDT Images from the original note were not included. [facility] [place] DEPARTMENT OF VASCULAR SURGERY OUTPATIENT VISIT DATE October 14, 2023 OUTPATIENT VISIT TYPE ESTABLISHED SERVICE DATE: 10/14/2023 SERVICE TIME: 12:42 PM PRIMARY CARE PHYSICIAN: Nolan Nguyen MD HISTORY OF PRESENT ILLNESS: Mr. Monterroso is a 78 year old male who presents today for a vascular surgery follow-up visit today for follow-up of carotid artery stenosis denies any unilateral weak dysarthria or vision change. Also for follow-up of common iliac aneurysm bilaterally. No new complaints. 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 PAST MEDICAL HISTORY Diagnosis Date Carotid artery disease without cerebral infarction (HCC) Diverticulosis of colon (without mention of hemorrhage) Diverticulosis Mixed hyperlipidemia Hyperlipidemia Obese PMH - PAST MEDICAL HISTORY OF elevated CPK Unspecified essential hypertension Essential hypertension Unspecified sinusitis (chronic) Chronic sinusitis PAST SURGICAL HISTORY Procedure Laterality Date CAROTID - EXTERNAL 07/2011 Dr. Silviano Wilson COLONOSCOPY FLX DX W/COLLJ SPEC WHEN PFRMD 09/03/06 Diverticular dz of descending/sigmoid EYE SURGERY HX 2017 right eye torn retina LAPAROSCOPIC APPENDECTOMY 05/24/13 appendicitis LAPS SURG CHOLECYSTECTOMY W/CHOLANGIOGRAPHY 12/01/11 PAST SURGICAL HISTORY OF sinus PAST SURGICAL HISTORY OF Left Rotator Cuff, Dr. Ang @ [facility] RPR UMBILICAL HRNA 5 YRS/> REDUCIBLE 12/01/11 SOCIAL HISTORY Social History Tobacco Use Smoking status: Never Smokeless tobacco: Never Substance Use Topics Alcohol use: Yes Comment: occasional seldom Drug use: No MEDICATIONS: torsemide (DEMADEX) 20 mg tablet Take 20 mg by mouth once daily. metoprolol succinate ER (TOPROL XL) 100 mg Take 100 mg by mouth once daily. zafirlukast (ACCOLATE) 10 mg tablet Take 10 mg by mouth once daily. triamcinolone acetonide (NASACORT NASAL) Use in the nose once daily. vit A/vit C/vit E/zinc/copper (PRESERVISION AREDS ORAL) Take by mouth twice daily. BREO ELLIPTA 200-25 mcg/dose inhaler Inhale 1 Inhalation as instructed once daily. TERAZOSIN HCL (TERAZOSIN ORAL) Take 2 mg by mouth once daily. colesevelam (WELCHOL) 625 mg tablet Take 1,875 mg by mouth twice daily with meals. albuterol (PROVENTIL) 2.5 mg /3 mL (0.083 %) nebulizer solution Use 3 mL via nebulizer every 4 hours as needed for Wheezing/Shortness of Breath. Use over 5- 15minutes. Dx: Bronchitis and Wheezing albuterol HFA 90 mcg/actuation inhaler Inhale 2 Puffs as instructed every 6 hours as needed for Wheezing/Shortness of Breath. rosuvastatin (CRESTOR) 5 mg tablet Take 5 mg by mouth every other day. ASPIRIN 81 MG TAB Take one(1) tablet daily. metFORMIN (GLUCOPHAGE) 500 mg tablet Take 500 mg by mouth once daily. (Patient not taking: Reportedon 09/28/2023) spironolactone (ALDACTONE) 25 mg tablet Take 50 mg by mouth once daily. (Patient not taking: Reported on 09/28/2023) furosemide (LASIX) 40 mg tablet Take 40 mg by mouth once daily. (Patient not taking: Reported on 09/28/2023) amLODIPine 10 mg tablet Take 5 mg by mouth once daily. Take a half tablet once every day. (Patient not taking: Reported on 09/28/2023) ALLERGIES: ALLERGIES Allergen Reactions Eh Inhibitors Swelling Angioedema Niacin Other: See Comments flushing Oimvpfl-Wqo-Txt Red* Intolerance PHYSICAL EXAM: BP 136/72 Pulse (!) 51 General: Alert and oriented Integumentary: Normal color, no rash, no lesions. HEENT: EOM, pupils equal, round and reactive. Cardiovascular: Normal S1 & S2, no rubs, murmurs or gallops. No JVD., Pulse regular. Lungs: Normal breath sounds, no wheezes or crackles. Abdomen: Soft, non-tender, no rigidity. Full femoral pulse no popliteal or pedal pulse although this may be secondary to body habitus feet are warm well-perfused Diagnostic tests reviewed for today's visit: IMPRESSION: Mr. Monterroso is a 78 year old male stable carotid artery stenosis., Common iliac artery aneurysm 2 cmproximally. Will need repeat ultrasound and 24 months. PLAN and RECOMMENDATIONS: As above SIGNATURE: Angelica Can MD PATIENT NAME: Xochitl Monterroso DATE: October 14, 2023 TIME: 12:42 PM [facility] NoteHNO ID: [id number] Author: DANIELE DUGAN APRN.[employer]ING [employer] Service: ? Author Type: Nurse Practitioner Type: Progress Notes Filed: 10/07/2023 12:57 Note Text: Subjective Patient came in for suture removal. Patient had them placed 9 days ago. Patient was kept as normal. Patient denies any difficulty during the healing process. Patient says he might of lost a suture. The history is provided by the patient. No computer language coder was used. Suture Removal Review of Systems Constitutional: Negative. Skin: Negative. Objective Physical Exam Constitutional: Appearance: Normal appearance. Pulmonary: Effort: Pulmonary effort is normal. Musculoskeletal: Hands: Comments: Well-approximated healed wound. 7 sutures were removed successfully. No further sutures were noted. Neurological: Mental Status: He is alert. PAST MEDICAL HISTORY Diagnosis Date Carotid artery disease without cerebral infarction (HCC) Diverticulosis of colon (without mention of hemorrhage) Diverticulosis Mixed hyperlipidemia Hyperlipidemia Obese PMH - PAST MEDICAL HISTORY OF elevated CPK Unspecified essential hypertension Essential hypertension Unspecified sinusitis (chronic) Chronic sinusitis PAST SURGICAL HISTORY Procedure Laterality Date CAROTID - EXTERNAL 07/2011 Dr. Silviano Wilson COLONOSCOPY FLX DX W/COLLJ SPEC WHEN PFRMD 09/03/06 Diverticular dz of descending/sigmoid EYE SURGERY HX 2017 right eye torn retina LAPAROSCOPIC APPENDECTOMY 05/24/13 appendicitis LAPS SURG CHOLECYSTECTOMY W/CHOLANGIOGRAPHY 12/01/11 PAST SURGICAL HISTORY OF sinus PAST SURGICAL HISTORY OF Left Rotator Cuff, Dr. Ang @ [facility] RPR UMBILICAL HRNA 5 YRS/> REDUCIBLE 12/01/11 ALLERGIES Eh Inhibitors, Niacin, and Ovpubvu-Ord-Mso Reductase Inhibitors MEDICATIONS torsemide (DEMADEX) 20 mg tablet metoprolol succinate ER (TOPROL XL) 100 mg Take 100 mg by mouth once daily. zafirlukast (ACCOLATE) 10 mg tablet Take 10 mg by mouth twice daily. triamcinolone acetonide (NASACORT NASAL) Use in the nose once daily. vit A/vit C/vit E/zinc/copper (PRESERVISION AREDS ORAL) Take by mouth twice daily. BREO ELLIPTA 200-25 mcg/dose inhaler INHALE ONE PUFF INTO THE LUNGS ONCE DAILY WITH GOOD ORAL CARE AFTER USE TERAZOSIN HCL (TERAZOSIN ORAL) Take 2 mg by mouth once daily. albuterol (PROVENTIL) 2.5 mg /3 mL (0.083 %) nebulizer solution Use 3 mL via nebulizer every 4 hours as needed for Wheezing/Shortness of Breath. Use over 5-15minutes. Dx: Bronchitis and Wheezing albuterol HFA 90 mcg/actuation inhaler Inhale 2 Puffs as instructed every 6 hours as needed for Wheezing/Shortness of Breath. rosuvastatin (CRESTOR) 5 mg tablet Take 5 mg by mouth every other day. ASPIRIN 81 MG TAB Take one(1) tablet daily. metFORMIN (GLUCOPHAGE) 500 mg tablet Take 500 mg by mouth once daily. (Patient not taking: Reported on 09/28/2023) spironolactone (ALDACTONE) 25 mg tablet Take 50 mg by mouth once daily. (Patient not taking: Reported on 09/28/2023) furosemide (LASIX) 40 mg tablet Take 40 mg by mouth once daily. (Patient not taking: Reported on 09/28/2023) colesevelam (WELCHOL) 625 mg tablet Take 1,875 mg by mouth twice daily with meals. amLODIPine 10 mg tablet Take 5 mg by mouth once daily. Take a half tablet once every day. (Patient not taking: Reported on 09/28/2023) FAMILY HISTORY Problem Relation Age of Onset Stroke Father Stroke Paternal Grandfather other (CT) Brother Stroke Brother other (carotid ASO) Brother other (AAA) Mother Social History Tobacco Use Smoking status: Never Smokeless tobacco: Never Substance Use Topics Alcohol use: Yes Comment: occasional seldom Drug use: No ASSESSMENT/PLAN: 1. Visit for suture removal - ICD9: V58.32, ICD10: Z48.02 Patient will keep the area clean and dry for the next several days. Patient will follow-up if anything new occurs. Daniele Dugan APRN.[facility]05-29-2024 History of Present illness Narrative* Daniele Dugan APRN.[facility] - 10/07/2023 12:50 PM EDT Images from the original note were not included. Subjective Patient came in for suture removal. Patient had them placed 9 days ago. Patient was kept as normal.Patient denies any difficulty during the healing process. Patient says he might of lost a suture. The history is provided by the patient. No computer language coder was used. Suture Removal Review of Systems Constitutional: Negative. Skin: Negative. Objective Physical Exam Constitutional: Appearance: Normal appearance. Pulmonary: Effort: Pulmonary effort is normal. Musculoskeletal: Hands: Comments: Well-approximated healed wound. 7 sutures were removed successfully. No further sutures were noted. Neurological: Mental Status: He is alert. PAST MEDICAL HISTORY Diagnosis Date Carotid artery disease without cerebral infarction (HCC) Diverticulosis of colon (without mention of hemorrhage) Diverticulosis Mixed hyperlipidemia Hyperlipidemia Obese PMH - PAST MEDICAL HISTORY OF elevated CPK Unspecified essential hypertension Essential hypertension Unspecified sinusitis (chronic) Chronic sinusitis PAST SURGICAL HISTORY Procedure Laterality Date CAROTID - EXTERNAL 07/2011 Dr. Silviano Wilson COLONOSCOPY FLX DX W/COLLJ SPEC WHEN PFRMD 09/03/06 Diverticular dz of descending/sigmoid EYE SURGERY HX 2017 right eye torn retina LAPAROSCOPIC APPENDECTOMY 05/24/13 appendicitis LAPS SURG CHOLECYSTECTOMY W/CHOLANGIOGRAPHY 12/01/11 PAST SURGICAL HISTORY OF sinus PAST SURGICAL HISTORY OF Left Rotator Cuff, Dr. Ang @ [facility] RPR UMBILICAL HRNA 5 YRS/> REDUCIBLE 12/01/11 ALLERGIES Eh Inhibitors, Niacin, and Yhjwhop-Gjy-Gor Reductase Inhibitors MEDICATIONS torsemide (DEMADEX) 20 mg tablet metoprolol succinate ER (TOPROL XL) 100 mg Take 100 mg by mouth once daily. zafirlukast (ACCOLATE) 10 mg tablet Take 10 mg by mouth twice daily. triamcinolone acetonide (NASACORT NASAL) Use in the nose once daily. vit A/vit C/vit E/zinc/copper (PRESERVISION AREDS ORAL) Take by mouth twice daily. BREO ELLIPTA 200-25 mcg/dose inhaler INHALE ONE PUFF INTO THE LUNGS ONCE DAILY WITH GOOD ORAL CARE AFTER USE TERAZOSIN HCL (TERAZOSIN ORAL) Take 2 mg by mouth once daily. albuterol (PROVENTIL) 2.5 mg /3 mL (0.083 %) nebulizer solution Use 3 mL via nebulizer every 4 hours as needed for Wheezing/Shortness of Breath. Use over 5- 15minutes. Dx: Bronchitis and Wheezing albuterol HFA 90 mcg/actuation inhaler Inhale 2 Puffs as instructed every 6 hours as needed for Wheezing/Shortness of Breath. rosuvastatin (CRESTOR) 5 mg tablet Take 5 mg by mouth every other day. ASPIRIN 81 MG TAB Take one(1) tablet daily. metFORMIN (GLUCOPHAGE) 500 mg tablet Take 500 mg by mouth once daily. (Patient not taking: Reportedon 09/28/2023) spironolactone (ALDACTONE) 25 mg tablet Take 50 mg by mouth once daily. (Patient not taking: Reported on 09/28/2023) furosemide (LASIX) 40 mg tablet Take 40 mg by mouth once daily. (Patient not taking: Reported on 09/28/2023) colesevelam (WELCHOL) 625 mg tablet Take 1,875 mg by mouth twice daily with meals. amLODIPine 10 mg tablet Take 5 mg by mouth once daily. Take a half tablet once every day. (Patient not taking: Reported on 09/28/2023) FAMILY HISTORY Problem Relation Age of Onset Stroke Father Stroke Paternal Grandfather other (CT) Brother Stroke Brother other (carotid ASO) Brother other (AAA) Mother Social History Tobacco Use Smoking status: Never Smokeless tobacco: Never Substance Use Topics Alcohol use: Yes Comment: occasional seldom Drug use: No ASSESSMENT/PLAN: 1. Visit for suture removal - ICD9: V58.32, ICD10: Z48.02 Patient will keep the area clean and dry for the next several days. Patient will follow-up if anything new occurs. Daniele Dugan APRN.[employer] documented [facility] NoteHNO ID: [id number] Author: ARMANI AGUILAR MD Service: ? Author Type: Physician Type: Progress Notes Filed: 09/28/2023 20:25 Note Text: Patient presents with: Laceration: Right ring finger laceration HPI: Pinched his right ring finger between 2 pieces of metal on his riding mower this evening. He cut the finger pad. Denies numbness. Unknown last tetanus booster. MEDICATIONS: torsemide (DEMADEX) 20 mg tablet metoprolol succinate ER (TOPROL XL) 100 mg Take 100 mg by mouth once daily. zafirlukast (ACCOLATE) 10 mg tablet Take 10 mg by mouth twice daily. triamcinolone acetonide (NASACORT NASAL) Use in the nose once daily. vit A/vit C/vit E/zinc/copper (PRESERVISION AREDS ORAL) Take by mouth twice daily. BREO ELLIPTA 200-25 mcg/dose inhaler INHALE ONE PUFF INTO THE LUNGS ONCE DAILY WITH GOOD ORAL CARE AFTER USE TERAZOSIN HCL (TERAZOSIN ORAL) Take 2 mg by mouth once daily. colesevelam (WELCHOL) 625 mg tablet Take 1,875 mg by mouth twice daily with meals. albuterol (PROVENTIL) 2.5 mg /3 mL (0.083 %) nebulizer solution Use 3 mL via nebulizer every 4 hours as needed for Wheezing/Shortness of Breath. Use over 5-15minutes. Dx: Bronchitis and Wheezing albuterol HFA 90 mcg/actuation inhaler Inhale 2 Puffs as instructed every 6 hours as needed for Wheezing/Shortness of Breath. rosuvastatin (CRESTOR) 5 mg tablet Take 5 mg by mouth every other day. ASPIRIN 81 MG TAB Take one(1) tablet daily. metFORMIN (GLUCOPHAGE) 500 mg tablet Take 500 mg by mouth once daily. (Patient not taking: Reported on 09/28/2023) spironolactone (ALDACTONE) 25 mg tablet Take 50 mg by mouth once daily. (Patient not taking: Reported on 09/28/2023) furosemide (LASIX) 40 mg tablet Take 40 mg by mouth once daily. (Patient not taking: Reported on 09/28/2023) amLODIPine 10 mg tablet Take 5 mg by mouth once daily. Take a half tablet once every day. (Patient not taking: Reported on 09/28/2023) ALLERGIES: ALLERGIES Allergen Reactions Eh Inhibitors Swelling Angioedema Niacin Other: See Comments flushing Bacznsq-Rsf-Nwi Red* Intolerance VITALS: BP 140/72 Pulse 60 Temp 36.4 ?C (97.5 ?F) Resp 20 Wt 127.2 kg (280 lb 6.8 oz) SpO2 95% BMI 42.64 kg/m? PE: Pleasant, in no acute distress. Right hand dominant. FINGER: right 4th. 2cm gaping transverse laceration just distal to the palmar DIP joint with extension into the pad below. Full finger ROM including DIP flexion and extension against resistance. Distal capillary refill <2 sec and normal sensation to light touch. Procedure: Anesthesia: digital block with 5cc % lidocaine. Site cleansed with hibiclens on gauze and irrigation under tap water. 8 simple interrupted sutures with 6-0 Prolene monofilament. Hemostasis achieved with wound closure. Wound dressed with bacitracin on an adhesive bandage and alluminum foam clamshell finger splint. ASSESSMENT/PLAN: 1. Laceration of right ring finger without foreign body without damage to nail, initial encounter - ICD9: 883.0, ICD10: S61.214A Keep sutures covered and dry for 48 hours. The dressing may be changed as needed. After 48 hours, sutures may be exposed to limited water but not submerged. Apply continuous pressure for 10 minutes if bleeding occurs. He may use OTC analgesia as needed. Seek re-evaluation for sign of infection such as spreading redness, warmth, pus-like discharge, increasing pain, or fever. Return for suture removal in 7-10 days. Armani Aguilar, [facility]05-20-2024 History of Present illness Narrative* Armani Aguilar MD - 09/28/2023 8:18 PM EDT Patient presents with: Laceration: Right ring finger laceration HPI: Pinched his right ring finger between 2 pieces of metal on his riding mower this evening. He cut the finger pad. Denies numbness. Unknown last tetanus booster. MEDICATIONS: torsemide (DEMADEX) 20 mg tablet metoprolol succinate ER (TOPROL XL) 100 mg Take 100 mg by mouth once daily. zafirlukast (ACCOLATE) 10 mg tablet Take 10 mg by mouth twice daily. triamcinolone acetonide (NASACORT NASAL) Use in the nose once daily. vit A/vit C/vit E/zinc/copper (PRESERVISION AREDS ORAL) Take by mouth twice daily. BREO ELLIPTA 200-25 mcg/dose inhaler INHALE ONE PUFF INTO THE LUNGS ONCE DAILY WITH GOOD ORAL CARE AFTER USE TERAZOSIN HCL (TERAZOSIN ORAL) Take 2 mg by mouth once daily. colesevelam (WELCHOL) 625 mg tablet Take 1,875 mg by mouth twice daily with meals. albuterol (PROVENTIL) 2.5 mg /3 mL (0.083 %) nebulizer solution Use 3 mL via nebulizer every 4 hours as needed for Wheezing/Shortness of Breath. Use over 5- 15minutes. Dx: Bronchitis and Wheezing albuterol HFA 90 mcg/actuation inhaler Inhale 2 Puffs as instructed every 6 hours as needed for Wheezing/Shortness of Breath. rosuvastatin (CRESTOR) 5 mg tablet Take 5 mg by mouth every other day. ASPIRIN 81 MG TAB Take one(1) tablet daily. metFORMIN (GLUCOPHAGE) 500 mg tablet Take 500 mg by mouth once daily. (Patient not taking: Reportedon 09/28/2023) spironolactone (ALDACTONE) 25 mg tablet Take 50 mg by mouth once daily. (Patient not taking: Reported on 09/28/2023) furosemide (LASIX) 40 mg tablet Take 40 mg by mouth once daily. (Patient not taking: Reported on 09/28/2023) amLODIPine 10 mg tablet Take 5 mg by mouth once daily. Take a half tablet once every day. (Patient not taking: Reported on 09/28/2023) ALLERGIES: ALLERGIES Allergen Reactions Eh Inhibitors Swelling Angioedema Niacin Other: See Comments flushing Tjqxoof-Gul-Qyc Red* Intolerance VITALS: BP 140/72 Pulse 60 Temp 36.4 C (97.5 F) Resp 20 Wt 127.2 kg (280 lb 6.8 oz) SpO2 95% BMI 42.64 kg/m PE: Pleasant, in no acute distress. Right hand dominant. FINGER: right 4th. 2cm gaping transverse laceration just distal to the palmar DIP joint with extension into the pad below. Full finger ROM including DIP flexion and extension against resistance. Distal capillary refill <2 sec and normal sensation to light touch. Procedure: Anesthesia: digital block with 5cc % lidocaine. Site cleansed with hibiclens on gauze and irrigation under tap water. 8 simple interrupted sutures with 6-0 Prolene monofilament. Hemostasis achieved with wound closure. Wound dressed with bacitracin on an adhesive bandage and alluminum foam clamshellfinger splint. ASSESSMENT/PLAN: 1. Laceration of right ring finger without foreign body without damage to nail, initial encounter -ICD9: 883.0, ICD10: S61.214A Keep sutures covered and dry for 48 hours. The dressing may be changed as needed. After 48 hours, sutures may be exposed to limited water but not submerged. Apply continuous pressure for 10 minutes if bleeding occurs. He may use OTC analgesia as needed. Seek re-evaluation for sign of infection suchas spreading redness, warmth, pus-like discharge, increasing pain, or fever. Return for suture removal in 7-10 days. Armani Aguilar MD documented in this encounterK[facility]02-14-2024 Miscellaneous Notes* Telephone Encounter - Nguyen Marcum - 06/24/2023 3:18 PM EST Reason for call: Pt's spouse called and she would like to schedule his follow up appt with Dr Can. Please call Raul for scheduling. Contact name: Raul Monterroso Home and cell number: [phone] Diagnosis: Carotid stenosis, asymptomatic, bilateral Kind Regards, Nguyen Noa documented in this encounterK[facility]11-03-2023 Procedure [facility]06-01-2022 History of Present illness Narrative* Angelica Can MD - 10/09/2021 2:50 PM EDT Patient seen today. Recently admitted for small bowel obstruction. Managed medically. Denies any unilateral weakness dysarthria vision changes. On examination palpable femoral popliteal pedal pulses. Abdomen is soft. Surgical incision is well-healed. Duplex ultrasound demonstrates no evidence of hemodynamically significant carotid stenosis. 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 Repeat carotid ultrasound abdominal aortic ultrasound in 2 years Angelica Can MD documented in this encounterK[facility]04-26-2022 Miscellaneous Notes* Telephone Encounter - Radha Zeng - 09/03/2021 2:10 PM EDT Spoke w/pt about updated appt time/date. He had questions about changes, messaged [facility] to reach out to him. Radha Segovia documented in this encounterKet[facility]burgEvaluation note* Diagnosis Onset Date Resolution Status Personal history of colonic polyps acute Small intestine obstruction acute Essential (primary) hypertension chronic Type 2 diabetes mellitus [facility] Work Phone: Evaluation note* Diagnosis Onset Date Resolution Status Personal history of colonic polyps acute Asthma chronic Bilateral carotid artery stenosis chronic Essential (primary) hypertension chronic Hyperlipidemia chronic Sleep apnea chronic Type 2 diabetes mellitus [facility] Small intestine obstruction resolved [facility] Work Phone: Evaluation note* Diagnosis Carotid stenosis, asymptomatic, bilateral- Primary PAD (peripheral artery disease) (HCC) Peripheral vascular disease, unspecified [facility] Diagnosis Onset Date Resolution Status Asthma chronic Bilateral carotid artery stenosis chronic Essential (primary) hypertension chronic Hyperlipidemia chronic Sleep apnea chronic Small intestine obstruction resolved SBO (small bowel obstruction) resolved Bilateral carotid artery stenosis chronic Essential (primary) hypertension chronic Hyperlipidemia chronic [facility] Work Phone: Evaluation noteNo assessment information available [facility] Work Phone: Evaluation note* Diagnosis Onset Date Resolution Status Acute kidney failure, unspecified acute [facility] Work Phone: Evaluation note* Diagnosis Carotid stenosis, asymptomatic, bilateral- Primary documented in this encounter [facility] note* Diagnosis Laceration of right ring finger without foreign body without damage to nail, initial encounter- Primary documented in this encounter [facility] note* Diagnosis Visit for suture removal- Primary Encounter for removal of sutures documented in this encounter [facility] note* Diagnosis PAD (peripheral artery disease) ([facility])- Primary Peripheral vascular disease, unspecified Obesity, Class III, BMI 40-49.9 (morbid obesity) (HCC) Morbid obesity Bilateral carotid artery stenosis Occlusion and stenosis of carotid artery without mention of cerebral infarction documented in this encounter [facility] note* Diagnosis Onset Date Resolution Status Admit Date Bilateral carotid artery stenosis chronic November 30, 2024 8:53am Essential (primary) hypertension chr onic November 30, 2024 8:53am Hyperlipidemia chronic November 30, 2024 8:53am [facility] Work Phone: [facility] Work Phone: Reason for referral (narrative)* Outpatient Procedure (Routine) - Authorized Specialty Diagnoses / Procedures Referred By Contac t Ref[facility] Diagnoses Carotid stenosis, asymptomatic, bilateral Procedures US ABD AORTA COMPLETE VAS LAB DUP-SCAN AORTA IVC ILIAC VASCL/BPGS COMPLETE Angelica Can MD [address] [place] [address] [facility] [place] [address] [place] [address] Referral ID Status Reason Start Date Expiration Date Visits Requested Visits Authorized [id number] Authorized Auto-Generat ed Referral 06/26/2023 06/25/2024 1 1 * Outpatient Procedure (Routine) - Authorized Specialty Diagnoses / Procedures Referred By Contac t Referred To Contact [facility] [place] Diagnoses Carotid stenosis, asymptomatic, bilateral Procedures US CAROTID ARTERIES JHONY VAS LAB DUPLEX SCAN EXTRACRANIAL ART COMPL BI STUDY Angelica Can MD [address] [place] [address] [address] Referral ID Status Reason Start Date Expiration Date Visits Requested Visits Authorized [id number] Authorized Auto-Generat ed Referral 06/26/2023 06/25/2024 1 1 [facility]No reason for referral information availableWUniversity Hospitals [facility] Work Phone: Advance Directives No Advanced Directives Records FoundDocuments on File Type Date Recorded Patient Immunopathologist Expl anation Advance Directive(s) 01/06/2020 12:36 PM Advance Directive(s) 01/03/2020 12:06 PM Advance Directive Response Recorded Date/ Time Name of Medical Power of Touch Up Painter Estelle mix July 11, 2021 3:57pm Advance Directives Yes May 25, 2013 1:40am Living Will Yes September 20, 2021 5 :46am Power of Touch Up Painter Yes September 20, 2021 5:46am Advance Directive Response Recorded Date/ Time Name of Medical Power of Touch Up Painter Estelle mix July 11, 2021 3:57pm Advance Directives Yes May 25, 2013 1:40am Living Will Yes September 20, 2021 8 :55am Power of Touch Up Painter Yes September 20, 2021 8:55am Advance Directive Response Recorded Date/ Time Name of Medical Power of Touch Up Painter raul cox September 20, 2021 8:55am Advance Directives Yes May 25, 2013 1:40am Living Will Yes September 20, 2021 8 :55am Power of Touch Up Painter Yes September 20, 2021 8:55am Advance Directive Response Recorded Date/ Time Advance Directives Yes May 25, 2013 12:40am Living Will Yes September 20, 2021 7 :55am Power of Touch Up Painter Yes September 20, 2021 7:55am Advance Directive Response Recorded Date/ Time Advance Directives Yes May 25, 2013 1:40am Living Will Yes September 20, 2021 8 :55am Power of Touch Up Painter Yes September 20, 2021 8:55am Advance Directive Response Recorded Date/ Time Advance Directives Yes May 25, 2013 1:40am Advance Directive Response Recorded Date/ Time Living Will Yes September 20, 2021 8 :55am Do you have a Healthcare Power of Touch Up Painter? Yes September 20, 2021 8:55am Advance Directives Yes May 25, 2013 1:40am Chief Complaint and Reason for Visit Chief Complaint Admit Date 1 Y FU November 30, 2024 8:53 am INT LABS November 30, 2024 9:43 am Reason for Visit Admit Date Bilateral carotid artery stenosis November 092024 8:53am Essential (primary) hypertension November 302024 8:53am Hyperlipidemia November 30, 2024 8:53 am Chief Complaint COLONOSCOPY SBO Reason for Visit Personal history of colonic polyps Small intestine obstruction Essential (primary) hypertension Type 2 diabetes mellitus Chief Complaint COLONOSCOPY SBO SBO SBO SBO SBO SBO SBO SBO Reason for Visit Personal history of colonic polyps Asthma Bilateral carotid artery stenosis Essential (primary) hypertension Hyperlipidemia Sleep apnea Type 2 diabetes mellitus Small intestine obstruction Chief Complaint SBO SBO SBO SBO SBO SBO SBO SBO eorder PARTIAL BOWEL OBSTRUCTION 6 M FU Reason for Visit Asthma Bilateral carotid artery stenosis Essential (primary) hypertension Hyperlipidemia Sleep apnea Small intestine obstruction SBO (small bowel obstruction) Bilateral carotid artery stenosis Essential (primary) hypertension Hyperlipidemia Chief Complaint ANASARCA Chief Complaint ANASARCA ACUTE RENAL FAILURE SYNDROME ACUTE RENAL FAILURE SYNDROME Reason for Visit Acute kidney failure , unspecified Chief Complaint SCREENING FRIENDS P ROGRAM Chief Complaint Admit Date 1 Y FU November 30, 2024 8:53 am Family History No Family History Records Found Relationship Condition Age at Onset Recorded Date/T flakita father Cerebrovascular accident (CVA) Unknown Hypertension Unknown mother Ruptured abdominal aortic aneurysm (AAA) Unknown brother Coronary artery disease Unknown brother Myocardial infarction Unknown Coronary artery disease Unknown History of carotid endarterectomy Unknown brother Diabetes mellitus Unknown sister Hyperlipidemia Unknown Summary Purpose Additional Source Comments Source Comments (unrecognize d section and content) In the event this informatio n is protected by the Federal Confidentiality of Alcohol and Drug Abuse Patient Records regulations: The Federal rules restrict any use of the information to criminally investigate or prosecute any alcohol or drug abuse patient.[facility]In the event this information is protected by the Federal Confidentiality of Alcohol and Drug Abuse Patient Records regulations: The Federal rules restrict any use of the information to criminally investigate or prosecute any alcohol or drug abuse patient.[facility]burgIn the event this information is protected by the Federal Confidentiality of Alcohol and Drug Abuse Patient Records regulations: The Federal rules restrict any use of the information to criminally investigate or prosecute any alcohol or drug abuse patient.[facility]burgIn the event this information is protected by the Federal Confidentiality of Alcohol and Drug Abuse Patient Records regulations: The Federal rules restrict any use of the information to criminally investigate or prosecute any alcohol or drug abuse patient.[facility]burg[facility] the event this information is protected by the Federal Confidentiality of Alcohol and Drug Abuse Patient Records regulations: The Federal rules restrict any use of the information to criminally investigate or prosecute any alcohol or drug abuse patient.[facility]burgIn the event this information is protected by the Federal Confidentiality of Alcohol and Drug Abuse Patient Records regulations: The Federal rules restrict any use of the information to criminally investigate or prosecute any alcohol or drug abuse patient.[facility] the event this information is protected by the Federal Confidentiality of Alcohol and Drug Abuse Patient Records regulations: The Federal rules restrict any use of the information to criminally investigate or prosecute any alcohol or drug abuse patient.[facility] Reason for Visit (unrecogniz ed section and content) Reason Comments Appointment Reason Comments Established Patient Reason Comments Laceration Right ring finger la ceration Reason Comments Suture Removal Right ring finger pl aced by us 9 days go Care Teams (unrecognized sec tion and content) Him Coder Relationship Specialty Start Date End Date Nolan Nguyen MD [address] [place] [address] PCP - General Family Practice 08/28/17 Team Status: Active Member Role Status Dates Dr. Nolan Nguyen MD Family Provider Active Dr. oNlan Nguyen MD Primary Care Provider Active Team Status: Inactive Member Role Status Dates Dr. Nolan Nguyen MD Primary Care Provi kaviat, Attending Provider, Referring Provider Active Team Status: Inactive Member Role Status Dates Dr. Nolan Nguyen MD Primary Care Provider Active Dr. Fady Whittington MD Attending Provider, Referring Prov ider Active Team Status: Active Member Role Status Dates Dr. Nolan Nguyen MD Primary Care Provider Active Dr. Fady Whittington MD Attending Provider Active Team Status: Active Member Role Status Dates Dr. Nolan Nguyen MD Primary Care Provi kavita, Attending Provider, Referring Provider Active Dr. Fady Whittington MD Other Provider Active Team Status: Active Member Role Status Dates Dr. Nolan Nguyen MD Primary Care Provider Active Dr. Mary Patel DO Attending Provider Active Team Status: Inactive Member Role Status Dates Dr. Nolan Nguyen MD Primary Care Provider Active Dr. Fady Whittington MD Attending Provider Active Team Status: Inactive Member Role Status Dates Dr. Nolan Nguyen MD Primary Care Provi kavita, Attending Provider, Referring Provider Active Dr. Fady Whittington MD Other Provider Active Team Status: Inactive Member Role Status Dates Dr. Nolan Nguyen MD Primary Care Provider Active Dr. Mary Patel DO Attending Provider Active Team Status: Active Member Role Status Dates Dr. Nolan Nguyen MD Primary Care Provider Active Dr. Mary Patel DO Referring Provider, Other Provi kavita Active ARACELIS Hopkins Attending Provider Active Team Status: Active Member Role Status Dates Dr. Nolan Nguyen MD Primary Care Provider Active Dr. Mary Patel DO Attending Provider, Referring P rovider Active Team Status: Inactive Member Role Status Dates Dr. Nolan Nguyen MD Primary Care Provider Active Dr. Mary Patel DO Attending Provider, Referring P rovider Active Team Status: Inactive Member Role Status Dates Dr. Nolan Nguyen MD Primary Care Provider, Attending Provider Active Him Coder Relationship Specialty Start Date End Date Nolan Nguyen MD [address] [facility] [address] [place], [place] [address] PCP - General Family Medicine 08/28/17 Him Coder Relationship Specialty Start Date End Date Nolan Nguyen MD [address] [facility] [address] [place], [place] [address] PCP - General Family Medicine 08/28/17 Team Status: Active Member Role Status Dates Dr. Nolan Nguyen MD Primary Care Provider Active Dr. Fady Anand MD Attending Provider Active Team Status: Active Member Role Status Dates Dr. Nolan Nguyen MD Primary Care Provider Active Self Referred Attending Provider, Referring Provider A ctive Him Coder Relationship Specialty Start Date End Date Nolan Nguyen MD [address] [facility] [address] [place] [address] PCP - General Family Medicine 08/28/17 Him Coder Relationship Specialty Start Date End Date Nolan Nguyen MD [address] [facility] [address] [place], [place] [id number] PCP - General Family Medicine 08/28/17 Team Status: Active Member Role Status Dates Dr. Nolan Nguyen MD Primary Care Provider Active Team Status: Inactive Member Role Status Dates Dr. Nolan Nguyen MD Primary Care Provider Active Start: July 04, 2024 End: July 04, 2024 Dr. Nolan Nguyen MD Attending Provider Active Start: July 04, 2024 End: July 04, 2024 Dr. Nolan Nguyen MD Referring Provider Active Start: July 04, 2024 End: July 04, 2024 Team Status: Inactive Member Role Status Dates Dr. Nolan Nguyen MD Primary Care Provider Active Start: August 04, 2024 End: August 04, 2024 Dr. Mary Patel DO Attending Provider Active Start: August 04, 2024 End: August 04, 2024 Dr. Mary Patel DO Referring Provider Active Start: August 04, 2024 End: August 04, 2024 Team Status: Active Member Role/Relationship Status Dates Dr. Nolan Nguyen MD Primary Care Provider Active Team Status: Inactive Member Role/Relationship Status Dates Dr. Nolan Nguyen MD Primary Care Provider Active Start: August 04, 2024 End: August 04, 2024 Dr. Mary Patel DO Attending Provider Active Start: August 04, 2024 End: August 04, 2024 Dr. Mary Patel DO Referring Provider Active Start: August 04, 2024 End: August 04, 2024 Team Status: Inactive Member Role/Relationship Status Dates Dr. Nolan Nguyen MD Primary Care Provider Active Start: November 30, 2024 End: November 30, 2024 Dr. Nolan Nguyen MD Referring Provider Active Start: November 30, 2024 End: November 30, 2024 LILLIE Muller Attending Provider Active St art: November 30, 2024 End: November 30, 2024 Team Status: Inactive Member Role/Relationship Status Dates Dr. Nolan Nguyen MD Primary Care Provider Active Start: November 30, 2024 End: November 30, 2024 Dr. Nolan Nguyen MD Referring Provider Active Start: November 30, 2024 End: November 30, 2024 LILLIE Muller Attending Provider Active St art: November 30, 2024 End: November 30, 2024 Team Status: Inactive Member Role/Relationship Status Dates Dr. Nolan Nguyen MD Primary Care Provider Active Start: November 30, 2024 End: November 30, 2024 LILLIE Muller Attending Provider Active St art: November 30, 2024 End: November 30, 2024 LILLIE Muller Referring Provider Active St art: November 30, 2024 End: November 30, 2024 Goals (unrecognized section and content) Goals may be documented in a n alternate sectionGoals may be documented in an alternate sectionGoals may be documented in an alternate sectionGoals may be documented in an alternate sectionGoals may be documented in an alternate sectionGoals may be documented in an alternate sectionGoals may be documented in an alternate sectionGoals may be documented in an alternate sectionGoals may be documented in an alternate sectionGoals may be documented in an alternate sectionGoals may be documented in an alternate sectionGoals may be documented in an alternate sectionGoals may be documented in an alternate sectionGoals may be documented in an alternate sectionGoals may be documented in an alternate sectionGoals may be documented in an alternate section (unrecognized sect ion and content) No Status Records FoundNo Status Records Found INFORMATION SOURCE (unrecogn ized section and content) DATE CREATED AUTHOR 10/15/2023 [facility] DATE CREATED AUTHOR AUTHOR'S SUNDAY HESS 12/25/2024 [facility] FOR RECORDS PERTAINING TO PATIENTS WHO ARE OR HAVE BEEN ENROLLED IN A CHEMICAL DEPENDENCY/SUBSTANCEABUSE PROGRAM, SOME INFORMATION MAY BE OMITTED. This clinical summary was aggregated from multiple sources. Caution should be exercised in using it in the provision of clinical care. This summary normalizes information from multiple sources, and as a consequence, information in this document may materially change the coding, format and clinical context of patient data. In addition, data may be omitted in some cases. CLINICAL DECISIONS SHOULD BE BASED ON THE PRIMARY CLINICAL RECORDS. [employer] provides no warranty or guarantee of the accuracy or completeness of information in this document.
--- NOTE | 2024-12-28 18:38 | STRESSREP ---
Stress Test Report Pharmacologic myocardial perfusion stress test. 79-year-old man with a history of dyspnea on exertion. Resting EKG demonstrates sinus bradycardia with a rate of 54 bpm. Resting blood pressure is 132/70 mmHg. 0.4 mg of regadenoson was infused per usual protocol followed by rapid intravenous saline flush injection. Continuous EKG monitoring was performed. The maximum heart rate was 69 bpm which was 48% of max impacted heart rate the maximum workload was 1 metabolic equivalent. At rest there were no ST or T wave changes noted to suggest ischemia and at peak infusion nonspecific ST changes were noted which did not meet the criteria for ischemia. No clinical angina is noted. The final blood pressure was 114/70 mmHg. Myocardial perfusion protocol. 14.8 mCi of technetium 99m sestamibi was injected at rest. 0.4 mg of regadenoson was infused per usual protocol. At peak infusion 45 mCi of technetium 99m sestamibi was injected stress images were obtained stress and rest images were reconstructed and compared in the short axis vertical long and horizontal long axis. Gated images were also obtained. Perfusion SPECT analysis: Review of the stress images demonstrate normal uptake of tracer noted in all areas of the myocardium. The resting images similar demonstrated normal uptake of tracer noted in all areas of the myocardium. No areas of reversibility are noted to suggest ischemia and no previous infarct is noted. Gated SPECT analysis: The gated ejection fraction is 65%. Conclusion: Normal pharmacologic myocardial perfusion stress test. Preserved ejection fraction.
== END | disposition home or self-care (01) ==
LOC: CVS 06:04
PROVIDERS: PCP Family Medicine; Referring Provider Student in an Organized Health Care Education/Training Program; Visit Provider Student in an Organized Health Care Education/Training Program
DX: R06.09 Other forms of dyspnea (principal); I47.20 Ventricular tachycardia, unspecified; I47.10 Supraventricular tachycardia, unspecified
CPT/HCPCS: 78452; 93017; A9500; A4216; J2785

== ENCOUNTER → 2025-02-23 | Outpatient (CLI) | payer MEDICARE, SELFPAY ==
--- OUTSIDE RECORDS SUMMARY | 2025-02-23 12:04 | XMS RPT_ITS | CCD ---
Author Organization [facility] CliniSyok Care Team Providers Care Calender Tender Name Role Phone Gordon Mckay MD Unavailable Nolan Nguyen MD Primary Care Provider [phone] Dr. Nolan Nguyen Primary Care Provider Dr. Nolan Nguyen Referring Provider Dr. Gordon Mckay Attending Provider Dr. Gordon Mckay Other Provider Dr. Sergio Bojorquez Emergency Provider Dr. Jessica Youssef Admit Provider Dr. Jessica Youssef Attending Provider Dr. Jessica Youssef Other Provider Dr. Lukas Callahan Other Provider Dr. Danilo Davalos Other Provider Alannah MUSICAL INSTRUMENT MECHANIC, MUSICAL INSTRUMENT MECHANIC-C Filomena Other Provider Dr. Lukas Callahan Attending Provider Dr. Nolan Nguyen Primary Care Provider Dr. Gordon Mckay Other Provider Dr. Jessica Youssef Referring Provider Dr. Gordon Mckay Attending Provider Dr. Nolan Nguyen Referring Provider Dr. Jesse Valadez Attending Provider Dr. Nolan Nguyen Primary Care Provider Dr. Mary Patel Referring Provider Dr. Mary Patel Other Provider [phone] ARACELIS Abraham Attending Provider [phone] Nolan Nguyen MD Primary Care Provider [phone] Nolan Nguyen Primary Care Provider Dr. Fady Anand Attending Provider Josue DUARTE, Nolan Cox Primary Care Provider JOSUE, NOLAN Cox Primary Care Unavailable JOSUE, NOLAN R Primary Care Unavailable JOSUE, NOLAN R Primary Care Unavailable ANGELICA CAN Attending Unavailable JOSUE, NOLAN Cox Primary Care Unavailable JOSUE, NOLAN Cox Primary Care Unavailable Josue DUARTE, Dr. Francisco Primary Care Provider [phone] Josue DUARTE, Dr. Francisco Attending Provider Josue DUARTE, Dr. Francisco Referring Provider Dr. Mary Patel DO Attending Provider [phone] Mary Patel DO Referring Provider [phone] Josue DUARTE, Dr. Francisco Primary Care Provider [phone] Josue DUARTE, Dr. Francisco Referring Provider [phone] Adis Lees Attending Provider [phone] Nolan Nguyen MD Primary Care Provider [phone] Teresita MOREIRA Adis Referring Provider [phone] Teresita MOREIRA Adis Other Provider Allyson DUARTE, Dr. Molina Attending Provider Nolan Nguyen Primary Care Unavailable Demiter, Adis Attending Unavailable Demiter, Adis Referring Unavailable Nguyen, Nolan Primary Care Unavailable Demiter, Adis Attending Unavailable Demiter, Adis Referring Unavailable Mary Patel Attending Unavailable Mary Patel Referring Unavailable Josue, Nolan Primary Care Unavailable Nguyen, Nolan Referring Unavailable Nguyen, Nolan Primary Care Unavailable Nguyen, Nolan Attending Unavailable Josue, Nolan Primary Care Unavailable Jesse Valadez Attending Unavailable Demiter, Adis Consulting Unavailable Demiter, Adis Referring Unavailable Lanetteiter, Adis Attending Unavailable Nolan Nguyen Primary Care Unavailable Nolan Nguyen Referring Unavailable Mary Patel Referring Unavailable Nolan Nguyen Primary Care Unavailable Mary Patel Attending Unavailable David Haas MD Unavailable NONE, NONE Unavailable Unavailable Nolan Nguyen MD Unavailable [phone] Allergies Allergy Classification Reported Allergen(s) Allergy Type Date of Onset Reaction(s) Facility Niacin (1 source) Niacin Drug Allergy 2 Other: See Comments [facility] (20 sources) Angiotensin Converting Enzyme (Eh) Inhibitors; Translations: [EH INHIBITORS] drug allergy 1 Swelling [facility] Work Phone: (3 sources) Hmg-Coa Reductase Inhibitors (Statins) drug allergy 1 pain [facility] Work Phone: (2 sources) ANGIOEDEMA drug allergy 1 From Lisionpril [facility] Work Phone: (3 sources) HMG-CoA reductase inhibitor; Translations: [GXQWTJG-SKE-UK A REDUCTASE INHIBITORS] Drug Allergy 1 Intolerance [facility] (20 sources) Niacin; Translations: [NIACIN] Drug Allergy 2 Other: See Comments [facility] (19 sources) Pkahnnj-Qnf-Cas Reductase Inhibitor; Translations: [Xqwvduh-Aqo-Kt a Reductase Inhibitor] Propensity to adverse reactions 2 [facility] (5 sources) HMG-CoA reductase inhibitor Drug Allergy 1 Intolerance [facility] (1 source) Niacin Drug Allergy 5 Repository (1 source) Niacin Drug Allergy 5 [facility] (1 source) EH INHIBATORS Allergy to substance (disorder) 5 [facility] Medications Current Medications Medication Drug Class(es) Dates [...] Base) MCG/ACT AERS as needed ALBUTEROL SULFATE [id number] Jesse Valadez MD Start: 06-15-2014 PROAIR HFA 108 (90 Base) MCG/ACT AERS as needed ALBUTEROL SULFATE [id number] Jesse Valadez MD Start: 10-21-2013 take 2 [...] Start: 08-22-2010 take 3 tablets by mo [facility] twice daily at mealtime Colesevelam 625 MG tablet Active 1875 mg PO TWICE DAILY WITH MEALS February 04, 2017 12:00am colesevelam 625 mg tablet active Soledad Semplak [facility] Comment on above: Take 1,875 mg by maikol twice daily with meals. Finerenone (4 sources) Start: take 1 tablet by mouth once daily Finerenone (Kerendia) 10 mg tablet Active 10 mg PO DAILY November 24, 2023 12:00am FINERENONE (1 source) Kerendia 10 mg tablet Take 1 tablet once a day active Soledad Semplak AT [facility] fluticasone propionate 0.05 mg/actuat metered dose nasal spray (18 sources) Corticosteroid Start: 9 Fluticasone Propionate 50 [...] 1:00am Start: 04-23-2017 take 1 puff(s) by mo [facility] once daily BREO ELLIPTA 200-25 mcg/dose inhaler INHALE ONE PUFF INTO THE LUNGS ONCE DAILY WITH GOOD ORAL CARE AFTER USE 04/23/2017 Active Breo Ellipta 200 mcg-25 mcg/dose powder for inhalation active Soledad Franco AT [facility] Comment on above: INHALE ONE PUFF INTO THE LUNGS ONCE DAILY WITH GOOD ORAL CARE AFTER USE 24 hr metoprolol succinate 100 mg extended release oral tablet (20 sources) beta-Adrenergic Sid Start: 09-30-2018 End: 10-17-2019 take 1 tablet by mouth once daily Metoprolol Succinate 100 mg tablet extended release 24 hr Active 100 mg PO DAILY 90 October 17, 2019 12:33pm Start: 11-18-2012 End: 09-30-2018 take 1 tablet by mouth once daily Metoprolol Succinate 50 mg tablet extended release 24 hr Discontinued 50 mg PO DAILY 90 October 28, 2017 3:22pm September 30, 2018 10:44am Start: 11-18-2012 [facility] TOPROL XL 50 MG CF25I-CDP One tablet by mouth daily METOPROLOL SUCCINATE [id number] Jesse Valadez MD metoprolol succi sahhid ER 100 mg tablet,extended release 24 hr active Soledad Farnco AT [facility] Comment on above: Take 100 mg by [...] MG PO Q12H June 23, 2017 1:00am terazosin 2 mg c apsule active Soledad Franco AT [facility] take 2 mg by mouth once daily TE RAZOSIN HCL (TERAZOSIN ORAL) Take 2 mg by mouth once daily. 0 Active Comment on above: Take 2 mg by mouth o nce daily. torsemide 5 mg oral tablet (8 sources) Loop Diuretic Start: 11-24-2023 take 1 [...] above: Take by mouth twice daily. Vitamins A,C,Y-Eutl-Mpagzz (Preservision Areds) 14,320-226-200 okek-fg-mjwq capsule (18 sources) Start: take 1 capsule by mouth twice daily Vitamins A,C,V-Vxpx-Okcdhm (Preservision Areds) 14,320-226-200 cofa-df-dlyx capsule Active 1 CAP PO TWICE A DAY October 09, 2020 3:36pm Start: 10-09-2020 Vitamins A,C,E -Zinc-Copper (Preservision Areds) 14,320-226-200 ibkm-ws-kqaw capsule Active 1 NMA PO TWICE A DAY October 09, 2020 12:00am Start: 10-09-2020 take 1 capsule by mo nhh twice daily Vitamins A,C,G-Nrwh-Ynaeky (Preservision Areds) 14,320-226-200 bnoh-zn-bopi capsule Active 1 CAP PO TWICE A DAY October 08, 2020 11:00pm Start: 10-09-[address] [facility] twice daily Vitamins A,C,B-Mcir-Zfiuko (Preservision Areds) 14320-226-200 oddk-ui-lzhq capsule Active 1 CAP PO TWICE A [...] tablet Discontinued 5 mg PO DAILY 90 6 January 23, 2021 4:26pm November 24, 2023 2:22pm On Hold: [...] One tablet by mouth daily AMLODIPINE BESYLATE [id number] Meg M Osullivan End: 10-14-2023 take 0.5 tablet by mouth [...] TABS One tablet by mouth daily ASPIRIN [id number] Meg Osullivan Start: 03-19-2006 ASPIRIN 81 MG TAB Take one(1) tablet daily. 0 03/19/2006 Active Comment on above: Take one(1) tablet d aily. budesonide 0.032 mg/actuat metered dose nasal spray (2 sources) Corticosteroid Start: 08-22-2010 RHINOCORT AQUA 32 MCG/ACT SUSP 0.032 mg/inh - 1-2 sprays each nostril twice a day BUDESONIDE [id number] Meg Osullivan Start: 08-22-2010 RHINOCORT AQUA 32 MCG/ACT SUSP 0.032 mg/inh - 1-2 sprays each nostril twice a day BUDESONIDE [id number] Meg Osullivan cyclobenzaprine (4 sources) Muscle Relaxant [...] AERO inhalation once daily MOMETASONE FURO-FORMOTEROL FUM [id number] Jesse Valadez MD Start: 06-15-2014 take 200-5 ug by inh alation once daily DULERA 200-5 MCG/ACT AERO inhalation once daily MOMETASONE FURO-FORMOTEROL FUM [id number] Jesse Valadez MD furosemide 40 mg oral tablet (20 sources) Loop Diuretic Start: 09-30-2018 End: 11-24-2023 take 1 tablet by mouth once daily Furosemide (Lasix) 40 mg tablet Discontinued 40 mg PO DAILY 90 March 03, 2022 8:56am November 24, 2023 [...] (Atarax) As needed at bedtime HYDROXYZINE HCL [id number] Meg Osullivan meloxicam 15 mg oral tablet (20 sources) Nonsteroidal Anti-inflammatory Drug Start: 05-26-2013 End: 06-02-2013 take 1 tablet by mouth once daily MOBIC 15 MG TABS One tablet by mouth daily MELOXICAM [id number] Kirstie Hope RN Start: 02-24-2013 End: 05-24-2013 [...] MCG/INH AEPB Take as directed MOMETASONE FUROATE [id number] Kirstie Hope RN Start: 05-26-2013 ASMANEX 120 ME TERED DOSES 220 MCG/INH AEPB Take as directed MOMETASONE FUROATE [id number] Kirstie Hope RN Start: 05-26-2013 End: 06-15-2014 ASMANEX 120 METERED DOSES 22 0 MCG/INH AEPB Take as directed MOMETASONE FUROATE [id number] Jesse Valadez MD nadolol 40 mg oral tablet (4 sources) beta-Adrenergic Sid Start: 08-22-2010 End: 11-18-2012 take 1 tablet by mouth once daily NADOLOL 40 MG TABS One tablet by mouth daily NADOLOL [id number] Meg Osullivan Nasocort (18 sources) Start: 03-17-2018 End: 09-30-2018 Nasocort Discontinued [...] September 30, 2018 10:34am polyethylene glycol 3350 698576 mg / potassium chloride 2820 mg / sodium bicarbonate 6360 mg / sodium chloride 5530 mg / sodium sulfate 36538 mg powder for oral solution (2 sources) Osmotic Laxative Start: 01-19-2017 GOLYTELY 227.1 GM SO LR as directed PEG 6659-BGS-LOUEK-NACL-NASULF [id number] Gordon Mckay MD Start: 01-19-2017 GOLYTELY 227.1 GM SOLR as directed PEG 0885-IVU-DNDHQ-NACL-NASULF 27186530402 Gordon Mckay MD rosuvastatin calcium 5 mg [...] mg tablet Discontinued 50 mg PO DAILY October 21, 2021 12:40pm November 24, 2023 2:22pm On Hold: MD Schultz Start: 01-20-2020 End: 03-07-2020 take 1 tablet by mouth once daily Spironolactone 25 mg tablet Discontinued 25 mg PO DAILY 07 11January 20, 2020 12:00am March 07, 2020 11:58am [...] 5g/packet 1%, apply as directed TESTOSTERONE GEL 12223704325 Meg Cantu Osullivan Start: 08-22-2010 End: 11-18-2012 ANDROGEL GEL 5g/packet 1%, a pply as directed TESTOSTERONE GEL 73485704735 Jesse Valadez MD Start: 08-22-2010 ANDROGEL GEL 5 g/packet 1%, apply as directed TESTOSTERONE GEL 41819939118 Meg Cantu Osullivan Start: 08-22-2010 End: 11-18-2012 ANDROGEL GEL 5g/packet 1%, a pply as directed TESTOSTERONE GEL 63308779260 Jesse Valadez MD triamcinolone acetonide 0.055 mg/actuat metered dose [...] MCG/ACT AERO Take as directed TRIAMCINOLONE ACETONIDE(NASAL) [id number] Jesse Valadez MD Start: 08-22-2010 NASACORT AQ [...] take as directed per PCP WARFARIN SODIUM [id number] Jesse Valadez MD Problems Active Problems Problem Classification Problem Date Documented Date Episodic/Chronic Acute and unspecified renal failure (14 sources) Acute renal failure syndrome; Translations: [Acute kidney failure, unspecified] 03-13-2023 Episodic Asthma (19 sources) Asthma; Translations: [Unspecified asthma, uncomplicated] Chronic Cardiac dysrhythmias (8 sources) Sinus bradycardia; Translations: [Supraventricular tachycardia] Onset: 06-12-2016 06-12-2016 Chronic Cardiac dysrhythmias (19 sources) Sinus bradycardia; Translations: [Bradycardia, unspecified] Onset: 11-30-2024 06-18-2017 Episodic Chronic kidney disease (1 source) Chronic kidney disease; Translations: [Chronic kidney disease, stage 3a] Onset: 08-11-2024 Coronary atherosclerosis and other heart disease (18 sources) Coronary atherosclerosis; Translations: [Atherosclerotic heart disease of [place] coronary artery without angina pectoris] 10-06-2020 Chronic Diabetes mellitus with complications (4 sources) Chronic kidney disease stage 3; Translations: [Type 2 diabetes mellitus with diabetic chronic kidney disease] 11-24-2023 Chronic Diabetes mellitus without complication (20 sources) Type 2 diabetes mellitus; Translations: [Type [...] versus complete obstruction] Episodic Nonspecific chest pain (20 sources) Chest pain, unspecified; Translations: [Chest pain] [...] damage to nail, initial encounter] 09-28-2023 Episodic Osteoarthritis (2 sources) Osteoarthritis of left knee joint; Translations: [Unilateral primary osteoarthritis, left knee] Onset: 01-24-2025 01-25-2025 Chronic Other aftercare (1 source) Removal of sutures done; Translations: [Encounter for removal of sutures] 10-07-2023 Episodic Other aftercare (4 sources) Long-term current use of drug therapy; Translations: [Other halfway (current) drug therapy] 10-06-2020 Episodic Other and unspecified benign neoplasm (18 sources) History of polyp of colon; Translations: [Personal history of colonic polyps] 10-09-2021 Episodic Other and unspecified benign neoplasm (2 sources) Personal history of colonic polyps; Translations: [Personal history of colonic polyps] Episodic Other lower respiratory disease (4 sources) Dyspnea on exertion; Translations: [Other forms of dyspnea] 11-30-2024 Episodic Other lower respiratory disease (2 sources) Other forms of dyspnea; Translations: [Other forms of dyspnea] Onset: 01-24-2025 Episodic Other nutritional; endocrine; and metabolic disorders (2 sources) Body mass index (BMI) 40.0-44.9, adult; Translations: [Body mass index (BMI) 40.0-44.9, adult] Onset: 06-15-2014 06-15-2014 Chronic Other nutritional; endocrine; and metabolic disorders (8 sources) Body mass index 40+ - severely obese; Translations: [Morbid (severe) obesity due to excess calories] Onset: 01-10-2020 01-10-2020 Chronic Other nutritional; endocrine; and metabolic disorders (16 sources) Obesity; Translations: [Obesity, unspecified] 10-09-2021 Chronic Other nutritional; endocrine; and metabolic disorders (2 sources) Morbid obesity; Translations: [Morbid (severe) obesity due to excess calories] Onset: 01-24-2025 01-25-2025 Chronic Peripheral and visceral atherosclerosis (3 sources) Peripheral vascular disease, unspecified; Translations: [Peripheral vascular disease, unspecified] Onset: 10-14-2023 Chronic Residual codes; unclassified (17 sources) Sleep apnea; Translations: [Sleep apnea, unspecified] 09-21-2021 Chronic Residual codes; unclassified (2 sources) Sleep apnea, unspecified; Translations: [Unspecified sleep apnea] Chronic Unclassified (20 sources) Family history of stroke; Translations: [Family history of stroke] 06-15-2014 Episodic Unclassified (1 source) Screening for malignant neoplasm of colon ; Translations: [Encounter for screening for malignant neoplasm of colon] Onset: 01-19-2017 01-19-2017 Unclassified (1 source) Long-term drug therapy; Translations: [Other halfway (current) drug therapy] Onset: 11-20-2010 11-20-2010 Unclassified (2 sources) Ventricular tachycardia, unspecified; Translations: [Ventricular tachycardia, unspecified] Onset: 11-30-2024 Unclassified (2 sources) Supraventricular tachycardia, unspecified; Translations: [Supraventricular tachycardia, unspecified] Onset: 12-06-2024 Past or Other Problems Problem Classification Problem [...] 09-03-2006 Episodic Other aftercare (1 source) Other halfway (current) drug therapy; Translations: [Other [place] (current) drug therapy] Onset: 11-20-2010 11-20-2010 Episodic Other screening for suspected conditions (not mental disorders or infectious disease) (20 sources) Patient encounter status; Translations: [Encounter for screening for malignant neoplasm of colon] Onset: 08-27-2006 08-27-2006 Episodic Unclassified (2 sources) Preoperative cardiovascular examination ; Translations: [Encounter for preprocedural cardiovascular examination] Onset: 11-26-2011 Resolved: 06-12-2016 06-12-2016 Results Test Name Value Interpretation Reference Range Facility Relevant diagnostic tests/la boratory data Narrativeon 01-24-2025 Fall risk assessment no ISABELA Prestiamoci Work Phone: MEDS REVIEW Done [facility] Work Phone: [facility] REVIEWD Medications reviewed with changes [facility] Work Phone: XRAY HX of the left knee on 12/09/2023 at [facility] Work Phone: Cardiovascular stress test r eportOrdered By: Jesse Valadez on 12-28-2024 Study report [facility] [address] [place] [address] MR#: [id number] Acct: [id number] Name: XOCHITL MONTERROSO Rep #: [id number] : 1945 79 From: Jesse Valadez MD Primary Care: Dr. Nolan Nguyen MD Status : REG CLI Referring Dr: Adis Lo Sex: M C Stress Test Report Pharmacologic myocardial perfusion stress test. 79-year-old man with a history of dyspnea on exertion. Resting EKG demonstrates sinus bradycardia with a rate of 54 bpm. Resting blood pressure is 132/70 mmHg. 0.4 mg of regadenoson was infused per usual protocol followed by rapid intravenous saline flush injection. Continuous EKG monitoring was performed. The maximum heart rate was 69 bpm which was 48% of max impacted heart rate the maximum workload was 1 metabolic equivalent. At rest there were no ST or T wave changes noted to suggest ischemia and at peak infusion nonspecific ST changes were noted which did not meet the criteria for ischemia. No clinical angina is noted. The final blood pressure was 114/70 mmHg. Myocardial perfusion protocol. 14.8 mCi of technetium 99m sestamibi was injected at rest. 0.4 mg of regadenosonwas infused per usual protocol. At peak infusion 45 mCi of technetium 99m sestamibi was injected stress images were obtained stress and rest images were reconstructed and compared in the short axis vertical long and horizontal long axis. Gated images were also obtained. Perfusion SPECT analysis: Review of the stress images demonstrate normal uptake of tracer noted in all areas of the myocardium. The resting images similar demonstrated normal uptake of tracer noted in all areas of the myocardium. No areas of reversibility are noted to suggest ischemia and no previous infarct is noted. Gated SPECT analysis: The gated ejection fraction is 65%. Conclusion: Normal pharmacologic myocardial perfusion stress test. Preserved ejection fraction. 12/28/24 184 Date _ Jesse Valadez MD CC: Dr. Nolan Nguyen MD; LILLIE Muller ~ Date Dictated: 12/28/241837 Date Transcribed: 12/28/241837 Manager Game: CO Signed Work Phone: Stress Reporton 12-28-2024 Stress Report [facility] [address] [place] [address] MR#: [id number] Acct: [id number] Name: XOCIHTL MONTERROSO Rep #: [id number] : 1945 79 From: Jesse Valadez MD Primary Care: Dr. Nolan Nguyen MD Status: REG CLI Referring Dr: Adis Lo Sex: M C Stress Test Report Pharmacologic myocardial perfusion stress test. 79-year-old man with a history of dyspnea on exertion. Resting EKG demonstrates sinus bradycardia with a rate of 54 bpm. Resting blood pressure is 132/70 mmHg. 0.4 mg of regadenoson was infused per usual protocol followed by rapid intravenous saline flush injection. Continuous EKG monitoring was performed. The maximum heart rate was 69 bpm which was 48% of max impacted heart rate the maximum workload was 1 metabolic equivalent. At rest there were no ST or T wave changes noted to suggest ischemia and at peak infusion nonspecific ST changes were noted which did not meet the criteria for ischemia. No clinical angina is noted. The final blood pressure was 114/70 mmHg. Myocardial perfusion protocol. 14.8 mCi of technetium 99m sestamibi was injected at rest. 0.4 mg of regadenoson was infused per usual protocol. At peak infusion 45 mCi of technetium 99m sestamibi was injected stress images were obtained stress and rest images were reconstructed and compared in the short axis vertical long and horizontal long axis. Gated images were also obtained. Perfusion SPECT analysis: Review of the stress images demonstrate normal uptake of tracer noted in all areas of the myocardium. The resting images similar demonstrated normal uptake of tracer noted in all areas of the myocardium. No areas of reversibility are noted to suggest ischemia and no previous infarct is noted. Gated SPECT analysis: The gated ejection fraction is 65%. Conclusion: Normal pharmacologic myocardial perfusion stress test. Preserved ejection fraction. 12/28/241839 Date Jesse Valadez MD CC: Dr. Nolan Nguyen MD; LILLIE Muller Date Dictated: 12/28/241837 Date Transcribed: 12/28/241837 Manager Game: [place] Signed Normal Anion gap in Serum or Plasma Ordered By: Adis Lo on 11-30-2024 Anion gap [Moles/Vol] 10 mmol/L 09-22 [facility] BUN/creatinine ratioOrdered By: Adis Lo on 11-30-2024 Urea nitrogen/Creatinine [Mass ratio] 16.6 mg/mg 02-27 Basic Metabolic Profile (BMP )on 11-30-2024 BUN/CRE 16.6 RATIO Normal 02-27 Comment on above: Performed By: #### L 500.3600, L509.1000, L100.0500, L501.0900 #### Laboratory [address] [place], [address] Calcium [Mass/Vol] 9.3 mg/dL Normal 7.6-11.0 [facility] Comment on above: Performed By: #### L 500.3600, L509.1000, L100.0500, L501.0900 #### Laboratory [address] [place], [address] Chloride [Moles/Vol] 104 mmol/L Normal 98-108 [facility] Comment on above: Performed By: #### L 500.3600, L509.1000, L100.0500, L501.0900 #### Laboratory [address] [place], [address] CO2 [Moles/Vol] 24.7 mmol/L Normal 21.0-32.0 Comment on above: Performed By: #### L 500.3600, L509.1000, L100.0500, L501.0900 #### Laboratory [address] [place], [address] Creatinine [Mass/Vol] 1.38 mg/dL High 0.70-1.20 [facility] Comment on above: Performed By: #### L 500.3600, L509.1000, L100.0500, L501.0900 #### Laboratory [address] [place], [address] GAP 10 Normal 5-15 Comment on above: Performed By: #### L 500.3600, L509.1000, L100.0500, L501.0900 #### Laboratory [address] [place], [address] GFR/1.73 sq M.predicted among non-blacks MDRD (S/P/Bld) [Vol rate/Area] 52 mL/min/{1.73_m2} Low >60 Comment on above: Result Comment: mL/m in/1.73m2 CKD-EPI Creatinine Equation (2020) Performed By: #### L 500.3600, L509.1000, L100.0500, L501.0900 #### Laboratory [address] [place], [address] Glucose [Mass/Vol] 124 mg/dL High 70-99 [facility] Comment on above: Performed By: #### L 500.3600, L509.1000, L100.0500, L501.0900 #### Laboratory [address] [place], [address] Potassium [Moles/Vol] 4.3 mmol/L Normal 3.3-5.1 [facility] Comment on above: Performed By: #### L 500.3600, L509.1000, L100.0500, L501.0900 #### Laboratory [address] [place], [address] Sodium [Moles/Vol] 138 mmol/L Normal 133-145 [facility] Comment on above: Performed By: #### L 500.3600, L509.1000, L100.0500, L501.0900 #### Laboratory [address] [place], [address] Urea nitrogen [Mass/Vol] 23 mg/dL High 4-19 Comment on above: Performed By: #### L 500.3600, L509.1000, L100.0500, L501.0900 #### Laboratory [address] [place], [address] Carbon dioxide, total [Moles /volume] in Central venous bloodOrdered By: Adis Lo on 11-30-2024 CO2 [Moles/Vol] 24.7 mmol/L 21.0-32.0 Cardiology Visit Reporton Cardiology Visit Report [facility] [address] [place] [address] OFFICE VISIT Date of Service: 11/30/24 MR#: [id number] Acct: [id number] Name: XOCHITL MONTERROSO Rep #: [id number] : 1945 Provider: LILLIE Muller Age/Sex: 79/M Location: [facility] Status: Signed HPI HPI History of Present [...] 93 Intake Visit Reasons: [facility] Required: No Is patient in pain?: No Allergies EH Inhibitors Allergy (Severe, Verified 11/30/24 08:56) ANGIOEDEMA niacin Adverse Reaction (Severe, Verified 11/30/24 08:56) SKIN RED AND BURNING, SEVERE FLUSHING Vayoxzy-LBY-ZhK Reductase Inhibitor (Vvdslkv-Tpm-Cbc Reductase Inhibitor) Adverse Reaction (Severe, Verified 11/30/24 [...] 11/30/24 Rx tablet,extended release 24 hr vitamins A,C,D-dckh-qacbga 4,296 1 cap PO BID 10/09/20 11/30/24 [...] Negative f (more content not included)... Normal Chloride assayOrdered By: Neo Lo on 11-30-2024 Chloride [Moles/Vol] 104 mmol/L 98-108 [facility] Glomerular filtration rate ( GFR) estimation/1.73 sq m using serum, plasma, or whole bOrdered By: Adis Lo on 11-30-2024 GFR/1.73 sq M.predicted among non-blacks MDRD (S/P/Bld) [Vol rate/Area] 52 mL/min/{1.73_m2} Low >60 Comment on above: mL/min/1.73m2 CKD-EP I Creatinine Equation (2020) Magnesiumon 11-30-2024 Magnesium [Mass/Vol] 2.1 mg/dL Normal 1.5-2.2 [facility] Comment on above: Performed By: #### L 500.3600, L509.1000, L100.0500, L501.0900 #### Laboratory [address] [place] [address], [id number] Magnesium measurement (mass/ volume)Ordered By: Adis Lo on 11-30-2024 Magnesium (Unsp spec) [Mass/Vol] 2.1 mg/dL 1.5-2.2 Potassium measurement (mass/ volume)Ordered By: Adis Lo on 11-30-2024 Potassium (Unsp spec) [Mass/Vol] 4.3 mmol/L 3.3-5.1 Serum creatinine measurement (mass/volume)Ordered By: Adis Lo on 11-30-2024 Creatinine [Mass/Vol] 1.38 mg/dL High 0.70-1.20 [facility] Serum glucose measurement (m ass/volume)Ordered By: Adis Lo on 11-30-2024 Glucose [Mass/Vol] 124 mg/dL High 70-99 [facility] Serum or plasma calcium axel urement (mass/volume)Ordered By: Adis Lo on 11-30-2024 Calcium [Mass/Vol] 9.3 mg/dL 7.6-11.0 [facility] Serum or plasma urea nitroge n measurement (mass/volume)Ordered By: Adis Lo on 11-30-2024 Urea nitrogen [Mass/Vol] 23 mg/dL High 4-19 Sodium levelOrdered By: Ana Lo on 11-30-2024 Sodium [Moles/Vol] 138 mmol/L 133-145 [facility] TSH DL <= 0.005 mIU/L QnOrde red By: Adis Lo on 11-30-2024 TSH Qn 1.640 uIU/mL 0.300-4.20 0 Thyroid Stim Hormone (TSH)on 11-30-2024 TSH 1.640 uIU/mL Normal 0.300-4.20 0 Comment on above: Performed By: #### L 500.3600, L509.1000, L100.0500, L501.0900 #### Laboratory [address] [place], [address] Anion gap in Serum or Plasma Ordered By: Mary Patel on 08-04-2024 Anion gap [Moles/Vol] 16 mmol/L High 5-15 [facility] BUN/creatinine ratioOrdered By: Mary Patel on 08-04-2024 Urea nitrogen/Creatinine [Mass ratio] 12.4 mg/mg 10-20 CBC-Complete Blood Cnt No Di ffon 08-04-2024 Erythrocyte distribution width (RBC) [Ratio] 12.8 % Normal 11.6-14.6 Comment on above: Performed By: #### L 500.3600, L509.1000, L100.0500, L501.0900 #### Laboratory [address] [place], [address] Hematocrit (Bld) [Volume fraction] 45.0 % Normal 40-54 Comment on above: Performed By: #### L 500.3600, L509.1000, L100.0500, L501.0900 #### Laboratory [address] [place], [address] Hemoglobin (Bld) [Mass/Vol] 14.9 g/dL Normal 13.0-16.5 Comment on above: Performed By: #### L 500.3600, L509.1000, L100.0500, L501.0900 #### Laboratory [address] [place], [address] MCH (RBC) [Entitic mass] 31.6 pg Normal 27.0-32.0 Comment on above: Performed By: #### L 500.3600, L509.1000, L100.0500, L501.0900 #### Laboratory [address] [place], [address] MCHC (RBC) [Mass/Vol] 33.1 g/dL Normal 32-36 [facility] Comment on above: Performed By: #### L 500.3600, L509.1000, L100.0500, L501.0900 #### Laboratory [address] [place], [address] MCV (RBC) [Entitic vol] 95.3 fL High 80-94 [facility] Comment on above: Performed By: #### L 500.3600, L509.1000, L100.0500, L501.0900 #### Laboratory [address] [place], [address] Platelet mean volume (Bld) [Entitic vol] 9.2 fL Normal 6.2-12.0 Comment on above: Performed By: #### L 500.3600, L509.1000, L100.0500, L501.0900 #### Laboratory [address] [place], [address] Platelets (Bld) [#/Vol] 157 10*3/uL Normal 150-450 Comment on above: Performed By: #### L 500.3600, L509.1000, L100.0500, L501.0900 #### Laboratory [address] [place], [address] RBC (Bld) [#/Vol] 4.72 10*6/uL Normal 4.6-6.2 [facility] Comment on above: Performed By: #### L 500.3600, L509.1000, L100.0500, L501.0900 #### Laboratory [address] [place], [address] RDW SD 45.3 fl High 35.1-43.9 Comment on above: Performed By: #### L 500.3600, L509.1000, L100.0500, L501.0900 #### Laboratory [address] [place], [address] WBC (Bld) [#/Vol] 7.3 10*3/uL Normal 4.4-11.0 [facility] Comment on above: Performed By: #### L 500.3600, L509.1000, L100.0500, L501.0900 #### Laboratory [address] [place], [address] Carbon dioxide, total [Moles /volume] in Central venous bloodOrdered By: Mary Patel on 08-04-2024 CO2 [Moles/Vol] 18.7 mmol/L Low 21.0-32.0 Chloride assayOrdered By: Mil Patel on 08-04-2024 Chloride [Moles/Vol] 103 mmol/L 98-108 [facility] Creatinine Unsp time (U) [Ma ss/Vol]Ordered By: Mary Patel on 08-04-2024 Creatinine (U) [Mass/Vol] 99.10 mg/dL 39.00-259. 00 Erythrocyte distribution wid th (RBC) [Ratio]Ordered By: Mary Patel on 08-04-2024 Erythrocyte distribution width (RBC) [Entitic vol] 45.3 fL High 35.1-43.9 Erythrocyte distribution wid th ratioOrdered By: Mary Patel on 08-04-2024 Erythrocyte distribution width (RBC) [Ratio] 12.8 % 11.6-14.6 Erythrocyte distribution wid th standard deviationOrdered By: Mary Patel on 08-04-2024 Erythrocyte distribution width (RBC) [Ratio] 45.3 fl High 35.1-43.9 GFR/1.73 sq M.predicted dale g non-blacks MDRD (S/P/Bld) [Vol rate/Area]Ordered By: Mary Patel on 08-04-2024 Estimated GFR (MDRD) Non-Af Amer 47 Low >60 Comment on above: mL/min/1.73m2 CKD-EP I Creatinine Equation (2020) Glomerular filtration rate ( GFR) estimation/1.73 sq m using serum, plasma, or whole bOrdered By: Mary Patel on 08-04-2024 GFR/1.73 sq M.predicted among non-blacks MDRD (S/P/Bld) [Vol rate/Area] 47 mL/min/{1.73_m2} Low >60 Comment on above: mL/min/1.73m2 CKD-EP I Creatinine Equation (2020) Hematocrit Auto (Bld) [Volum e fraction]Ordered By: Mary Patel on 08-04-2024 Hematocrit (Bld) [Volume fraction] 45.0 % 40-54 Hemoglobin measurementOrdere d By: Mary Patel on 08-04-2024 Hemoglobin (Bld) [Mass/Vol] 14.9 g/dL 13.0-16.5 MCV (mean corpuscular volume ) determinationOrdered By: Mary Patel 08-04-2024 MCV (RBC) [Entitic vol] 95.3 fL High 80-94 [facility] Mean corpuscular hemoglobin (MCH) determinationOrdered By: Mary Patel on 08-04-2024 MCH (RBC) [Entitic mass] 31.6 pg 27.0-32.0 Mean corpuscular hemoglobin concentration (MCHC) determinationOrdered By: Mary Patel on 08-04-2024 MCHC (RBC) [Mass/Vol] 33.1 g/dL 32-36 [facility] Mean platelet volume determi nationOrdered By: Mary Patel on 08-04-2024 Platelet mean volume (Bld) [Entitic vol] 9.2 fL 6.2-12.0 PTH intactOrdered By: Liborio Patel on 08-04-2024 Parathyroid Hormone (Intact) 37 pg/mL PTHINon 08-04-2024 PTH 37 pg/mL Normal Comment on above: Performed By: #### L 500.3600, L509.1000, L100.0500, L501.0900 #### Laboratory [address] [place], [address] Platelet countOrdered By: Mil Patel on 08-04-2024 Platelets (Bld) [#/Vol] 157 10*3/uL 150-450 Potassium (Unsp spec) [Mass/ Vol]Ordered By: Mary Patel on 08-04-2024 Potassium [Moles/Vol] 4.5 mmol/L 3.3-5.1 [facility] Potassium measurement (mass/ volume)Ordered By: Mary Patel on 08-04-2024 Potassium (Unsp spec) [Mass/Vol] 4.5 mmol/L 3.3-5.1 Protein+Creatinine Ratio,Uri neon 08-04-2024 PROT:CRE RATIO 78 mg/g CRE Normal 0-200 Comment on above: Performed By: #### L 500.3600, L509.1000, L100.0500, L501.0900 #### Laboratory [address] [place], [address] Protein (U) [Mass/Vol] 7.8 mg/dL Normal 0.0-12.0 [facility] Comment on above: Performed By: #### L 500.3600, L509.1000, L100.0500, L501.0900 #### Laboratory [address] [place], [address] UR CREAT 99.10 mg/dL Normal 39.00-259. 00 Comment on above: Performed By: #### L 500.3600, L509.1000, L100.0500, L501.0900 #### Laboratory [address] [place], [address] Protein/Creatinine (U) [Mass ratio]Ordered By: Mary Patel on 08-04-2024 Urine Protein/Creatinine Ratio 78 mg/g CRE 0-200 RBC Auto (Bld) [#/Vol]Ordere d By: Mary Patel on 08-04-2024 RBC (Bld) [#/Vol] 4.72 10*6/uL 4.6-6.2 [facility] Random urine creatinine axel urement (mass/volume)Ordered By: Mary Patel on 08-04-2024 Creatinine Unsp time (U) [Mass/Vol] 99.10 mg/dL 39.00-259. 00 Renal Profileon 08-04-2024 Albumin [Mass/Vol] 3.2 g/dL Low 3.4-4.8 [facility] Comment on above: Order Comment: PTH Performed By: #### L 500.3600, L509.1000, L100.0500, L501.0900 #### Laboratory [address] [place], [address] BUN/CRE 12.4 RATIO Normal 10-20 Comment on above: Order Comment: PTH Performed By: #### L 500.3600, L509.1000, L100.0500, L501.0900 #### Laboratory [address] [place], [address] Calcium [Mass/Vol] 8.8 mg/dL Normal 7.6-11.0 [facility] Comment on above: Order Comment: PTH Performed By: #### L 500.3600, L509.1000, L100.0500, L501.0900 #### Laboratory [address] [place], [address] Chloride [Moles/Vol] 103 mmol/L Normal 98-108 [facility] Comment on above: Order Comment: PTH Performed By: #### L 500.3600, L509.1000, L100.0500, L501.0900 #### Laboratory [address] [place], [address] CO2 [Moles/Vol] 18.7 mmol/L Low 21.0-32.0 Comment on above: Order Comment: PTH Performed By: #### L 500.3600, L509.1000, L100.0500, L501.0900 #### Laboratory [address] [place], [address] Creatinine [Mass/Vol] 1.49 mg/dL High 0.70-1.20 [facility] Comment on above: Order Comment: PTH Performed By: #### L 500.3600, L509.1000, L100.0500, L501.0900 #### Laboratory [address] [place], [address] GAP 16 High 5-15 Comment on above: Order Comment: PTH Performed By: #### L 500.3600, L509.1000, L100.0500, L501.0900 #### Laboratory [address] [place], [address] GFR/1.73 sq M.predicted among non-blacks MDRD (S/P/Bld) [Vol rate/Area] 47 mL/min/{1.73_m2} Low >60 Comment on above: Order Comment: PTH Result Comment: mL/m in/1.73m2 CKD-EPI Creatinine Equation (2020) Performed By: #### L 500.3600, L509.1000, L100.0500, L501.0900 #### Laboratory [address] [place], [address] Glucose [Mass/Vol] 103 mg/dL High 70-99 [facility] Comment on above: Order Comment: PTH Performed By: #### L 500.3600, L509.1000, L100.0500, L501.0900 #### Laboratory [address] [place], [address] Potassium [Moles/Vol] 4.5 mmol/L Normal 3.3-5.1 [facility] Comment on above: Order Comment: PTH Performed By: #### L 500.3600, L509.1000, L100.0500, L501.0900 #### Laboratory [address] [place], [address] Sodium [Moles/Vol] 138 mmol/L Normal 133-145 [facility] Comment on above: Order Comment: PTH Performed By: #### L 500.3600, L509.1000, L100.0500, L501.0900 #### Laboratory [address] [place], [address] Urea nitrogen [Mass/Vol] 19 mg/dL Normal 4-19 Comment on above: Order Comment: PTH Performed By: #### L 500.3600, L509.1000, L100.0500, L501.0900 #### Laboratory [address] [place], [address] Serum creatinine measurement (mass/volume)Ordered By: Mary Patel on 08-04-2024 Creatinine [Mass/Vol] 1.49 mg/dL High 0.70-1.20 [facility] Serum glucose measurement (m ass/volume)Ordered By: Mary Patel on 08-04-2024 Glucose [Mass/Vol] 103 mg/dL High 70-99 [facility] Serum or plasma albumin axel urement (mass/volume)Ordered By: Mary Patel on 08-04-2024 Albumin [Mass/Vol] 3.2 g/dL Low 3.4-4.8 [facility] Serum or plasma calcium axel urement (mass/volume)Ordered By: aMry Patel on 08-04-2024 Calcium [Mass/Vol] 8.8 mg/dL 7.6-11.0 [facility] Serum or plasma urea nitroge n measurement (mass/volume)Ordered By: Mary Patel on 08-04-2024 Urea nitrogen [Mass/Vol] 19 mg/dL 4-19 Serum phosphorus measurement Ordered By: Mary Patel on 08-04-2024 Phosphorus Level 2.8 mg/dL 2.7-4.5 Sodium levelOrdered By: Muriel Patel on 08-04-2024 Sodium [Moles/Vol] 138 mmol/L 133-145 [facility] Urine protein measurement (m ass/volume)Ordered By: Mary Patel on 08-04-2024 Protein (U) [Mass/Vol] 7.8 mg/dL 0.0-12.0 [facility] Urine protein/creatinine mas s ratioOrdered By: Mary Patel on 08-04-2024 Protein/Creatinine (U) [Mass ratio] 78 mg/g CRE 0-200 White blood cell (WBC) count Ordered By: Mary Patel on 08-04-2024 WBC (Bld) [#/Vol] 7.3 10*3/uL 4.4-11.0 [facility] Albumin to globulin ratioOrd ered By: Nolan Nguyen on 07-04-2024 Albumin/Globulin [Mass ratio] 0.9 {ratio} 0.9-2.4 Bilirubin, totalOrdered By: Nolan Nguyen on 07-04-2024 Bilirubin [Mass/Vol] 0.60 mg/dL 0.20-1.00 [facility] Comment on above: For patients on eltr ombopag therapy, use of Dimension [place] TBIL is not recommended. Blood urea nitrogen (BUN)/cr eatinine ratioOrdered By: Nolan Nguyen on 07-04-2024 Urea nitrogen/Creatinine [Mass ratio] 15.6 mg/mg 10-20 Carbon dioxide measurementOr dered By: Nolan Nguyen on 07-04-2024 CO2 [Moles/Vol] 25.0 mmol/L 21.0-32.0 Chloride measurementOrdered By: Nolan Nguyen on 07-04-2024 Chloride [Moles/Vol] 107 mmol/L 98-107 [facility] Comprehensive Metabolic Prof ilon 07-04-2024 Albumin [Mass/Vol] 3.3 g/dL Normal 3.2-5.0 [facility] Comment on above: Performed By: #### L 502.0250, L500.4050, L500.4100 #### Laboratory [address] [place], [address] Albumin/Globulin [Mass ratio] 0.9 {ratio} Normal 0.9-2.4 Comment on above: Performed By: #### L 502.0250, L500.4050, L500.4100 #### Laboratory [address] [place], [address] ALK P 51 U/L Normal 45-117 Comment on above: Performed By: #### L 502.0250, L500.4050, L500.4100 #### Laboratory [address] [place], [address] ALT [Catalytic activity/Vol] 24 U/L Normal 16-61 Comment on above: Performed By: #### L 502.0250, L500.4050, L500.4100 #### Laboratory [address] [place], [address] AST [Catalytic activity/Vol] 21 U/L Normal 15-37 Comment on above: Performed By: #### L 502.0250, L500.4050, L500.4100 #### Laboratory [address] [place], [address] Bilirubin [Mass/Vol] 0.60 mg/dL Normal 0.20-1.00 [facility] Comment on above: Result Comment: For patients on eltrombopag therapy, use of Dimension [place] TBIL is not recommended. Performed By: #### L 502.0250, L500.4050, L500.4100 #### Laboratory [address] [place], [address] BUN/CRE 15.6 RATIO Normal 10-20 Comment on above: Performed By: #### L 502.0250, L500.4050, L500.4100 #### Laboratory [address] [place], [address] CA,Total 8.9 mg/dL Normal 8.5-10.1 Comment on above: Performed By: #### L 502.0250, L500.4050, L500.4100 #### Laboratory [address] [place], [address] Chloride [Moles/Vol] 107 mmol/L Normal 98-107 [facility] Comment on above: Performed By: #### L 502.0250, L500.4050, L500.4100 #### Laboratory [address] [place], [address] CO2 [Moles/Vol] 25.0 mmol/L Normal 21.0-32.0 Comment on above: Performed By: #### L 502.0250, L500.4050, L500.4100 #### Laboratory [address] [place], [address] Creatinine [Mass/Vol] 1.54 mg/dL High 0.70-1.30 [facility] Comment on above: Result Comment: The validity of the calculated GFR GFRAA in patients over 70 years has not been determined. Clinical correlation is essential. Performed By: #### L 502.0250, L500.4050, L500.4100 #### Laboratory [address] [place], [address] EST GFR - AA 56 mL/min Low >60 Comment on above: Result Comment: Afri can Georgian GFR Calc Performed By: #### L 502.0250, L500.4050, L500.4100 #### Laboratory [address] [place], [address] GAP 5 Normal 5-15 Comment on above: Performed By: #### L 502.0250, L500.4050, L500.4100 #### Laboratory [address] [place], [address] GFR/1.73 sq M.predicted among non-blacks MDRD (S/P/Bld) [Vol rate/Area] 47 mL/min/{1.73_m2} Low >60 Comment on above: Result Comment: Non- GFR Calc Performed By: #### L 502.0250, L500.4050, L500.4100 #### Laboratory [address] [place], [address] Globulin (S) [Mass/Vol] 3.8 g/dL Normal 2.2-4.2 [facility] Comment on above: Performed By: #### L 502.0250, L500.4050, L500.4100 #### Laboratory [address] [place], [address] Glucose [Mass/Vol] 113 mg/dL High 74-106 [facility] Comment on above: Result Comment: Fast ing Glucose result from 100 to 125 mg/dL suggests IMPAIRED HOMEOSTASIS per A.D.A. criteria. Performed By: #### L 502.0250, L500.4050, L500.4100 #### Laboratory [address] [place], [address] Potassium [Moles/Vol] 4.5 mmol/L Normal 3.5-5.1 [facility] Comment on above: Performed By: #### L 502.0250, L500.4050, L500.4100 #### Laboratory [address] [place], [address] Sodium [Moles/Vol] 137 mmol/L Normal 136-145 [facility] Comment on above: Performed By: #### L 502.0250, L500.4050, L500.4100 #### Laboratory [address] [place], [address] T PROT 7.1 g/dL Normal 6.4-8.2 Comment on above: Performed By: #### L 502.0250, L500.4050, L500.4100 #### Laboratory [address] [place], [address] Urea nitrogen [Mass/Vol] 24 mg/dL High 7-18 Comment on above: Performed By: #### L 502.0250, L500.4050, L500.4100 #### Laboratory [address] [place], [address] Estimated glomerular filtrat ion rate (GFR) AmericanOrdered By: Nolan Nguyen on 07-04-2024 Estimated GFR (MDRD) Amer 56 mL/min Low >60 Comment on above: GFR Calc Glomerular filtration rate ( GFR) estimationOrdered By: Nolan Nguyen on 07-04-2024 Estimated GFR (MDRD) Non-Af Amer 47 mL/min Low >60 Comment on above: Non- GFR Calc Glucose measurementOrdered B y: Nolan Nguyen on 07-04-2024 Glucose [Mass/Vol] 113 mg/dL High 74-106 [facility] Comment on above: Fasting Glucose resu lt from 100 to 125 mg/dL suggests IMPAIRED HOMEOSTASIS per A.D.A. criteria. High density lipoprotein (HD L) measurementOrdered By: Nolan Nguyen on 07-04-2024 Cholesterol in HDL [Mass/Vol] 38 mg/dL Low >40 Comment on above: The drugs N-Acetylcy steine and Metamizole may falsely depress this assay. Reference Range HDL <40 mg/dL Low HDL Cholesterol HDL >or= 60 mg/dL High HDL Cholesterol Laboratory - Chemistry and C hemistry - challengeOrdered By: Nolan Nguyen on 07-04-2024 AST [Catalytic activity/Vol] 21 U/L 15-37 Lipid Profileon 07-04-2024 Cholesterol [Mass/Vol] 148 mg/dL Normal 200 [facility] Comment on above: Result Comment: <200 mg/dL Desirable 200-240 mg/dL Borderline >240 mg/dL High Risk Performed By: #### L 502.0250, L500.4050, L500.4100 #### Laboratory [address] [facility] [address] Cholesterol in HDL [Mass/Vol] 38 mg/dL Low Comment on above: Result Comment: The drugs N-Acetylcysteine and Metamizole may falsely depress this assay. Reference Range HDL <40 mg/dL Low HDL Cholesterol HDL >or= 60 mg/dL High HDL Cholesterol Performed By: #### L 502.0250, L500.4050, L500.4100 #### Laboratory [address] [place], [address] Cholesterol in LDL [Mass/Vol] 68 mg/dL Normal 0-130 Comment on above: Performed By: #### L 502.0250, L500.4050, L500.4100 #### Laboratory [address] [place], [address] Cholesterol in VLDL [Mass/Vol] 42 mg/dL High 5-40 Comment on above: Performed By: #### L 502.0250, L500.4050, L500.4100 #### Laboratory [address] [place], [address] Triglyceride [Mass/Vol] 211 mg/dL High [facility] Comment on above: Result Comment: The drugs N-Acetylcysteine and Metamizole may falsely depress this assay. Serum Triglycerides Reference Interval Normal <150 mg/dL Borderline high 150 - 199 mg/dL High 200 - 499 mg/dL Very High > or = 500 mg/dL Performed By: #### L 502.0250, L500.4050, L500.4100 #### Laboratory [address] [place], [address] Low density lipoprotein (LDL ) cholesterol measurementOrdered By: Nolan Nguyen on 07-04-2024 Cholesterol in LDL [Mass/Vol] 68 mg/dL 0-130 Microalb:Creat Ratio,Random URon 07-04-2024 Creatinine [Mass/Vol] 259.00 mg/dL Normal NO RAN GE EST. Comment on above: Performed By: #### L 502.0250, L500.4050, L500.4100 #### Laboratory [address] [place], [address] MALB:CRE 7.8 mg/g CRE Normal <30 mg/g CRE Comment on above: Performed By: #### L 502.0250, L500.4050, L500.4100 #### Laboratory [address] [place], [address] MICROALBUMIN,UR 20.3 mg/L Normal NO RANGE EST. Comment on above: Performed By: #### L 502.0250, L500.4050, L500.4100 #### Laboratory [address] [place], [address] Potassium measurementOrdered By: Nolan Nguyen on 07-04-2024 Potassium [Moles/Vol] 4.5 mmol/L 3.5-5.1 [facility] Random urine microalbumin me asurementOrdered By: Nolan Nguyen on 07-04-2024 Urine Random Microalbumin 20.3 mg/L NO RANGE EST. Serum anion gap measurementO rdered By: Nolan Nguyen on 07-04-2024 Anion gap [Moles/Vol] 5 mmol/L 5-15 [facility] Serum globulin measurementOr dered By: Nolan Nguyen on 07-04-2024 Globulin (S) [Mass/Vol] 3.8 g/dL 2.2-4.2 [facility] Serum or plasma alanine murguia otransferase (ALT) measurementOrdered By: Nolan Nguyen on 07-04-2024 ALT [Catalytic activity/Vol] 24 U/L 16-61 Serum or plasma albumin axel urement (mass/volume)Ordered By: Nolan Nguyen on 07-04-2024 Albumin [Mass/Vol] 3.3 g/dL 3.2-5.0 [facility] Serum or plasma alkaline eva sphatase measurementOrdered By: Nolan Nguyen on 07-04-2024 ALP [Catalytic activity/Vol] 51 U/L 45-117 Serum or plasma calcium axel urement (mass/volume)Ordered By: Nolan Nguyen on 07-04-2024 Calcium [Mass/Vol] 8.9 mg/dL 8.5-10.1 [facility] Serum or plasma cholesterol measurement (mass/volume)Ordered By: Nolan Nguyen on 07-04-2024 Cholesterol [Mass/Vol] 148 mg/dL <200 [facility] Comment on above: <200 mg/dL Desirable 200-240 mg/dL Borderline >240 mg/dL High Risk Serum or plasma creatinine m easurement (mass/volume)Ordered By: Nolan Nguyen on 07-04-2024 Creatinine [Mass/Vol] 1.54 mg/dL High 0.70-1.30 [facility] Comment on above: The validity of the calculated GFR & GFRAA in patients over 70 years has not been determined. Clinical correlation is essential. Serum or plasma urea nitroge n measurement (mass/volume)Ordered By: Nolan Nguyen on 07-04-2024 Urea nitrogen [Mass/Vol] 24 mg/dL High 7-18 Sodium levelOrdered By: Nolan Nguyen on 07-04-2024 Sodium [Moles/Vol] 137 mmol/L 136-145 [facility] Total proteinOrdered By: Alina Nguyen on 07-04-2024 Protein [Mass/Vol] 7.1 g/dL 6.4-8.2 [facility] Triglycerides measurementOrd ered By: Nolan Nguyen on 07-04-2024 Triglyceride [Mass/Vol] 211 mg/dL High <199 [facility] Comment on above: The drugs N-Acetylcy steine and Metamizole may falsely depress this assay.Serum Triglycerides Reference Interval Normal <150 mg/dL Borderline high 150 - 199 mg/dL High 200 - 499 mg/dL Very High > or = 500 mg/dL Urine albumin/creatinine rat io for detection of microalbuminuriaOrdered By: Nolan Nguyen on 07-04-2024 Urine Microalbumin/Creatinine Ratio 7.8 mg/g CRE <30 Urine creatinine measurement (mass/volume)Ordered By: Nolan Nguyen on 07-04-2024 Creatinine (U) [Mass/Vol] 259.00 mg/dL NO RANGE EST. Very low density lipoprotein (VLDL) cholesterol measurementOrdered By: Nolan Nguyen on 07-04-2024 VLDL Cholesterol 42 mg/dL High 5-40 Protein+Creatinine Ratio,Uri neon 02-11-2024 PROT:CRE RATIO 103 mg/g CRE Normal 0-200 Comment on above: Performed By: #### L 501.0900, L500.3600 #### Laboratory [address] [place], [address] Protein (U) [Mass/Vol] 30.3 mg/dL High <11.9 [facility] Comment on above: Performed By: #### L 501.0900, L500.3600 #### Laboratory [address] [place], [address] UR CREAT 294.00 mg/dL Normal NO RANGE EST. Comment on above: Performed By: #### L 501.0900, L500.3600 #### Laboratory [address] [place], [address] Renal Profileon 02-11-2024 Albumin [Mass/Vol] 3.2 g/dL Normal 3.2-5.0 [facility] Comment on above: Performed By: #### L 500.3600, L509.1000, L100.0500, L501.0900 #### Laboratory [address] [place], [address] BUN/CRE 13.4 RATIO Normal 10-20 Comment on above: Performed By: #### L 500.3600, L509.1000, L100.0500, L501.0900 #### Laboratory [address] [place], [address] CA,Total 9.3 mg/dL Normal 8.5-10.1 Comment on above: Performed By: #### L 500.3600, L509.1000, L100.0500, L501.0900 #### Laboratory [address] [place], [address] Chloride [Moles/Vol] 109 mmol/L High 98-107 [facility] Comment on above: Performed By: #### L 500.3600, L509.1000, L100.0500, L501.0900 #### Laboratory [address] [place], [address] CO2 [Moles/Vol] 25.0 mmol/L Normal 21.0-32.0 Comment on above: Performed By: #### L 500.3600, L509.1000, L100.0500, L501.0900 #### Laboratory [address] [place], [address] Creatinine [Mass/Vol] 1.72 mg/dL High 0.70-1.30 [facility] Comment on above: Result Comment: The validity of the calculated GFR GFRAA in patients over 70 years has not been determined. Clinical correlation is essential. Performed By: #### L 500.3600, L509.1000, L100.0500, L501.0900 #### Laboratory [address] [place], [address] EST GFR - AA 50 mL/min Low >60 Comment on above: Result Comment: Afri can Georgian GFR Calc Performed By: #### L 500.3600, L509.1000, L100.0500, L501.0900 #### Laboratory [address] [place], [address] GFR/1.73 sq M.predicted among non-blacks MDRD (S/P/Bld) [Vol rate/Area] 41 mL/min/{1.73_m2} Low >60 Comment on above: Result Comment: Non- GFR Calc Performed By: #### L 500.3600, L509.1000, L100.0500, L501.0900 #### Laboratory [address] [place], [address] Glucose [Mass/Vol] 130 mg/dL High 74-106 [facility] Comment on above: Result Comment: Fast ing Glucose result greater than or equal to 126 mg/dL suggests DIABETES MELLITUS per A.D.A. criteria. Performed By: #### L 500.3600, L509.1000, L100.0500, L501.0900 #### Laboratory [address] [place], [address] Phosphate [Mass/Vol] 2.8 mg/dL Normal 2.5-4.9 [facility] Comment on above: Performed By: #### L 500.3600, L509.1000, L100.0500, L501.0900 #### Laboratory [address] [place], [address] Potassium [Moles/Vol] 4.6 mmol/L Normal 3.5-5.1 [facility] Comment on above: Performed By: #### L 500.3600, L509.1000, L100.0500, L501.0900 #### Laboratory [address] [place], [address] Sodium [Moles/Vol] 138 mmol/L Normal 136-145 [facility] Comment on above: Performed By: #### L 500.3600, L509.1000, L100.0500, L501.0900 #### Laboratory [address] [place], [address] Urea nitrogen [Mass/Vol] 23 mg/dL High 7-18 Comment on above: Performed By: #### L 500.3600, L509.1000, L100.0500, L501.0900 #### Laboratory [address] [place], [address] CNOVon 10-14-2023 CNOV Office Visit (VASSMN ) ----- XOCHITL MONTERROSO ([id number]) 1945 M Date Time Provider Department 10/14/23 12:45 PM ANGELICA CAN During your visit today, we recorded the following information about you: Pulse Blood pressure 51/minute 136/72 Angelica Can MD 10/14/2023 12:47 PM Signed [facility] [place] DEPARTMENT OF VASCULAR SURGERY OUTPATIENT VISIT DATE [...] kidney disease and he is followed by category planner with a recent GFR reported to be [...] OF Left Rotator Cuff, Dr. Ang @ [facility] RPR UMBILICAL HRNA 5 YRS/> [...] Swelling Angioedema Niacin Other: See Comments flushing Mxtalnu-Qio-Tdj Red* Intolerance PHYSICAL EXAM: BP 136/72 Pulse [...] 14 - Other: See Comments Comments: flushing XHQXNZS-DJO-HJW REDUCTASE INHIBIT*02/11/2011 5 - Intole (more content not included)... Normal [facility] ABD AORTA COMPLETE VAS LA Bon 10-14-2023 US ABD AORTA COMPLETE VAS LAB Non-Invasive Vascular Laboratory [facility] F30 Abdominal Aorta Bilateral/Complete Date of [...] evidence of aneurysm . Technologist: Roberto Myles T Ordering physician: ANGELICA CAN Interpreting physician: Capo Duque MD Final [facility] [facility] Image : [id number] See Link below for Image Normal [facility] US CAROTID ARTERIES JHONY VAS LABon 10-14-2023 US CAROTID ARTERIES JHONY VAS LAB Non-Invasive Vascular Laboratory [facility] F30 Carotid Duplex Bilateral/Complete Date of [...] Interpreting physician: Capo Duque MD Final [facility] [facility] Image : [id number] See Link below for Image Normal [facility] CNOVon 10-07-2023 CNOV Office Visit (WSTR ) ----- XOCHITL MONTERROSO ([id number]) 1945 M Date Time Provider Department 10/07/23 12:30 PM [facility] During your visit today, we recorded the following information about you: Temperature Pulse Respiration Blood pressure 96.6 degrees 51/minute 16/minute 118/64 Weight 128 kg Daniele Dugan C[employer]TER [employer].FEED INSPECTION SUPERVISOR 10/07/2023 12:57 PM Signed Subjective Patient came in for suture removal. Patient had them placed 9 days ago. Patient was kept as normal. Patient denies any difficulty during the healing process. Patient says he might of lost a suture. The history is provided by the patient. No language tutor was used. Suture Removal Review of Systems [...] OF Left Rotator Cuff, Dr. Ang @ [facility] RPR UMBILICAL HRNA 5 YRS/> REDUCIBLE 12/01/11 ALLERGIES Eh Inhibitors, Niacin, and Qjqzszy-Fxf-Vrk Reductase Inhibitors MEDICATIONS torsemide (DEMADEX) 20 mg [...] Onset Stroke Father Stroke Paternal Grandfather other (ID) Brother Stroke Brother other (carotid ASO) Brother [...] follow-up if anything new occurs. Daniele Dugan APRN.FEED INSPECTION SUPERVISOR Allergies As of Date: 10/07/2023 Noted Allergy Reaction EH INHIBITORS 02/11/2011 7 - Swelling Comments: Angioedema NIACIN 12/11/2011 14 - Other: See Comments Comments: flushing FRNODVD-GQG-IDV REDUCTASE INHIBIT*02/11/2011 5 - Intolerance Date Reviewed: [...] (TOPROL XL) (more content not included)... Normal [facility] CNOVon 09-28-2023 CNOV Office Visit (UCTR ) ----- XOCHITL MONTERROSO ([id number]) 1945 M Date Time Provider Department 09/28/23 7:15 PM ARMANI AG[facility]AR [facility] During your visit today, we recorded the [...] Swelling Angioedema Niacin Other: See Comments flushing Sgjeaxq-Jip-Pkh Red* Intolerance VITALS: BP 140/72 Pulse 60 [...] for suture removal in 7-10 days. Armani Augilar MD Allergies As of Date: 09/28/2023 Noted Allergy Reaction EH INHIBITORS 02/11/2011 7 - Swelling Comments: Angioedema NIACIN 12/11/2011 14 - Other: See Comments Comments: flushing OLBYZCK-IKV-CFS REDUCTASE INHIBIT*02/11/2011 5 - Intolerance Date Reviewed: 09/28/2023 Reviewed by: Bryanna Llanes MA - Fully Assessed Reason for Visit: Laceration [1747] Cmt: Right ring finger laceration Primary Visit Diagnosis:Laceration of right ring finger without foreign body without damage to nail, initial encounter [S61.214A] Order(s):TDAP VACCINE, AGE 7+ YR (ADACEL, BOOSTRIX) [25630BWC] Order #: [id number] Prescriptions as of 09/28/2023 - torsemide (DEMADEX) [...] C/vit E/zinc/ (more content not included)... Normal [facility] Basophil percentageOrdered B y: Nolan Nguyen on 09-11-2023 Chloride [Moles/Vol] 107 mmol/L 98-107 [facility] Glucose [Mass/Vol] 116 mg/dL 74-106 [facility] Comment on above: Fasting Glucose resu lt from 100 to 125 mg/dL suggests IMPAIRED HOMEOSTASIS per A.D.A. criteria. Potassium [Moles/Vol] 4.2 mmol/L 3.5-5.1 [facility] Sodium [Moles/Vol] 139 mmol/L 136-145 [facility] Laboratory - Chemistry and C hemistry - challengeOrdered By: Nolan Nguyen on 09-11-2023 CO2 [Moles/Vol] 26.0 mmol/L 21.0-32.0 Urea nitrogen/Creatinine [Mass ratio] 19.2 mg/mg 10-20 No Panel InformationOrdered By: Nolan Nguyen on 09-11-2023 Estimated GFR (MDRD) Amer 50 mL/min >60 Comment on above: GFR Calc Estimated GFR (MDRD) Non-Af Amer 41 mL/min >60 Comment on above: Non- GFR Calc Serum or plasma calcium axel urement (mass/volume)Ordered By: Nolan Nguyen on 09-11-2023 Calcium [Mass/Vol] 9.7 mg/dL 8.5-10.1 [facility] Serum or plasma creatinine m easurement (mass/volume)Ordered By: Nolan Nguyen on 09-11-2023 Creatinine [Mass/Vol] 1.72 mg/dL 0.70-1.30 [facility] Comment on above: The validity of the calculated GFR & GFRAA in patients over 70 years has not been determined. Clinical correlation is essential. Serum or plasma urea nitroge n measurement (mass/volume)Ordered By: Nolan Nguyen on 09-11-2023 Urea nitrogen [Mass/Vol] 33 mg/dL 7-18 Thin prep Papanicolaou smear with manual screeningOrdered By: Nolan Nguyen on 09-11-2023 Thin prep Papanicolaou smear with manual screening 6 5-15 Basophil percentageOrdered B y: Nolan Nguyen on 07-31-2023 Cholesterol [Mass/Vol] 160 mg/dL <200 [facility] Comment on above: <200 mg/dL Desirable 200-240 mg/dL Borderline >240 mg/dL High Risk Triglyceride [Mass/Vol] 245 mg/dL <199 [facility] Comment on above: The drugs N-Acetylcy steine and Metamizole may falsely depress this assay.Serum Triglycerides Reference Interval Normal <150 mg/dL Borderline high 150 - 199 mg/dL High 200 - 499 mg/dL Very High > or = 500 mg/dL Laboratory - Chemistry and C hemistry - challengeOrdered By: Nolan Nguyen on 07-31-2023 Cholesterol in HDL [Mass/Vol] 35 mg/dL >40 Comment on above: The drugs N-Acetylcy steine and Metamizole may falsely depress this assay. Reference Range HDL <40 mg/dL Low HDL Cholesterol HDL >or= 60 mg/dL High HDL Cholesterol Cholesterol in LDL [Mass/Vol] 76 mg/dL 0-130 No Panel InformationOrdered By: Nolan Nguyen on 07-31-2023 VLDL Cholesterol 49 mg/dL 5-40 CNPNon 06-24-2023 CNPN Telephone (PODCCP) ----- XOCHITL MONTERROSO ([id number]) 1945 M Date Time Provider Department 06/24/23 NOLAN NGUYEN PODANTONIA During your visit today, we recorded the following information about you: Nguyen Marcum 06/24/2023 3:20 PM Signed Reason for call: Pt's spouse called and she would like to schedule his follow up appt with Dr Cna. Please call Raul for scheduling. Contact name: Raul [facility] Home and cell number: [phone] Diagnosis: Carotid stenosis, asymptomatic, bilateral Kind RegardsMalcolmNguyen June Clay 06/26/2023 12:10 PM Signed Spoke with patient appt scheduled 10/14/2023 with testing prior to appt. Appt reminder mailed also. Allergies As of Date: 06/24/2023 Noted Allergy Reaction EH INHIBITORS 02/11/2011 7 - Swelling Comments: Angioedema NIACIN 12/11/2011 14 - Other: See Comments Comments: flushing UQLMAXL-HOM-WEG REDUCTASE INHIBIT*02/11/2011 5 - Intolerance Date Reviewed: [...] Status:Closed by NGUYEN MARCUM on 06/24/23 [facility] Basophil percentageOrdered B y: Mary Patel on 06-11-2023 Basophil percentage 3.4 mg/dL 2.5-4.9 [facility] Chloride [Moles/Vol] 104 mmol/L 98-107 [facility] Glucose [Mass/Vol] 110 mg/dL 74-106 [facility] Comment on above: Fasting Glucose resu lt from 100 to 125 mg/dL suggests IMPAIRED HOMEOSTASIS per A.D.A. criteria. Potassium [Moles/Vol] 4.2 mmol/L 3.5-5.1 [facility] Sodium [Moles/Vol] 135 mmol/L 136-145 [facility] Laboratory - Chemistry and C hemistry - challengeOrdered By: aMry Patel on 06-11-2023 CO2 [Moles/Vol] 28.0 mmol/L 21.0-32.0 Urea nitrogen/Creatinine [Mass ratio] 20.8 mg/mg 10-20 No Panel InformationOrdered By: Mary Patel on 06-11-2023 Estimated GFR (MDRD) Amer 61 mL/min >60 Comment on above: GFR Calc Estimated GFR (MDRD) Non-Af Amer 50 mL/min >60 Comment on above: Non- GFR Calc Serum or plasma calcium axel urement (mass/volume)Ordered By: Mary Patel on 06-11-2023 Calcium [Mass/Vol] 9.2 mg/dL 8.5-10.1 [facility] Serum or plasma creatinine m easurement (mass/volume)Ordered By: aMry Patel on 06-11-2023 Creatinine [Mass/Vol] 1.44 mg/dL 0.70-1.30 [facility] Comment on above: The validity of the calculated GFR & GFRAA in patients over 70 years has not been determined. Clinical correlation is essential. Serum or plasma urea nitroge n measurement (mass/volume)Ordered By: Mary Patel on 06-11-2023 Urea nitrogen [Mass/Vol] 30 mg/dL 7-18 Thin prep Papanicolaou smear with manual screeningOrdered By: Mary Patel on 06-11-2023 Protein (U) [Mass/Vol] 13.0 mg/dL 0.0-11.8 [facility] Thin prep Papanicolaou smear with manual screening 3.1 g/dL 3.2-5.0 Urine creatinine measurement (mass/volume)Ordered By: Mary Patel on 06-11-2023 Creatinine (U) [Mass/Vol] 149.00 mg/dL NO RANGE EST. Urine protein/creatinine mas s ratioOrdered By: Mary Patel on 06-11-2023 Protein/Creatinine (U) [Mass ratio] 87 mg/g CRE 0-200 Basophil percentageOrdered B y: Nolan Nguyen on 05-06-2023 Chloride [Moles/Vol] 108 mmol/L 98-107 [facility] Glucose [Mass/Vol] 129 mg/dL 74-106 [facility] Comment on above: Fasting Glucose resu lt greater than or equal to 126 mg/dL suggests DIABETES MELLITUS per A.D.A. criteria. Potassium [Moles/Vol] 4.2 mmol/L 3.5-5.1 [facility] Sodium [Moles/Vol] 138 mmol/L 136-145 [facility] Laboratory - Chemistry and C hemistry - challengeOrdered By: Nolan Nguyen on 05-06-2023 CO2 [Moles/Vol] 27.0 mmol/L 21.0-32.0 Urea nitrogen/Creatinine [Mass ratio] 18.7 mg/mg 10-20 No Panel InformationOrdered By: Nolan Nguyen on 05-06-2023 Estimated GFR (MDRD) Amer 64 mL/min >60 Comment on above: GFR Calc Estimated GFR (MDRD) Non-Af Amer 53 mL/min >60 Comment on above: Non- GFR Calc Serum or plasma calcium axel urement (mass/volume)Ordered By: Nolan Nguyen on 05-06-2023 Calcium [Mass/Vol] 9.2 mg/dL 8.5-10.1 [facility] Serum or plasma creatinine m easurement (mass/volume)Ordered By: Nolan Nguyen on 05-06-2023 Creatinine [Mass/Vol] 1.39 mg/dL 0.70-1.30 [facility] Comment on above: The validity of the calculated GFR & GFRAA in patients over 70 years has not been determined. Clinical correlation is essential. Serum or plasma urea nitroge n measurement (mass/volume)Ordered By: Nolan Nguyen on 05-06-2023 Urea nitrogen [Mass/Vol] 26 mg/dL 7-18 Thin prep Papanicolaou smear with manual screeningOrdered By: Nolan Nguyen on 05-06-2023 Thin prep Papanicolaou smear with manual screening 3 5-15 Basophil percentageOrdered B y: Mary Patel on 03-31-2023 Basophil percentage 2.3 mg/dL 2.5-4.9 [facility] Chloride [Moles/Vol] 106 mmol/L 98-107 [facility] Glucose [Mass/Vol] 111 mg/dL 74-106 [facility] Comment on above: Fasting Glucose resu lt from 100 to 125 mg/dL suggests IMPAIRED HOMEOSTASIS per A.D.A. criteria. Potassium [Moles/Vol] 4.0 mmol/L 3.5-5.1 [facility] Sodium [Moles/Vol] 139 mmol/L 136-145 [facility] Laboratory - Chemistry and C hemistry - challengeOrdered By: Mary Patel on 03-31-2023 CO2 [Moles/Vol] 30.0 mmol/L 21.0-32.0 Urea nitrogen/Creatinine [Mass ratio] 11.5 mg/mg 10-20 No Panel InformationOrdered By: Mary Patel on 03-31-2023 Estimated GFR (MDRD) Amer 68 mL/min >60 Comment on above: GFR Calc Estimated GFR (MDRD) Non-Af Amer 56 mL/min >60 [facility] Comment on above: Non- GFR Calc Serum or plasma albumin axel urement (mass/volume)Ordered By: Mary Patel on 03-31-2023 Albumin [Mass/Vol] 2.4 g/dL 3.2-5.0 [facility] Serum or plasma calcium axel urement (mass/volume)Ordered By: Mary Patel on 03-31-2023 Calcium [Mass/Vol] 8.7 mg/dL 8.5-10.1 [facility] Serum or plasma creatinine m easurement (mass/volume)Ordered By: Mary Patel on 03-31-2023 Creatinine [Mass/Vol] 1.31 mg/dL 0.70-1.30 [facility] Comment on above: The validity of the calculated GFR & GFRAA in patients over 70 years has not been determined. Clinical correlation is essential. Serum or plasma urea nitroge n measurement (mass/volume)Ordered By: Mary Patel on 03-31-2023 Urea nitrogen [Mass/Vol] 15 mg/dL 7-18 INR in Blood by Coagulation assayOrdered By: Mary Patel on 03-11-2023 INR Coag (Bld) [Relative time] 1.1 {INR} Laboratory - CoagulationOrde red By: Mary Patel on 03-11-2023 aPTT Coag (Bld) [Time] 32.4 s 24.1-36.2 [facility] PT Coag (PPP) [Time] 14.1 s 11.7-14.9 [facility] 24 hour urine albumin/total protein ratio by electrophoresis (mass fraction)Ordered By: Mary Patel on 03-03-2023 Albumin Elph (24H U) [Mass fraction] 73.4 % . 24 hour urine alpha 1 globul in/total protein ratio by electrophoresis (mass fraction)Ordered By: Mary Patel on 03-03-2023 Alpha 1 globulin Elph (24H U) [Mass fraction] 4.1 % . 24 hour urine alpha 2 globul in/total protein ratio by electrophoresis (mass fraction)Ordered By: Mary Patel on 03-03-2023 Alpha 2 globulin Elph (24H U) [Mass fraction] 3.8 % . Atypical perinuclear antineu trophil cytoplasmic antibodies measurementOrdered By: Mary Patel on 03-03-2023 Neutrophil cytoplasmic Ab.perinuclear.atypical IF (S) [Titer] <1:20 titer Neg:<1:20 Comment on above: The atypical pANCA p attern has been observed in asignificant percentage of patients with ulcerative colitis,primary sclerosing cholangitis and autoimmune hepatitis.Performed at: - [address] [id number] Director: Michael Mancilla PhD, Phone: [phone] Basophil percentageOrdered B y: Mary Patel on 03-03-2023 Basophil percentage 4.8 mg/dL 2.5-4.9 [facility] Chloride [Moles/Vol] 104 mmol/L 98-107 [facility] Glucose [Mass/Vol] 107 mg/dL 74-106 [facility] Comment on above: Fasting Glucose resu lt from 100 to 125 mg/dL suggests IMPAIRED HOMEOSTASIS per A.D.A. criteria. Potassium [Moles/Vol] 4.3 mmol/L 3.5-5.1 [facility] Sodium [Moles/Vol] 134 mmol/L 136-145 [facility] Laboratory - Chemistry and C hemistry - challengeOrdered By: Mary Patel on 03-03-2023 CO2 [Moles/Vol] 25.0 mmol/L 21.0-32.0 Magnesium [Mass/Vol] 3.5 mg/dL 1.6-2.6 [facility] Urea nitrogen/Creatinine [Mass ratio] 20.0 mg/mg 10- Mitotic spindle apparatus Ab [Titer] in Serum or PlasmaOrdered By: Mary Patel on 03-03-2023 Mitotic spindle apparatus Ab [Titer] Not Reportable No Panel InformationOrdered By: Mary Patel on 03-03-2023 YUMIKO Nuclear Membrane Pattern Not Reportable Estimated GFR (MDRD) Amer 22 mL/min >60 Comment on above: GFR Calc Estimated GFR (MDRD) Non-Af Amer 18 mL/min >60 Comment on above: Non- GFR Calc Urine Immunofixation PEP Note Comment . Comment on above: Protein electrophore sis scan will follow via computer,mail, or medical insurance claims processor delivery. Serum classic neutrophil cyt oplasmic antibody assay (units/volume)Ordered By: Mary Patel on 03-03-2023 Neutrophil cytoplasmic Ab.classic Qn (S) <1:20 titer Neg:<1:20 Serum midbody antibody titer by immunofluorescenceOrdered By: Mary Patel on 03-03-2023 Midbody Ab IF (S) [Titer] Not Reportable Serum multiple nuclear dot p attern antinuclear IgG antibody (YUMIKO) titer by immunofluoOrdered By: Mary Patel on 03-03-2023 Multiple nuclear dots nuclear IgG pattern IF (S) [Titer] Not Reportable Serum neuronal nuclear antib trung detection by immunofluorescenceOrdered By: Mary Patel on 03-03-2023 Neuronal nuclear Ab IF Ql (S) Not Reportable Serum nuclear antibody patte rn homogenous titer by immunofluorescenceOrdered By: Mary Patel on 03-03-2023 Homogenous nuclear Ab pattern IF (S) [Titer] Not Reportable Serum nuclear antibody titer by immunofluorescenceOrdered By: Mary Patel on 03-03-2023 Nuclear Ab IF (S) [Titer] Negative . Comment on above: Negative <1:80 Ivis rivas 1:80 Positive >1:80ICAP nomenclature: AC-0For more information about Hep-2 cell patterns useANApatterns.org, the official website for theInternational Consensus on Antinuclear Antibody (YUMIKO)Patterns (ICAP).Performed at: [address] [id number] Director: Michael Mancilla PhD, Phone: [phone] Serum or plasma albumin axel urement (mass/volume)Ordered By: Mary Patel on 03-03-2023 Albumin [Mass/Vol] 1.6 g/dL 3.2-5.0 [facility] Serum or plasma calcium axel urement (mass/volume)Ordered By: Mary Patel on 03-03-2023 Calcium [Mass/Vol] 8.1 mg/dL 8.5-10.1 [facility] Serum or plasma creatinine m easurement (mass/volume)Ordered By: Mary Patel on 03-03-2023 Creatinine [Mass/Vol] 3.50 mg/dL 0.70-1.30 [facility] Comment on above: The validity of the calculated GFR & GFRAA in patients over 70 years has not been determined. Clinical correlation is essential. Serum or plasma urea nitroge n measurement (mass/volume)Ordered By: Mary Patel on 03-03-2023 Urea nitrogen [Mass/Vol] 70 mg/dL 7-18 Serum perinuclear neutrophil cytoplasmic antibody titer by immunofluorescenceOrdered By: Mary Patel on 03-03-2023 Neutrophil cytoplasmic Ab.perinuclear IF (S) [Titer] <1:20 titer Neg:<1:20 Comment on above: The presence of posi tive fluorescence exhibiting P-ANCA orC-ANCA patterns alone is not specific for the diagnosis ofWegener's Granulomatosis (WG) or microscopic polyangiitis.Decisions about treatment should not be based solely onANCA IFA results. The International ANCA Group Consensusrecommends follow up testing of positive sera with both RI-3 and MPO-ANCA enzyme immunoassays. As many as 5% serumsamples are positive only by EIA. Ref. AM J Clin Zxydnm7100;111:507-513. Serum proliferating cell nuc lear antigen (PCNA) antibody titer by immunofluorescenceOrdered By: Mary Patel on 03-03-2023 PCNA extractable nuclear Ab IF (S) [Titer] Not Reportable Serum speckled nuclear antib trung pattern titerOrdered By: Mary Patel on 03-03-2023 Speckled nuclear Ab pattern (S) [Titer] Not Reportable Thin prep Papanicolaou smear with manual screeningOrdered By: Mary Patel on 03-03-2023 Thin prep Papanicolaou smear with manual screening Not Reportable Thin prep Papanicolaou smear with manual screening Comment . Comment on above: No monoclonality det ected. Urine beta globulin measurem ent by electrophoresis (mass/volume)Ordered By: Mary Patel on 03-03-2023 Beta globulin Elph (U) [Mass/Vol] 11.0 % . Urine creatinine measurement (mass/volume)Ordered By: Mary Patel on 03-03-2023 Creatinine (U) [Mass/Vol] 120.00 mg/dL NO RANGE EST. Urine gamma globulin measure ment by electrophoresis (mass/volume)Ordered By: Mary Patel on 03-03-2023 Gamma globulin Elph (U) [Mass/Vol] 7.7 % . Urine monoclonal protein/tot al protein mass ratio by electrophoresisOrdered By: Mary Patel on 03-03-2023 Protein.monoclonal Elph (U) [Mass fraction] Not Observed % Not Observed Urine protein measurement (m ass/volume)Ordered By: Mary Patel on 03-03-2023 Protein (U) [Mass/Vol] 883.9 mg/dL 0.0-11.8 [facility] Protein (U) [Mass/Vol] 1007.5 mg/dL Not Estab. Comment on above: Results confirmed on dilution. Urine protein/creatinine mas s ratioOrdered By: Mary Patel on 03-03-2023 Protein/Creatinine (U) [Mass ratio] 7366 mg/g CRE 0-200 Serum or plasma [id number] protein tumor marker measurement (units/volume)Ordered By: Fady Whittington on 02-25-2023 AFP.tumor marker Qn 1.9 ng/mL 0.0-8.4 [facility] Comment on above: [employer] El ectrochemiluminescence Immunoassay(ECLIA)Values obtained with different assay methods or kits cannotbe used interchangeably. Results cannot be interpreted asabsolute evidence of the presence or absence of malignantdisease.This test is not interpretable in females.Performed at: [facility] [address] [id number] Director: Michael Mancilla PhD, Phone: [phone] Serum or plasma carcinoembry onic antigen measurement (mass/volume)Ordered By: Fady Whittington on 02-25-2023 Carcinoembryonic Ag [Mass/Vol] 2.0 ng/mL 0.0-4.7 Comment on above: Nonsmokers <3.9 Smok ers <5.6[employer] Electrochemiluminescence Immunoassay(ECLIA)Values obtained with different assay methods or kitscannot be used interchangeably. Results cannot beinterpreted as absolute evidence of the presence orabsence of malignant disease. Absolute lymphocyte countOrd ered By: Fady Whittington on 02-24-2023 Lymphocytes Auto (Unsp spec) [#/Vol] 1.34 10*3/uL 0.83-4.51 Basophil percentageOrdered B y: Fady Whittington on 02-24-2023 Basophils/100 WBC (Bld) 0.6 % 0-1 [facility] Bilirubin [Mass/Vol] 0.20 mg/dL 0.20-1.00 [facility] Comment on above: For patients on eltr ombopag therapy, use of Dimension [place] TBIL is not recommended. Chloride [Moles/Vol] 110 mmol/L 98-107 [facility] Eosinophils/100 WBC (Bld) 0.0 % 0-5 Glucose [Mass/Vol] 112 mg/dL 74-106 [facility] Comment on above: Fasting Glucose resu lt from 100 to 125 mg/dL suggests IMPAIRED HOMEOSTASIS per A.D.A. criteria. Neutrophils (Bld) [#/Vol] 4.5 10*3/uL 2.0-7.7 Neutrophils/100 WBC (Bld) 68.2 % 47-70 Potassium [Moles/Vol] 4.7 mmol/L 3.5-5.1 [facility] Protein [Mass/Vol] 6.8 g/dL 6.4-8.2 [facility] Sodium [Moles/Vol] 139 mmol/L 136-145 [facility] WBC (Bld) [#/Vol] 6.5 10*3/uL 4.4-11.0 [facility] Blood erythrocytes count (nu mber/volume)Ordered By: Fady Whittington on 02-24-2023 RBC (Bld) [#/Vol] 4.32 10*6/uL 4.6-6.2 [facility] Blood hemoglobin measurement (mass/volume)Ordered By: Fady Whittington on 02-24-2023 Hemoglobin (Bld) [Mass/Vol] 13.2 g/dL 13.0-16.5 Blood lymphocytes/100 leukoc ytesOrdered By: Fady Whittington on 10-17-2023 Lymphocytes/100 WBC (Bld) 20.5 % 19-41 Blood monocytes/100 leukocyt esOrdered By: Fady Whittington on 02-24-2023 Monocytes/100 WBC (Bld) 10.4 % 0-10 [facility] Blood platelet mean volumeOr dered By: Fady Whittington on 02-24-2023 Platelet mean volume (Bld) [Entitic vol] 9.6 fL 6.2-12.0 Determination of erythrocyte mean corpuscular volume (MCV)Ordered By: Fady Whittington on 02-24-2023 MCV (RBC) [Entitic vol] 96.5 fL 80-94 [facility] Erythrocyte sedimentation ra teOrdered By: Fady Whittington on 02-24-2023 ESR (Bld) [Velocity] 77 mm/h 0-20 [facility] Hematocrit Auto (Bld) [Volum e fraction]Ordered By: Fady Whittington on 02-24-2023 Hematocrit (Bld) [Volume fraction] 41.7 % 40-54 Laboratory - Chemistry and C hemistry - challengeOrdered By: Fady Whittington on 02-24-2023 ALP [Catalytic activity/Vol] 58 U/L 45-117 ALT [Catalytic activity/Vol] 16 U/L 16-61 CO2 [Moles/Vol] 23.0 mmol/L 21.0-32.0 Globulin (S) [Mass/Vol] 5.2 g/dL 2.2-4.2 [facility] Natriuretic peptide B (Bld) [Mass/Vol] 96.7 pg/mL 0-100 Urea nitrogen/Creatinine [Mass ratio] 16.4 mg/mg 10-20 Laboratory - Hematology and Cell countsOrdered By: Fady Whittington on 02-24-2023 Erythrocyte distribution width (RBC) [Entitic vol] 47.8 fL 35.1-43.9 Erythrocyte distribution width (RBC) [Ratio] 13.3 % 11.6-14.6 Immature granulocytes/100 WBC (Bld) 0.300 % 0.0-0.9 Comment on above: IG% - Immature Granu locytes (promyelocytes, myelocytes and metamyelocytes) > 1% indicates that a LEFT SHIFT is Present. MCH (RBC) [Entitic mass] 30.6 pg 27.0-32.0 Nucleated RBC/100 WBC (Bld) [Ratio] 0 % 0-5 MCHC Auto (RBC) [Mass/Vol]Or dered By: Fady Whittington on 02-24-2023 MCHC (RBC) [Mass/Vol] 31.7 g/dL 32-36 [facility] No Panel InformationOrdered By: Fady Whittington on 02-24-2023 Estimated GFR (MDRD) Amer 19 mL/min >60 Comment on above: GFR Calc Estimated GFR (MDRD) Non-Af Amer 16 mL/min >60 Comment on above: Non- GFR Calc Thyroid Stimulating Hormone (TSH) 3.08 uIU/mL 0.358-3.74 Platelets bldOrdered By: Winifred Whittington on 02-24-2023 Platelets (Bld) [#/Vol] 190 10*3/uL 150-450 Serum or plasma C reactive p rotein measurement (mass/volume)Ordered By: Fady Whittington on 02-24-2023 CRP [Mass/Vol] 20.80 mg/L 0.0-3.0 Comment on above: C-Reactive Protein ( CRP) provides useful information for thediagnosis, therapy and monitoring of inflammatory processesand associated diseases. For the evaluation of Relative Riskfor Cardiovascular Disease, a High Sensitivity CRP (HSCRP)should be ordered. Serum or plasma albumin axel urement (mass/volume)Ordered By: Fady Whittington on 02-24-2023 Albumin [Mass/Vol] 1.6 g/dL 3.2-5.0 [facility] Serum or plasma albumin/glob ulin mass ratioOrdered By: Fady Whittington on 02-24-2023 Albumin/Globulin [Mass ratio] 0.3 {ratio} 0.9-2.4 Serum or plasma calcium axel urement (mass/volume)Ordered By: Fady Whittington on 02-24-2023 Calcium [Mass/Vol] 8.2 mg/dL 8.5-10.1 [facility] Serum or plasma creatinine m easurement (mass/volume)Ordered By: Fady Whittington on 02-24-2023 Creatinine [Mass/Vol] 3.96 mg/dL 0.70-1.30 [facility] Comment on above: The validity of the calculated GFR & GFRAA in patients over 70 years has not been determined. Clinical correlation is essential. Serum or plasma urea nitroge n measurement (mass/volume)Ordered By: Fady Whittington on 02-24-2023 Urea nitrogen [Mass/Vol] 65 mg/dL 7-18 Thin prep Papanicolaou smear with manual screeningOrdered By: Fady Whittington on 02-24-2023 Thin prep Papanicolaou smear with manual screening 20 U/L 15-37 Thin prep Papanicolaou smear with manual screening 6 5-15 Basophil percentageOrdered B y: Dr. Nguyen on 05-23-2022 Chloride [Moles/Vol] 102 mmol/L 98-107 [facility] Cholesterol [Mass/Vol] 167 mg/dL <200 [facility] Comment on above: <200 mg/dL Desirable 200-240 mg/dL Borderline >240 mg/dL High Risk Glucose [Mass/Vol] 152 mg/dL 74-106 [facility] Comment on above: Fasting Glucose resu lt greater than or equal to 126 mg/dL suggests DIABETES MELLITUS per A.D.A. criteria. Potassium [Moles/Vol] 4.7 mmol/L 3.5-5.1 [facility] Sodium [Moles/Vol] 136 mmol/L 136-145 [facility] Triglyceride [Mass/Vol] 112 mg/dL <199 [facility] Comment on above: The drugs N-Acetylcy steine and Metamizole may falsely depress this assay.Serum Triglycerides Reference Interval Normal <150 mg/dL Borderline high 150 - 199 mg/dL High 200 - 499 mg/dL Very High > or = 500 mg/dL Laboratory - Chemistry and C hemistry - challengeOrdered By: Dr. Nguyen on 05-23-2022 CO2 [Moles/Vol] 25.0 mmol/L 21.0-32.0 Urea nitrogen/Creatinine [Mass ratio] 15.9 mg/mg - No Panel InformationOrdered By: Dr. Nguyen on 05-23-2022 Estimated GFR (MDRD) Amer 71 mL/min >60 Comment on above: GFR Calc Estimated GFR (MDRD) Non-Af Amer 59 mL/min >60 Comment on above: Non- GFR Calc Serum or plasma calcium axel urement (mass/volume)Ordered By: Dr. Nguyen on 05-23-2022 Calcium [Mass/Vol] 8.8 mg/dL 8.5-10.1 [facility] Serum or plasma cholesterol in HDL measurement (mass/volume)Ordered By: Dr. Nguyen on 05-23-2022 Cholesterol in HDL [Mass/Vol] 39 mg/dL >40 Comment on above: The drugs N-Acetylcy steine and Metamizole may falsely depress this assay. Reference Range HDL <40 mg/dL Low HDL Cholesterol HDL >or= 60 mg/dL High HDL Cholesterol Serum or plasma cholesterol in VLDL measurement (mass/volume)Ordered By: Dr. Nguyen on 05-23-2022 Cholesterol in VLDL [Mass/Vol] 22 mg/dL 5-40 Serum or plasma creatinine m easurement (mass/volume)Ordered By: Dr. Nguyen on 05-23-2022 Creatinine [Mass/Vol] 1.26 mg/dL 0.70-1.30 [facility] Comment on above: The validity of the calculated GFR & GFRAA in patients over 70 years has not been determined. Clinical correlation is essential. Serum or plasma low density lipoprotein (LDL) cholesterol measurement (mass/volume)Ordered By: Dr. Nguyen on 05-23-2022 Cholesterol in LDL [Mass/Vol] 106 mg/dL 0-130 Serum or plasma urea nitroge n measurement (mass/volume)Ordered By: Dr. Nguyen on 05-23-2022 Urea nitrogen [Mass/Vol] 20 mg/dL 7-18 Thin prep Papanicolaou smear with manual screeningOrdered By: Dr. Nguyen on 05-23-2022 Thin prep Papanicolaou smear with manual screening 9 5-15 Basophil percentageon 2021 Chloride [Moles/Vol] 102 mmol/L 98-107 [facility] Work Phone: Glucose [Mass/Vol] 134 mg/dL 74-106 [facility] Work Phone: Comment on above: Fasting Glucose resu lt greater than or equal to 126 mg/dL suggests DIABETES MELLITUS per A.D.A. criteria. Potassium [Moles/Vol] 4.4 mmol/L 3.5-5.1 [facility] Work Phone: Sodium [Moles/Vol] 137 mmol/L 136-145 [facility] Work Phone: Laboratory - Chemistry and C hemistry - challengeon 11-14-2021 CO2 [Moles/Vol] 30.0 mmol/L 21.0-32.0 Work Phone: Urea nitrogen/Creatinine [Mass ratio] 16.2 mg/mg 10-20 Work Phone: No Panel Informationon 11-14 Estimated GFR (MDRD) Amer 78 mL/min >60 Work Phone: Comment on above: GFR Calc Estimated GFR (MDRD) Non-Af Amer 64 mL/min >60 Work Phone: Comment on above: Non- GFR Calc Serum or plasma calcium axel urement (mass/volume)on 11-14-2021 Calcium [Mass/Vol] 8.9 mg/dL 8.5-10.1 [facility] Work Phone: Serum or plasma creatinine m easurement (mass/volume)on 11-14-2021 Creatinine [Mass/Vol] 1.17 mg/dL 0.70-1.30 [facility] Work Phone: Comment on above: The validity of the calculated GFR & GFRAA in patients over 70 years has not been determined. Clinical correlation is essential. Serum or plasma urea nitroge n measurement (mass/volume)on 11-14-2021 Urea nitrogen [Mass/Vol] 19 mg/dL 7-18 Work Phone: Thin prep Papanicolaou smear with manual screeningon 11-14-2021 Thin prep Papanicolaou smear with manual screening 5 5-15 Work Phone: Absolute lymphocyte counton 09-22-2021 Lymphocytes Auto (Unsp spec) [#/Vol] 1.51 10*3/uL 0.83-4.51 Work Phone: Basophil percentageon 2021 Basophils/100 WBC (Bld) 1.5 % 0-1 [facility] Work Phone: Chloride [Moles/Vol] 104 mmol/L 98-107 [facility] Work Phone: Eosinophils/100 WBC (Bld) 0.0 % 0-5 Work Phone: Glucose [Mass/Vol] 93 mg/dL 74-106 [facility] Work Phone: Neutrophils (Bld) [#/Vol] 2.9 10*3/uL 2.0-7.7 Work Phone: Neutrophils/100 WBC (Bld) 53.2 % 47-70 Work Phone: Potassium [Moles/Vol] 4.2 mmol/L 3.5-5.1 [facility] Work Phone: Sodium [Moles/Vol] 136 mmol/L 136-145 [facility] Work Phone: WBC (Bld) [#/Vol] 5.5 10*3/uL 4.4-11.0 [facility] Work Phone: Blood erythrocytes count (nu mber/volume)on 09-22-2021 RBC (Bld) [#/Vol] 4.29 10*6/uL 4.6-6.2 [facility] Work Phone: Blood hemoglobin measurement (mass/volume)on 09-22-2021 Hemoglobin (Bld) [Mass/Vol] 14.0 g/dL 13.0-16.5 Work Phone: Blood lymphocytes/100 leukoc yteson 09-22-2021 Lymphocytes/100 WBC (Bld) 27.5 % 19-41 Work Phone: Blood monocytes/100 leukocyt eson 09-22-2021 Monocytes/100 WBC (Bld) 14.5 % 0-10 [facility] Work Phone: Blood platelet mean volumeon 09-22-2021 Platelet mean volume (Bld) [Entitic vol] 9.9 fL 6.2-12.0 Work Phone: Determination of erythrocyte mean corpuscular volume (MCV)on 09-22-2021 MCV (RBC) [Entitic vol] 98.4 fL 80-94 [facility] Work Phone: Glucose Glucometer (BldC) [M ass/Vol]on 09-22-2021 Glucose [Mass/Vol] 136 mg/dL 74-106 [facility] Work Phone: Comment on above: MANAGEMENT OF PATIEN T CARE PER NURSING PROTOCOL Hematocrit Auto (Bld) [Volum e fraction]on 09-22-2021 Hematocrit (Bld) [Volume fraction] 42.2 % 40-54 Work Phone: Laboratory - Chemistry and C hemistry - challengeon 09-22-2021 CO2 [Moles/Vol] 27.0 mmol/L 21.0-32.0 Work Phone: Urea nitrogen/Creatinine [Mass ratio] 16.8 mg/mg 10-20 Work Phone: Laboratory - Hematology and Cell countson 09-22-2021 Erythrocyte distribution width (RBC) [Entitic vol] 45.8 fL 35.1-43.9 Work Phone: Erythrocyte distribution width (RBC) [Ratio] 12.7 % 11.6-14.6 Work Phone: Immature granulocytes/100 WBC (Bld) 3.300 % 0.0-0.9 Work Phone: Comment on above: IG% - Immature Granu locytes (promyelocytes, myelocytes and metamyelocytes) > 1% indicates that a LEFT SHIFT is Present. MCH (RBC) [Entitic mass] 32.6 pg 27.0-32.0 Work Phone: Nucleated RBC/100 WBC (Bld) [Ratio] 0 % 0-5 Work Phone: MCHC Auto (RBC) [Mass/Vol]on 09-22-2021 MCHC (RBC) [Mass/Vol] 33.2 g/dL 32-36 [facility] Work Phone: No Panel Informationon 09-22 Estimated Creatinine Clearance Calc 42.52 ml/min Work Phone: Estimated GFR (MDRD) Amer 62 mL/min >60 Work Phone: Comment on above: GFR Calc Estimated GFR (MDRD) Non-Af Amer 51 mL/min >60 Work Phone: Comment on above: Non- GFR Calc Platelets bldon 09-22-2021 Platelets (Bld) [#/Vol] 164 10*3/uL 150-450 Work Phone: Serum or plasma calcium axel urement (mass/volume)on 09-22-2021 Calcium [Mass/Vol] 8.6 mg/dL 8.5-10.1 [facility] Work Phone: Serum or plasma creatinine m easurement (mass/volume)on 09-22-2021 Creatinine [Mass/Vol] 1.43 mg/dL 0.70-1.30 [facility] Work Phone: Comment on above: The validity of the calculated GFR & GFRAA in patients over 70 years has not been determined. Clinical correlation is essential. Serum or plasma urea nitroge n measurement (mass/volume)on 09-22-2021 Urea nitrogen [Mass/Vol] 24 mg/dL 7-18 Work Phone: Thin prep Papanicolaou smear with manual screeningon 09-22-2021 Thin prep Papanicolaou smear with manual screening 5 5-15 Work Phone: Basophil percentageon 2021 Bilirubin [Mass/Vol] 0.50 mg/dL 0.20-1.00 [facility] Work Phone: Comment on above: For patients on eltr ombopag therapy, use of Dimension [place] TBIL is not recommended. Protein [Mass/Vol] 6.7 g/dL 6.4-8.2 [facility] Work Phone: Lactate [Moles/Vol] 1.5 mmol/L 0.4-2.0 [facility] Work Phone: Blood manual differential co mment interpretation (narrative result)on 09-21-2021 Manual differential comment Arunlfo (Bld) [Interp] SCANNED Work Phone: Laboratory - Chemistry and C hemistry - challengeon 09-21-2021 ALP [Catalytic activity/Vol] 41 U/L 45-117 Work Phone: ALT [Catalytic activity/Vol] 54 U/L 16-61 Work Phone: Globulin (S) [Mass/Vol] 4.0 g/dL 2.2-4.2 [facility] Work Phone: No Panel Informationon 09-21 Atypical Lymphocytes 1+ % [facility] Work Phone: Serum or plasma albumin axel urement (mass/volume)on 09-21-2021 Albumin [Mass/Vol] 2.7 g/dL 3.2-5.0 [facility] Work Phone: Serum or plasma albumin/glob ulin mass ratioon 09-21-2021 Albumin/Globulin [Mass ratio] 0.7 {ratio} 0.9-2.4 Work Phone: Thin prep Papanicolaou smear with manual screeningon 09-21-2021 Thin prep Papanicolaou smear with manual screening 35 U/L 15-37 Work Phone: Absolute lymphocyte counton 09-20-2021 Lymphocytes Auto (Unsp spec) [#/Vol] 1.65 10*3/uL 0.83-4.51 Work Phone: Basophil percentageon 2021 Lactate [Moles/Vol] 1.2 mmol/L 0.4-2.0 [facility] Work Phone: [phone] Basophils/100 WBC (Bld) 0.7 % 0-1 [facility] Work Phone: Bilirubin [Mass/Vol] 0.60 mg/dL 0.20-1.00 [facility] Work Phone: Comment on above: For patients on eltr ombopag therapy, use of Dimension [place] TBIL is not recommended. Chloride [Moles/Vol] 99 mmol/L 98-107 [facility] Work Phone: Eosinophils/100 WBC (Bld) 0.0 % 0-5 Work Phone: Glucose [Mass/Vol] 134 mg/dL 74-106 [facility] Work Phone: [phone] Comment on above: Fasting Glucose resu lt greater than or equal to 126 mg/dL suggests DIABETES MELLITUS per A.D.A. criteria. Neutrophils (Bld) [#/Vol] 3.0 10*3/uL 2.0-7.7 Work Phone: [phone] Neutrophils/100 WBC (Bld) 53.4 % 47-70 Work Phone: [phone] Potassium [Moles/Vol] 3.7 mmol/L 3.5-5.1 [facility] Work Phone: [phone] Protein [Mass/Vol] 6.7 g/dL 6.4-8.2 [facility] Work Phone: Sodium [Moles/Vol] 133 mmol/L 136-145 [facility] Work Phone: WBC (Bld) [#/Vol] 5.6 10*3/uL 4.4-11.0 [facility] Work Phone: Blood erythrocytes count (nu mber/volume)on 09-20-2021 RBC (Bld) [#/Vol] 4.64 10*6/uL 4.6-6.[facility] Blood hemoglobin measurement (mass/volume)on 09-20-2021 Hemoglobin (Bld) [Mass/Vol] 15.1 g/dL 13.0-16.5 Work Phone: Blood lymphocytes/100 leukoc yteson 09-20-2021 Lymphocytes/100 WBC (Bld) 29.7 % 19-41 Work Phone: Blood manual differential co mment interpretation (narrative result)on 09-20-2021 Manual differential comment Arnulfo (Bld) [Interp] SCANNED Work Phone: Comment on above: RARE BANDS NOTED Blood monocytes/100 leukocyt eson 09-20-2021 Monocytes/100 WBC (Bld) 15.1 % 0-10 [facility] Work Phone: Blood platelet mean volumeon 09-20-2021 Platelet mean volume (Bld) [Entitic vol] 10.0 fL 6.2-12.0 Work Phone: Determination of erythrocyte mean corpuscular volume (MCV)on 09-20-2021 MCV (RBC) [Entitic vol] 96.1 fL 80-94 [facility] Work Phone: Direct bilirubinon 2 Bilirubin.direct [Mass/Vol] 0.17 mg/dL 0.00-0.30 Work Phone: Hematocrit Auto (Bld) [Volum e fraction]on 09-20-2021 Hematocrit (Bld) [Volume fraction] 44.6 % 40-54 Work Phone: Laboratory - Chemistry and C hemistry - challengeon 09-20-2021 ALP [Catalytic activity/Vol] 49 U/L 45-117 Work Phone: ALT [Catalytic activity/Vol] 53 U/L 16-61 Work Phone: CO2 [Moles/Vol] 28.0 mmol/L 21.0-32.0 Work Phone: Globulin (S) [Mass/Vol] 4.0 g/dL 2.2-4.2 [facility] Work Phone: Lipase [Catalytic activity/Vol] 66 U/L 73-393 Work Phone: Magnesium [Mass/Vol] 2.0 mg/dL 1.6-2.6 [facility] Work Phone: Urea nitrogen/Creatinine [Mass ratio] 14.0 mg/mg 10-20 Work Phone: Laboratory - Hematology and Cell countson 09-20-2021 Erythrocyte distribution width (RBC) [Entitic vol] 45.1 fL 35.1-43.9 Work Phone: Erythrocyte distribution width (RBC) [Ratio] 12.7 % 11.6-14.6 Work Phone: Immature granulocytes/100 WBC (Bld) 1.100 % 0.0-0.9 Work Phone: Comment on above: IG% - Immature Granu locytes (promyelocytes, myelocytes and metamyelocytes) > 1% indicates that a LEFT SHIFT is Present. MCH (RBC) [Entitic mass] 32.5 pg 27.0-32.0 Work Phone: Nucleated RBC/100 WBC (Bld) [Ratio] 0 % 0-5 Work Phone: MCHC Auto (RBC) [Mass/Vol]on 09-20-2021 MCHC (RBC) [Mass/Vol] 33.9 g/dL 32-36 [facility] Work Phone: No Panel Informationon 09-20 Estimated Creatinine Clearance Calc 50.25 ml/min Work Phone: Estimated GFR (MDRD) Amer 75 mL/min >60 Work Phone: Comment on above: GFR Calc Estimated GFR (MDRD) Non-Af Amer 62 mL/min >60 Work Phone: Comment on above: Non- GFR Calc Platelets bldon 09-20-2021 Platelets (Bld) [#/Vol] 147 10*3/uL 150-450 Work Phone: Serum or plasma albumin axel urement (mass/volume)on 09-20-2021 Albumin [Mass/Vol] 2.7 g/dL 3.2-5.0 [facility] Work Phone: Serum or plasma calcium axel urement (mass/volume)on 09-20-2021 Calcium [Mass/Vol] 8.9 mg/dL 8.5-10.1 [facility] Work Phone: Serum or plasma creatinine m easurement (mass/volume)on 09-20-2021 Creatinine [Mass/Vol] 1.21 mg/dL 0.70-1.30 [facility] Work Phone: Comment on above: The validity of the calculated GFR & GFRAA in patients over 70 years has not been determined. Clinical correlation is essential. Serum or plasma urea nitroge n measurement (mass/volume)on 09-20-2021 Urea nitrogen [Mass/Vol] 17 mg/dL 7-18 Work Phone: Thin prep Papanicolaou smear with manual screeningon 09-20-2021 Thin prep Papanicolaou smear with manual screening 36 U/L 15-37 Work Phone: Thin prep Papanicolaou smear with manual screening 6 5-15 Work Phone: Glucose Glucometer (BldC) [M ass/Vol]on 07-16-2021 Glucose [Mass/Vol] 134 mg/dL 74-106 [facility] Work Phone: Comment on above: MANAGEMENT OF PATIEN T CARE PER NURSING PROTOCOL Office Visit: colonoscopyon 01-19-2017 Dietary management education, guidance, and counseling (procedure) yes Invalid Interpretation Code [facility] Work Phone: Documentation of current medications (procedure) Done Invalid Interpretation Code [facility] Work Phone: Fall risk assessment No Invalid Interpretation Code [facility] Work Phone: Protein mass conc Done Invalid Interpretation Code [facility] Work Phone: Tobacco smoking status NHIS Never Invalid Interpretation Code [facility] Work Phone: Tobacco smoking status NH Never smoker Invalid Interpretation Code [facility] Work Phone: Tobacco use [facility] Never smoker Invalid Interpretation Code [facility] Work Phone: Lab Report: Lipid Profileon 06-20-2016 Cholesterol 147 mg/dL Invalid Interpretation Code 200 [facility] Work Phone: HDL Cholesterol 48 mg/dL Invalid Interpretation Code [facility] Work Phone: LDL Cholesterol 74 mg/dL Invalid Interpretation Code 0-130 [facility] Work Phone: Triglyceride 127 mg/dL Invalid Interpretation Code [facility] Work Phone: very low density lipoproteins 25 mg/dL Invalid Interpretation Code 5-40 [facility] Work Phone: Lab Report: Liver Profileon 06-20-2016 Alanine aminotransferase (ALT) 78 U/L Invalid Interpretation Code 12-78 [facility] Work Phone: Albumin 3.4 g/dL Invalid Interpretation Code 3.4-5.0 [facility] Work Phone: Alkaline phosphatase (ALP) 50 U/L Invalid Interpretation Code 45-117 [facility] Work Phone: ALP enzyme act/vol (Bld) 50 U/L Invalid Interpretation Code 45-117 [facility] Work Phone: Aspartate aminotransferase (AST) 58 U/L High 15-37 [facility] Work Phone: Bilirubin (direct) 0.15 mg/dL Invalid Interpretation Code 0.00-0.30 [facility] Work Phone: Bilirubin (total) 0.70 mg/dL Invalid Interpretation Code 0.20-1.00 [facility] Work Phone: Globulin 3.8 g/dL High 2.3-3.5 [facility] Work Phone: Protein 7.2 g/dL Invalid Interpretation Code 6.4-8.2 [facility] Work Phone: 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 Left ventricular Ejection fraction 55 % Invalid Interpretation Code [facility] Work Phone: Office Visiton 06-19-2015 General cardiovascular disease 10Y risk [#] [place].D'Agost[place] 18 % Invalid Interpretation Code [facility] Work Phone: External Other: Preferred Me thod of Contacton 06-16-2014 methcontact phone Invalid Interpretation Code [facility] Work Phone: Patient's prefered method of contact phone Invalid Interpretation Code [facility] Work Phone: Lab Report: Liver Profileon 06-15-2014 ALK P 52 U/L Invalid Interpretation Code 50-136 [facility] Work Phone: GE use only - for [employer] import when terms are not otherwise specified 52 U/L Invalid Interpretation Code 501[address] [facility] Work Phone: Office Visiton 06-15-2014 cardiac risk group B Invalid Interpretation Code [facility] Work Phone: Clinical Lists 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 10-18-2013 Anion gap 5 mmol/L Invalid Interpretation Code [facility] Work Phone: Anion gap 4 molar conc 5 Invalid Interpretation Code [facility] Work Phone: BUN/Creatinine Ratio 21.3 mg/mg High [facility] Work Phone: Calcium 9.0 mg/dL Invalid Interpretation Code [facility] Work Phone: [phone] Chloride 103 mmol/L Invalid Interpretation Code [facility] Work Phone: CO2 30.0 mmol/L Invalid Interpretation Code [facility] Work Phone: [phone] CO2 ppres (BldV) 30.0 mmol/L Invalid Interpretation Code [facility] [facility] Work Phone: Creatinine 0.8 mg/dL Invalid Interpretation Code [facility] Work Phone: [phone] eGFR (non-black) 102 mL/min/{1.73_m2} Invalid Interpretation Code [facility] Work Phone: eGFR (non-black) 124 mL/min/{1.73_m2} Invalid Interpretation Code [facility] Work Phone: Glomerular Filtration Rate 124 mL/min/1.73m2 Invalid Interpretation Code [facility] Work Phone: Glucose 89 mg/dL Invalid Interpretation Code [facility] Work Phone: Glucose mass conc 89 mg/dL Invalid Interpretation Code [facility] Work Phone: Potassium 3.6 mmol/L Invalid Interpretation Code [facility] Work Phone: Sodium 138 mmol/L Invalid Interpretation Code [facility] Work Phone: Urea nitrogen 17 mg/dL Invalid Interpretation Code [facility] Work Phone: Clinical Lists 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 02-24-2013 Hematocrit (HCT) 43.9 % Invalid Interpretation Code [facility] Work Phone: Hemoglobin (HGB) 14.9 g/dL Invalid Interpretation Code [facility] Work Phone: Platelets 113 10*3/mm3 Low [facility] Work Phone: WBC (Leukocytes) 5.1 10*3/uL Invalid Interpretation Code [facility] Work Phone: Replaced Document: Tory Bains 11-26-2011 EKG QRS axis 28 deg Invalid Interpretation Code [facility] Work Phone: electrocardiogram interpretation Sinus Bradycardia -First degree A-V block Anders = 246BORDERLINE RHYTHM Invalid Interpretation Code [facility] Work Phone: Interpretation Sinus Bradycardia -F irst degree A-V block Anders = 246BORDERLINE RHYTHM Invalid Interpretation Code [facility] Work Phone: P [place] 45 deg Invalid Interpretation Code [facility] Work Phone: P wave axis, electrocardiogram 45 deg Invalid Interpretation Code [facility] Work Phone: RI Interval 246 ms Invalid Interpretation Code [facility] Work Phone: RI interval, electrocardiogram 246 ms Invalid Interpretation Code [facility] Work Phone: Pulse (Heart Rate) 55 /min Invalid Interpretation Code [facility] Work Phone: Pulse (Heart Rate) 417 ms Invalid Interpretation Code [facility] Work Phone: QRS axis, electrocardiogram 28 deg Invalid Interpretation Code [facility] [employer] Work Phone: QRS Duration 90 ms Invalid Interpretation Code [facility] Work Phone: QRS duration, electrocardiogram 90 ms Invalid Interpretation Code [facility] Work Phone: QT Interval new path ms Invalid Interpretation Code [facility] [employer] Work Phone: QT interval, electrocardiogram new path ms Invalid Interpretation Code [facility] [employer] Work Phone: T [place] 37 deg Invalid Interpretation Code [facility] Work Phone: T wave axis, electrocardiogram 37 deg Invalid Interpretation Code [facility] [employer] Work Phone: Vital Signs Date Time Vital Sign Value Performing Clinician Facility 01-24-2025 13:51-0400 Body height 173 cm David Haas MD Work Phone: [facility] 01-24-2025 13:51-0400 Body height 172.72 cm David Haas MD Work Phone: [facility] 01-24-2025 13:51-0400 Body mass index (BMI) [Ratio] 43.95 kg/m2 David Haas MD Work Phone: [facility] 01-24-2025 13:51-0400 Body weight 131 kg David Haas MD Work Phone: [facility] 01-24-2025 13:51-0400 Body weight 130.64 kg David Haas MD Work Phone: [facility] 01-24-2025 13:51-0400 BP SITE #1 David Haas MD Work Phone: [facility] 01-24-2025 13:51-0400 BP SITE #2 David Haas MD Work Phone: [facility] 01-24-2025 13:51-0400 Diastolic blood pressure 77 mm[Hg] David Haas MD Work Phone: [facility] 01-24-2025 13:51-0400 Diastolic blood pressure 79 mm[Hg] David Haas MD Work Phone: [facility] 01-24-2025 13:51-0400 Heart rate 51 /min David Haas MD Work Phone: [facility] 01-24-2025 13:51-0400 HGHTCHNVIS David Haas MD Work Phone: [facility] 01-24-2025 13:51-0400 Systolic blood pressure 145 mm[Hg] David Haas MD Work Phone: [facility] 01-24-2025 13:51-0400 Systolic blood pressure 147 mm[Hg] David Haas MD Work Phone: [facility] 01-24-2025 13:51-0400 EVELIN Haas MD Work Phone: [facility] 11-30-2024 07:36-0400 Body height 172.[address] Nolan Nguyen MD Work Phone: 11-30-2024 07:36-0400 Body mass index (BMI) [Ratio] 44.2 kg/m2 Dr. Nolan Nguyen MD Work Phone: 11-30-2024 07:36-0400 Body weight 131.[address] Nolan Nguyen MD Work Phone: 11-30-2024 07:36-0400 Diastolic blood pressure 65 mm[Hg] Dr. Nolan Nguyen MD Work Phone: 11-30-2024 07:36-0400 Heart rate 53 /min Dr. Nolan Nguyen MD Work Phone: 11-30-2024 07:36-0400 Respiratory rate 22 /min Dr. Nolan Nguyen MD Work Phone: 11-30-2024 07:36-0400 SaO2% (BldA) [Mass fraction] 93 % Dr. Nolan Nguyen MD Work Phone: 11-30-2024 07:36-0400 Systolic blood pressure 110 mm[Hg] Dr. Nolan Nguyen MD Work Phone: 10-14-2023 12:35-0400 Diastolic blood pressure 72 mm[Hg] Angelica Can MD Work Phone: [facility] Comment on above: [place] 10-14-2023 12:35-0400 Heart rate 51 /min Angelica Can MD Work Phone: [facility] 10-14-2023 12:35-0400 Systolic blood pressure 136 mm[Hg] Angelica Can MD Work Phone: [facility] Comment on above: [place] 10-07-2023 12:28-0400 Body mass index (BMI) [Ratio] 42.91 kg/m2 Daniele Dugan APRN.FEED INSPECTION SUPERVISOR Work Phone: [facility] 10-07-2023 12:28-0400 Body temperature 96.6 [degF] Daniele Dugan APRN.FEED INSPECTION SUPERVISOR Work Phone: [facility] 10-07-2023 12:28-0400 Body weight 128 kg Daniele Dugan APRN.FEED INSPECTION SUPERVISOR Work Phone: [facility] 10-07-2023 12:28-0400 Diastolic blood pressure 64 mm[Hg] Daniele Dugan APRN.FEED INSPECTION SUPERVISOR Work Phone: [facility] 10-07-2023 12:28-0400 Heart rate 51 /min Daniele Dugan APRN.FEED INSPECTION SUPERVISOR Work Phone: [facility] 10-07-2023 12:28-0400 Respiratory rate 16 /min Daniele Dugan APRN.FEED INSPECTION SUPERVISOR Work Phone: [facility] 10-07-2023 12:28-0400 SaO2% (BldA) [Mass fraction] 97 % Daniele Dugan APRN.FEED INSPECTION SUPERVISOR Work Phone: [facility] 10-07-2023 12:28-0400 Systolic blood pressure 118 mm[Hg] Daniele Dugan APRN.FEED INSPECTION SUPERVISOR Work Phone: [facility] 09-28-2023 19:26-0400 Body mass index (BMI) [Ratio] 42.64 kg/m2 Armani Aguilar MD Work Phone: [facility] 09-28-2023 19:26-0400 Body temperature 97.5 [degF] Armani Aguilar MD Work Phone: [facility] 09-28-2023 19:26-0400 Body weight 127.2 kg Armani Aguilar MD Work Phone: [facility] 09-28-2023 19:26-0400 Diastolic blood pressure 72 mm[Hg] Armani Aguilar MD Work Phone: [facility] 09-28-2023 19:26-0400 Heart rate 60 /min Armani Aguilar MD Work Phone: [facility] 09-28-2023 19:26-0400 Respiratory rate 20 /min Armani Aguilar MD Work Phone: [facility] 09-28-2023 19:26-0400 SaO2% (BldA) [Mass fraction] 95 % Armani Aguilar MD Work Phone: [facility] 09-28-2023 19:26-0400 Systolic blood pressure 140 mm[Hg] Armani Aguilar MD Work Phone: [facility] 03-13-2023 11:37-0400 Diastolic blood pressure 63 mm[Hg] Dr. Nolan Nguyen Work Phone: 03-13-2023 11:37-0400 Heart rate 61 /min Dr. Nolan Nguyen Work Phone: 03-13-2023 11:37-0400 Respiratory rate 20 /min Dr. Nolan Nguyen Work Phone: 03-13-2023 11:37-0400 SaO2% (BldA) [Mass fraction] 94 % Dr. Nolan Nguyen Work Phone: 03-13-2023 11:37-0400 Systolic blood pressure 124 mm[Hg] Dr. Nolan Nguyen Work Phone: 03-13-2023 10:32-0400 Inhaled oxygen flow rate 2 L/min Dr. Nolan Nguyen Work Phone: 03-13-2023 09:33-0400 Body height 172.[address] Nolan Nguyen Work Phone: 03-13-2023 09:33-0400 Body mass index (BMI) [Ratio] 45.6 kg/m2 Dr. Nolan Nguyen Work Phone: 03-13-2023 09:33-0400 Body weight 136.[address] Nolan Nguyen Work Phone: 02-26-2023 10:190400 Body height 172.72 cm [facility] 02-26-2023 10:190400 Body mass index (BMI) [Ratio] 48 kg/m2 02-26-2023 10:19-0400 Body temperature 97 [degF] [facility] 02-26-2023 10:190400 Body weight 143.33 kg [facility] 02-26-2023 10:19-0400 Diastolic blood pressure 77 mm[Hg] 02-26-2023 10:19-0400 Heart rate 58 /min [facility] 02-26-2023 10:0400 Respiratory rate 18 /min [facility] 02-26-2023 10:19-0400 SaO2% (BldA) [Mass fraction] 95 % 02-26-2023 10:19-0400 Systolic blood pressure 167 mm[Hg] 10-10-2021 12:50-0400 Body height 172.[address] Nolan Nguyen Work Phone: Work Phone: 10-10-2021 12:50-0400 Body weight 133.[address] Nolan Nguyen Work Phone: Work Phone: 10-10-2021 12:50-0400 Diastolic blood pressure 73 mm[Hg] Dr. Nolan Nguyen Work Phone: Work Phone: 10-10-2021 12:50-0400 Heart rate 58 /min Dr. Nolan Nguyen Work Phone: Work Phone: 10-10-2021 12:50-0400 Respiratory rate 16 /min Dr. Nolan Nguyen Work Phone: Work Phone: 10-10-2021 12:50-0400 SaO2% (BldA) [Mass fraction] 94 % Dr. Nolan Nguyen Work Phone: Work Phone: 10-10-2021 12:50-0400 Systolic blood pressure 132 mm[Hg] Dr. Nolan Nguyen Work Phone: Work Phone: 10-09-2021 14:16-0400 Diastolic blood pressure 73 mm[Hg] Angelica Can MD Work Phone: [facility] 10-09-2021 14:16-0400 Heart rate 58 /min Angelica Can MD Work Phone: [facility] 10-09-2021 14:16-0400 Systolic blood pressure 138 mm[Hg] Angelica Can MD Work Phone: [facility] 09-22-2021 15:18-0400 Heart rate 59 /min Dr. Nolan Nguyen Work Phone: Work Phone: 09-22-2021 15:18-0400 Respiratory rate 18 /min Dr. Nolan Nguyen Work Phone: Work Phone: 09-22-2021 14:24-0400 Body temperature 98 [degF] Dr. Nolan Nguyen Work Phone: Work Phone: 09-22-2021 14:24-0400 Diastolic blood pressure 67 mm[Hg] Dr. Nolan Nguyen Work Phone: Work Phone: 09-22-2021 14:24-0400 SaO2% (BldA) [Mass fraction] 95 % Dr. Nolan Nguyen Work Phone: Work Phone: 09-22-2021 14:24-0400 Systolic blood pressure 144 mm[Hg] Dr. Nolan Nguyen Work Phone: Work Phone: 09-22-2021 05:55-0400 Body weight 135.[address] Nolan Nguyen Work Phone: Work Phone: 09-20-2021 14:30-0400 Body height 172.[address] Nolan Nguyen Work Phone: Work Phone: 09-20-2021 09:12-0400 Body mass index (BMI) [Ratio] 46.3 kg/m2 Dr. Nolan Nguyen Work Phone: Work Phone: 09-20-2021 08:36-0400 Body temperature 97.8 [degF] Dr. Nolan Nguyen Work Phone: Work Phone: 09-20-2021 08:36-0400 Diastolic blood pressure 78 mm[Hg] Dr. Nolan Nguyen Work Phone: Work Phone: 09-20-2021 08:36-0400 Heart rate 67 /min Dr. Nolan Nguyen Work Phone: Work Phone: 09-20-2021 08:36-0400 Respiratory rate 16 /min Dr. Nolan Nguyen Work Phone: Work Phone: 09-20-2021 08:36-0400 SaO2% (BldA) [Mass fraction] 95 % Dr. Nolan Nguyen Work Phone: Work Phone: 09-20-2021 08:36-0400 Systolic blood pressure 127 mm[Hg] Dr. Nolan Nguyen Work Phone: Work Phone: 09-20-2021 05:39-0400 Body height 172.[address] Nolan Nguyen Work Phone: Work Phone: 09-20-2021 05:39-0400 Body mass index (BMI) [Ratio] 46.4 kg/m2 Dr. Nolan Nguyen Work Phone: Work Phone: 09-20-2021 05:39-0400 Body weight 138.[address] Nolan Nguyen Work Phone: Work Phone: 07-16-2021 06:05-0500 Body temperature 97.6 [degF] Dr. Nolan Nguyen Work Phone: Work Phone: 07-16-2021 06:05-0500 Diastolic blood pressure 64 mm[Hg] Dr. Nolan Nguyen Work Phone: Work Phone: 07-16-2021 06:05-0500 Heart rate 58 /min Dr. Nolan Nguyen Work Phone: Work Phone: 07-16-2021 06:05-0500 Respiratory rate 16 /min Dr. Nolan Nguyen Work Phone: Work Phone: 07-16-2021 06:05-0500 SaO2% (BldA) [Mass fraction] 93 % Dr. Nolan Nguyen Work Phone: Work Phone: 07-16-2021 06:05-0500 Systolic blood pressure 135 mm[Hg] Dr. Nolan Nguyen Work Phone: Work Phone: 07-16-2021 04:47-0500 Body mass index (BMI) [Ratio] 46.3 kg/m2 Dr. Nolan Nguyen Work Phone: Work Phone: 07-16-2021 04:47-0500 Body weight 138.[address] Nolan Nguyen Work Phone: Work Phone: 06-25-2021 12:50-0500 Body mass index (BMI) [Ratio] 47.5 kg/m2 Dr. Nolan Nguyen Work Phone: Work Phone: 06-25-2021 12:50-0500 Body temperature 96.2 [degF] Dr. Nolan Nguyen Work Phone: Work Phone: 06-25-2021 12:50-0500 Body weight 141.[address] Nolan Nguyen Work Phone: Work Phone: 06-25-2021 12:50-0500 Diastolic blood pressure 71 mm[Hg] Dr. Nolan Nguyen Work Phone: Work Phone: 06-25-2021 12:50-0500 Heart rate 65 /min Dr. Nolan Nguyen Work Phone: Work Phone: 06-25-2021 12:50-0500 Respiratory rate 22 /min Dr. Nolan Nguyen Work Phone: Work Phone: 06-25-2021 12:50-0500 SaO2% (BldA) [Mass fraction] 95 % Dr. Nolan Nguyen Work Phone: Work Phone: 06-25-2021 12:50-0500 Systolic blood pressure 150 mm[Hg] Dr. Nolan Nguyen Work Phone: Work Phone: 10-09-2020 12:26-0400 Body mass index (BMI) [Ratio] 48.2 kg/m2 Dr. Nolan Nguyen Work Phone: [phone] [place] [address] Work Phone: 01-19-2017 08:02-0400 BMI (Body Mass Index) 44.27 kg/m2 Gordon Mckay MD [facility] Work Phone: 01-19-2017 08:02-0400 Body Temperature 98 [degF] Gordon Mckay MD [facility] Work Phone: 01-19-2017 08:02-0400 BP Diastolic 89 mm[Hg] Gordon Mckay MD [facility] Work Phone: 01-19-2017 08:02-0400 BP Systolic 186 mm[Hg] Gordon Mckay MD [facility] Work Phone: 01-19-2017 08:02-0400 Height 172.72 cm Gordon Mckay MD [facility] Work Phone: 01-19-2017 08:02-0400 Pulse (Heart Rate) 60 /min Gordon Mckay MD [facility] Work Phone: 01-19-2017 08:02-0400 Respiratory Rate 18 /min Gordon Mckay MD [facility] Work Phone: 01-19-2017 08:02-0400 Weight 132.09 kg Gordon Mckay MD [facility] Work Phone: 06-20-2016 14:17-0500 BSA (Body Surface Area) 2.41 m2 Gordon Mckay MD [facility] Work Phone: 11-26-2011 16:44-0400 Heart rate 417 ms Gordon Mckay MD [facility] Work Phone: 11-26-2011 16:44-0400 Heart rate 55 /min Gordon Mckay MD [facility] Work Phone: Encounters Encounter Date Encounter Type Care Provider Facility Start: 01-25-2025 Visit out of hours David izquierdo MD Work Phone: [facility] Work Phone: Start: 01-24-2025 In-person encounter David Haas MD Work Phone: [facility] Work Phone: Start: 12-28-2024 ambulatory Nolan Nguyen Facility:[facility] Start: 12-28-2024 Non-patient / Non-visit Dr. [place] [facility] Start: 12-28-2024 End: 12-28-[address] Nolan Nguyen MD Work Phone: -Cardiovascular Services Start: 12-28-2024 End: 12-28-2024 Patient encounter procedure Adis MOREIRA -[facility] Work Phone: Start: 12-28-2024 End: 12-28-2024 ambulatory Nolan Nguyen Facility: Start: 11-30-2024 End: 11-30-2024 Patient encounter procedure Adis MOREIRA -[facility] Work Phone: Start: 11-30-2024 End: 11-30-[address] Nolan Nguyen MD Work Phone: -[facility] Start: 11-30-2024 End: 11-30-2024 ambulatory Nolan Nguyen Facility: Start: 08-04-2024 End: 08-04-[address] Nolan Nguyen MD Work Phone: Work Phone: Start: 08-04-2024 End: 08-04-[address] Mary Patel DO -Laboratory Work Phone: Start: 08-04-2024 End: 08-04-2024 ambulatory Mary Patel Facility: Start: 07-04-2024 End: 07-04-[address] Nolan Nguyen MD -Laboratory, [facility] Start: 07-04-2024 End: 07-04-2024 ambulatory Nolan Nguyen Facility: Start: 02-11-2024 End: 02-11-2024 ambulatory Mary Patel Facility: Start: 10-14-2023 End: 10-14-2023 Patient encounter procedure Angelica Can MD Work Phone: [facility] Comment on above: PAD (peripheral miles ry disease) (HCC) (Primary Dx); Obesity, Class III, BMI 40-49.9 (morbid obesity) ([facility]); Bilateral carotid artery stenosis Start: 10-14-2023 End: 10-14-2023 ambulatory ANGELICA CAN Facility:[facility] Start: 10-07-2023 End: 10-07-2023 ambulatory NOLAN NGUYEN Facility:[facility] Start: 10-07-2023 End: 10-07-2023 [facility]: [facility] Comment on above: Visit for suture rem oval (Primary Dx) Start: 09-28-2023 End: 09-28-2023 ambulatory NOLAN NGUYEN Facility:[facility] Start: 09-28-2023 End: 09-28-2023 Patient encounter procedure Armani Aguilar MD Work Phone: [facility] Comment on above: Laceration of right ring finger without foreign body without damage to nail, initial encounter (Primary Dx) Start: 09-11-2023 End: 09-11-[address] Nolan Nguyen Work Phone: Work Phone: Start: 09-11-2023 End: 09-11-[address] Nolan Nguyen Work Phone: [facility] Work Phone: Start: 07-31-2023 End: 07-31-[address] Nolan Nguyen Work Phone: Work Phone: Start: 07-31-2023 End: 07-31-[address] Nolan Nguyen Work Phone: [facility] Start: 07-27-2023 Non-patient / Non-visit Dr. Lillie Nguyen Work Phone: [facility] Start: 07-27-[address] Nolan hernández [facility] Work Phone: Start: 06-26-2023 Orders Only Angelica mcnair MD Work Phone: [facility] Comment on above: Carotid stenosis, as ymptomatic, bilateral (Primary Dx) Start: 06-24-2023 Telephone encounter Nolan cheema MD Work Phone: [facility] Comment on above: Appointment Start: 06-11-2023 End: 06-11-[address] Nolan Nguyen Work Phone: Work Phone: Start: 06-11-2023 End: 06-11-[address] [facility] Start: 05-06-2023 End: 05-06-[address] Nolan Nguyen Work Phone: [facility] Start: 03-31-2023 End: 03-31-[address] Nolan Nguyen Work Phone: Work Phone: Start: 03-31-2023 End: 03-31-[address] Nolan Nguyen [facility] Start: 03-13-2023 Non-patient / Non-visit Dr. Lillie Nguyen Work Phone: [facility] Start: 03-13-2023 End: 03-13-[address] Nolan Nguyen Work Phone: Work Phone: Start: 03-13-2023 End: 03-13-[address] [facility] Work Phone: Start: 03-12-[address] Nolan Nguyen Work Phone: Start: 03-11-2023 End: 03-11-[address] Nolan Nguyen Work Phone: Work Phone: Start: 03-11-2023 End: 03-11-[address] [facility]: Start: 03-03-2023 End: 03-03-2023 ambulatory Work Phone: Start: 03-03-2023 End: 03-03-2023 [facility] Office [address] [place] [address] Start: 02-26-2023 End: 02-26-2023 ambulatory Work Phone: Start: 02-26-2023 End: 02-26-2023 [facility] Work Phone: Start: 02-25-2023 End: 02-25-2023 ambulatory Work Phone: Start: 02-25-2023 End: 02-25-2023 Patient encounter procedure [facility] Start: 02-24-2023 End: 02-24-2023 ambulatory Work Phone: Start: 02-24-2023 End: 02-24-2023 Patient encounter procedure [facility] Work Phone: Start: 05-23-2022 End: 05-23-2022 ambulatory Work Phone: Start: 05-23-2022 End: 05-23-2022 Patient encounter procedure [facility] Start: 11-14-2021 End: 11-14-[address] Nolan Nguyen Work Phone: [facility] Start: 10-10-2021 End: 10-10-[address] Nolan Nguyen Work Phone: [facility] Start: 10-09-2021 End: 10-09-2021 Patient encounter procedure Angelica Can MD Work Phone: [facility] Comment on above: Carotid stenosis, as ymptomatic, bilateral (Primary Dx); PAD (peripheral artery disease) (HCC) Start: 10-01-2021 End: 10-01-[address] Nolan Nguyen Work Phone: [facility] Start: 10-01-2021 End: 10-01-[address] Nolan Nguyen Work Phone: [facility] Start: 09-22-2021 Non-patient / Non-visit Dr. Lillie Nguyen Work Phone: [facility] Start: 09-22-2021 Non-patient / Non-visit Dr. Lillie Nguyen Work Phone: [facility] Start: 09-21-2021 Non-patient / Non-visit Dr. Lillie Nguyen Work Phone: [facility] Start: 09-21-2021 Non-patient / Non-visit Dr. Lillie Nguyen Work Phone: [facility] Start: 09-20-2021 Non-patient / Non-visit Dr. Lillie Nguyen Work Phone: [facility] Start: 09-20-2021 Non-patient / Non-visit Dr. Lillie Nugyen Work Phone: [facility] Start: 09-20-2021 End: 09-22-2021 Evaluation and management of inpatient Dr. Nolan Nguyen Work Phone: -Medical Surgical 3 Start: 09-03-2021 Telephone encounter Angelica kirkpatrick MD Work Phone: [facility] Comment on above: Appointment Start: 07-16-2021 Non-patient / Non-visit Dr. Lillie Nguyen Work Phone: [facility] Start: 07-16-2021 End: 07-16-2021 Admission to same day surgery center Dr. Nolan Nguyen Work Phone: -Endoscopy Start: 06-25-2021 End: 06-25-[address] Nolan Nguyen Work Phone: [facility] Procedures Date Procedure Procedure Detail Performing Clinician Start: 01-25-2025 Blood pressure outside of normal parameters - follow-up documented David Haas MD Work Phone: Start: 01-25-2025 BMI documented as above normal parameters - follow-up documented David Haas MD Work Phone: Start: 01-25-2025 Current tobacco non-user cad cap copd pv dm David Haas MD Work Phone: Start: 01-25-2025 Documentation of current medications David Haas MD Work Phone: Start: 01-25-2025 Osteoarthritis symptoms and functional status not assessed David Haas MD Work Phone: Start: 01-25-2025 Pain assessment documented as positive - follow-up documented David Haas MD Work Phone: Start: 01-25-2025 MOTORIZED COLD THERAPY COMBO UNIT David Haas MD Work Phone: Start: 01-25-2025 VIPIN W/ ROSAS David Haas MD Work Phone: Start: 01-25-2025 Physical therapy management David Haas MD Work Phone: Start: 01-25-2025 SINGLE POINT CANE David Haas MD Work Phone: Start: 12-28-2024 Cardiovascular stress test using pharmacologic stress agent Dr. Nolan Nguyen MD Work Phone: Start: 08-04-[address] Nolan [...] and pelvis with intravenous contrast Dr. Nolan Nguyen Work Phone: Start: 01-19-2017 Screening for malignant [...] 1996 panel - Serum or Plasma Jesse Valadze MD Start: 06-20-2016 End: 06-20-2016 *Hepatic Function [...] Pepe Peraza Start: 12-18-2015 End: 06-25-2016 Lipid panel [AGGREGATE] [...] Panel Pepe Peraza Start: 06-19-2015 End: 06-19-2015 JOCKEY AGENT Jesse Valadez MD Start: 06-19-2015 End: 06-19-2015 Follow Up Appt 1 year Jesse Valadez MD Start: 06-19-2015 End: 06-19-2015 Lipid panel [AGGREGATE] Pepe Peraza Start: 06-11-2015 End: 06-19-2015 *Hepatic Function Panel Pepe Peraza Start: 06-11-2015 End: 06-19-2015 Lipid 1996 panel - Serum or Plasma Jesse Valadez MD Start: 06-11-2015 End: 06-19-2015 *Hepatic Function Panel Pepe Peraza Start: 06-11-2015 End: 06-19-2015 Lipid panel [AGGREGATE] Pepe Peraza Start: 12-14-2014 End: 01-02-2015 *Hepatic Function Panel Pepe Peraza Start: 12-14-2014 End: 01-02-2015 Lipid 1996 panel [...] P,Tdap,Td Vaccine (3 - Td or Tdap) [facility] Start: 07-03-2027 Urine microalbumin profile DTa P,Tdap,Td Vaccine (2 - Td or Tdap) [facility] Start: 01-25-2025 Ct lower extremity w /o contrast material [facility] Work Phone: Start: 01-24-2025 Radiologic exam knee complete 4/more views [facility] Work Phone: Start: 10-06-2024 BP Controlled (<130/80) BP Con trolled (<130/80) [facility] Start: 01-10-2024 Influenza vaccination Influenz a Vaccine (Season Ended) [facility] Start: 10-14-2023 End: 10-14-2023 Patient encounter procedure Vascular Karen jimmie Comment on above: DX:Carotid stenosis, asymptomatic, bilateral Start: 07-19-2023 Covid-19 Vaccine () Covid-19 Vaccine () [facility] Start: 05-11-2023 Advance Directive Discussion A dvance Directive Discussion [facility] Start: 05-11-2023 Behavioral Health Screening Be havioral Health Screening [facility] Start: 05-11-2023 Depression Assessment Depression Ass essment [facility] Start: 03-13-2023 Renal biopsy prq trocar/needle RENAL BIOPSY PERQ Start: 03-13-2023 Following clinical p athway protocol Start: 03-13-2023 Catheterization of vein Start: 03-13-2023 Oxygen therapy Start: 03-13-2023 Patient discharge [facility] Start: 03-13-2023 Vital signs measurements Start: 03-03-2023 [facility] Start: 02-26-2023 Following clinical p athway protocol Start: 01-09-2023 Covid-19 Vaccine () Covid-19 Vaccine () [facility] Start: 01-09-2023 Influenza vaccination Influenz a Vaccine (#1) [facility] Start: 01-08-2023 DIABETES SCREEN DIABETES SCREEN [facility] Start: 01-08-2023 Diabetes Screening Diabetes Screenin g [facility] Start: 01-09-2022 Influenza vaccination INFLUENZ A (Season Ended) [facility] Start: 09-22-2021 [facility] Work Phone: Start: 09-22-2021 Care planning and pr oblem solving actions Work Phone: Start: 09-22-2021 Patient discharge [facility] Work Phone: Start: 09-21-2021 Application of inter mittent pneumatic compression device Work Phone: Start: 09-20-2021 End: 09-21-2021 Work Phone: Start: 09-20-2021 Consultation [facility] Work Phone: Start: 09-20-2021 Application of inter mittent pneumatic compression device Work Phone: Start: 09-20-2021 Provision of activit y privileges Work Phone: Start: 09-20-2021 Following clinical p athway protocol Work Phone: Start: 09-20-2021 Assessment of risk o f venous thromboembolism Work Phone: Start: 09-20-2021 Care regimes management Work Phone: Start: 09-20-2021 Catheterization of vein Work Phone: Start: 09-20-2021 Incentive spirometry [facility] Work Phone: Start: 09-20-2021 Insertion of cathete r into peripheral vein Work Phone: Start: 09-20-2021 Measuring intake and output Work Phone: Start: 09-20-2021 Notification of physician Work Phone: Start: 09-20-2021 Providing care accor ding to standard Work Phone: Start: 09-20-2021 Provision of activit y privileges Work Phone: Start: 09-20-2021 Referral to general surgeon Work Phone: Start: 09-20-2021 Referral to occupati onal therapist Work Phone: Start: 09-20-2021 Referral to service [facility] Work Phone: Start: 09-20-2021 Admission procedure [facility] Work Phone: Start: 09-20-2021 Plain X-ray abdomen Abdomen Si ngle View (Portable) Work Phone: Start: 09-20-2021 Inhalation therapy procedure Work Phone: Start: 09-20-2021 [facility] Work Phone: Start: 07-16-2021 Colsc flx w/rmvl of tumor polyp lesion snare tq COLONOSCOPY W/LESION REMOVAL Work Phone: Start: 05-11-2021 ADVANCE DIRECTIVE DISCUSSION A DVANCE DIRECTIVE DISCUSSION [facility] Start: 12-25-2020 COVID-19 VACCINE (3 - Booster for Moderna series) COVID-19 VACCINE (3 - Booster for Moderna series) [facility] Start: 06-23-2017 End: 06-23-2017 Appointment Appointment [facility] Work Phone: Start: 01-19-2017 End: 01-19-2017 Colonoscopy flx dx w/collj spec when pfrmd Colonoscopy [facility] Work Phone: Start: 01-19-2017 End: 01-19-2017 Appointment Appointment [facility] Work Phone: Start: 01-19-2017 End: 01-19-2017 Diagnostic colonoscopy Colonoscopy [facility] Work Phone: Start: 12-18-2016 End: 06-25-2016 *Hepatic Function Panel *Hepatic Function Panel [facility] Work Phone: Start: 12-18-2016 End: 06-25-2016 Lipid 1996 panel *Lipid Profile CC PCP [facility] Work Phone: Start: 12-18-2016 End: 06-25-2016 *Hepatic Function Panel *Hepatic Function Panel [facility] Work Phone: Start: 12-18-2016 End: 06-25-2016 Lipid panel [AGGREGATE] *Lipid Profile CC PCP [facility] Work Phone: Start: 06-20-2016 End: 06-20-2016 *Hepatic Function Panel *Hepatic Function Panel [facility] Work Phone: Start: 06-20-2016 End: 06-20-2016 JOCKEY AGENT JOCKEY AGENT [facility] Work Phone: Start: 06-20-2016 End: 06-20-2016 Follow Up Appt 1 year Follow Up Appt 1 year [facility] Work Phone: Start: 06-20-2016 End: 06-20-2016 Lipid 1996 panel *Lipid Profile CC PCP [facility] Work Phone: Start: 06-20-2016 End: 06-20-2016 *Hepatic Function Panel *Hepatic Function Panel [facility] Work Phone: Start: 06-20-2016 End: 06-20-2016 JOCKEY AGENT JOCKEY AGENT [facility] Work Phone: Start: 06-20-2016 End: 06-20-2016 Follow Up Appt 1 year Follow Up Appt 1 year [facility] Work Phone: Start: 06-20-2016 End: 06-20-2016 Lipid panel [AGGREGATE] *Lipid Profile CC PCP [facility] Work Phone: Start: 12-18-2015 End: 06-25-2016 *Hepatic Function Panel *Hepatic Function Panel [facility] Work Phone: Start: 12-18-2015 End: 06-25-2016 Lipid 1996 panel *Lipid Profile CC PCP [facility] Work Phone: Start: 12-18-2015 End: 06-25-2016 *Hepatic Function Panel *Hepatic Function Panel [facility] Work Phone: Start: 12-18-2015 End: 06-25-2016 Lipid panel [AGGREGATE] *Lipid Profile CC PCP [facility] Work Phone: Start: 06-19-2015 End: 06-19-2015 *Hepatic Function Panel *Hepatic Function Panel [facility] Work Phone: Start: 06-19-2015 End: 06-19-2015 JOCKEY AGENT JOCKEY AGENT [facility] Work Phone: Start: 06-19-2015 End: 06-19-2015 Follow Up Appt 1 year Follow Up Appt 1 year [facility] Work Phone: Start: 06-19-2015 End: 06-19-2015 Lipid 1996 panel *Lipid Profile CC PCP [facility] Work Phone: Start: 06-19-2015 End: 06-19-2015 *Hepatic Function Panel *Hepatic Function Panel [facility] Work Phone: Start: 06-19-2015 End: 06-19-2015 JOCKEY AGENT JOCKEY AGENT [facility] Work Phone: Start: 06-19-2015 End: 06-19-2015 Follow Up Appt 1 year Follow Up Appt 1 year [facility] Work Phone: Start: 06-19-2015 End: 06-19-2015 Lipid panel [AGGREGATE] *Lipid Profile CC PCP [facility] Work Phone: Start: 06-11-2015 End: 06-19-2015 *Hepatic Function Panel *Hepatic Function Panel [facility] Work Phone: Start: 06-11-2015 End: 06-19-2015 Lipid 1996 panel *Lipid Profile CC PCP [facility] Work Phone: Start: 06-11-2015 End: 06-19-2015 *Hepatic Function Panel *Hepatic Function Panel [facility] Work Phone: Start: 06-11-2015 End: 06-19-2015 Lipid panel [AGGREGATE] *Lipid Profile CC PCP [facility] Work Phone: Start: 12-14-2014 End: 01-02-2015 *Hepatic Function Panel *Hepatic Function Panel [facility] Work Phone: Start: 12-14-2014 End: 01-02-2015 Lipid 1996 panel *Lipid Profile CC PCP [facility] Work Phone: Start: 12-14-2014 End: 01-02-2015 *Hepatic Function Panel *Hepatic Function Panel [facility] Work Phone: Start: 12-14-2014 End: 01-02-2015 Lipid panel [AGGREGATE] *Lipid Profile CC PCP [facility] Work Phone: Start: 06-15-2014 End: 06-16-2014 *Hepatic Function Panel *Hepatic Function Panel [facility] Work Phone: Start: 06-15-2014 End: 06-15-2014 JOCKEY AGENT JOCKEY AGENT [facility] Work Phone: Start: 06-15-2014 End: 06-15-2014 Follow Up Appt 1 year Follow Up Appt 1 year [facility] Work Phone: Start: 06-15-2014 End: 06-16-2014 Lipid 1996 panel *Lipid Profile CC PCP [facility] Work Phone: Start: 06-15-2014 End: 06-16-2014 *Hepatic Function Panel *Hepatic Function Panel [facility] Work Phone: Start: 06-15-2014 End: 06-15-2014 JOCKEY AGENT JOCKEY AGENT [facility] Work Phone: Start: 06-15-2014 End: 06-15-2014 Follow Up Appt 1 year Follow Up Appt 1 year [facility] Work Phone: Start: 06-15-2014 End: 06-16-2014 Lipid panel [AGGREGATE] *Lipid Profile CC PCP [facility] Work Phone: Start: 06-02-2013 End: 06-02-2013 JOCKEY AGENT JOCKEY AGENT [facility] Work Phone: Start: 06-02-2013 End: 06-02-2013 Follow Up Appt 6 months Follow Up Appt 6 months [facility] Work Phone: Start: 06-02-2013 End: 06-02-2013 JOCKEY AGENT JOCKEY AGENT [facility] Work Phone: Start: 06-02-2013 End: 06-02-2013 Follow Up Appt 6 months Follow Up Appt 6 months [facility] Work Phone: Start: 11-18-2012 End: 11-18-2012 Follow Up Appt 6 months Follow Up Appt 6 months [facility] Work Phone: Start: 11-18-2012 End: 11-18-2012 MMM MMM [facility] Work Phone: Start: 11-18-2012 End: 11-18-2012 Follow Up Appt 6 months Follow Up Appt 6 months [facility] Work Phone: Start: 11-18-2012 End: 11-18-2012 MMM MMM [facility] Work Phone: Start: 09-28-2012 SHINGRIX VACCINE (2 of 3) KAHN GRIX VACCINE (2 of 3) [facility] Start: 11-26-2011 End: 11-27-2011 Ecg routine ecg w/least 12 lds w/i&r EKG (In office) [facility] Work Phone: Start: 11-26-2011 End: 11-18-2012 Follow Up Appt 1 year Follow Up Appt 1 year [facility] Work Phone: Start: 11-26-2011 End: 11-27-2011 Electrocardiogram, complete EKG (In office) [facility] Work Phone: Start: 11-26-2011 End: 11-18-2012 Follow Up Appt 1 year Follow Up Appt 1 year [facility] Work Phone: Start: 10-30-2011 End: 11-27-2011 *Hepatic Function Panel *Hepatic Function Panel [facility] Work Phone: Start: 10-30-2011 End: 11-27-2011 Lipid 1996 panel *Lipid Profile [facility] Work Phone: Start: 10-30-2011 End: 11-27-2011 *Hepatic Function Panel *Hepatic Function Panel [facility] Work Phone: Start: 10-30-2011 End: 11-27-2011 Lipid panel [AGGREGATE] *Lipid Profile [facility] Work Phone: Start: 2010 PNEUMOCOCCAL: 65+ (1 - PCV) PN EUMOCOCCAL: 65+ (1 - PCV) [facility] Start: 2010 PNEUMOVAX AGE 65 AND OVER WITH 5YR LOOKBACK (#1) PNEUMOVAX AGE 65 AND OVER WITH 5YR LOOKBACK (#1) [facility] Start: 2005 RSV Vaccine (1 - 1-d ose 60+ series) RSV Vaccine (1 - 1-dose 60+ series) [facility] Start: 02-28-1964 Urine microalbumin profile DTA P,TDAP,TD (1 - Tdap) [facility] Start: 1963 ANNUAL PCP TEAM MANAGER CONTROL CARSON DISEASE VISIT ANNUAL PCP TEAM CHRONIC DISEASE VISIT [facility] Start: 1963 BP CONTROLLED (<130/80) BP CON TROLLED (<130/80) [facility] Start: 1963 HEPATITIS C SCREENING HEPATITIS C [facility] Start: 1963 Hepatitis C screening Hepatitis C [facility] Start: 1957 Adult depression [facility] assessment DEPRESSION SCREENING [facility] 24 hour urine measurement [facility] Albumin [Mass/volume ] in Urine Basic metabolic 2008 panel with ionized calcium - Serum or Plasma Electrophoresis: beta-globulin Electrophoresis: jeovany ma globulin Fluid sample globulin level Magnesium measurement [facility] Mitotic spindle appa ratus Ab [Titer] in Serum or Plasma Neuronal nuclear Ab [Presence] in Serum by Immunofluorescence Neutrophil cytoplasm ic Ab.classic [Units/volume] in Serum NM Heart Views W str ess and W radionuclide IV Nuclear Ab [Titer] i n Serum by Immunofluorescence P-ANCA measurement [facility] Patient Education [facility] Work Phone: Patient referral [facility] Work Phone: Protein [Mass/volume ] in Urine Serum YUMIKO pattern [facility] Speckled nuclear Ab pattern [Titer] in Serum Thyroid stimulating hormone measurement End: 06-26-2024 US Abdominal Aorta US ABD AORTA COMPLETE [facility] Vascular Lab Routine Carotid stenosis, asymptomatic, bilateral 1 Occurrences starting 06/26/2023 until 06/26/2024 [facility] Work Phone: Comment on above: 1 Occurrences starti ng 06/26/2023 until 06/26/2024 End: 06-26-2024 US Carotid arteries - bilateral US CAROTID ARTERIES JHONY [facility] Vascular Lab Routine Carotid stenosis, asymptomatic, bilateral 1 Occurrences starting 06/26/2023 until 06/26/2024 [facility] Work Phone: Comment on above: 1 Occurrences starti ng 06/26/2023 until 06/26/2024 XR Abdomen upright a nd left lateral decubitus Work Phone: [facility] Immunizations Immunization Date Immunization Notes Care Provider [facility] 09-28-2023 tetanus toxoid, redu lisset diphtheria toxoid, and acellular pertussis vaccine, adsorbed Armani Aguilar MD Work Phone: [facility] 08-18-2021 Covid (Moderna) Dr. Nolan cheema Work Phone: 03-08-2021 [place] (Moderna) Dr. Nolan cheema Work Phone: 02-05-2021 influenza virus vaccine, unspecified formulation Nolan Nguyen MD Work Phone: [facility] 02-08-[address] Nolan Nguyen Work Phone: 08-03-2012 zoster vaccine, live Jean-Pierre Can MD Work Phone: [facility] 01-10-[address] Alina Nguyen Work Phone: Work Phone: 01-10-2012 pneumococcal vaccine , unspecified formulation [facility] 02-08-2011 influenza virus vaccine, unspecified formulation Angelica Can MD Work Phone: [facility] Payers Date Payer Category Payer Self-pay [id number] 2017 Medicare AETNA MEDICARE A ETNA MEDICARE PPO [id number] 2017-Present [phone] [address] [place] [address] PPO [id number] 2017 Medicare AETNA MEDICARE A ETNA MEDICARE PPO [id number] 2017-Present [phone] [address] [place] [address] PPO [id number] 2017 Private Health Insurance [facility] [id number] 2014 Medicare [id number] 2006 Unknown [id number] Unknown [id number] 62 Unknown [id number] 62 Unknown [id number] 62 Unknown [id number] 62 Unknown [id number] 62 Unknown [id number] 62 Unknown [id number] Social History Date Type Detail Facility Start: 02-11-2011 End: 03-13-2023 Tobacco smoking status NHIS Never smoked tobacco [facility] Start: 08-24-2020 End: 10-14-2023 Alcohol intake Current drinker of alcohol (finding) [facility] Start: 06-30-2011 History SDOH Alcohol Comment occasional seldom [facility] Start: 01-10-2020 History SDOH Financial 5 [facility] Start: 01-10-2020 History SDOH Food Worry 1 [facility] Start: 01-10-2020 History SDOH Transpo rt Med 2 [facility] Start: 1945 Sex Assigned At Male C [facility] Start: 09-20-2021 End: 03-13-2023 Tobacco smoking status HIIS Unknown if ever smoked Start: 02-23-2013 None [facility] Start: 02-23-2013 Spouse/ Signif icant Other;With Family Start: 02-23-2013 Non-smoker [facility] Start: 09-29-2021 End: 10-09-2021 Exposure to SARS-CoV-2 (event) Not sure [facility] Start: 02-11-2011 Tobacco use and exposure Smokeless tobacco non-user [facility] Start: 10-09-2021 End: 10-14-2023 History of Social function [facility] Work Phone: Start: 10-09-2021 End: 01-24-2025 Tobacco use panel [facility] Work Phone: How hard is it for y ou to pay for the very basics like food, housing, medical care, and heating Not hard at all [facility] Work Phone: (I/We) worried wheth er (my/our) food would run out before (I/we) got money to buy more. Never true [facility] Work Phone: Start: 11-19-2019 Gender identity Identifies as male gender (finding) [facility] Start: 11-19-2019 Sexual orientation Heterosexual (fin ding) [facility] Start: 08-11-2024 Sex Male (finding) Start: 01-24-2025 Tobacco smoking status Never s moked any substance (finding) [employer] Work Phone: Medical Equipment Procedure Code Equipment Code Equipment Origin al Text Equipment Identifier Dates Patch Cv 8x.8cm Tapr Vsgrd Bov - [id number] Start: 07-16-2011 Patch Bovine Pericardial Vascular Duravess 8x8 - [id number] Start: 01-09-2020 Goals Date Patient Goal Desired Activity /State Personal health goal Functional Status Date Assessment Result Facility 01-24-2025 Functional Status with [employer] Work Phone: 01-24-2025 dependent [employer] Work Phone: 03-13-2023 Functional status Ambulates [facility] Work Phone: 02-26-2023 Functional status Bathroom [employer] Work Phone: 09-22-2021 Functional status Dangle Feet [facility] Work Phone: Mental Status Date Assessment Result Facility 01-24-2025 Cognitive Function house [employer] Work Phone: 03-13-2023 Cognitive function Voice/Name [facility] Work Phone: 02-26-2023 Cognitive function Awake;Alert;Appropriat [facility] Work Phone: 09-21-2021 Cognitive function Appropriate;Cooperativ e Work Phone: 07-16-2021 Cognitive function Voice/Name [facility] Work Phone: 07-16-2021 Cognitive function Patient Rex fernandez Person;Place;Time Work Phone: Clinical Notes 09-03-2021 to 11-30-2024 Note Date & Type Note Facility 11-30-2024 Evaluation note Diagnosis Onset Date Resolution Bilateral carotid artery stenosis chronic November 30, 2024 8:53am Essential (primary) hypertension chronic November 30, 2024 8:53am Hyperlipidemia chronic November 30, 2024 8:53am Work Phone: 1(935) 699-644907-23-2025 Evaluation note* Diagnosis Onset Date Resolution Status Admit Date Dyspnea on exertion acute November 30, 2024 8:53am Bilateral carotid artery stenosis chronic November 30, 2024 8:53am Essential (primary) hypertension chronic November 30, 2024 8:53am Hyperlipidemia chronic November 30, 2024 8:53am Ventricular tachycardia suspected J joy 2024 8:53am Work Phone: 1(887) 981-126806-05-2024 NoteHNO ID: [id number] Author: ANGELICA CAN MD Service: ? Author Type: Physician Type: Progress Notes Filed: 10/14/2023 12:47 Note Text: [facility] , V[facility] [place] DEPARTMENT OF VASCULAR SURGERY OUTPATIENT VISIT DATE [...] kidney disease and he is followed by category planner with a recent GFR reported to be [...] OF Left Rotator Cuff, Dr. Ang @ [facility] RPR UMBILICAL HRNA 5 YRS/> [...] Swelling Angioedema Niacin Other: See Comments flushing Ryprtkl-Oeu-Iib Red* Intolerance PHYSICAL EXAM: BP 136/72 Pulse [...] [place] DATE: October 14, 2023 TIME: 12:42 [facility]06-05-2024 History of Present illness Narrative* Angelica Can MD - 10/14/2023 12:32 PM EDT Images from the original note were not included. [facility] , V[facility] [place] DEPARTMENT OF VASCULAR SURGERY OUTPATIENT VISIT DATE [...] kidney disease and he is followed by category planner with a recent GFR reported to be [...] OF Left Rotator Cuff, Dr. Ang @ [facility] RPR UMBILICAL HRNA 5 YRS/> [...] Swelling Angioedema Niacin Other: See Comments flushing Bwaaypw-Ddo-Usv Red* Intolerance PHYSICAL EXAM: BP 136/72 Pulse [...] 2023 TIME: 12:42 PM [facility] NoteHNO ID: [id number] Author: DANIELE DUGAN APRN.[facility] Service: ? Author Type: Nurse Practitioner Type: Progress Notes Filed: 10/07/2023 12:57 Note Text: Subjective Patient came in for suture removal. Patient had them placed 9 days ago. Patient was kept as normal. Patient denies any difficulty during the healing process. Patient says he might of lost a suture. The history is provided by the patient. No language tutor was used. Suture Removal Review of Systems [...] OF Left Rotator Cuff, Dr. Ang @ [facility] RPR UMBILICAL HRNA 5 YRS/> REDUCIBLE 12/01/11 ALLERGIES Eh Inhibitors, Niacin, and Qbcwcfw-Dlx-Man Reductase Inhibitors MEDICATIONS torsemide (DEMADEX) 20 mg [...] Onset Stroke Father Stroke Paternal Grandfather other (ID) Brother Stroke Brother other (carotid ASO) Brother [...] follow-up if anything new occurs. Daniele Dugan APRN.[facility]05-29-2024 History of Present illness Narrative* Daniele Dugan APRN.[facility] - 10/07/2023 12:50 PM EDT Images from the original note were not included. Subjective Patient came in for suture removal. Patient had them placed 9 days ago. Patient was kept as normal.Patient denies any difficulty during the healing process. Patient says he might of lost a suture. The history is provided by the patient. No language tutor was used. Suture Removal Review of Systems [...] OF Left Rotator Cuff, Dr. Ang @ [facility] RPR UMBILICAL HRNA 5 YRS/> REDUCIBLE 12/01/11 ALLERGIES Eh Inhibitors, Niacin, and Lohkuhs-Cxr-Nxm Reductase Inhibitors MEDICATIONS torsemide (DEMADEX) 20 mg [...] Onset Stroke Father Stroke Paternal Grandfather other (ID) Brother Stroke Brother other (carotid ASO) Brother [...] follow-up if anything new occurs. Daniele Dugan APRN.ALEAH documented in this encounterMer[facility]05-20-2024 NoteHNO ID: [id number] Author: ARMANI AGUILAR MD Service: ? Author [...] Swelling Angioedema Niacin Other: See Comments flushing Iouotjl-Naj-Qam Red* Intolerance VITALS: BP 140/72 Pulse 60 [...] suture removal in 7-10 days. Armani Aguilar, [facility]05-20-2024 History of Present illness Narrative* Armani [...] Swelling Angioedema Niacin Other: See Comments flushing Weqglkp-Gkw-Qak Red* Intolerance VITALS: BP 140/72 Pulse 60 [...] days. Armani Aguilar MD documented in this encounterMer[facility]02-14-2024 Miscellaneous Notes* Telephone Encounter - Nguyen Marcum - 06/24/2023 3:18 PM EST Reason for call: Pt's spouse called and she would like to schedule his follow up appt with Dr Can. Please call Raul for scheduling. Contact name: Raul Monterroso Home and cell number: [phone] Diagnosis: Carotid stenosis, asymptomatic, bilateral Kind Regards, Nguyen Marcum documented in this encounterMer[facility]11-03-2023 Procedure [facility]06-01-2022 History of Present illness Narrative* Angelica Can [...] years Angelica Can MD documented in this encounterMer[facility]04-26-2022 Miscellaneous Notes* Telephone Encounter - Radha Zeng - 09/03/2021 2:10 PM EDT Spoke w/pt about updated appt time/date. He had questions about changes, messaged Colt to reach out to him. Radha Segovia documented in this encounterMercy [facility] HospitalEvaluation note* Diagnosis Onset Date Resolution Status Personal history of colonic polyps acute Small intestine obstruction acute Essential (primary) hypertension chronic Type 2 diabetes mellitus chr [facility] Work Phone: Evaluation note* Diagnosis Onset Date Resolution Status Personal history of colonic polyps acute Asthma chronic Bilateral carotid artery stenosis chronic Essential (primary) hypertension chronic Hyperlipidemia chronic Sleep apnea chronic Type 2 diabetes mellitus chr onic Small intestine obstruction resolved Work Phone: Evaluation note* Diagnosis Carotid stenosis, asymptomatic, bilateral- Primary PAD (peripheral artery disease) (HCC) Peripheral vascular disease, unspecified [facility] Diagnosis Onset Date Resolution Status Asthma chronic Bilateral carotid artery stenosis chronic Essential (primary) hypertension chronic Hyperlipidemia chronic Sleep apnea chronic Small intestine obstruction resolved SBO (small bowel obstruction) resolved Bilateral carotid artery stenosis chronic Essential (primary) hypertension chronic Hyperlipidemia chronic Work Phone: Evaluation noteNo assessment information available Work Phone: Evaluation note* Diagnosis Onset Date Resolution Status Acute kidney failure, unspecified acute Work Phone: Evaluation note* Diagnosis Carotid stenosis, asymptomatic, bilateral- Primary documented in this encounter [facility] note* Diagnosis Laceration of right ring finger without foreign body without damage to nail, initial encounter- Primary documented in this encounter [facility] note* Diagnosis Visit for suture removal- Primary Encounter for removal of sutures documented in this encounter [facility] note* Diagnosis PAD (peripheral artery disease) ([facility])- Primary Peripheral vascular disease, unspecified Obesity, Class III, BMI 40-49.9 (morbid obesity) ([facility]) Morbid obesity Bilateral carotid artery stenosis Occlusion and stenosis of carotid artery without mention of cerebral infarction documented in this encounter [facility] note* Diagnosis Onset Date Resolution Status Admit Date Bilateral carotid artery stenosis chronic November 30, 2024 8:53am Essential (primary) hypertension chr onic November 30, 2024 8:53am Hyperlipidemia chronic November 30, 2024 8:53am [facility] Work Phone: Hospital Discharge instructionsWOhio[facility] Work Phone: Reason for referral (narrative)* Outpatient Procedure (Routine) - Authorized Specialty Diagnoses / Procedures Referred By Contac t [facility] Diagnoses Carotid stenosis, asymptomatic, bilateral Procedures US ABD AORTA COMPLETE VAS LAB DUP-SCAN AORTA IVC ILIAC VASCL/BPGS COMPLETE Angelica Can MD [address] [place] [address] [facility] [address] [place] [address] Referral ID Status Reason Start Date Expiration Date Visits Requested Visits Authorized [id number] Authorized Auto-Generat ed Referral 06/26/2023 06/25/2024 1 1 * Outpatient Procedure (Routine) - Authorized Specialty Diagnoses / Procedures Referred By Contac t Referred [facility] Diagnoses Carotid stenosis, asymptomatic, bilateral Procedures US CAROTID ARTERIES JHONY VAS LAB DUPLEX SCAN EXTRACRANIAL ART COMPL BI STUDY Angelica Can MD [address] [place] [address] [facility] [address] [address] Referral ID Status Reason Start Date Expiration Date Visits Requested Visits Authorized [id number] Authorized Auto-Generat ed Referral 06/26/2023 06/25/2024 1 1 [facility] HospitalReason for referral (narrative)No reason for referral information availableWOhioHealth Doctors Hospital Work Phone: Advance Directives Documents on File Type Date Recorded Patient Choir Leader Expl anation Advance Directive(s) 01/06/2020 12:36 PM Advance Directive(s) 01/03/2020 12:06 PM Advance Directive Response Recorded Date/ Time Name of Medical Power of Route Rider Supervisor Estelle mix July 11, 2021 3:57pm Advance Directives Yes May 25, 2013 1:40am Living Will Yes September 20, 2021 5 :46am Power of Route Rider Supervisor Yes September 20, 2021 5:46am Advance Directive Response Recorded Date/ Time Name of Medical Power of Route Rider Supervisor Estelle mix July 11, 2021 3:57pm Advance Directives Yes May 25, 2013 1:40am Living Will Yes September 20, 2021 8 :55am Power of Route Rider Supervisor Yes September 20, 2021 8:55am Advance Directive Response Recorded Date/ Time Name of Medical Power of Route Rider Supervisor raul cox September 20, 2021 8:55am Advance Directives Yes May 25, 2013 1:40am Living Will Yes September 20, 2021 8 :55am Power of Route Rider Supervisor Yes September 20, 2021 8:55am Advance Directive Response Recorded Date/ Time Advance Directives Yes May 25, 2013 12:40am Living Will Yes September 20, 2021 7 :55am Power of Route Rider Supervisor Yes September 20, 2021 7:55am Advance Directive Response Recorded Date/ Time Advance Directives Yes May 25, 2013 1:40am Living Will Yes September 20, 2021 8 :55am Power of Route Rider Supervisor Yes September 20, 2021 8:55am Advance Directive Response Recorded Date/ Time Advance Directives Yes May 25, 2013 1:40am Advance Directive Response Recorded Date/ Time Living Will Yes September 20, 2021 8 :55am Do you have a Healthcare Power of Route Rider Supervisor? Yes September 20, 2021 8:55am Advance Directives [...] Y FU November 30, 2024 8:53 am Chief Complaint Admit Date 1 Y FU November 30, 2024 8:53 am INT LABS November 30, 2024 9:43 am Ceferino OCAMPO, pre-op December 28, 2024 6 :03am OCAMPO, V. tach, pre-op December 28, 2024 6 :38pm Reason for Visit Admit Date Dyspnea on exertion November 30, 2024 8:53 am Bilateral carotid artery stenosis November 092024 8:53am Essential (primary) hypertension November 302024 8:53am Hyperlipidemia November 30, 2024 8:53 am Ventricular tachycardia November 30, 2024 8:53am Family History Relationship Condition Age at Onset Recorded Date/T flakita father Cerebrovascular accident (CVA) Unknown Hypertension Unknown mother Ruptured abdominal aortic aneurysm (AAA) Unknown brother Coronary artery disease Unknown brother Myocardial infarction Unknown Coronary artery disease Unknown History of carotid endarterectomy Unknown brother Diabetes mellitus Unknown sister Hyperlipidemia Unknown Family Member Condition Father Stroke/TIA Father Mother Summary Purpose Additional Source Comments Source Comments (unrecognize d section and content) In the event this informatio n is protected by the Federal Confidentiality of Alcohol and Drug Abuse Patient Records regulations: The Federal rules restrict any use of the information to criminally investigate or prosecute any alcohol or drug abuse patient.[facility] HospitalIn the event this information is protected by the Federal Confidentiality of Alcohol and Drug Abuse Patient Records regulations: The Federal rules restrict any use of the information to criminally investigate or prosecute any alcohol or drug abuse patient.[facility] HospitalIn the event this information is protected by the Federal Confidentiality of Alcohol and Drug Abuse Patient Records regulations: The Federal rules restrict any use of the information to criminally investigate or prosecute any alcohol or drug abuse patient.[facility] HospitalIn the event this information is protected by the Federal Confidentiality of Alcohol and Drug Abuse Patient Records regulations: The Federal rules restrict any use of the information to criminally investigate or prosecute any alcohol or drug abuse patient.[facility] HospitalIn the event this information is protected by the Federal Confidentiality of Alcohol and Drug Abuse Patient Records regulations: The Federal rules restrict any use of the information to criminally investigate or prosecute any alcohol or drug abuse patient.[facility] HospitalIn the event this information is protected by the Federal Confidentiality of Alcohol and Drug Abuse Patient Records regulations: The Federal rules restrict any use of the information to criminally investigate or prosecute any alcohol or drug abuse patient.[facility] HospitalIn the event this information is protected by the Federal Confidentiality of Alcohol and Drug Abuse Patient Records regulations: The Federal rules restrict any use of the information to criminally investigate or prosecute any alcohol or drug abuse patient.[facility] Reason for Visit (unrecogniz ed section and content) left knee pain, New - 1st vi sit with practice Reason Comments Appointment Reason Comments Established Patient Reason Comments Laceration Right ring finger la ceration Reason Comments Suture Removal Right ring finger pl aced by us 9 days go Care Teams (unrecognized sec tion and content) Calender Tender Relationship Specialty Start Date End Date Nolan Nguyen MD [address] [facility] [address] [place] [address] PCP - General Family Practice 08/28/17 Team Status: Active Member Role Status Dates Dr. Nolan Nguyen MD Family Provider Active Dr. Nolan Nguyen MD Primary Care Provider Active Team Status: Inactive Member Role Status Dates Dr. Nolan Nguyen MD Primary Care Provi kavita, Attending Provider, Referring Provider Active Team Status: [...] DO Referring Provider, Other Provi kavita Active Brianna Abraham , MUSICAL INSTRUMENT MECHANIC-C Attending Provider Active Team Status: Active Member Role Status Dates Dr. Nolan Nguyen MD Primary Care Provider Active Dr. Mary Patel DO Attending Provider, Referring P roambika Active Team Status: Inactive Member Role Status Dates Dr. Nolan Nguyen MD Primary Care Provider Active Dr. Mary Patel DO Attending Provider, Referring P rovider Active Team Status: Inactive Member Role Status Dates Dr. Nolan Nguyen MD Primary Care Provider, Attending Provider Active Calender Tender Relationship Specialty Start Date End Date Nolan Nguyen MD [address] [facility] [address] [place] [address] PCP - General Family Medicine 08/28/17 Calender Tender Relationship Specialty Start Date End Date Nolan Nguyen MD [address] [facility] [address] [place] [address] PCP - General Family Medicine 08/28/17 Team Status: Active Member Role Status Dates Dr. Nolan Nguyen MD Primary Care Provider Active Dr. Fady Anand MD Attending Provider Active Team Status: Active Member Role Status Dates Dr. Nolan Nguyen MD Primary Care Provider Active Self Referred Attending Provider, Referring Provider A ctive Calender Tender Relationship Specialty Start Date End Date Nolan Nguyen MD [address] [facility] [address] [place] [address] PCP - General Family Medicine 08/28/17 Calender Tender Relationship Specialty Start Date End Date Nolan Nguyen MD [address] [facility] [address] [place] [address] PCP - General Family Medicine 08/28/17 Team [...] Nguyen MD Primary Care Provider Active Start: December 28, 2024 End: December 28, 2024 LILLIE Muller Attending Provider Active St art: December 28, 2024 End: December 28, 2024 LILLIE Muller Referring Provider Active St art: December 28, 2024 End: December 28, 2024 Team Status: Active Member Role/Relationship Status Dates Dr. Nolan Nguyen MD Primary Care Provider Active Start: December 28, 2024 LILLIE Muller Referring Provider Active St art: December 28, 2024 LILLIE Muller Other Provider Active Start: December 28, 2024 Dr. Jesse Valadez MD Attending Provider Active S tart: December 28, 2024 Goals (unrecognized section and content) Goals [...] may be documented in an alternate section No Information Available (unrecognized sect ion and content) No Status Records FoundNo Status Records Found INFORMATION SOURCE (unrecogn ized section and content) DATE CREATED AUTHOR 10/15/2023 [facility] DATE CREATED AUTHOR AUTHOR'S ORGANIZ ATION 01/25/2025 [facility] FOR RECORDS PERTAINING TO PATIENTS WHO [...] BE BASED ON THE PRIMARY CLINICAL RECORDS. [facility]. provides no warranty or guarantee of the accuracy or completeness of information in this document.
--- OUTSIDE RECORDS SUMMARY | 2025-02-23 12:04 | XMS RPT_ITS | CCD ---
Author Organization 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 Danilo Davalos Other Provider Alannah TRANSIT SPECIALIST, TRANSIT SPECIALIST-C Filomena Other Provider Dr. Lukas Callahan Attending Provider Dr. Nolan Nguyen Primary Care Provider Dr. Gordon Mckay Other Provider Dr. Jessica Youssef Referring Provider Dr. Gordon Mckay Attending Provider Dr. Nolan Nguyen Referring Provider Dr. Jesse Valadez Attending Provider Dr. Nolan Nguyen Primary Care Provider Dr. Mary Patel Referring Provider Dr. Mary Patel Other Provider [phone] ARACELIS Abraham Attending Provider [phone] [...] Dr. Mary Patel DO Referring Provider [phone] Josue DUARTE, Dr. Francisco Primary Care Provider [phone] Josue DUARTE, Dr. Francisco Referring Provider [phone] Adis Lees Attending Provider [phone] Nolan Nguyen MD Primary Care Provider [phone] Treesita MOREIRA Adis Referring Provider [phone] Teresita [...] NONE Unavailable Unavailable Nolan Nguyen MD Unavailable [phone] Allergies Allergy Classification Reported Allergen(s) Allergy Type Date of Onset Reaction(s) Facility Niacin (1 source) Niacin Drug Allergy 2 Other: See Comments [facility] (20 sources) Angiotensin Converting Enzyme (Eh) Inhibitors; Translations: [EH INHIBITORS] drug allergy 1 Swelling [facility] Work Phone: (3 sources) Hmg-Coa Reductase Inhibitors (Statins) drug allergy 1 pain [facility] Work Phone: (2 sources) ANGIOEDEMA drug allergy 1 From Lisionpril [facility] Work Phone: (3 sources) HMG-CoA reductase inhibitor; Translations: [JSVLXRW-DUS-UB A REDUCTASE INHIBITORS] Drug Allergy 1 Intolerance [facility] (20 sources) Niacin; Translations: [NIACIN] Drug Allergy 2 Other: See Comments [facility] (19 sources) Pevviqb-Yix-Knd Reductase Inhibitor; Translations: [Mkeaxrx-Uxu-Rl a Reductase Inhibitor] Propensity to adverse reactions 2 [facility] (5 sources) HMG-CoA reductase inhibitor Drug Allergy 1 Intolerance [facility] (1 source) Niacin Drug Allergy 5 Repository (1 source) Niacin Drug Allergy 5 [facility] (1 source) EH INHIBATORS Allergy to substance (disorder) 5 [facility] Medications Current Medications Medication Drug Class(es) [...] Base) MCG/ACT AERS as needed ALBUTEROL SULFATE [id number] Jesse Valadez MD Start: 06-15-2014 PROAIR HFA 108 (90 Base) MCG/ACT AERS as needed ALBUTEROL SULFATE [id number] Jesse Valadez MD Start: 10-21-2013 take 2 [...] Start: 08-22-2010 take 3 tablets by mo [facility] twice daily at mealtime Colesevelam 625 MG tablet Active 1875 mg PO TWICE DAILY WITH MEALS February 04, 2017 12:00am colesevelam 625 mg tablet active Soledad Semplak AT [facility] Comment on above: Take 1,875 mg by maikol twice daily with meals. Finerenone (4 sources) Start: take 1 tablet by mouth once daily Finerenone (Kerendia) 10 mg tablet Active 10 mg PO DAILY November 24, 2023 12:00am FINERENONE (1 source) Kerendia 10 mg tablet Take 1 tablet once a day active Soledad Semplak AT [facility] fluticasone propionate 0.05 mg/actuat metered dose [...] Start: 04-23-2017 take 1 puff(s) by mo [facility] once daily BREO ELLIPTA 200-25 mcg/dose inhaler INHALE ONE PUFF INTO THE LUNGS ONCE DAILY WITH GOOD ORAL CARE AFTER USE 04/23/2017 Active Breo Ellipta 200 mcg-25 mcg/dose powder for inhalation active Soledad Franco AT [facility] Comment on above: INHALE ONE PUFF [...] 10:44am Start: 11-18-2012 [facility] TOPROL XL 50 MG [id number] One tablet by mouth daily METOPROLOL SUCCINATE [id number] Jesse Valadez MD metoprolol succi shahid ER 100 mg tablet,extended release 24 hr active Soledad Franco AT [facility] Comment on above: Take 100 mg [...] mg c apsule active Soledad Franco AT [facility] take 2 mg by mouth once [...] above: Take by mouth twice daily. Vitamins A,C,G-Zrhr-Wovowj ([facility]) 14,320-226-200 dzfl-wy-iycj capsule (18 sources) Start: take 1 capsule by mouth twice daily Vitamins A,C,K-Mnpd-Uqwakh ([facility]reds) 14,320-226-200 lbzo-pd-oahw capsule Active 1 CAP PO TWICE A DAY October 09, 2020 3:36pm Start: 10-09-2020 Vitamins A,C,E -Zinc-Copper ([facility]) 14,320-226-200 gmms-mo-wran capsule Active 1 NMA PO TWICE A DAY October 09, 2020 12:00am Start: 10-09-2020 take 1 capsule by mo tnh twice daily Vitamins A,C,B-Bkfj-Cbgfzh ([facility]erv[facility] Areds) 14,320-226-200 cqxm-vz-jkhg capsule Active 1 CAP PO TWICE A DAY October 08, 2020 11:00pm Start: 10-09-2020 take 1 capsule by [facility] twice daily Vitamins A,C,F-Zner-Rxjeyr (Preservision Areds) 14320-226-200 eutw-ym-rhsn capsule Active 1 CAP PO TWICE A [...] One tablet by mouth daily AMLODIPINE BESYLATE [id number] Meg M Osullivan End: 10-14-2023 take 0.5 [...] TABS One tablet by mouth daily ASPIRIN 25438073419 Meg Osullivan Start: 03-19-2006 ASPIRIN 81 MG TAB Take one(1) tablet daily. 0 03/19/2006 Active Comment on above: Take one(1) tablet d aily. budesonide 0.032 mg/actuat metered dose nasal spray (2 sources) Corticosteroid Start: 08-22-2010 RHINOCORT AQUA 32 MCG/ACT SUSP 0.032 mg/inh - 1-2 sprays each nostril twice a day BUDESONIDE [id number] Meg Osullivan Start: 08-22-2010 RHINOCORT AQUA 32 MCG/ACT SUSP 0.032 mg/inh - 1-2 sprays each nostril twice a day BUDESONIDE 73140986166 Meg Osullivan cyclobenzaprine (4 sources) Muscle Relaxant [...] AERO inhalation once daily MOMETASONE FURO-FORMOTEROL FUM [id number] Jesse Valadez MD Start: 06-15-2014 take 200-5 ug by inh alation once daily DULERA 200-5 MCG/ACT AERO inhalation once daily MOMETASONE FURO-FORMOTEROL FUM [id number] Jesse Valadez MD furosemide 40 mg oral [...] (Atarax) As needed at bedtime HYDROXYZINE HCL 71928139210 Meg Osullivan meloxicam 15 mg oral tablet (20 sources) Nonsteroidal Anti-inflammatory Drug Start: 05-26-2013 End: 06-02-2013 take 1 tablet by mouth once daily MOBIC 15 MG TABS One tablet by mouth daily MELOXICAM 55991364018 Kirstie Hope RN Start: 02-24-2013 End: 05-24-2013 [...] MCG/INH AEPB Take as directed MOMETASONE FUROATE 16076616361 Kirstie Hope RN Start: 05-26-2013 ASMANEX 120 ME TERED DOSES 220 MCG/INH AEPB Take as directed MOMETASONE FUROATE 65760216992 Kirstie Hope RN Start: 05-26-2013 End: 06-15-2014 ASMANEX 120 METERED DOSES 22 0 MCG/INH AEPB Take as directed MOMETASONE FUROATE 73296264966 Jesse Valadez MD nadolol 40 mg oral tablet (4 sources) beta-Adrenergic Sid Start: 08-22-2010 End: 11-18-2012 take 1 tablet by mouth once daily NADOLOL 40 MG TABS One tablet by mouth daily NADOLOL 99218463210 Meg Osullivan Nasocort (18 sources) Start: 03-17-2018 [...] September 30, 2018 10:34am polyethylene glycol 3350 241906 mg / potassium chloride 2820 mg / sodium bicarbonate 6360 mg / sodium chloride 5530 mg / sodium sulfate 66965 mg powder for oral solution (2 sources) Osmotic Laxative Start: 01-19-2017 GOLYTELY 227.1 GM SO LR as directed PEG 9259-KEX-HAGUA-NACL-NASULF [id number] Gordon Mckay MD Start: 01-19-2017 GOLYTELY 227.1 GM SOLR as directed PEG 7652-NDW-WOTBY-NACL-NASULF [id number] Gordon Mckay MD rosuvastatin calcium 5 mg [...] 5g/packet 1%, apply as directed TESTOSTERONE GEL 17690562025 Meg Cantu Osullivan Start: 08-22-2010 End: 11-18-2012 ANDROGEL GEL 5g/packet 1%, a pply as directed TESTOSTERONE GEL 75811045632 Jesse Valadez MD Start: 08-22-2010 ANDROGEL GEL 5 g/packet 1%, apply as directed TESTOSTERONE GEL 68652004542 Meg Cantu Osullivan Start: 08-22-2010 End: 11-18-2012 ANDROGEL GEL 5g/packet 1%, a pply as directed TESTOSTERONE GEL [id number] Jesse Valadez MD triamcinolone acetonide 0.055 mg/actuat [...] MCG/ACT AERO Take as directed TRIAMCINOLONE ACETONIDE(NASAL) 02614615934 Jesse Valadez MD Start: 08-22-2010 NASACORT AQ [...] take as directed per PCP WARFARIN SODIUM [id number] Jesse Valadez MD Problems Active Problems Problem [...] Coronary atherosclerosis; Translations: [Atherosclerotic heart disease of [place] coronary artery without angina pectoris] 10-06-2020 Chronic [...] current use of drug therapy; Translations: [Other pen[facility]iary (current) drug therapy] 10-06-2020 Episodic Other and [...] (1 source) Long-term drug therapy; Translations: [Other penitentiary (current) drug therapy] Onset: 11-20-2010 11-20-2010 Unclassified [...] 09-03-2006 Episodic Other aftercare (1 source) Other penitentiary (current) drug therapy; Translations: [Other sas programmer (current) drug therapy] Onset: 11-20-2010 11-20-2010 Episodic [...] Narrativeon 01-24-2025 Fall risk assessment no 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 Work 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: MEDS REVIEW Done [employer] Work Phone: MEDS REVIEWD Medications reviewed with changes [employer] Work Phone: XRAY HX of the left knee on 12/09/2023 at [employer] Work Phone: Cardiovascular stress test r eportOrdered By: Jesse Valadez on 12-28-2024 Study report [facility] [address] [place] [address] MR#: [id number] Acct: [id number] Name: XOCHITL MONTERROSO Rep #: [id number] [...] ~ Date Dictated: 12/28/241837 Date Transcribed: 12/28/241837 Negative Restorer: CO Signed Work Phone: Stress Reporton 12-28-2024 Stress Report [facility] [address] [place] [address] MR#: [id number] Acct: [id number] Name: XOCHITL MONTERROSO Rep #: [id number] : 1945 79 From: Jesse Valadez MD [...] Muller Date Dictated: 12/28/241837 Date Transcribed: 12/28/241837 Negative Restorer: CO Signed Normal Anion gap in Serum or Plasma Ordered By: Adis Lo on 11-30-2024 Anion gap [Moles/Vol] 10 mmol/L 09-22 [facility] BUN/creatinine ratioOrdered By: Adis Lo on 11-30-2024 Urea nitrogen/Creatinine [Mass ratio] 16.6 mg/mg 02-27 Basic Metabolic Profile (BMP )on 11-30-2024 BUN/CRE 16.6 RATIO Normal 02-27 Comment on above: Performed By: #### L 500.3600, L509.1000, L100.0500, L501.0900 #### Laboratory [address] [place], [address] Calcium [Mass/Vol] 9.3 mg/dL Normal 7.6-11.0 [facility] Comment on above: Performed By: #### L 500.3600, L509.1000, L100.0500, L501.0900 #### Laboratory [address] [place], [address] Chloride [Moles/Vol] 104 mmol/L Normal 98-108 [facility] Comment on above: Performed By: #### L 500.3600, L509.1000, L100.0500, L501.0900 #### Laboratory [address] [place], [address] CO2 [Moles/Vol] 24.7 mmol/L Normal 21.0-32.0 Comment on above: Performed By: #### L 500.3600, L509.1000, L100.0500, L501.0900 #### Laboratory [address] [place], [address] Creatinine [Mass/Vol] 1.38 mg/dL High 0.70-1.20 [facility] Comment on above: Performed By: #### L 500.3600, L509.1000, L100.0500, L501.0900 #### Laboratory [address] [place], [address] GAP 10 Normal 5-15 Comment on above: Performed By: #### L 500.3600, L509.1000, L100.0500, L501.0900 #### Laboratory [address] [place], [address] GFR/1.73 sq M.predicted among non-blacks MDRD (S/P/Bld) [Vol rate/Area] 52 mL/min/{1.73_m2} Low >60 Comment on above: Result Comment: mL/m in/1.73m2 CKD-EPI Creatinine Equation (2020) Performed By: #### L 500.3600, L509.1000, L100.0500, L501.0900 #### Laboratory [address] [place], [address] Glucose [Mass/Vol] 124 mg/dL High 70-99 [facility] Comment on above: Performed By: #### L 500.3600, L509.1000, L100.0500, L501.0900 #### Laboratory [address] [place], [address] Potassium [Moles/Vol] 4.3 mmol/L Normal 3.3-5.1 [facility] Comment on above: Performed By: #### L 500.3600, L509.1000, L100.0500, L501.0900 #### Laboratory [address] [place], [address] Sodium [Moles/Vol] 138 mmol/L Normal 133-145 [facility] Comment on above: Performed By: #### L 500.3600, L509.1000, L100.0500, L501.0900 #### Laboratory [address] [place], [address] Urea nitrogen [Mass/Vol] 23 mg/dL High 4-19 Comment on above: Performed By: #### L 500.3600, L509.1000, L100.0500, L501.0900 #### Laboratory [address] [place], [address] Carbon dioxide, total [Moles /volume] in Central venous bloodOrdered By: Adis Lo on 11-30-2024 CO2 [Moles/Vol] 24.7 mmol/L 21.0-32.0 Cardiology Visit Reporton Cardiology Visit Report [facility] 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 Is patient in pain?: No Allergies EH Inhibitors Allergy (Severe, Verified 11/30/24 08:56) ANGIOEDEMA niacin Adverse Reaction (Severe, Verified 11/30/24 08:56) SKIN RED AND BURNING, SEVERE FLUSHING Pxjnwyf-ESW-VaU Reductase Inhibitor (Ctpbzfc-Adz-Pgc Reductase Inhibitor) Adverse Reaction (Severe, Verified 11/30/24 [...] 11/30/24 Rx tablet,extended release 24 hr vitamins A,C,Y-nwpo-dlkzxw 4,296 1 cap PO BID 10/09/20 11/30/24 [...] on 11-30-2024 Chloride [Moles/Vol] 104 mmol/L 98-108 [facility] Glomerular filtration rate ( GFR) estimation/1.73 sq m using serum, plasma, or whole bOrdered By: Adis Lo on 11-30-2024 GFR/1.73 sq M.predicted among non-blacks MDRD (S/P/Bld) [Vol rate/Area] 52 mL/min/{1.73_m2} Low >60 Comment on above: mL/min/1.73m2 CKD-EP I Creatinine Equation (2020) Magnesiumon 11-30-2024 Magnesium [Mass/Vol] 2.1 mg/dL Normal 1.5-2.2 [facility] Comment on above: Performed By: #### L 500.3600, L509.1000, L100.0500, L501.0900 #### Laboratory [address] [place] [address], [id number] Magnesium measurement (mass/ volume)Ordered By: Adis Lo on 11-30-2024 Magnesium (Unsp spec) [Mass/Vol] 2.1 mg/dL 1.5-2.2 Potassium measurement (mass/ volume)Ordered By: Adis Lo on 11-30-2024 Potassium (Unsp spec) [Mass/Vol] 4.3 mmol/L 3.3-5.1 Serum creatinine measurement (mass/volume)Ordered By: Adis Lo on 11-30-2024 Creatinine [Mass/Vol] 1.38 mg/dL High 0.70-1.20 [facility] Serum glucose measurement (m ass/volume)Ordered By: Adis Lo on 11-30-2024 Glucose [Mass/Vol] 124 mg/dL High 70-99 [facility] Serum or plasma calcium axel urement (mass/volume)Ordered By: Adis Lo on 11-30-2024 Calcium [Mass/Vol] 9.3 mg/dL 7.6-11.0 [facility] Serum or plasma urea nitroge n measurement (mass/volume)Ordered By: Adis Lo on 11-30-2024 Urea nitrogen [Mass/Vol] 23 mg/dL High 4-19 Sodium levelOrdered By: Ana Lo on 11-30-2024 Sodium [Moles/Vol] 138 mmol/L 133-145 [facility] TSH DL <= 0.005 mIU/L QnOrde red By: Adis Lo on 11-30-2024 TSH Qn 1.640 uIU/mL 0.300-4.20 0 Thyroid Stim Hormone (TSH)on 11-30-2024 TSH 1.640 uIU/mL Normal 0.300-4.20 0 Comment on above: Performed By: #### L 500.3600, L509.1000, L100.0500, L501.0900 #### Laboratory [address] [place], [address] Anion gap in Serum or Plasma Ordered By: Mary Patel on 08-04-2024 Anion gap [Moles/Vol] 16 mmol/L High 5-15 [facility] BUN/creatinine ratioOrdered By: Mary Patel on 08-04-2024 Urea nitrogen/Creatinine [Mass ratio] 12.4 mg/mg 10-20 CBC-Complete Blood Cnt No Di ffon 08-04-2024 Erythrocyte distribution width (RBC) [Ratio] 12.8 % Normal 11.6-14.6 Comment on above: Performed By: #### L 500.3600, L509.1000, L100.0500, L501.0900 #### Laboratory [address] [place], [address] Hematocrit (Bld) [Volume fraction] 45.0 % Normal 40-54 Comment on above: Performed By: #### L 500.3600, L509.1000, L100.0500, L501.0900 #### Laboratory [address] [place], [address] Hemoglobin (Bld) [Mass/Vol] 14.9 g/dL Normal 13.0-16.5 Comment on above: Performed By: #### L 500.3600, L509.1000, L100.0500, L501.0900 #### Laboratory [address] [place], [address] MCH (RBC) [Entitic mass] 31.6 pg Normal 27.0-32.0 Comment on above: Performed By: #### L 500.3600, L509.1000, L100.0500, L501.0900 #### Laboratory [address] [place], [address] MCHC (RBC) [Mass/Vol] 33.1 g/dL Normal 32-36 [facility] Comment on above: Performed By: #### L 500.3600, L509.1000, L100.0500, L501.0900 #### Laboratory [address] [place], [address] MCV (RBC) [Entitic vol] 95.3 fL High 80-94 [facility] Comment on above: Performed By: #### L 500.3600, L509.1000, L100.0500, L501.0900 #### Laboratory [address] [place], [address] Platelet mean volume (Bld) [Entitic vol] 9.2 fL Normal 6.2-12.0 Comment on above: Performed By: #### L 500.3600, L509.1000, L100.0500, L501.0900 #### Laboratory [address] [place], [address] Platelets (Bld) [#/Vol] 157 10*3/uL Normal 150-450 Comment on above: Performed By: #### L 500.3600, L509.1000, L100.0500, L501.0900 #### Laboratory [address] [place], [address] RBC (Bld) [#/Vol] 4.72 10*6/uL Normal 4.6-6.2 [facility] Comment on above: Performed By: #### L 500.3600, L509.1000, L100.0500, L501.0900 #### Laboratory [address] [place], [address] RDW SD 45.3 fl High 35.1-43.9 Comment on above: Performed By: #### L 500.3600, L509.1000, L100.0500, L501.0900 #### Laboratory [address] [place], [address] WBC (Bld) [#/Vol] 7.3 10*3/uL Normal 4.4-11.0 [facility] Comment on above: Performed By: #### L 500.3600, L509.1000, L100.0500, L501.0900 #### Laboratory [address] [place], [address] Carbon dioxide, total [Moles /volume] in Central venous bloodOrdered By: Mary Patel on 08-04-2024 CO2 [Moles/Vol] 18.7 mmol/L Low 21.0-32.0 Chloride assayOrdered By: Mil Patel on 08-04-2024 Chloride [Moles/Vol] 103 mmol/L 98-108 [facility] Creatinine Unsp time (U) [Ma ss/Vol]Ordered [...] [Entitic vol] 95.3 fL High 80-94 [facility] Mean corpuscular hemoglobin (MCH) determinationOrdered By: Mary Patel on 08-04-2024 MCH (RBC) [Entitic mass] 31.6 pg 27.0-32.0 Mean corpuscular hemoglobin concentration (MCHC) determinationOrdered By: Mary Patel on 08-04-2024 MCHC (RBC) [Mass/Vol] 33.1 g/dL 32-36 [facility] Mean platelet volume determi nationOrdered By: Mary Patel on 08-04-2024 Platelet mean volume (Bld) [Entitic vol] 9.2 fL 6.2-12.0 PTH intactOrdered By: Liborio Patel on 08-04-2024 Parathyroid Hormone (Intact) 37 pg/mL PTHINon 08-04-2024 PTH 37 pg/mL Normal Comment on above: Performed By: #### L 500.3600, L509.1000, L100.0500, L501.0900 #### Laboratory [address] [place], [address] Platelet countOrdered By: Mil Patel on 08-04-2024 Platelets (Bld) [#/Vol] 157 10*3/uL 150-450 Potassium (Unsp spec) [Mass/ Vol]Ordered By: Mary Patel on 08-04-2024 Potassium [Moles/Vol] 4.5 mmol/L 3.3-5.1 [facility] Potassium measurement (mass/ volume)Ordered By: Mary Patel on 08-04-2024 Potassium (Unsp spec) [Mass/Vol] 4.5 mmol/L 3.3-5.1 Protein+Creatinine Ratio,Uri neon 08-04-2024 PROT:CRE RATIO 78 mg/g CRE Normal 0-200 Comment on above: Performed By: #### L 500.3600, L509.1000, L100.0500, L501.0900 #### Laboratory [address] [place], [address] Protein (U) [Mass/Vol] 7.8 mg/dL Normal 0.0-12.0 [facility] Comment on above: Performed By: #### L 500.3600, L509.1000, L100.0500, L501.0900 #### Laboratory [address] [place], [address] UR CREAT 99.10 mg/dL Normal 39.00-259. 00 Comment on above: Performed By: #### L 500.3600, L509.1000, L100.0500, L501.0900 #### Laboratory [address] [place], [address] Protein/Creatinine (U) [Mass ratio]Ordered By: Mary Patel on 08-04-2024 Urine Protein/Creatinine Ratio 78 mg/g CRE 0-200 RBC Auto (Bld) [#/Vol]Ordere d By: Mary Patel on 08-04-2024 RBC (Bld) [#/Vol] 4.72 10*6/uL 4.6-6.2 [facility] Random urine creatinine axel urement (mass/volume)Ordered By: Mary Patel on 08-04-2024 Creatinine Unsp time (U) [Mass/Vol] 99.10 mg/dL 39.00-259. 00 Renal Profileon 08-04-2024 Albumin [Mass/Vol] 3.2 g/dL Low 3.4-4.8 [facility] Comment on above: Order Comment: PTH Performed By: #### L 500.3600, L509.1000, L100.0500, L501.0900 #### Laboratory [address] [place], [address] BUN/CRE 12.4 RATIO Normal 10-20 Comment on above: Order Comment: PTH Performed By: #### L 500.3600, L509.1000, L100.0500, L501.0900 #### Laboratory [address] [place], [address] Calcium [Mass/Vol] 8.8 mg/dL Normal 7.6-11.0 [facility] Comment on above: Order Comment: PTH Performed By: #### L 500.3600, L509.1000, L100.0500, L501.0900 #### Laboratory [address] [place], [address] Chloride [Moles/Vol] 103 mmol/L Normal 98-108 [facility] Comment on above: Order Comment: PTH Performed By: #### L 500.3600, L509.1000, L100.0500, L501.0900 #### Laboratory [address] [place], [address] CO2 [Moles/Vol] 18.7 mmol/L Low 21.0-32.0 Comment on above: Order Comment: PTH Performed By: #### L 500.3600, L509.1000, L100.0500, L501.0900 #### Laboratory [address] [place], [address] Creatinine [Mass/Vol] 1.49 mg/dL High 0.70-1.20 [facility] Comment on above: Order Comment: PTH Performed By: #### L 500.3600, L509.1000, L100.0500, L501.0900 #### Laboratory [address] [place], [address] GAP 16 High 5-15 Comment on above: Order Comment: PTH Performed By: #### L 500.3600, L509.1000, L100.0500, L501.0900 #### Laboratory [address] [place], [address] GFR/1.73 sq M.predicted among non-blacks MDRD (S/P/Bld) [Vol rate/Area] 47 mL/min/{1.73_m2} Low >60 Comment on above: Order Comment: PTH Result Comment: mL/m in/1.73m2 CKD-EPI Creatinine Equation (2020) Performed By: #### L 500.3600, L509.1000, L100.0500, L501.0900 #### Laboratory [address] [place], [address] Glucose [Mass/Vol] 103 mg/dL High 70-99 [facility] Comment on above: Order Comment: PTH Performed By: #### L 500.3600, L509.1000, L100.0500, L501.0900 #### Laboratory [address] [place], [address] Potassium [Moles/Vol] 4.5 mmol/L Normal 3.3-5.1 [facility] [place] [facility] Comment on above: Order Comment: PTH Performed By: #### L 500.3600, L509.1000, L100.0500, L501.0900 #### Laboratory [address] [place], [address] Sodium [Moles/Vol] 138 mmol/L Normal 133-145 [facility] Comment on above: Order Comment: PTH Performed By: #### L 500.3600, L509.1000, L100.0500, L501.0900 #### Laboratory [address] [place], [address] Urea nitrogen [Mass/Vol] 19 mg/dL Normal 4-19 Comment on above: Order Comment: PTH Performed By: #### L 500.3600, L509.1000, L100.0500, L501.0900 #### Laboratory [address] [place], [address] Serum creatinine measurement (mass/volume)Ordered By: Mary Patel on 08-04-2024 Creatinine [Mass/Vol] 1.49 mg/dL High 0.70-1.20 [facility] [place] [facility] Serum glucose measurement (m ass/volume)Ordered By: Mary Patel on 08-04-2024 Glucose [Mass/Vol] 103 mg/dL High 70-99 [facility] Serum or plasma albumin axel urement (mass/volume)Ordered By: Mary Patel on 08-04-2024 Albumin [Mass/Vol] 3.2 g/dL Low 3.4-4.8 [facility] Serum or plasma calcium axel urement (mass/volume)Ordered By: Mary Patel on 08-04-2024 Calcium [Mass/Vol] 8.8 mg/dL 7.6-11.0 [facility] Serum or plasma urea nitroge n measurement (mass/volume)Ordered By: Mary Patel on 08-04-2024 Urea nitrogen [Mass/Vol] 19 mg/dL 4-19 Serum phosphorus measurement Ordered By: Mary Patel on 08-04-2024 Phosphorus Level 2.8 mg/dL 2.7-4.5 Sodium levelOrdered By: Muriel Patel on 08-04-2024 Sodium [Moles/Vol] 138 mmol/L 133-145 [facility] Urine protein measurement (m ass/volume)Ordered By: Mary Patel on 08-04-2024 Protein (U) [Mass/Vol] 7.8 mg/dL 0.0-12.0 [facility] Urine protein/creatinine mas s ratioOrdered By: Mary Patel on 08-04-2024 Protein/Creatinine (U) [Mass ratio] 78 mg/g CRE 0-200 White blood cell (WBC) count Ordered By: Mary Patel on 08-04-2024 WBC (Bld) [#/Vol] 7.3 10*3/uL 4.4-11.0 [facility] Albumin to globulin ratioOrd ered By: Nolan Nguyen on 07-04-2024 Albumin/Globulin [Mass ratio] 0.9 {ratio} 0.9-2.4 Bilirubin, totalOrdered By: Nolan Nguyen on 07-04-2024 Bilirubin [Mass/Vol] 0.60 mg/dL 0.20-1.00 [facility] Comment on above: For patients on eltr ombopag therapy, use of Dimension Outlook TBIL is not recommended. Blood urea nitrogen (BUN)/cr eatinine ratioOrdered By: Nolan Nguyen on 07-04-2024 Urea nitrogen/Creatinine [Mass ratio] 15.6 mg/mg 10-20 Carbon dioxide measurementOr dered By: Nolan Nguyen on 07-04-2024 CO2 [Moles/Vol] 25.0 mmol/L 21.0-32.0 Chloride measurementOrdered By: Nolan Nguyen on 07-04-2024 Chloride [Moles/Vol] 107 mmol/L 98-107 [facility] Comprehensive Metabolic Prof ilon 07-04-2024 Albumin [Mass/Vol] 3.3 g/dL Normal 3.2-5.0 [facility] Comment on above: Performed By: #### L 502.0250, L500.4050, L500.4100 #### Laboratory [address] [place], [address] Albumin/Globulin [Mass ratio] 0.9 {ratio} Normal 0.9-2.4 Comment on above: Performed By: #### L 502.0250, L500.4050, L500.4100 #### Laboratory [address] [place], [address] ALK P 51 U/L Normal 45-117 Comment on above: Performed By: #### L 502.0250, L500.4050, L500.4100 #### Laboratory [address] [place], [address] ALT [Catalytic activity/Vol] 24 U/L Normal 16-61 Comment on above: Performed By: #### L 502.0250, L500.4050, L500.4100 #### Laboratory [address] [place], [address] AST [Catalytic activity/Vol] 21 U/L Normal 15-37 Comment on above: Performed By: #### L 502.0250, L500.4050, L500.4100 #### Laboratory [address] [place], [address] Bilirubin [Mass/Vol] 0.60 mg/dL Normal 0.20-1.00 [facility] Comment on above: Result Comment: For patients on eltrombopag therapy, use of Dimension Outlook TBIL is not recommended. Performed By: #### L 502.0250, L500.4050, L500.4100 #### Laboratory [address] [place], [address] BUN/CRE 15.6 RATIO Normal 10-20 Comment on above: Performed By: #### L 502.0250, L500.4050, L500.4100 #### Laboratory [address] [place], [address] CA,Total 8.9 mg/dL Normal 8.5-10.1 Comment on above: Performed By: #### L 502.0250, L500.4050, L500.4100 #### Laboratory [address] [place], [address] Chloride [Moles/Vol] 107 mmol/L Normal 98-107 [facility] Comment on above: Performed By: #### L 502.0250, L500.4050, L500.4100 #### Laboratory [address] [place], [address] CO2 [Moles/Vol] 25.0 mmol/L Normal 21.0-32.0 Comment on above: Performed By: #### L 502.0250, L500.4050, L500.4100 #### Laboratory [address] [place], [address] Creatinine [Mass/Vol] 1.54 mg/dL High 0.70-1.30 [facility] [place] [facility] Comment on above: Result Comment: The validity of the calculated GFR GFRAA in patients over 70 years has not been determined. Clinical correlation is essential. Performed By: #### L 502.0250, L500.4050, L500.4100 #### Laboratory [address] [place], [address] EST GFR - AA 56 mL/min Low >60 Comment on above: Result Comment: Afri can English GFR Calc Performed By: #### L 502.0250, L500.4050, L500.4100 #### Laboratory [address] [place], [address] GAP 5 Normal 5-15 Comment on above: Performed By: #### L 502.0250, L500.4050, L500.4100 #### Laboratory [address] [place], [address] GFR/1.73 sq M.predicted among non-blacks MDRD (S/P/Bld) [Vol rate/Area] 47 mL/min/{1.73_m2} Low >60 Comment on above: Result Comment: Non- GFR Calc Performed By: #### L 502.0250, L500.4050, L500.4100 #### Laboratory [address] [place], [address] Globulin (S) [Mass/Vol] 3.8 g/dL Normal 2.2-4.2 [facility] Comment on above: Performed By: #### L 502.0250, L500.4050, L500.4100 #### Laboratory [address] [place], [address] Glucose [Mass/Vol] 113 mg/dL High 74-106 [facility] Comment on above: Result Comment: Fast ing Glucose result from 100 to 125 mg/dL suggests IMPAIRED HOMEOSTASIS per A.D.A. criteria. Performed By: #### L 502.0250, L500.4050, L500.4100 #### Laboratory [address] [place], [address] Potassium [Moles/Vol] 4.5 mmol/L Normal 3.5-5.1 [facility] [place] [facility] Comment on above: Performed By: #### L 502.0250, L500.4050, L500.4100 #### Laboratory [address] [place], [address] Sodium [Moles/Vol] 137 mmol/L Normal 136-145 [facility] Comment on above: Performed By: #### L 502.0250, L500.4050, L500.4100 #### Laboratory [address] [place], [address] T PROT 7.1 g/dL Normal 6.4-8.2 Comment on above: Performed By: #### L 502.0250, L500.4050, L500.4100 #### Laboratory [address] [place], [address] Urea nitrogen [Mass/Vol] 24 mg/dL High 7-18 Comment on above: Performed By: #### L 502.0250, L500.4050, L500.4100 #### Laboratory [address] [place], [address] Estimated glomerular filtrat ion rate (GFR) AmericanOrdered [...] 07-04-2024 Glucose [Mass/Vol] 113 mg/dL High 74-106 [facility] Comment on above: Fasting Glucose resu lt [...] 07-04-2024 Cholesterol [Mass/Vol] 148 mg/dL Normal 200 [facility] Comment on above: Result Comment: <200 mg/dL Desirable 200-240 mg/dL Borderline >240 mg/dL High Risk Performed By: #### L 502.0250, L500.4050, L500.4100 #### Laboratory [address] [facility] [address] Cholesterol in HDL [Mass/Vol] 38 mg/dL Low Comment on above: Result Comment: The drugs N-Acetylcysteine and Metamizole may falsely depress this assay. Reference Range HDL <40 mg/dL Low HDL Cholesterol HDL >or= 60 mg/dL High HDL Cholesterol Performed By: #### L 502.0250, L500.4050, L500.4100 #### Laboratory [address] [place], [address] Cholesterol in LDL [Mass/Vol] 68 mg/dL Normal 0-130 Comment on above: Performed By: #### L 502.0250, L500.4050, L500.4100 #### Laboratory [address] [place], [address] Cholesterol in VLDL [Mass/Vol] 42 mg/dL High 5-40 Comment on above: Performed By: #### L 502.0250, L500.4050, L500.4100 #### Laboratory [address] [place], [address] Triglyceride [Mass/Vol] 211 mg/dL High [facility] Comment on above: Result Comment: The drugs N-Acetylcysteine and Metamizole may falsely depress this assay. Serum Triglycerides Reference Interval Normal <150 mg/dL Borderline high 150 - 199 mg/dL High 200 - 499 mg/dL Very High > or = 500 mg/dL Performed By: #### L 502.0250, L500.4050, L500.4100 #### Laboratory [address] [place], [address] Low density lipoprotein (LDL ) cholesterol measurementOrdered By: Nolan Nguyen on 07-04-2024 Cholesterol in LDL [Mass/Vol] 68 mg/dL 0-130 Microalb:Creat Ratio,Random URon 07-04-2024 Creatinine [Mass/Vol] 259.00 mg/dL Normal NO RAN GE EST. Comment on above: Performed By: #### L 502.0250, L500.4050, L500.4100 #### Laboratory [address] [place], [address] MALB:CRE 7.8 mg/g CRE Normal <30 mg/g CRE Comment on above: Performed By: #### L 502.0250, L500.4050, L500.4100 #### Laboratory [address] [place], [address] MICROALBUMIN,UR 20.3 mg/L Normal NO RANGE EST. Comment on above: Performed By: #### L 502.0250, L500.4050, L500.4100 #### Laboratory [address] [place], [address] Potassium measurementOrdered By: Nolan Nguyen on 07-04-2024 Potassium [Moles/Vol] 4.5 mmol/L 3.5-5.1 [facility] [place] [facility] Random urine microalbumin me asurementOrdered By: Nolan Nguyen on 07-04-2024 Urine Random Microalbumin 20.3 mg/L NO RANGE EST. Serum anion gap measurementO rdered By: Nolan Nguyen on 07-04-2024 Anion gap [Moles/Vol] 5 mmol/L 5-15 [facility] [place] [facility] Serum globulin measurementOr dered By: Nolan Nguyen on 07-04-2024 Globulin (S) [Mass/Vol] 3.8 g/dL 2.2-4.2 [facility] Serum or plasma alanine murguia otransferase (ALT) measurementOrdered By: Nolan Nguyen on 07-04-2024 ALT [Catalytic activity/Vol] 24 U/L 16-61 Serum or plasma albumin axel urement (mass/volume)Ordered By: Nolan Nguyen on 07-04-2024 Albumin [Mass/Vol] 3.3 g/dL 3.2-5.0 [facility] Serum or plasma alkaline eva sphatase measurementOrdered By: Nolan Nguyen on 07-04-2024 ALP [Catalytic activity/Vol] 51 U/L 45-117 Serum or plasma calcium axel urement (mass/volume)Ordered By: Nolan Nguyen on 07-04-2024 Calcium [Mass/Vol] 8.9 mg/dL 8.5-10.1 [facility] Serum or plasma cholesterol measurement (mass/volume)Ordered By: Nolan Nguyen on 07-04-2024 Cholesterol [Mass/Vol] 148 mg/dL <200 [facility] Comment on above: <200 mg/dL Desirable 200-240 mg/dL Borderline >240 mg/dL High Risk Serum or plasma creatinine m easurement (mass/volume)Ordered By: Nolan Nguyen on 07-04-2024 Creatinine [Mass/Vol] 1.54 mg/dL High 0.70-1.30 [facility] [place] [facility] Comment on above: The validity of the calculated GFR & GFRAA in patients over 70 years has not been determined. Clinical correlation is essential. Serum or plasma urea nitroge n measurement (mass/volume)Ordered By: Nolan Nguyen on 07-04-2024 Urea nitrogen [Mass/Vol] 24 mg/dL High 7-18 Sodium levelOrdered By: Nolan Nguyen on 07-04-2024 Sodium [Moles/Vol] 137 mmol/L 136-145 [facility] Total proteinOrdered By: Alina Nguyen on 07-04-2024 Protein [Mass/Vol] 7.1 g/dL 6.4-8.2 [facility] Triglycerides measurementOrd ered By: Nolan Nguyen on 07-04-2024 Triglyceride [Mass/Vol] 211 mg/dL High <199 [facility] Comment on above: The drugs N-Acetylcy [...] 501.0900, L500.3600 #### Laboratory [address] [place], [address] Protein (U) [Mass/Vol] 30.3 mg/dL High <11.9 [facility] Comment on above: Performed By: #### L 501.0900, L500.3600 #### Laboratory [address] [place], [address] UR CREAT 294.00 mg/dL Normal NO RANGE EST. Comment on above: Performed By: #### L 501.0900, L500.3600 #### Laboratory [address] [place], [address] Renal Profileon 02-11-2024 Albumin [Mass/Vol] 3.2 g/dL Normal 3.2-5.0 [facility] Comment on above: Performed By: #### L 500.3600, L509.1000, L100.0500, L501.0900 #### Laboratory [address] [place], [address] BUN/CRE 13.4 RATIO Normal 10-20 Comment on above: Performed By: #### L 500.3600, L509.1000, L100.0500, L501.0900 #### Laboratory [address] [place], [address] CA,Total 9.3 mg/dL Normal 8.5-10.1 Comment on above: Performed By: #### L 500.3600, L509.1000, L100.0500, L501.0900 #### Laboratory [address] [place], [address] Chloride [Moles/Vol] 109 mmol/L High 98-107 [facility] Comment on above: Performed By: #### L 500.3600, L509.1000, L100.0500, L501.0900 #### Laboratory [address] [place], [address] CO2 [Moles/Vol] 25.0 mmol/L Normal 21.0-32.0 Comment on above: Performed By: #### L 500.3600, L509.1000, L100.0500, L501.0900 #### Laboratory [address] [place], [address] Creatinine [Mass/Vol] 1.72 mg/dL High 0.70-1.30 [facility] [place] [facility] Comment on above: Result Comment: The validity of the calculated GFR GFRAA in patients over 70 years has not been determined. Clinical correlation is essential. Performed By: #### L 500.3600, L509.1000, L100.0500, L501.0900 #### Laboratory [address] [place], [address] EST GFR - AA 50 mL/min Low >60 Comment on above: Result Comment: Afri can English GFR Calc Performed By: #### L 500.3600, L509.1000, L100.0500, L501.0900 #### Laboratory [address] [place], [address] GFR/1.73 sq M.predicted among non-blacks MDRD (S/P/Bld) [Vol rate/Area] 41 mL/min/{1.73_m2} Low >60 Comment on above: Result Comment: Non- GFR Calc Performed By: #### L 500.3600, L509.1000, L100.0500, L501.0900 #### Laboratory [address] [place], [address] Glucose [Mass/Vol] 130 mg/dL High 74-106 [facility] Comment on above: Result Comment: Fast ing Glucose result greater than or equal to 126 mg/dL suggests DIABETES MELLITUS per A.D.A. criteria. Performed By: #### L 500.3600, L509.1000, L100.0500, L501.0900 #### Laboratory [address] [place], [address] Phosphate [Mass/Vol] 2.8 mg/dL Normal 2.5-4.9 [facility] Comment on above: Performed By: #### L 500.3600, L509.1000, L100.0500, L501.0900 #### Laboratory [address] [place], [address] Potassium [Moles/Vol] 4.6 mmol/L Normal 3.5-5.1 [facility] [place] [facility] Comment on above: Performed By: #### L 500.3600, L509.1000, L100.0500, L501.0900 #### Laboratory [address] [place], [address] Sodium [Moles/Vol] 138 mmol/L Normal 136-145 [facility] Comment on above: Performed By: #### L 500.3600, L509.1000, L100.0500, L501.0900 #### Laboratory [address] [place], [address] Urea nitrogen [Mass/Vol] 23 mg/dL High 7-18 Comment on above: Performed By: #### L 500.3600, L509.1000, L100.0500, L501.0900 #### Laboratory [address] 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 Ang @ [facility] RPR UMBILICAL HRNA 5 YRS/> REDUCIBLE [...] Swelling Angioedema Niacin Other: See Comments flushing Ueczcuo-Vjn-Fpw Red* Intolerance PHYSICAL EXAM: BP 136/72 Pulse [...] 14 - Other: See Comments Comments: flushing CDMQAZL-UOD-BAH REDUCTASE INHIBIT*02/11/2011 5 - Intole (more content not included)... Normal [facility] ABD AORTA COMPLETE VAS LA Bon 10-14-2023 US ABD AORTA COMPLETE VAS LAB Non-Invasive Vascular Laboratory [facility] F30 Abdominal Aorta Bilateral/Complete Date of [...] Interpreting physician: Capo Duque MD Final CC [facility] : [id number] See Link below for Image Normal [facility] US CAROTID ARTERIES JHONY VAS LABon 10-14-2023 US CAROTID ARTERIES JHONY VAS LAB Non-Invasive Vascular Laboratory [facility] F30 Carotid Duplex Bilateral/Complete Date of [...] Interpreting physician: Capo Duque MD Final CC [facility] : [id number] See Link below for Image Normal [facility] CNOVon 10-07-2023 CNOV Office Visit (WSTR ) ----- XOCHITL MONTERROSO ([id number]) 1945 M Date Time Provider Department 10/07/23 12:30 PM [facility] During your visit today, we recorded the following information about you: Temperature Pulse Respiration Blood pressure 96.6 degrees 51/minute 16/minute 118/64 Weight 128 kg Daniele Dugan FURNACE HAND.CANNED FOOD RECONDITIONING INSPECTOR 10/07/2023 12:57 PM Signed Subjective Patient came in for suture removal. Patient had them placed 9 days ago. Patient was kept as normal. Patient denies any difficulty during the healing process. Patient says he might of lost a suture. The history is provided by the patient. No english as a second language teacher was used. Suture Removal Review of Systems [...] OF Left Rotator Cuff, Dr. Ang @ [facility] RPR UMBILICAL HRNA 5 YRS/> REDUCIBLE 12/01/11 ALLERGIES Eh Inhibitors, Niacin, and Aisjdxk-Pqz-Oov Reductase Inhibitors MEDICATIONS torsemide (DEMADEX) 20 mg [...] Onset Stroke Father Stroke Paternal Grandfather other ([place]) Brother Stroke Brother other (carotid ASO) Brother [...] follow-up if anything new occurs. Daniele Dugan APRN.CANNED FOOD RECONDITIONING INSPECTOR Allergies As of Date: 10/07/2023 Noted Allergy Reaction EH INHIBITORS 02/11/2011 7 - Swelling Comments: Angioedema NIACIN 12/11/2011 14 - Other: See Comments Comments: flushing XYGXQZG-CPZ-RBM REDUCTASE INHIBIT*02/11/2011 5 - Intolerance Date Reviewed: [...] (TOPROL XL) (more content not included)... Normal [facility] CNOVon 09-28-2023 CNOV Office Visit (UCTR ) ----- XOCHITL MONTERROSO ([id number]) 1945 M Date Time Provider Department 09/28/23 7:15 PM ARMANI AGUILAR [facility] During your visit today, we recorded the [...] Swelling Angioedema Niacin Other: See Comments flushing Jmfapwr-Kxw-Mma Red* Intolerance VITALS: BP 140/72 Pulse 60 [...] 14 - Other: See Comments Comments: flushing TCTCGNI-UAA-PSL REDUCTASE INHIBIT*02/11/2011 5 - Intolerance Date Reviewed: 09/28/2023 Reviewed by: Bryanna Llanes MA - Fully Assessed Reason for Visit: Laceration [1747] Cmt: Right ring finger laceration Primary Visit Diagnosis:Laceration of right ring finger without foreign body without damage to nail, initial encounter [S61.214A] Order(s):TDAP VACCINE, AGE 7+ YR (ADACEL, BOOSTRIX) [[id number]] Order #: [id number] Prescriptions as of 09/28/2023 - torsemide (DEMADEX) [...] C/vit E/zinc/ (more content not included)... Normal [facility] Basophil percentageOrdered B y: Nolan Nguyen on 09-11-2023 Chloride [Moles/Vol] 107 mmol/L 98-107 [facility] Glucose [Mass/Vol] 116 mg/dL 74-106 [facility] Comment on above: Fasting Glucose resu lt from 100 to 125 mg/dL suggests IMPAIRED HOMEOSTASIS per A.D.A. criteria. Potassium [Moles/Vol] 4.2 mmol/L 3.5-5.1 [facility] [place] [facility] Sodium [Moles/Vol] 139 mmol/L 136-145 [facility] Laboratory - Chemistry and C hemistry - [...] on 09-11-2023 Calcium [Mass/Vol] 9.7 mg/dL 8.5-10.1 [facility] Serum or plasma creatinine m easurement (mass/volume)Ordered By: Nolan Nguyen on 09-11-2023 Creatinine [Mass/Vol] 1.72 mg/dL 0.70-1.30 [facility] [place] [facility] Comment on above: The validity of the [...] on 07-31-2023 Cholesterol [Mass/Vol] 160 mg/dL <200 [facility] Comment on above: <200 mg/dL Desirable 200-240 mg/dL Borderline >240 mg/dL High Risk Triglyceride [Mass/Vol] 245 mg/dL <199 [facility] Comment on above: The drugs N-Acetylcy [...] 06-24-2023 CNPN Telephone (PODCCP) ----- XOCHITL MONTERROSO ([id number]) 1945 M Date Time Provider Department 06/24/23 NOLAN NGUYEN PODANTONIA During your visit today, we recorded the following information about you: Nguyen Marcum 06/24/2023 3:20 PM Signed Reason for call: Pt's spouse called and she would like to schedule his follow up appt with Dr Can. Please call Raul for scheduling. Contact name: Raul [facility] Home and cell number: [phone] Diagnosis: Carotid stenosis, asymptomatic, bilateral Kind RegardsMalcolmNguyen June Clay 06/26/2023 12:10 PM Signed Spoke with patient appt scheduled 10/14/2023 with testing prior to appt. Appt reminder mailed also. Allergies As of Date: 06/24/2023 Noted Allergy Reaction EH INHIBITORS 02/11/2011 7 - Swelling Comments: Angioedema NIACIN 12/11/2011 14 - Other: See Comments Comments: flushing KYMFXJO-YOF-RBD REDUCTASE INHIBIT*02/11/2011 5 - Intolerance Date Reviewed: [...] Status:Closed by NGUYEN MARCUM on 06/24/23 [facility] Basophil percentageOrdered B y: Mary Patel on 06-11-2023 Basophil percentage 3.4 mg/dL 2.5-4.9 [facility] Chloride [Moles/Vol] 104 mmol/L 98-107 [facility] Glucose [Mass/Vol] 110 mg/dL 74-106 [facility] Comment on above: Fasting Glucose resu lt from 100 to 125 mg/dL suggests IMPAIRED HOMEOSTASIS per A.D.A. criteria. Potassium [Moles/Vol] 4.2 mmol/L 3.5-5.1 [facility] [place] [facility] Sodium [Moles/Vol] 135 mmol/L 136-145 [facility] - Chemistry and C hemistry - [...] on 06-11-2023 Calcium [Mass/Vol] 9.2 mg/dL 8.5-10.1 [facility] Serum or plasma creatinine m easurement (mass/volume)Ordered By: Mary Patel on 06-11-2023 Creatinine [Mass/Vol] 1.44 mg/dL 0.70-1.30 [facility] [place] [facility] Comment on above: The validity of the calculated GFR & GFRAA in patients over 70 years has not been determined. Clinical correlation is essential. Serum or plasma urea nitroge n measurement (mass/volume)Ordered By: Mary Patel on 06-11-2023 Urea nitrogen [Mass/Vol] 30 mg/dL 7-18 Thin prep Papanicolaou smear with manual screeningOrdered By: Mary Patel on 06-11-2023 Protein (U) [Mass/Vol] 13.0 mg/dL 0.0-11.8 [facility] Thin prep Papanicolaou smear with manual screening 3.1 g/dL 3.2-5.0 Urine creatinine measurement (mass/volume)Ordered By: Mary Patel on 06-11-2023 Creatinine (U) [Mass/Vol] 149.00 mg/dL NO RANGE EST. Urine protein/creatinine mas s ratioOrdered By: Mary Patel on 06-11-2023 Protein/Creatinine (U) [Mass ratio] 87 mg/g CRE 0-200 Basophil percentageOrdered B y: Nolan Nguyen on 05-06-2023 Chloride [Moles/Vol] 108 mmol/L 98-107 [facility] Glucose [Mass/Vol] 129 mg/dL 74-106 [facility] Comment on above: Fasting Glucose resu lt greater than or equal to 126 mg/dL suggests DIABETES MELLITUS per A.D.A. criteria. Potassium [Moles/Vol] 4.2 mmol/L 3.5-5.1 [facility] [place] [facility] Sodium [Moles/Vol] 138 mmol/L 136-145 [facility] - Chemistry and C hemistry - [...] on 05-06-2023 Calcium [Mass/Vol] 9.2 mg/dL 8.5-10.1 [facility] Serum or plasma creatinine m easurement (mass/volume)Ordered By: Nolan Nguyen on 05-06-2023 Creatinine [Mass/Vol] 1.39 mg/dL 0.70-1.30 [facility] [place] [facility] Comment on above: The validity of the [...] on 03-31-2023 Basophil percentage 2.3 mg/dL 2.5-4.9 [facility] Chloride [Moles/Vol] 106 mmol/L 98-107 [facility] Glucose [Mass/Vol] 111 mg/dL 74-106 [facility] Comment on above: Fasting Glucose resu lt from 100 to 125 mg/dL suggests IMPAIRED HOMEOSTASIS per A.D.A. criteria. Potassium [Moles/Vol] 4.0 mmol/L 3.5-5.1 [facility] [place] [facility] Sodium [Moles/Vol] 139 mmol/L 136-145 [facility] - Chemistry and C hemistry - challengeOrdered By: Mary Patel on 03-31-2023 CO2 [Moles/Vol] 30.0 mmol/L 21.0-32.0 Urea nitrogen/Creatinine [Mass ratio] 11.5 mg/mg 10-20 No Panel InformationOrdered By: Mary Patel on 03-31-2023 Estimated GFR (MDRD) Amer 68 mL/min >60 Comment on above: GFR Calc Estimated GFR (MDRD) Non-Af Amer 56 mL/min >60 [facility] Comment on above: Non- GFR Calc Serum or plasma albumin axel urement (mass/volume)Ordered By: Mary Patel on 03-31-2023 Albumin [Mass/Vol] 2.4 g/dL 3.2-5.0 [facility] Serum or plasma calcium axel urement (mass/volume)Ordered By: Mary Patel on 03-31-2023 Calcium [Mass/Vol] 8.7 mg/dL 8.5-10.1 [facility] Serum or plasma creatinine m easurement (mass/volume)Ordered By: Mary Patel on 03-31-2023 Creatinine [Mass/Vol] 1.31 mg/dL 0.70-1.30 [facility] [place] [facility] Comment on above: The validity of the [...] aPTT Coag (Bld) [Time] 32.4 s 24.1-36.2 [facility] PT Coag (PPP) [Time] 14.1 s 11.7-14.9 [facility] 24 hour urine albumin/total protein ratio [...] sclerosing cholangitis and autoimmune hepatitis.Performed at: - [address] [id number] Director: Michael Mancilla PhD, Phone: [phone] Basophil percentageOrdered B y: Mary Patel on 03-03-2023 Basophil percentage 4.8 mg/dL 2.5-4.9 [facility] Chloride [Moles/Vol] 104 mmol/L 98-107 [facility] Glucose [Mass/Vol] 107 mg/dL 74-106 [facility] Comment on above: Fasting Glucose resu lt from 100 to 125 mg/dL suggests IMPAIRED HOMEOSTASIS per A.D.A. criteria. Potassium [Moles/Vol] 4.3 mmol/L 3.5-5.1 [facility] [place] [facility] Sodium [Moles/Vol] 134 mmol/L 136-145 [facility] - Chemistry and C hemistry - challengeOrdered By: Mary Patel on 03-03-2023 CO2 [Moles/Vol] 25.0 mmol/L 21.0-32.0 Magnesium [Mass/Vol] 3.5 mg/dL 1.6-2.6 [facility] Urea nitrogen/Creatinine [Mass ratio] 20.0 mg/mg [...] sis scan will follow via computer,mail, or boner meat delivery. Serum classic neutrophil cyt oplasmic antibody [...] Consensus on Antinuclear Antibody (YUMIKO)Patterns (ICAP).Performed at: [address] [id number] Director: Michael Mancilla PhD, Phone: [phone] Serum or plasma albumin axel urement (mass/volume)Ordered By: Mary Patel on 03-03-2023 Albumin [Mass/Vol] 1.6 g/dL 3.2-5.0 [facility] [facility] Serum or plasma calcium axel urement (mass/volume)Ordered By: Mary Patel on 03-03-2023 Calcium [Mass/Vol] 8.1 mg/dL 8.5-10.1 [facility] Serum or plasma creatinine m easurement (mass/volume)Ordered By: Mary Patel on 03-03-2023 Creatinine [Mass/Vol] 3.50 mg/dL 0.70-1.30 [facility] Comment on above: The validity of the [...] up testing of positive sera with both MA-3 and MPO-ANCA enzyme immunoassays. As many as 5% serumsamples are positive only by EIA. Ref. AM J Clin [id number];111:[id number]. Serum proliferating cell nuc lear antigen (PCNA) [...] Protein (U) [Mass/Vol] 883.9 mg/dL 0.0-11.8 [facility] Protein (U) [Mass/Vol] 1007.5 mg/dL Not Estab. Comment on above: Results confirmed on dilution. Urine protein/creatinine mas s ratioOrdered By: Mary Patel on 03-03-2023 Protein/Creatinine (U) [Mass ratio] 7366 mg/g CRE 0-200 Serum or plasma [id number] protein tumor marker measurement (units/volume)Ordered By: Fady Whittington on 02-25-2023 AFP.tumor marker Qn 1.9 ng/mL 0.0-8.4 [facility] Comment on above: [employer] El ectrochemiluminescence Immunoassay(ECLIA)Values obtained with different assay methods or kits cannotbe used interchangeably. Results cannot be interpreted asabsolute evidence of the presence or absence of malignantdisease.This test is not interpretable in females.Performed at: [employer] [id number] Director: Michael Mancilla PhD, Phone: [phone] Serum or plasma carcinoembry onic antigen measurement [...] Basophils/100 WBC (Bld) 0.6 % 0-1 [facility] Bilirubin [Mass/Vol] 0.20 mg/dL 0.20-1.00 [facility] Comment on above: For patients on eltr ombopag therapy, use of Dimension Outlook TBIL is not recommended. Chloride [Moles/Vol] 110 mmol/L 98-107 [facility] Eosinophils/100 WBC (Bld) 0.0 % 0-5 Glucose [Mass/Vol] 112 mg/dL 74-106 [facility] Comment on above: Fasting Glucose resu lt from 100 to 125 mg/dL suggests IMPAIRED HOMEOSTASIS per A.D.A. criteria. Neutrophils (Bld) [#/Vol] 4.5 10*3/uL 2.0-7.7 Neutrophils/100 WBC (Bld) 68.2 % 47-70 Potassium [Moles/Vol] 4.7 mmol/L 3.5-5.1 [facility] Protein [Mass/Vol] 6.8 g/dL 6.4-8.2 [facility] Sodium [Moles/Vol] 139 mmol/L 136-145 [facility] WBC (Bld) [#/Vol] 6.5 10*3/uL 4.4-11.0 [facility] Blood erythrocytes count (nu mber/volume)Ordered By: Fady Whittington on 02-24-2023 RBC (Bld) [#/Vol] 4.32 10*6/uL 4.6-6.2 [facility] Blood hemoglobin measurement (mass/volume)Ordered By: Fady Whittington on 02-24-2023 Hemoglobin (Bld) [Mass/Vol] 13.2 g/dL 13.0-16.5 Blood lymphocytes/100 leukoc ytesOrdered By: Fady Whittington on 10-17-2023 Lymphocytes/100 WBC (Bld) 20.5 % 19-41 Blood monocytes/100 leukocyt esOrdered By: Fady Whittington on 02-24-2023 Monocytes/100 WBC (Bld) 10.4 % 0-10 [facility] Blood platelet mean volumeOr dered By: Fady Whittington on 02-24-2023 Platelet mean volume (Bld) [Entitic vol] 9.6 fL 6.2-12.0 Determination of erythrocyte mean corpuscular volume (MCV)Ordered By: Fady Whittington on 02-24-2023 MCV (RBC) [Entitic vol] 96.5 fL 80-94 [facility] Erythrocyte sedimentation ra teOrdered By: Fady Whittington on 02-24-2023 ESR (Bld) [Velocity] 77 mm/h 0-20 [facility] Hematocrit Auto (Bld) [Volum e fraction]Ordered By: Fady Whittington on 02-24-2023 Hematocrit (Bld) [Volume fraction] 41.7 % 40-54 Laboratory - Chemistry and C hemistry - challengeOrdered By: Fady Whittington on 02-24-2023 ALP [Catalytic activity/Vol] 58 U/L 45-117 ALT [Catalytic activity/Vol] 16 U/L 16-61 CO2 [Moles/Vol] 23.0 mmol/L 21.0-32.0 Globulin (S) [Mass/Vol] 5.2 g/dL 2.2-4.2 [facility] Natriuretic peptide B (Bld) [Mass/Vol] 96.7 [...] 02-24-2023 MCHC (RBC) [Mass/Vol] 31.7 g/dL 32-36 [facility] No Panel InformationOrdered By: Fady Whittington on [...] plasma albumin axel urement (mass/volume)Ordered By: Fady Whittingotn on 02-24-2023 Albumin [Mass/Vol] 1.6 g/dL 3.2-5.0 [facility] Serum or plasma albumin/glob ulin mass ratioOrdered By: Fady Whittington on 02-24-2023 Albumin/Globulin [Mass ratio] 0.3 {ratio} 0.9-2.4 Serum or plasma calcium axel urement (mass/volume)Ordered By: Fady Whittington on 02-24-2023 Calcium [Mass/Vol] 8.2 mg/dL 8.5-10.1 [facility] Serum or plasma creatinine m easurement (mass/volume)Ordered By: Fady Whittington on 02-24-2023 Creatinine [Mass/Vol] 3.96 mg/dL 0.70-1.30 [facility] Comment on above: The validity of the [...] on 05-23-2022 Chloride [Moles/Vol] 102 mmol/L 98-107 [facility] Cholesterol [Mass/Vol] 167 mg/dL <200 [facility] Comment on above: <200 mg/dL Desirable 200-240 mg/dL Borderline >240 mg/dL High Risk Glucose [Mass/Vol] 152 mg/dL 74-106 [facility] Comment on above: Fasting Glucose resu lt greater than or equal to 126 mg/dL suggests DIABETES MELLITUS per A.D.A. criteria. Potassium [Moles/Vol] 4.7 mmol/L 3.5-5.1 [facility] Sodium [Moles/Vol] 136 mmol/L 136-145 [facility] Triglyceride [Mass/Vol] 112 mg/dL <199 [facility] Comment on above: The drugs N-Acetylcy [...] on 05-23-2022 Calcium [Mass/Vol] 8.8 mg/dL 8.5-10.1 [facility] Serum or plasma cholesterol in HDL measurement [...] on 05-23-2022 Creatinine [Mass/Vol] 1.26 mg/dL 0.70-1.30 [facility] Comment on above: The validity of the [...] percentageon 2021 Chloride [Moles/Vol] 102 mmol/L 98-107 [facility] Work Phone: Glucose [Mass/Vol] 134 mg/dL 74-106 [facility] Work Phone: Comment on above: Fasting Glucose resu lt greater than or equal to 126 mg/dL suggests DIABETES MELLITUS per A.D.A. criteria. Potassium [Moles/Vol] 4.4 mmol/L 3.5-5.1 [facility] Work Phone: Sodium [Moles/Vol] 137 mmol/L 136-145 [facility] Work Phone: Laboratory - Chemistry and C [...] (mass/volume)on 11-14-2021 Calcium [Mass/Vol] 8.9 mg/dL 8.5-10.1 [facility] Work Phone: Serum or plasma creatinine m easurement (mass/volume)on 11-14-2021 Creatinine [Mass/Vol] 1.17 mg/dL 0.70-1.30 [facility] Work Phone: Comment on above: The validity [...] Basophils/100 WBC (Bld) 1.5 % 0-1 [facility] Work Phone: Chloride [Moles/Vol] 104 mmol/L 98-107 [facility] Work Phone: Eosinophils/100 WBC (Bld) 0.0 % 0-5 Work Phone: Glucose [Mass/Vol] 93 mg/dL 74-106 [facility] Work Phone: Neutrophils (Bld) [#/Vol] 2.9 10*3/uL 2.0-7.7 Work Phone: Neutrophils/100 WBC (Bld) 53.2 % 47-70 Work Phone: Potassium [Moles/Vol] 4.2 mmol/L 3.5-5.1 [facility] Work Phone: Sodium [Moles/Vol] 136 mmol/L 136-145 [facility] Work Phone: WBC (Bld) [#/Vol] 5.5 10*3/uL 4.4-11.0 [facility] Work Phone: Blood erythrocytes count (nu mber/volume)on 09-22-2021 RBC (Bld) [#/Vol] 4.29 10*6/uL 4.6-6.2 [facility] Work Phone: Blood hemoglobin measurement (mass/volume)on 09-22-2021 Hemoglobin (Bld) [Mass/Vol] 14.0 g/dL 13.0-16.5 Work Phone: Blood lymphocytes/100 leukoc yteson 09-22-2021 Lymphocytes/100 WBC (Bld) 27.5 % 19-41 Work Phone: Blood monocytes/100 leukocyt eson 09-22-2021 Monocytes/100 WBC (Bld) 14.5 % 0-10 [facility] Work Phone: Blood platelet mean volumeon 09-22-2021 Platelet mean volume (Bld) [Entitic vol] 9.9 fL 6.2-12.0 Work Phone: Determination of erythrocyte mean corpuscular volume (MCV)on 09-22-2021 MCV (RBC) [Entitic vol] 98.4 fL 80-94 [facility] Work Phone: Glucose Glucometer (BldC) [M ass/Vol]on 09-22-2021 Glucose [Mass/Vol] 136 mg/dL 74-106 [facility] Work Phone: Comment on above: MANAGEMENT OF [...] 09-22-2021 MCHC (RBC) [Mass/Vol] 33.2 g/dL 32-36 [facility] Work Phone: No Panel Informationon 09-22 Estimated [...] (mass/volume)on 09-22-2021 Calcium [Mass/Vol] 8.6 mg/dL 8.5-10.1 [facility] Work Phone: Serum or plasma creatinine m easurement (mass/volume)on 09-22-2021 Creatinine [Mass/Vol] 1.43 mg/dL 0.70-1.30 [facility] Work Phone: Comment on above: The validity [...] percentageon 2021 Bilirubin [Mass/Vol] 0.50 mg/dL 0.20-1.00 [facility] Work Phone: Comment on above: For patients on eltr ombopag therapy, use of Dimension Outlook TBIL is not recommended. Protein [Mass/Vol] 6.7 g/dL 6.4-8.2 [facility] Work Phone: Lactate [Moles/Vol] 1.5 mmol/L 0.4-2.0 [facility] Work Phone: Blood manual differential co mment interpretation (narrative result)on 09-21-2021 Manual differential comment Arnulfo (Bld) [Interp] SCANNED Work Phone: Laboratory - Chemistry and C hemistry - challengeon 09-21-2021 ALP [Catalytic activity/Vol] 41 U/L 45-117 Work Phone: ALT [Catalytic activity/Vol] 54 U/L 16-61 Work Phone: Globulin (S) [Mass/Vol] 4.0 g/dL 2.2-4.2 [facility] Work Phone: No Panel Informationon 09-21 Atypical Lymphocytes 1+ % [facility] Work Phone: Serum or plasma albumin axel urement (mass/volume)on 09-21-2021 Albumin [Mass/Vol] 2.7 g/dL 3.2-5.0 [facility] Work Phone: Serum or plasma albumin/glob ulin mass ratioon 09-21-2021 Albumin/Globulin [Mass ratio] 0.7 {ratio} 0.9-2.4 Work Phone: Thin prep Papanicolaou smear with manual screeningon 09-21-2021 Thin prep Papanicolaou smear with manual screening 35 U/L 15-37 Work Phone: Absolute lymphocyte counton 09-20-2021 Lymphocytes Auto (Unsp spec) [#/Vol] 1.65 10*3/uL 0.83-4.51 Work Phone: Basophil percentageon 2021 Lactate [Moles/Vol] 1.2 mmol/L 0.4-2.0 [facility] Work Phone: Basophils/100 WBC (Bld) 0.7 % 0-1 [facility] Work Phone: Bilirubin [Mass/Vol] 0.60 mg/dL 0.20-1.00 [facility] Work Phone: [phone] Comment on above: For patients on eltr ombopag therapy, use of Dimension Outlook TBIL is not recommended. Chloride [Moles/Vol] 99 mmol/L 98-107 [facility] Work Phone: Eosinophils/100 WBC (Bld) 0.0 % 0-5 Work Phone: Glucose [Mass/Vol] 134 mg/dL 74-106 [facility] Work Phone: Comment on above: Fasting Glucose resu lt greater than or equal to 126 mg/dL suggests DIABETES MELLITUS per A.D.A. criteria. Neutrophils (Bld) [#/Vol] 3.0 10*3/uL 2.0-7.7 Work Phone: Neutrophils/100 WBC (Bld) 53.4 % 47-70 Work Phone: Potassium [Moles/Vol] 3.7 mmol/L 3.5-5.1 [facility] Work Phone: Protein [Mass/Vol] 6.7 g/dL 6.4-8.2 [facility] Work Phone: Sodium [Moles/Vol] 133 mmol/L 136-145 [facility] Work Phone: WBC (Bld) [#/Vol] 5.6 10*3/uL 4.4-11.0 [facility] Work Phone: Blood erythrocytes count (nu mber/volume)on 09-20-2021 RBC (Bld) [#/Vol] 4.64 10*6/uL 4.6-6.2 [facility] Work Phone: Blood hemoglobin measurement (mass/volume)on [...] Monocytes/100 WBC (Bld) 15.1 % 0-10 [facility] Work Phone: Blood platelet mean volumeon 09-20-2021 Platelet mean volume (Bld) [Entitic vol] 10.0 fL 6.2-12.0 Work Phone: Determination of erythrocyte mean corpuscular volume (MCV)on 09-20-2021 MCV (RBC) [Entitic vol] 96.1 fL 80-94 [facility] Work Phone: Direct bilirubinon 2 Bilirubin.direct [...] Globulin (S) [Mass/Vol] 4.0 g/dL 2.2-4.2 [facility] Work Phone: Lipase [Catalytic activity/Vol] 66 U/L 73-393 Work Phone: Magnesium [Mass/Vol] 2.0 mg/dL 1.6-2.6 [facility] Work Phone: Urea nitrogen/Creatinine [Mass ratio] [...] 09-20-2021 MCHC (RBC) [Mass/Vol] 33.9 g/dL 32-36 [facility] Work Phone: No Panel Informationon 09-20 Estimated [...] (mass/volume)on 09-20-2021 Albumin [Mass/Vol] 2.7 g/dL 3.2-5.0 [facility] Work Phone: Serum or plasma calcium axel urement (mass/volume)on 09-20-2021 Calcium [Mass/Vol] 8.9 mg/dL 8.5-10.1 [facility] Work Phone: Serum or plasma creatinine m easurement (mass/volume)on 09-20-2021 Creatinine [Mass/Vol] 1.21 mg/dL 0.70-1.30 [facility] Work Phone: Comment on above: The validity [...] ass/Vol]on 07-16-2021 Glucose [Mass/Vol] 134 mg/dL 74-106 [facility] Work Phone: Comment on above: MANAGEMENT OF PATIEN T CARE PER NURSING PROTOCOL Office Visit: colonoscopyon 01-19-2017 Dietary management education, guidance, and counseling (procedure) yes Invalid Interpretation Code [facility] Work Phone: Documentation of current medications (procedure) Done Invalid Interpretation Code [facility] Work Phone: Fall risk assessment No Invalid Interpretation Code [facility] Work Phone: Protein mass conc Done Invalid Interpretation Code [facility] Work Phone: Tobacco smoking status NHIS Never Invalid Interpretation Code [facility] Work Phone: Tobacco smoking status NH Never smoker Invalid Interpretation Code [facility] Work Phone: Tobacco use [facility] Never smoker Invalid Interpretation Code [facility] Work Phone: Lab Report: Lipid Profileon 06-20-2016 Cholesterol 147 mg/dL Invalid Interpretation Code 200 [facility] Work Phone: HDL Cholesterol 48 mg/dL Invalid Interpretation Code [facility] Work Phone: LDL Cholesterol 74 mg/dL Invalid Interpretation Code 0-130 [facility] Work Phone: Triglyceride 127 mg/dL Invalid Interpretation Code [facility] Work Phone: very low density lipoproteins 25 mg/dL Invalid Interpretation Code 5-40 [facility] Work Phone: Lab Report: Liver Profileon 06-20-2016 Alanine aminotransferase (ALT) 78 U/L Invalid Interpretation Code 12-78 [facility] Work Phone: Albumin 3.4 g/dL Invalid Interpretation Code 3.4-5.0 [facility] Work Phone: Alkaline phosphatase (ALP) 50 U/L Invalid Interpretation Code 45-117 [facility] Work Phone: ALP enzyme act/vol (Bld) 50 U/L Invalid Interpretation Code 45-117 [facility] Work Phone: Aspartate aminotransferase (AST) 58 U/L High 15-37 [facility] Work Phone: Bilirubin (direct) 0.15 mg/dL Invalid Interpretation Code 0.00-0.30 [facility] Work Phone: Bilirubin (total) 0.70 mg/dL Invalid Interpretation Code 0.20-1.00 [facility] Work Phone: Globulin 3.8 g/dL High 2.3-3.5 [facility] Work Phone: Protein 7.2 g/dL Invalid Interpretation Code 6.4-8.2 [facility] Work Phone: Clinical Lists Update: 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 06-12-2016 Left ventricular Ejection fraction 55 % Invalid Interpretation Code [facility] Work Phone: Office Visiton 06-19-2015 General cardiovascular disease 10Y risk [#] [place].D'Agostino 18 % Invalid Interpretation Code [facility] Work Phone: External Other: Preferred Me thod of Contacton 06-16-2014 methcontact phone Invalid Interpretation Code [facility] Work Phone: Patient's prefered method of contact phone Invalid Interpretation Code [facility] Work Phone: Lab Report: Liver Profileon 06-15-2014 ALK P 52 U/L Invalid Interpretation Code 50-136 [facility] Work Phone: GE use only - for [employer] import when terms are not otherwise specified 52 U/L Invalid Interpretation Code 50136 [facility] Work Phone: Office Visiton 06-15-2014 cardiac risk group B Invalid Interpretation Code [facility] Work Phone: Clinical Lists Update: 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 10-18-2013 Anion gap 5 mmol/L Invalid Interpretation Code [facility] Work Phone: Anion gap 4 molar conc 5 Invalid Interpretation Code [facility] Work Phone: BUN/Creatinine Ratio 21.3 mg/mg High [facility] Work Phone: Calcium 9.0 mg/dL Invalid Interpretation Code [facility] Work Phone: [phone] Chloride 103 mmol/L Invalid Interpretation Code [facility] Work Phone: CO2 30.0 mmol/L Invalid Interpretation Code [facility] Work Phone: [phone] CO2 ppres (BldV) 30.0 mmol/L Invalid Interpretation Code [facility] Work Phone: Creatinine 0.8 mg/dL Invalid Interpretation Code [facility] Work Phone: [phone] eGFR (non-black) 102 mL/min/{1.73_m2} Invalid Interpretation Code [facility] Work Phone: eGFR (non-black) 124 mL/min/{1.73_m2} Invalid Interpretation Code [facility] Work Phone: Glomerular Filtration Rate 124 mL/min/1.73m2 Invalid Interpretation Code [facility] Work Phone: Glucose 89 mg/dL Invalid Interpretation Code [facility] Work Phone: Glucose mass conc 89 mg/dL Invalid Interpretation Code [facility] Work Phone: Potassium 3.6 mmol/L Invalid Interpretation Code [facility] Work Phone: Sodium 138 mmol/L Invalid Interpretation Code [facility] Work Phone: Urea nitrogen 17 mg/dL Invalid Interpretation Code [facility] Work Phone: Clinical Lists Update: 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 02-24-2013 Hematocrit (HCT) 43.9 % Invalid Interpretation Code [facility] Work Phone: Hemoglobin (HGB) 14.9 g/dL Invalid Interpretation Code [facility] Work Phone: Platelets 113 10*3/mm3 Low [facility] Work Phone: WBC (Leukocytes) 5.1 10*3/uL Invalid Interpretation Code [facility] Work Phone: Replaced Document: Tory Bains 11-26-2011 EKG QRS axis 28 deg Invalid Interpretation Code [facility] Work Phone: electrocardiogram interpretation Sinus Bradycardia -First degree A-V block Anders = 246BORDERLINE RHYTHM Invalid Interpretation Code [facility] Work Phone: Interpretation Sinus Bradycardia -F irst degree A-V block Anders = 246BORDERLINE RHYTHM Invalid Interpretation Code [facility] Work Phone: P [place] 45 deg Invalid Interpretation Code [facility] Work Phone: P wave axis, electrocardiogram 45 deg Invalid Interpretation Code [facility] Work Phone: MA Interval 246 ms Invalid Interpretation Code [facility] Work Phone: MA interval, electrocardiogram 246 ms Invalid Interpretation Code [facility] Work Phone: Pulse (Heart Rate) 55 /min Invalid Interpretation Code [facility] Work Phone: Pulse (Heart Rate) 417 ms Invalid Interpretation Code [facility] Work Phone: QRS axis, electrocardiogram 28 deg Invalid Interpretation Code [facility] Work Phone: QRS Duration 90 ms Invalid Interpretation Code [facility] Work Phone: QRS duration, electrocardiogram 90 ms Invalid Interpretation Code [facility] Work Phone: QT Interval new path ms Invalid Interpretation Code [facility] Work Phone: QT interval, electrocardiogram new path ms Invalid Interpretation Code [facility] Work Phone: T [place] 37 deg Invalid Interpretation Code [facility] Work Phone: T wave axis, electrocardiogram 37 deg Invalid Interpretation Code [facility] Work Phone: Vital Signs Date Time Vital Sign Value Performing Clinician Facility 01-24-2025 13:51-0400 Body height 173 cm David Haas MD Work Phone: [facility] 01-24-2025 13:51-0400 Body height 172.72 cm David Haas MD Work Phone: [facility] 01-24-2025 13:51-0400 Body mass index (BMI) [Ratio] 43.95 kg/m2 David Haas MD Work Phone: [facility] 01-24-2025 13:51-0400 Body weight 131 kg David Haas MD Work Phone: [facility] 01-24-2025 13:51-0400 Body weight 130.64 kg David Haas MD Work Phone: [facility] 01-24-2025 13:51-0400 BP SITE #1 David Haas MD Work Phone: [facility] 01-24-2025 13:51-0400 BP SITE #2 David Haas MD Work Phone: [facility] 01-24-2025 13:51-0400 Diastolic blood pressure 77 mm[Hg] David Haas MD Work Phone: [facility] 01-24-2025 13:51-0400 Diastolic blood pressure 79 mm[Hg] David Haas MD Work Phone: [facility] 01-24-2025 13:51-0400 Heart rate 51 /min David Haas MD Work Phone: [facility] 01-24-2025 13:51-0400 HGHTCHNVIS David Haas MD Work Phone: [facility] 01-24-2025 13:51-0400 Systolic blood pressure 145 mm[Hg] David Haas MD Work Phone: [facility] 01-24-2025 13:51-0400 Systolic blood pressure 147 mm[Hg] David Haas MD Work Phone: [facility] 01-24-2025 13:51-0400 EVELIN Haas MD Work Phone: [facility] 11-30-2024 07:36-0400 Body height 172.72 cm [...] 72 mm[Hg] Angelica Can MD Work Phone: [facility] Comment on above: [place] 10-14-2023 12:35-0400 Heart rate 51 /min Angelica Can MD Work Phone: [facility] 10-14-2023 12:35-0400 Systolic blood pressure 136 mm[Hg] Angelica Can MD Work Phone: [facility] Comment on above: [place] 10-07-2023 12:28-0400 Body mass index (BMI) [Ratio] 42.91 kg/m2 Daniele Dugan APRN.CANNED FOOD RECONDITIONING INSPECTOR Work Phone: [facility] 10-07-2023 12:28-0400 Body temperature 96.6 [degF] Daniele Dugan APRN.CANNED FOOD RECONDITIONING INSPECTOR Work Phone: [facility] 10-07-2023 12:28-0400 Body weight 128 kg Daniele Dugan APRN.CANNED FOOD RECONDITIONING INSPECTOR Work Phone: [facility] 10-07-2023 12:28-0400 Diastolic blood pressure 64 mm[Hg] Daniele Dugan APRN.CANNED FOOD RECONDITIONING INSPECTOR Work Phone: [facility] 10-07-2023 12:28-0400 Heart rate 51 /min Daniele Dugan APRN.CANNED FOOD RECONDITIONING INSPECTOR Work Phone: [facility] 10-07-2023 12:28-0400 Respiratory rate 16 /min Daniele Dugan APRN.CANNED FOOD RECONDITIONING INSPECTOR Work Phone: [facility] 10-07-2023 12:28-0400 SaO2% (BldA) [Mass fraction] 97 % Daniele Dugan APRN.CANNED FOOD RECONDITIONING INSPECTOR Work Phone: [facility] 10-07-2023 12:28-0400 Systolic blood pressure 118 mm[Hg] Daniele Dugan APRN.CANNED FOOD RECONDITIONING INSPECTOR Work Phone: [facility] 09-28-2023 19:26-0400 Body mass index (BMI) [Ratio] 42.64 kg/m2 Armani Aguilar MD Work Phone: [facility] 09-28-2023 19:26-0400 Body temperature 97.5 [degF] Armani Aguilar MD Work Phone: [facility] 09-28-2023 19:26-0400 Body weight 127.2 kg Armani Aguilar MD Work Phone: [facility] 09-28-2023 19:26-0400 Diastolic blood pressure 72 mm[Hg] Armani Aguilar MD Work Phone: [facility] 09-28-2023 19:26-0400 Heart rate 60 /min Armani Aguilar MD Work Phone: [facility] 09-28-2023 19:26-0400 Respiratory rate 20 /min Armani Aguilar MD Work Phone: [facility] 09-28-2023 19:26-0400 SaO2% (BldA) [Mass fraction] 95 % Armani Aguilar MD Work Phone: [facility] 09-28-2023 19:26-0400 Systolic blood pressure 140 mm[Hg] Armani Aguilar MD Work Phone: [facility] 03-13-2023 11:37-0400 Diastolic blood pressure 63 mm[Hg] [...] Phone: 02-26-2023 10:190400 Body height 172.72 cm [facility] 02-26-2023 10:190400 Body mass index (BMI) [Ratio] 48 kg/m2 02-26-2023 10:19-0400 Body temperature 97 [degF] [facility] 02-26-2023 10:190400 Body weight 143.33 kg [facility] 02-26-2023 10:19-0400 Diastolic blood pressure 77 mm[Hg] 02-26-2023 10:19-0400 Heart rate 58 /min [facility] 02-26-2023 10:0400 Respiratory rate 18 /min [facility] 02-26-2023 10:19-0400 SaO2% (BldA) [Mass fraction] [...] 73 mm[Hg] Angelica Can MD Work Phone: [facility] 10-09-2021 14:16-0400 Heart rate 58 /min Angelica Can MD Work Phone: [facility] 10-09-2021 14:16-0400 Systolic blood pressure 138 mm[Hg] Angelica Can MD Work Phone: [facility] 09-22-2021 15:18-0400 Heart rate 59 /min Dr. [...] 48.2 kg/m2 Dr. Nolan Nguyen Work Phone: [phone] [place] [address] Work Phone: 01-19-2017 08:02-0400 BMI (Body Mass Index) 44.27 kg/m2 Gordon Mckay MD [facility] Work Phone: 01-19-2017 08:02-0400 Body Temperature 98 [degF] Gordon Mckay MD [facility] Work Phone: 01-19-2017 08:02-0400 BP Diastolic 89 mm[Hg] Gordon Mckay MD [facility] Work Phone: 01-19-2017 08:02-0400 BP Systolic 186 mm[Hg] Gordon Mckay MD [facility] Work Phone: 01-19-2017 08:02-0400 Height 172.72 cm Gordon Mckay MD [facility] Work Phone: 01-19-2017 08:02-0400 Pulse (Heart Rate) 60 /min Gordon Mckay MD [facility] Work Phone: 01-19-2017 08:02-0400 Respiratory Rate 18 /min Gordon Mckay MD [facility] Work Phone: 01-19-2017 08:02-0400 Weight 132.09 kg Gordon Mckay MD [facility] Work Phone: 06-20-2016 14:17-0500 BSA (Body Surface Area) 2.41 m2 Gordon Mckay MD [facility] Work Phone: 11-26-2011 16:44-0400 Heart rate 417 ms Gordon Mckay MD [facility] Work Phone: 11-26-2011 16:44-0400 Heart rate 55 /min Gordon Mckay MD [facility] Work Phone: Encounters Encounter Date Encounter Type Care Provider Facility Start: 01-25-2025 Visit out of hours David izquierdo MD Work Phone: [employer] Work Phone: Start: 01-24-2025 In-person encounter David Haas MD Work Phone: [facility] Work Phone: Start: 12-28-2024 ambulatory Nolan Nguyen Facility:[facility] Start: 12-28-2024 Non-patient / Non-visit Dr. [place] DUARTE [facility] Start: 12-28-2024 End: 12-28-[address] Nolan Nguyen MD Work Phone: -Cardiovascular Services Start: 12-28-2024 End: 12-28-2024 Patient encounter procedure Adis MOREIRA -Cardiovascular Services Work Phone: Start: 12-28-2024 End: 12-28-2024 ambulatory Nolan Nguyen Facility: Start: 11-30-2024 End: 11-30-2024 Patient encounter procedure Adis MOREIRA -[facility] Work Phone: Start: 11-30-2024 End: 11-30-[address] Nolan Nguyen MD Work Phone: [facility] Start: 11-30-2024 End: 11-30-2024 ambulatory Nolan Nguyen Facility: Start: 08-04-2024 End: 08-04-[address] Nolan Nguyen MD Work Phone: Work Phone: Start: 08-04-2024 End: 08-04-[address] Mary Patel DO -Laboratory Work Phone: Start: 08-04-2024 End: 08-04-2024 ambulatory Mary Patel Facility: Start: 07-04-2024 End: 07-04-[address] Nolan Nguyen MD -Laboratory, [facility] Start: 07-04-2024 End: 07-04-2024 ambulatory Nolan Nguyen Facility: Start: 02-11-2024 End: 02-11-2024 ambulatory Mary Patel Facility: Start: 10-14-2023 End: 10-14-2023 Patient encounter procedure Angelica Can MD Work Phone: Vascular Surg Dept Comment on above: PAD (peripheral miles ry disease) (HCC) (Primary Dx); Obesity, Class III, BMI 40-49.9 (morbid obesity) ([facility]); Bilateral carotid artery stenosis Start: 10-14-2023 End: 10-14-2023 ambulatory ANGELICA CAN Facility:[facility] Start: 10-07-2023 End: 10-07-2023 ambulatory NOLAN NGUYEN Facility:[facility] Start: 10-07-2023 End: 10-07-2023 [facility] Work Phone: [facility] Comment on above: Visit for suture rem oval (Primary Dx) Start: 09-28-2023 End: 09-28-2023 ambulatory NOLAN NGUYEN Facility:[facility] Start: 09-28-2023 End: 09-28-2023 Patient encounter procedure Armani Aguilar MD Work Phone: [facility] Comment on above: Laceration of right ring finger without foreign body without damage to nail, initial encounter (Primary Dx) Start: 09-11-2023 End: 09-11-[address] Nolan Nguyen Work Phone: Work Phone: Start: 09-11-2023 End: 09-11-[address] Nolan Nguyen Work Phone: [facility] Work Phone: Start: 07-31-2023 End: 07-31-[address] Nolan Nguyen Work Phone: Work Phone: Start: 07-31-2023 End: 07-31-[address] Nolan Nguyen Work Phone: [facility] Start: 07-27-2023 Non-patient / Non-visit Dr. Lillie Nguyen Work Phone: [facility] Start: 07-27-[address] Nolan hernández [facility] Work Phone: Start: 06-26-2023 [...] encounter procedure [facility]. [facility] Nguyen [facility] Work [facility]: Start: 05-06-2023 End: 05-06-[address] Nolan Nguyen Work Phone: [facility] Start: 03-31-2023 End: 03-31-[address] Nolan Nguyen Work Phone: Work Phone: Start: 03-31-2023 End: 03-31-[address] Nolan Nguyen [facility] Start: 03-13-2023 Non-patient / Non-visit Dr. Lillie Nguyen Work Phone: [facility] Start: 03-13-2023 End: 03-13-[address] Nolan Nguyen Work Phone: Work Phone: Start: 03-13-2023 End: 03-13-[address] Nolan Nguyen [facility] Work Phone: Start: 03-12-[address] Nolan Nguyen Work Phone: Start: 03-11-2023 End: 03-11-[address] Nolan Nguyen Work Phone: Work Phone: Start: 03-11-2023 End: 03-11-[address] [facility] Work Phone: Start: 03-03-2023 End: 03-03-2023 ambulatory Work Phone: Start: 03-03-2023 End: 03-03-2023 [facility] Office [address] [place] [address] Start: 02-26-2023 End: 02-26-2023 ambulatory Work Phone: Start: 02-26-2023 End: 02-26-2023 [facility], [facility] Work Phone: Start: 02-25-2023 End: 02-25-2023 ambulatory Work Phone: Start: 02-25-2023 End: 02-25-2023 Patient encounter procedure [facility] Start: 02-24-2023 End: 02-24-2023 ambulatory Work Phone: Start: 02-24-2023 End: 02-24-2023 Patient encounter procedure [facility] Work Phone: Start: 05-23-2022 End: 05-23-2022 ambulatory Work Phone: Start: 05-23-2022 End: 05-23-2022 Patient encounter procedure [facility] Start: 11-14-2021 End: 11-14-[address] Nolan Nguyen Work Phone: [facility] Start: 10-10-2021 End: 10-10-[address] Nolan Nguyen Work Phone: [facility] Start: 10-09-2021 End: 10-09-2021 Patient encounter procedure Angelica Can MD Work Phone: Vascular Surg Dept Comment on above: Carotid stenosis, as ymptomatic, bilateral (Primary Dx); PAD (peripheral artery disease) (HCC) Start: 10-01-2021 End: 10-01-[address] Nolan Nguyen Work Phone: [facility] Start: 10-01-2021 End: 10-01-[address] Nolan Nguyen Work Phone: [facility] Start: 09-22-2021 Non-patient / Non-visit Dr. Lillie Nguyen Work Phone: [facility] Start: 09-22-2021 Non-patient / Non-visit Dr. Lillie Nguyen Work Phone: [facility] Start: 09-21-2021 Non-patient / Non-visit Dr. Lillie Nguyen Work Phone: [facility] Start: 09-21-2021 Non-patient / Non-visit Dr. Lillie Nguyen Work Phone: [facility] Start: 09-20-2021 Non-patient / Non-visit Dr. Lillie Nguyen Work Phone: [facility] Start: 09-20-2021 Non-patient / Non-visit Dr. Lillie Nguyen Work Phone: [facility] Start: 09-20-2021 End: 09-22-2021 Evaluation and management of inpatient Dr. Nolan Nguyen Work Phone: -Medical Surgical 3 Start: 09-03-2021 Telephone encounter Angelica kirkpatrick MD Work Phone: Vascular Surg Dept Comment on above: Appointment Start: 07-16-2021 Non-patient / Non-visit Dr. Lillie Nguyen Work Phone: [facility] Start: 07-16-2021 End: 07-16-2021 Admission to same day surgery center Dr. Nolan Nguyen Work Phone: -Endoscopy Start: 06-25-2021 End: 06-25-[address] Nolan Nguyen Work Phone: [facility] Procedures Date Procedure Procedure [...] Panel Pepe Peraza Start: 06-19-2015 End: 06-19-2015 TRANSPORTATION SECURITY SCREENER Jesse Valadez MD Start: 06-19-2015 End: 06-19-2015 [...] P,Tdap,Td Vaccine (3 - Td or Tdap) [facility] Start: 07-03-2027 Urine microalbumin profile DTa P,Tdap,Td Vaccine (2 - Td or Tdap) [facility] Start: 01-25-2025 Ct lower extremity w /o contrast material [employer] Work Phone: Start: 01-24-2025 Radiologic exam knee complete 4/more views [employer] Work Phone: Start: 10-06-2024 BP Controlled (<130/80) BP Con trolled (<130/80) [facility] Start: 01-10-2024 Influenza vaccination Influenz a Vaccine (Season Ended) [facility] Start: 10-14-2023 End: 10-14-2023 Patient encounter procedure Vascular Karen jimmie Comment on above: DX:Carotid stenosis, asymptomatic, bilateral Start: 07-19-2023 Covid-19 Vaccine () Covid-19 Vaccine () [facility] Start: 05-11-2023 Advance Directive Discussion A dvance Directive Discussion [facility] Start: 05-11-2023 Behavioral Health Screening Be havioral Health Screening [facility] Start: 05-11-2023 Depression Assessment Depression Ass essment [facility] Start: 03-13-2023 Renal biopsy prq trocar/needle RENAL BIOPSY PERQ Start: 03-13-2023 Following clinical p athway protocol Start: 03-13-2023 Catheterization of vein Start: 03-13-2023 Oxygen therapy Start: 03-13-2023 Patient discharge [facility] Start: 03-13-2023 Vital signs measurements Start: 03-03-2023 [facility] Start: 02-26-2023 Following clinical p athway protocol Start: 01-09-2023 Covid-19 Vaccine () Covid-19 Vaccine () [facility] Start: 01-09-2023 Influenza vaccination Influenz a Vaccine (#1) [facility] Start: 01-08-2023 DIABETES SCREEN DIABETES SCREEN [facility] Start: 01-08-2023 Diabetes Screening Diabetes Screenin g [facility] Start: 01-09-2022 Influenza vaccination INFLUENZ A (Season Ended) [facility] Start: 09-22-2021 [facility] Work Phone: Start: 09-22-2021 Care planning and pr oblem solving actions Work Phone: Start: 09-22-2021 Patient discharge [facility] Work Phone: Start: 09-21-2021 Application of inter mittent pneumatic compression device Work Phone: Start: 09-20-2021 End: 09-21-2021 Work Phone: Start: 09-20-2021 Consultation [facility] Work Phone: Start: 09-20-2021 Application of inter mittent pneumatic compression device Work Phone: Start: 09-20-2021 Provision of activit y privileges Work Phone: Start: 09-20-2021 Following clinical p athway protocol Work Phone: Start: 09-20-2021 Assessment of risk o f venous thromboembolism Work Phone: Start: 09-20-2021 Care regimes management Work Phone: Start: 09-20-2021 Catheterization of vein Work Phone: Start: 09-20-2021 Incentive spirometry [facility] Work Phone: Start: 09-20-2021 Insertion of cathete [...] Work Phone: Start: 09-20-2021 Referral to service [facility] Work Phone: Start: 09-20-2021 Admission procedure [facility] Work Phone: Start: 09-20-2021 Plain X-ray abdomen Abdomen Si ngle View (Portable) Work Phone: Start: 09-20-2021 Inhalation therapy procedure Work Phone: Start: 09-20-2021 [facility] Work Phone: Start: 07-16-2021 Colsc flx w/rmvl of tumor polyp lesion snare tq COLONOSCOPY W/LESION REMOVAL Work Phone: Start: 05-11-2021 ADVANCE DIRECTIVE DISCUSSION A DVANCE DIRECTIVE DISCUSSION [facility] Start: 12-25-2020 COVID-19 VACCINE (3 - Booster for Moderna series) COVID-19 VACCINE (3 - Booster for Moderna series) [facility] Start: 06-23-2017 End: 06-23-2017 Appointment Appointment [facility] Work Phone: Start: 01-19-2017 End: 01-19-2017 Colonoscopy flx dx w/collj spec when pfrmd Colonoscopy [facility] Work Phone: Start: 01-19-2017 End: 01-19-2017 Appointment Appointment [facility] Work Phone: Start: 01-19-2017 End: 01-19-2017 Diagnostic colonoscopy Colonoscopy [facility] Work Phone: Start: 12-18-2016 End: 06-25-2016 *Hepatic Function Panel *Hepatic Function Panel [facility] Work Phone: Start: 12-18-2016 End: 06-25-2016 Lipid 1996 panel *Lipid Profile CC PCP [facility] Work Phone: Start: 12-18-2016 End: 06-25-2016 *Hepatic Function Panel *Hepatic Function Panel [facility] Work Phone: Start: 12-18-2016 End: 06-25-2016 Lipid panel [AGGREGATE] *Lipid Profile CC PCP [facility] Work Phone: Start: 06-20-2016 End: 06-20-2016 *Hepatic Function Panel *Hepatic Function Panel [facility] Work Phone: Start: 06-20-2016 End: 06-20-2016 TRANSPORTATION SECURITY SCREENER TRANSPORTATION SECURITY SCREENER [facility] Work Phone: Start: 06-20-2016 End: 06-20-2016 Follow Up Appt 1 year Follow Up Appt 1 year [facility] Work Phone: Start: 06-20-2016 End: 06-20-2016 Lipid 1996 panel *Lipid Profile CC PCP [facility] Work Phone: Start: 06-20-2016 End: 06-20-2016 *Hepatic Function Panel *Hepatic Function Panel [facility] Work Phone: Start: 06-20-2016 End: 06-20-2016 TRANSPORTATION SECURITY SCREENER TRANSPORTATION SECURITY SCREENER [facility] Work Phone: Start: 06-20-2016 End: 06-20-2016 Follow Up Appt 1 year Follow Up Appt 1 year [facility] Work Phone: Start: 06-20-2016 End: 06-20-2016 Lipid panel [AGGREGATE] *Lipid Profile CC PCP [facility] Work Phone: Start: 12-18-2015 End: 06-25-2016 *Hepatic Function Panel *Hepatic Function Panel [facility] Work Phone: Start: 12-18-2015 End: 06-25-2016 Lipid 1996 panel *Lipid Profile CC PCP [facility] Work Phone: Start: 12-18-2015 End: 06-25-2016 *Hepatic Function Panel *Hepatic Function Panel [facility] Work Phone: Start: 12-18-2015 End: 06-25-2016 Lipid panel [AGGREGATE] *Lipid Profile CC PCP [facility] Work Phone: Start: 06-19-2015 End: 06-19-2015 *Hepatic Function Panel *Hepatic Function Panel [facility] Work Phone: Start: 06-19-2015 End: 06-19-2015 TRANSPORTATION SECURITY SCREENER TRANSPORTATION SECURITY SCREENER [facility] Work Phone: Start: 06-19-2015 End: 06-19-2015 Follow Up Appt 1 year Follow Up Appt 1 year [facility] Work Phone: Start: 06-19-2015 End: 06-19-2015 Lipid 1996 panel *Lipid Profile CC PCP [facility] Work Phone: Start: 06-19-2015 End: 06-19-2015 *Hepatic Function Panel *Hepatic Function Panel [facility] Work Phone: Start: 06-19-2015 End: 06-19-2015 TRANSPORTATION SECURITY SCREENER TRANSPORTATION SECURITY SCREENER [facility] Work Phone: Start: 06-19-2015 End: 06-19-2015 Follow Up Appt 1 year Follow Up Appt 1 year [facility] Work Phone: Start: 06-19-2015 End: 06-19-2015 Lipid panel [AGGREGATE] *Lipid Profile CC PCP [facility] Work Phone: Start: 06-11-2015 End: 06-19-2015 *Hepatic Function Panel *Hepatic Function Panel [facility] Work Phone: Start: 06-11-2015 End: 06-19-2015 Lipid 1996 panel *Lipid Profile CC PCP [facility] Work Phone: Start: 06-11-2015 End: 06-19-2015 *Hepatic Function Panel *Hepatic Function Panel [facility] Work Phone: Start: 06-11-2015 End: 06-19-2015 Lipid panel [AGGREGATE] *Lipid Profile CC PCP [facility] Work Phone: Start: 12-14-2014 End: 01-02-2015 *Hepatic Function Panel *Hepatic Function Panel [facility] Work Phone: Start: 12-14-2014 End: 01-02-2015 Lipid 1996 panel *Lipid Profile CC PCP [facility] Work Phone: Start: 12-14-2014 End: 01-02-2015 *Hepatic Function Panel *Hepatic Function Panel [facility] Work Phone: Start: 12-14-2014 End: 01-02-2015 Lipid panel [AGGREGATE] *Lipid Profile CC PCP [facility] Work Phone: Start: 06-15-2014 End: 06-16-2014 *Hepatic Function Panel *Hepatic Function Panel [facility] Work Phone: Start: 06-15-2014 End: 06-15-2014 TRANSPORTATION SECURITY SCREENER TRANSPORTATION SECURITY SCREENER [facility] Work Phone: Start: 06-15-2014 End: 06-15-2014 Follow Up Appt 1 year Follow Up Appt 1 year [facility] Work Phone: Start: 06-15-2014 End: 06-16-2014 Lipid 1996 panel *Lipid Profile CC PCP [facility] Work Phone: Start: 06-15-2014 End: 06-16-2014 *Hepatic Function Panel *Hepatic Function Panel [facility] Work Phone: Start: 06-15-2014 End: 06-15-2014 TRANSPORTATION SECURITY SCREENER TRANSPORTATION SECURITY SCREENER [facility] Work Phone: Start: 06-15-2014 End: 06-15-2014 Follow Up Appt 1 year Follow Up Appt 1 year [facility] Work Phone: Start: 06-15-2014 End: 06-16-2014 Lipid panel [AGGREGATE] *Lipid Profile CC PCP [facility] Work Phone: Start: 06-02-2013 End: 06-02-2013 TRANSPORTATION SECURITY SCREENER TRANSPORTATION SECURITY SCREENER [facility] Work Phone: Start: 06-02-2013 End: 06-02-2013 Follow Up Appt 6 months Follow Up Appt 6 months [facility] Work Phone: Start: 06-02-2013 End: 06-02-2013 TRANSPORTATION SECURITY SCREENER TRANSPORTATION SECURITY SCREENER [facility] Work Phone: Start: 06-02-2013 End: 06-02-2013 Follow Up Appt 6 months Follow Up Appt 6 months [facility] Work Phone: Start: 11-18-2012 End: 11-18-2012 Follow Up Appt 6 months Follow Up Appt 6 months [facility] Work Phone: Start: 11-18-2012 End: 11-18-2012 MMM MMM [facility] Work Phone: Start: 11-18-2012 End: 11-18-2012 Follow Up Appt 6 months Follow Up Appt 6 months [facility] Work Phone: Start: 11-18-2012 End: 11-18-2012 MMM MMM [facility] Work Phone: Start: 09-28-2012 SHINGRIX VACCINE (2 of 3) KAHN GRIX VACCINE (2 of 3) [facility] Start: 11-26-2011 End: 11-27-2011 Ecg routine ecg w/least 12 lds w/i&r EKG (In office) [facility] Work Phone: Start: 11-26-2011 End: 11-18-2012 Follow Up Appt 1 year Follow Up Appt 1 year [facility] Work Phone: Start: 11-26-2011 End: 11-27-2011 Electrocardiogram, complete EKG (In office) [facility] Work Phone: Start: 11-26-2011 End: 11-18-2012 Follow Up Appt 1 year Follow Up Appt 1 year [facility] Work Phone: Start: 10-30-2011 End: 11-27-2011 *Hepatic Function Panel *Hepatic Function Panel [facility] Work Phone: Start: 10-30-2011 End: 11-27-2011 Lipid 1996 panel *Lipid Profile [facility] Work Phone: Start: 10-30-2011 End: 11-27-2011 *Hepatic Function Panel *Hepatic Function Panel [facility] Work Phone: Start: 10-30-2011 End: 11-27-2011 Lipid panel [AGGREGATE] *Lipid Profile [facility] Work Phone: Start: 2010 PNEUMOCOCCAL: 65+ (1 - PCV) PN EUMOCOCCAL: 65+ (1 - PCV) [facility] Start: 2010 PNEUMOVAX AGE 65 AND OVER WITH 5YR LOOKBACK (#1) PNEUMOVAX AGE 65 AND OVER WITH 5YR LOOKBACK (#1) [facility] Start: 2005 RSV Vaccine (1 - 1-d ose 60+ series) RSV Vaccine (1 - 1-dose 60+ series) [facility] Start: 02-28-1964 Urine microalbumin profile DTA P,TDAP,TD (1 - Tdap) [facility] Start: 1963 ANNUAL PCP TEAM HYGIENE COORDINATOR CARSON DISEASE VISIT ANNUAL PCP TEAM CHRONIC DISEASE VISIT [facility] Start: 1963 BP CONTROLLED (<130/80) BP CON TROLLED (<130/80) [facility] Start: 1963 HEPATITIS C SCREENING HEPATITIS C [facility] Start: 1963 Hepatitis C screening Hepatitis C [facility] Start: 1957 Adult depression [facility] assessment DEPRESSION SCREENING [facility] 24 hour urine measurement [facility] Albumin [Mass/volume ] in Urine Basic metabolic 2008 panel with ionized calcium - Serum or Plasma Electrophoresis: beta-globulin Electrophoresis: jeovany ma globulin Fluid sample globulin level Magnesium measurement [facility] Mitotic spindle appa ratus Ab [Titer] in Serum or Plasma Neuronal nuclear Ab [Presence] in Serum by Immunofluorescence Neutrophil cytoplasm ic Ab.classic [Units/volume] in Serum NM Heart Views W str ess and W radionuclide IV Nuclear Ab [Titer] i n Serum by Immunofluorescence P-ANCA measurement [facility] Patient Education [facility] Work Phone: Patient referral [facility] Work Phone: Protein [Mass/volume ] in Urine Serum YUMIKO pattern [facility] Speckled nuclear Ab pattern [Titer] in Serum Thyroid stimulating hormone measurement End: 06-26-2024 US Abdominal Aorta US ABD AORTA COMPLETE [facility] Vascular Lab Routine Carotid stenosis, asymptomatic, bilateral 1 Occurrences starting 06/26/2023 until 06/26/2024 [facility] Work Phone: Comment on above: 1 Occurrences starti ng 06/26/2023 until 06/26/2024 End: 06-26-2024 US Carotid arteries - bilateral US CAROTID ARTERIES [facility]ONY [facility] Vascular Lab Routine Carotid stenosis, asymptomatic, bilateral 1 Occurrences starting 06/26/2023 until 06/26/2024 [facility] Work Phone: Comment on above: 1 Occurrences starti ng 06/26/2023 until 06/26/2024 XR Abdomen upright a nd left lateral decubitus Work Phone: [facility] Immunizations Immunization Date Immunization Notes Care Provider Fa [facility] 09-28-2023 tetanus toxoid, redu lisset diphtheria toxoid, and acellular pertussis vaccine, adsorbed Armani Aguilar MD Work Phone: [facility] 08-18-2021 Covid (Moderna) Dr. Nolan cheema Work Phone: 03-08-2021 [place] (Moderna) Dr. Nolan cheema Work Phone: 02-05-2021 influenza virus vaccine, unspecified formulation Nolan Nguyen MD Work Phone: [facility] 02-08-[address] Nolan Nguyen Work Phone: 08-03-2012 zoster vaccine, live Jean-Pierre Can MD Work Phone: [facility] 01-10-[address] Alina Nguyen Work Phone: Work Phone: 01-10-2012 pneumococcal vaccine , unspecified formulation [facility] 02-08-2011 influenza virus vaccine, unspecified formulation Angelica Can MD Work Phone: [facility] Payers Date Payer Category Payer Self-pay [id number] 2017 Medicare AETNA MEDICARE A ETNA MEDICARE PPO [id number] 2017-Present [phone] [address] [place] [address] PPO [id number] 2017 Medicare AETNA MEDICARE A ETNA MEDICARE PPO [id number] 2017-Present [phone] [address] [place] [address] PPO [id number] 2017 Private Health Insurance [facility] [id number] 2014 Medicare [id number] 2006 Unknown [id number] Unknown [id number] 62 Unknown [id number] 62 Unknown [id number] 62 Unknown [id number] 62 Unknown [id number] 62 Unknown [id number] 62 Unknown [id number] 62 Social History Date Type Detail Facility Start: 02-11-2011 End: 03-13-2023 Tobacco smoking status NHIS Never smoked tobacco [facility] Start: 08-24-2020 End: 10-14-2023 Alcohol intake Current drinker of alcohol (finding) [facility] Start: 06-30-2011 History SDOH Alcohol Comment occasional seldom [facility] Start: 01-10-2020 History SDOH Financial 5 [facility] Start: 01-10-2020 History SDOH Food Worry 1 [facility] Start: 01-10-2020 History SDOH Transpo rt Med 2 [facility] Start: 1945 Sex Assigned At Male C [facility] Start: 09-20-2021 End: 03-13-2023 Tobacco smoking status VTIS Unknown if ever smoked Start: 02-23-2013 None [facility] Start: 02-23-2013 Spouse/ Signif icant Other;With Family Start: 02-23-2013 Non-smoker [facility] Start: 09-29-2021 End: 10-09-2021 Exposure to SARS-CoV-2 (event) Not sure [facility] Start: 02-11-2011 Tobacco use and exposure Smokeless tobacco non-user [facility] Start: 10-09-2021 End: 10-14-2023 History of Social function [facility] Work Phone: Start: 10-09-2021 End: 01-24-2025 Tobacco use panel [facility] Work Phone: How hard is it for y ou to pay for the very basics like food, housing, medical care, and heating Not hard at all [facility] Work Phone: (I/We) worried wheth er (my/our) food would run out before (I/we) got money to buy more. Never true [facility] Work Phone: Start: 11-19-2019 Gender identity Identifies as male gender (finding) [facility] Start: 11-19-2019 Sexual orientation Heterosexual (fin ding) [facility] Start: 08-11-2024 Sex Male (finding) Start: 01-24-2025 Tobacco smoking status Never s moked any substance (finding) [employer] Work Phone: Medical Equipment Procedure Code Equipment Code Equipment Origin al Text Equipment Identifier Dates Patch Cv 8x.8cm Tapr Vsgrd Bov - [id number] Start: 07-16-2011 Patch Bovine Pericardial Vascular Duravess 8x8 - [id number] Start: 01-09-2020 Goals Date Patient Goal Desired Activity /State Personal health goal Functional Status Date Assessment Result Facility 01-24-2025 Functional Status with [employer] Work Phone: 01-24-2025 dependent [employer] Work Phone: 03-13-2023 Functional status Ambulates [facility] Work Phone: 02-26-2023 Functional status Bathroom Privilege [facility] Work Phone: 09-22-2021 Functional status Dangle Feet [facility] Work Phone: Mental Status Date Assessment Result Facility 01-24-2025 Cognitive Function house [employer] Work Phone: 03-13-2023 Cognitive function Voice/Name [facility] Work Phone: 02-26-2023 Cognitive function Awake;Alert;Appropriat [facility] Work Phone: 09-21-2021 Cognitive function Appropriate;Cooperativ e Work Phone: 07-16-2021 Cognitive function Voice/Name [facility] Work Phone: 07-16-2021 Cognitive function Patient Rex fernandez Person;Place;Time Work Phone: Clinical Notes 09-03-2021 to 11-30-2024 Note Date & Type Note Facility 11-30-2024 Evaluation note Diagnosis Onset Date Resolution Bilateral carotid artery stenosis chronic November 30, 2024 8:53am Essential (primary) hypertension chronic November 30, 2024 8:53am Hyperlipidemia chronic November 30, 2024 8:53am Work Phone: 1(761) 845-813907-23-2025 Evaluation note* Diagnosis Onset Date Resolution Status Admit Date Dyspnea on exertion acute November 30, 2024 8:53am Bilateral carotid artery stenosis chronic November 30, 2024 8:53am Essential (primary) hypertension chronic November 30, 2024 8:53am Hyperlipidemia chronic November 30, 2024 8:53am Ventricular tachycardia suspected J joy 2024 8:53am Work Phone: 1(106) 669-543106-05-2024 NoteHNO ID: [id number] Author: ANGELICA CAN MD Service: ? Author Type: Physician Type: Progress Notes Filed: 10/14/2023 12:47 Note Text: [facility] [place] DEPARTMENT OF VASCULAR SURGERY OUTPATIENT VISIT DATE [...] kidney disease and he is followed by software tools build engineer with a recent GFR reported to be [...] OF Left Rotator Cuff, Dr. Ang @ [facility] RPR UMBILICAL HRNA 5 YRS/> REDUCIBLE [...] Swelling Angioedema Niacin Other: See Comments flushing Tikftbx-Jgu-Htd Red* Intolerance PHYSICAL EXAM: BP 136/72 Pulse [...] [place] DATE: October 14, 2023 TIME: 12:42 [facility]06-05-2024 History of Present illness Narrative* Angelica Can MD - 10/14/2023 12:32 PM EDT Images from the original note were not included. [facility] [place] DEPARTMENT OF VASCULAR SURGERY OUTPATIENT VISIT DATE [...] kidney disease and he is followed by software tools build engineer with a recent GFR reported to be [...] OF Left Rotator Cuff, Dr. Ang @ [facility] RPR UMBILICAL HRNA 5 YRS/> REDUCIBLE [...] Swelling Angioedema Niacin Other: See Comments flushing Wqqsyrp-Iwb-Pqw Red* Intolerance PHYSICAL EXAM: BP 136/72 Pulse [...] 2023 TIME: 12:42 PM documented in [facility] encounter[facility]05-29-2024 NoteHNO ID: [id number] Author: DANIELE DUGAN APRN.[facility] Service: ? Author Type: Nurse Practitioner Type: Progress Notes Filed: 10/07/2023 12:57 Note Text: Subjective Patient came in for suture removal. Patient had them placed 9 days ago. Patient was kept as normal. Patient denies any difficulty during the healing process. Patient says he might of lost a suture. The history is provided by the patient. No english as a second language teacher was used. Suture Removal Review of Systems [...] OF Left Rotator Cuff, Dr. Ang @ [facility] RPR UMBILICAL HRNA 5 YRS/> REDUCIBLE 12/01/11 ALLERGIES Eh Inhibitors, Niacin, and Bvxpzma-Xie-Iid Reductase Inhibitors MEDICATIONS torsemide (DEMADEX) 20 mg [...] Onset Stroke Father Stroke Paternal Grandfather other ([place]) Brother Stroke Brother other (carotid ASO) Brother [...] follow-up if anything new occurs. Daniele Dugan APRN.[facility]05-29-2024 History of Present illness Narrative* Daniele Dugan APRN.[facility] - 10/07/2023 12:50 PM EDT Images from the original note were not included. Subjective Patient came in for suture removal. Patient had them placed 9 days ago. Patient was kept as normal.Patient denies any difficulty during the healing process. Patient says he might of lost a suture. The history is provided by the patient. No english as a second language teacher was used. Suture Removal Review of Systems [...] OF Left Rotator Cuff, Dr. Ang @ [facility] RPR UMBILICAL HRNA 5 YRS/> REDUCIBLE 12/01/11 ALLERGIES Eh Inhibitors, Niacin, and Nvvzagg-Qyd-Hgo Reductase Inhibitors MEDICATIONS torsemide (DEMADEX) 20 mg [...] Onset Stroke Father Stroke Paternal Grandfather other ([place]) Brother Stroke Brother other (carotid ASO) Brother [...] occurs. Daniele Dugan APRN.[facility] documented in [facility] encounterD[facility]05-20-2024 NoteHNO ID: [id number] Author: ARMANI AGUILAR MD Service: ? Author [...] Swelling Angioedema Niacin Other: See Comments flushing Hloycip-Ygj-Dmy Red* Intolerance VITALS: BP 140/72 Pulse 60 [...] suture removal in 7-10 days. Armani Aguilar, [facility]05-20-2024 History of Present illness Narrative* Armani Aguilar [...] Swelling Angioedema Niacin Other: See Comments flushing Orxuyaq-Wlp-Jgx Red* Intolerance VITALS: BP 140/72 Pulse 60 [...] days. Armani Aguilar MD documented in this encounterD[facility] Center02-14-2024 Miscellaneous Notes* Telephone Encounter - Nguyen Marcum - 06/24/2023 3:18 PM EST Reason for call: Pt's spouse called and she would like to schedule his follow up appt with Dr Can. Please call Raul for scheduling. Contact name: Raul Monterroso Home and cell number: [phone] Diagnosis: Carotid stenosis, asymptomatic, bilateral Kind Regards, Nguyen Marcum documented in this encounterDiley [facility] Center11-03-2023 Procedure [facility]06-01-2022 History of Present illness Narrative* Angelica [...] years Angelica Can MD documented in this encounterD[facility] Center04-26-2022 Miscellaneous Notes* Telephone Encounter - Radha Zeng - 09/03/2021 2:10 PM EDT Spoke w/pt about updated appt time/date. He had questions about changes, messaged [facility] to reach out to him. Radha Segovia documented in this encounterDiley Ridge Medical CenterEvaluation note* Diagnosis Onset Date Resolution Status Personal history of colonic polyps acute Small intestine obstruction acute Essential (primary) hypertension chronic Type 2 diabetes mellitus chr [facility] Work Phone: Evaluation note* Diagnosis Onset [...] vascular disease, unspecified [facility] Diagnosis Onset Date Resolution Status Asthma [...] asymptomatic, bilateral- Primary documented in this encounter [facility] note* Diagnosis Laceration of right ring finger without foreign body without damage to nail, initial encounter- Primary documented in this encounter [facility] note* Diagnosis Visit for suture removal- Primary Encounter for removal of sutures documented in this encounter [facility] note* Diagnosis PAD (peripheral artery disease) ([facility])- Primary Peripheral vascular disease, unspecified Obesity, Class III, BMI 40-49.9 (morbid obesity) ([facility]) Morbid obesity Bilateral carotid artery stenosis Occlusion and stenosis of carotid artery without mention of cerebral infarction documented in this encounter [facility] note* Diagnosis Onset Date Resolution Status Admit Date Bilateral carotid artery stenosis chronic November 30, 2024 8:53am Essential (primary) hypertension chr onic November 30, 2024 8:53am Hyperlipidemia chronic November 30, 2024 8:53am [facility] Work Phone: [facility] Work Phone: Reason for referral (narrative)* Outpatient Procedure (Routine) - Authorized Specialty Diagnoses / Procedures Referred By Contac t [facility] Diagnoses Carotid stenosis, asymptomatic, bilateral Procedures US ABD AORTA COMPLETE VAS LAB DUP-SCAN AORTA IVC ILIAC VASCL/BPGS COMPLETE Angelica Can MD [address] [place] [address] [facility] [address] [place] [address] Referral ID Status Reason Start Date Expiration Date Visits Requested Visits Authorized [id number] Authorized Auto-Generat ed Referral 06/26/2023 06/25/2024 1 1 * Outpatient Procedure (Routine) - Authorized Specialty Diagnoses / Procedures Referred By Contac t Referred [facility] Diagnoses Carotid stenosis, asymptomatic, bilateral Procedures US CAROTID ARTERIES JHONY VAS LAB DUPLEX SCAN EXTRACRANIAL ART COMPL BI STUDY Angelica Can MD [address] [place] [address] 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 Advance Directive(s) 01/06/2020 12:36 PM Advance Directive(s) 01/03/2020 12:06 PM Advance Directive Response Recorded Date/ Time Name of Medical Power of Furnace Combination Analyst Estelle mix July 11, 2021 3:57pm Advance Directives Yes May 25, 2013 1:40am Living Will Yes September 20, 2021 5 :46am Power of Furnace Combination Analyst Yes September 20, 2021 5:46am Advance Directive Response Recorded Date/ Time Name of Medical Power of Furnace Combination Analyst Estelle mix July 11, 2021 3:57pm Advance Directives Yes May 25, 2013 1:40am Living Will Yes September 20, 2021 8 :55am Power of Furnace Combination Analyst Yes September 20, 2021 8:55am Advance Directive Response Recorded Date/ Time Name of Medical Power of Furnace Combination Analyst raul cox September 20, 2021 8:55am Advance Directives Yes May 25, 2013 1:40am Living Will Yes September 20, 2021 8 :55am Power of Furnace Combination Analyst Yes September 20, 2021 8:55am Advance Directive Response Recorded Date/ Time Advance Directives Yes May 25, 2013 12:40am Living Will Yes September 20, 2021 7 :55am Power of Furnace Combination Analyst Yes September 20, 2021 7:55am Advance Directive Response Recorded Date/ Time Advance Directives Yes May 25, 2013 1:40am Living Will Yes September 20, 2021 8 :55am Power of Furnace Combination Analyst Yes September 20, 2021 8:55am Advance Directive Response Recorded Date/ Time Advance Directives Yes May 25, 2013 1:40am Advance Directive Response Recorded Date/ Time Living Will Yes September 20, 2021 8 :55am Do you have a Healthcare Power of Furnace Combination Analyst? Yes September 20, 2021 8:55am Advance Directives [...] or prosecute any alcohol or drug abuse patient.[facility] CenterIn the event this information is protected by the Federal Confidentiality of Alcohol and Drug Abuse Patient Records regulations: The Federal rules restrict any use of the information to criminally investigate or prosecute any alcohol or drug abuse patient.[facility] CenterIn the event this information is protected by the Federal Confidentiality of Alcohol and Drug Abuse Patient Records regulations: The Federal rules restrict any use of the information to criminally investigate or prosecute any alcohol or drug abuse patient.[facility] CenterIn the event this information is protected by the Federal Confidentiality of Alcohol and Drug Abuse Patient Records regulations: The Federal rules restrict any use of the information to criminally investigate or prosecute any alcohol or drug abuse patient.[facility] CenterIn the event this information is protected by the Federal Confidentiality of Alcohol and Drug Abuse Patient Records regulations: The Federal rules restrict any use of the information to criminally investigate or prosecute any alcohol or drug abuse patient.[facility] CenterIn the event this information is protected by the Federal Confidentiality of Alcohol and Drug Abuse Patient Records regulations: The Federal rules restrict any use of the information to criminally investigate or prosecute any alcohol or drug abuse patient.[facility] CenterIn the event this information is protected by the Federal Confidentiality of Alcohol and Drug Abuse Patient Records regulations: The Federal rules restrict any use of the information to criminally investigate or prosecute any alcohol or drug abuse patient.[facility] Reason for Visit (unrecogniz ed section and content) left knee pain, New - 1st vi sit with practice Reason Comments Appointment Reason Comments Established Patient Reason Comments Laceration Right ring finger la ceration Reason Comments Suture Removal Right ring finger pl aced by us 9 days go Care Teams (unrecognized sec tion and content) 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 Relationship Specialty Start Date End Date Nolan Nguyen MD [address] [facility] [address] [place] [address] PCP - General Family Practice 08/28/17 Team [...] Other Provi kavita Active Brianna Abraham , TRANSIT SPECIALIST-C Attending Provider Active Team Status: Active Member [...] MD Primary Care Provider, Attending Provider Active 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 Nolan Nguyen MD Primary Care Provider Active Dr. Fady Anand MD Attending Provider Active Team Status: Active Member Role Status Dates Dr. 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 [facility] [employer] [facility]. provides no warranty or guarantee of the accuracy or completeness of information in this document.
[2025-02-23 13:09] LABS: Cholesterol 156 mg/dL (<=200); Low Density Lipoprotein Calc. 80 mg/dL; Triglycerides 204 mg/dL; Very Low Density Lipoprotein 41 mg/dL (5-40); cholesterol:hdl ratio screen 4.41
[2025-02-23 13:32] LABS: Anion Gap 9 (5-15); BUN 27 mg/dL (4-19); BUN/Creat Ratio 20.5 RATIO (10-20); Calcium,Total 9.2 mg/dL (7.6-11.0); Carbon Dioxide 24.2 mmol/L (21.0-32.0); Chloride 105 mmol/L (98-108); Glucose 112 mg/dL (70-99); Potassium 4.6 mmol/L (3.3-5.1)
== END | disposition home or self-care (01) ==
LOC: MFPLAB 11:09
PROVIDERS: PCP Family Medicine; Visit Provider Family Medicine
DX: E78.5 Hyperlipidemia, unspecified (principal)
CPT/HCPCS: 36415; 80048; 80061